=== PATIENT | female | born 1940 | race Caucasian/White ===

== ENCOUNTER → 2017-09-29 09:56 | Outpatient (CLI) | payer MEDICARE, SELFPAY ==
[2017-09-29 12:57] LABS: Thyroid Stim Hormone (TSH) 2.64 uIU/mL (0.358-3.74)
== END ==
PROVIDERS: Family Provider Family Medicine; PCP Family Medicine; Visit Provider Family Medicine
DX: E03.9 Hypothyroidism, unspecified (principal)
CPT/HCPCS: 36415; 84443

== ENCOUNTER → 2017-09-30 11:02 | Outpatient (CLI) | payer MEDICARE, SELFPAY ==
[2017-09-30 12:38] LABS: Absolute Lymphocyte Count 1.25 X10^3/ul (0.83-4.51); Absolute Neutrophil Count 5.6 X10^3/uL (2.0-7.7); Basophil# 0.01 X10^3/uL; Basophil% 0.1 % (0-1); Eosinophil# 0.15 X10^3/uL; Hematocrit 40.7 % (37-47); Hemoglobin 12.6 g/dl (12.0-15.0); Lymphocyte # 1.25 X10^3/ul (4.0); Lymphocyte % 16.3 % (19-41); Mean Corpuscular Hgb 30.6 pg (27.0-32.0); Mean Corpuscular Volume 98.8 fL (81-99); Mean Platelet Vol. 10.9 fl (6.2-12.0); Monocyte# 0.58 X10^3/uL; Monocyte% 7.6 % (0-10); Neutrophil # 5.64 X10^3/uL (2.7-7.7); Neutrophil % 73.7 % (47-70); Platelet Count 223 K/mm3 (150-450); RBC Distribution Width CV 14.3 % (11.6-14.6); RBC Distribution Width SD 51.1 fl (35.1-43.9); Red Blood Count 4.12 M/mm3 (4.2-5.4); White Blood Count 7.7 K/mm3 (4.4-11.0)
[2017-09-30 12:39] LABS: POSITIVE COUNT NO; POSITIVE DIFFERENTIAL NO; POSITIVE MORPHOLOGY NO
[2017-09-30 13:20] LABS: ALB/GLOB Ratio 0.7 RATIO (0.9-2.4); AST(SGOT) 27 U/L (15-37); Alanine Aminotransfer ALT/SGPT 24 U/L (13-56); Albumin, Serum 3.4 g/dL (3.2-5.0); Alkaline Phosphatase 93 U/L (45-117); Anion Gap 7 (5-15); BUN 21 mg/dL (7-18); BUN/Creat Ratio 17.9 RATIO (10-20); Chloride 104 mmol/L (98-107); Creatinine, Serum 1.17 mg/dL (0.55-1.02); EST Glomerular Filtration Rate 48 mL/min (>60); Est Glom Filt Rate - Afr Amer 58 mL/min (>60); Globulin 5.1 g/dL (2.2-4.2); Glucose 87 mg/dL (74-106); Potassium 4.5 mmol/L (3.5-5.1); Protein, Total 8.5 g/dL (6.4-8.2); Sodium Level 138 mmol/L (136-145); T4 Free Direct 1.27 ng/dL (0.76-1.46)
[2017-09-30 13:23] LABS: Vitamin D,25 Hydroxy 63.7 ng/mL (29.95-100.01)
== END ==
PROVIDERS: Family Provider Family Medicine; PCP Family Medicine; Visit Provider Family Medicine
DX: E03.9 Hypothyroidism, unspecified (principal); R94.4 Abnormal results of kidney function studies; E55.9 Vitamin D deficiency, unspecified; R73.09 Other abnormal glucose
CPT/HCPCS: 36415; 80053; 82306; 83036; 84439; 85025

== ENCOUNTER → 2018-01-23 10:07 | Outpatient (CLI) | payer MEDICARE, SELFPAY ==
[2018-01-23 11:41] LABS: Red Blood Cells-Urine 0 SEEN /hpf (0-5); White Blood Cells 0 SEEN /hpf (0-5)
[2018-01-23 14:03] LABS: Color, Urine Yellow (Yellow); Glucose, Dipstick Normal (Normal); Ketone-Dipstick Negative (Negative); Leukocyte Esterase-Dipstick Negative /ul (Negative); Nitrite-Dipstick Negative (Negative); Occult Blood-Urine Negative /ul (Negative); Protein-Dipstick Negative (Negative); Urine Bilirubin Dipstick Negative (Negative); Urine Clarity Clear (Clear); Urine Urobilinogen Normal (Normal)
[2018-01-23 14:10] LABS: Hematocrit 39.2 % (37-47); Hemoglobin 12.2 g/dl (12.0-15.0); Mean Corp Hgb Conc 31.1 g/gl (32-36); Mean Corpuscular Hgb 30.2 pg (27.0-32.0); Mean Platelet Vol. 11.2 fl (6.2-12.0); Platelet Count 206 K/mm3 (150-450); RBC Distribution Width CV 14.1 % (11.6-14.6); RBC Distribution Width SD 48.3 fl (35.1-43.9); Red Blood Count 4.04 M/mm3 (4.2-5.4); White Blood Count 6.5 K/mm3 (4.4-11.0)
[2018-01-23 14:13] LABS: Bacteria 1+ /hpf (None Seen); Scan Indicated on CBC? Y/N NO; Squamous Epithelial Cells - UA 5-10 SEEN /hpf (5-10)
[2018-01-23 14:32] LABS: ALB/GLOB Ratio 0.7 RATIO (0.9-2.4); AST(SGOT) 26 U/L (15-37); Alanine Aminotransfer ALT/SGPT 22 U/L (13-56); Albumin, Serum 3.5 g/dL (3.2-5.0); Alkaline Phosphatase 94 U/L (45-117); Anion Gap 6 (5-15); BUN 22 mg/dL (7-18); BUN/Creat Ratio 18.3 RATIO (10-20); Calcium,Total 9.1 mg/dL (8.5-10.1); Chloride 104 mmol/L (98-107); EST Glomerular Filtration Rate 46 mL/min (>60); Est Glom Filt Rate - Afr Amer 56 mL/min (>60); Glucose 98 mg/dL (74-106); Potassium 4.5 mmol/L (3.5-5.1); Protein, Total 8.5 g/dL (6.4-8.2); Sodium Level 137 mmol/L (136-145); Thyroid Stim Hormone (TSH) 1.22 uIU/mL (0.358-3.74)
[2018-01-23 14:37] LABS: Vitamin D,25 Hydroxy 49.2 ng/mL (29.95-100.01)
== END ==
PROVIDERS: Family Provider Family Medicine; PCP Family Medicine; Visit Provider Family Medicine
DX: N18.3 Chronic kidney disease, stage 3 (moderate) (principal); E03.9 Hypothyroidism, unspecified; E55.9 Vitamin D deficiency, unspecified
CPT/HCPCS: 80053; 81001; 82306; 84439; 84443; 85027

== ENCOUNTER → 2018-05-01 09:43 | Outpatient (CLI) | payer MEDICARE, SELFPAY ==
[2018-05-01 12:17] LABS: Absolute Lymphocyte Count 0.95 X10^3/ul (0.83-4.51); Basophil# 0.02 X10^3/uL; Basophil% 0.3 % (0-1); Eosinophil# 0.29 X10^3/uL; Hematocrit 39.7 % (37-47); Hemoglobin 12.5 g/dl (12.0-15.0); Lymphocyte # 0.95 X10^3/ul (4.0); Lymphocyte % 16.5 % (19-41); Mean Corp Hgb Conc 31.5 g/gl (32-36); Mean Corpuscular Hgb 30.6 pg (27.0-32.0); Mean Corpuscular Volume 97.3 fL (81-99); Mean Platelet Vol. 11.1 fl (6.2-12.0); Monocyte# 0.48 X10^3/uL; Monocyte% 8.3 % (0-10); Neutrophil # 4.01 X10^3/uL (2.7-7.7); Neutrophil % 69.7 % (47-70); Platelet Count 181 K/mm3 (150-450); RBC Distribution Width CV 14.3 % (11.6-14.6); RBC Distribution Width SD 49.2 fl (35.1-43.9); Red Blood Count 4.08 M/mm3 (4.2-5.4); White Blood Count 5.8 K/mm3 (4.4-11.0)
[2018-05-01 12:23] LABS: POSITIVE COUNT NO; POSITIVE DIFFERENTIAL NO; POSITIVE MORPHOLOGY NO
[2018-05-01 12:38] LABS: Phosphorus 3.3 mg/dL (2.5-4.9)
[2018-05-01 12:40] LABS: Vitamin D,25 Hydroxy 69.9 ng/mL (29.95-100.01)
[2018-05-01 12:46] LABS: Protein, Urine (Random) 10.6 mg/dL (<11.9); Protein:Creat Ratio 138 mg/g CRE (0-200)
[2018-05-01 13:09] LABS: PTHIN 49.5 pg/mL (18.4-80.1)
[2018-05-02 08:44] LABS: ALB/GLOB Ratio 0.8 RATIO (0.9-2.4); AST(SGOT) 27 U/L (15-37); Alanine Aminotransfer ALT/SGPT 23 U/L (13-56); Albumin, Serum 3.5 g/dL (3.2-5.0); Alkaline Phosphatase 87 U/L (45-117); Anion Gap 11 (5-15); BUN 20 mg/dL (7-18); BUN/Creat Ratio 14.5 RATIO (10-20); Calcium,Total 8.7 mg/dL (8.5-10.1); Chloride 103 mmol/L (98-107); Creatinine, Serum 1.38 mg/dL (0.55-1.02); EST Glomerular Filtration Rate 39 mL/min (>60); Est Glom Filt Rate - Afr Amer 48 mL/min (>60); Globulin 4.2 g/dL (2.2-4.2); Glucose 91 mg/dL (74-106); Potassium 4.3 mmol/L (3.5-5.1); Protein, Total 7.7 g/dL (6.4-8.2); Sodium Level 136 mmol/L (136-145); Thyroid Stim Hormone (TSH) 1.94 uIU/mL (0.358-3.74)
[2018-05-02 08:57] LABS: Hemoglobin A1c 5.9 % (4.2-6.3)
== END ==
PROVIDERS: Family Provider Family Medicine; PCP Family Medicine; Visit Provider Family Medicine
DX: N18.3 Chronic kidney disease, stage 3 (moderate) (principal); E55.9 Vitamin D deficiency, unspecified; E03.9 Hypothyroidism, unspecified; R73.02 Impaired glucose tolerance (oral)
CPT/HCPCS: 36415; 80053; 82306; 82570; 83036; 83970; 84100; 84156; 84443; 85025

== ENCOUNTER → 2018-06-07 11:07 | Outpatient (CLI) | payer MEDICARE, SELFPAY | PROVIDERS: Family Provider Family Medicine; PCP Family Medicine; Visit Provider Family Medicine | DX: R19.7 Diarrhea, unspecified (principal) | CPT/HCPCS: 87493; 87506 ==

== ENCOUNTER → 2019-01-03 10:00 | Outpatient (CLI) | payer MEDICARE, SELFPAY ==
[2019-01-03 10:06] LABS: Mucous, Urine 0 SEEN /hpf (<or=2+); Red Blood Cells-Urine 0 SEEN /hpf (0-5)
[2019-01-03 12:36] LABS: Absolute Lymphocyte Count 0.87 X10^3/ul (0.83-4.51); Basophil# 0.01 X10^3/uL; Basophil% 0.2 % (0-1); Eosinophil# 0.15 X10^3/uL; Eosinophils% 2.6 % (0-5); Hematocrit 37.8 % (37-47); Hemoglobin 12.4 g/dl (12.0-15.0); Lymphocyte # 0.87 X10^3/ul (4.0); Mean Corp Hgb Conc 32.8 g/gl (32-36); Mean Corpuscular Hgb 31.6 pg (27.0-32.0); Mean Corpuscular Volume 96.4 fL (81-99); Mean Platelet Vol. 10.5 fl (6.2-12.0); Monocyte# 0.72 X10^3/uL; Monocyte% 12.4 % (0-10); Neutrophil # 4.03 X10^3/uL (2.7-7.7); Neutrophil % 69.6 % (47-70); Platelet Count 195 K/mm3 (150-450); RBC Distribution Width CV 13.8 % (11.6-14.6); RBC Distribution Width SD 48.2 fl (35.1-43.9); Red Blood Count 3.92 M/mm3 (4.2-5.4); White Blood Count 5.8 K/mm3 (4.4-11.0)
[2019-01-03 12:44] LABS: POSITIVE COUNT NO; POSITIVE DIFFERENTIAL NO; POSITIVE MORPHOLOGY NO
[2019-01-03 12:52] LABS: Vitamin D,25 Hydroxy 51.3 ng/mL (29.95-100.01)
[2019-01-03 12:54] LABS: ALB/GLOB Ratio 0.8 RATIO (0.9-2.4); AST(SGOT) 33 U/L (15-37); Alanine Aminotransfer ALT/SGPT 30 U/L (13-56); Albumin, Serum 3.3 g/dL (3.2-5.0); Alkaline Phosphatase 102 U/L (45-117); Anion Gap 7 (5-15); BUN 13 mg/dL (7-18); BUN/Creat Ratio 10.7 RATIO (10-20); Calcium,Total 8.9 mg/dL (8.5-10.1); Chloride 100 mmol/L (98-107); Creatinine, Serum 1.21 mg/dL (0.55-1.02); EST Glomerular Filtration Rate 46 mL/min (>60); Est Glom Filt Rate - Afr Amer 55 mL/min (>60); Globulin 4.1 g/dL (2.2-4.2); Glucose 91 mg/dL (74-106); Potassium 4.6 mmol/L (3.5-5.1); Protein, Total 7.4 g/dL (6.4-8.2); Sodium Level 133 mmol/L (136-145); Thyroid Stim Hormone (TSH) 2.18 uIU/mL (0.358-3.74)
[2019-01-03 15:29] LABS: Color, Urine Yellow (Yellow); Glucose, Dipstick Normal (Normal); Ketone-Dipstick Negative (Negative); Leukocyte Esterase-Dipstick 500 /ul (Negative); Nitrite-Dipstick Negative (Negative); Occult Blood-Urine Negative /ul (Negative); Protein-Dipstick Negative (Negative); Urine Bilirubin Dipstick Negative (Negative); Urine Clarity Clear (Clear); Urine Urobilinogen Normal (Normal)
[2019-01-03 15:37] LABS: Bacteria 2+ /hpf (None Seen); Squamous Epithelial Cells - UA 5-10 SEEN /hpf (5-10); White Blood Cells 5-10 SEEN /hpf (0-5)
[2019-01-03 15:50] LABS: Protein, Urine (Random) < 6.0 mg/dL (<11.9)
[2019-01-05 14:08] LABS: Cytoplasmic Ab (C-ANCA) 1:40 titer (Neg:<1:20)
[2019-01-07 14:12] LABS: Perinuclear Ab (P-ANCA) <1:20 titer (Neg:<1:20)
[2019-01-08 12:50] LABS: ANTINUCLEAR ANTIBODIES DIRECT Positive (Negative)
== END ==
PROVIDERS: Family Provider Family Medicine; PCP Family Medicine; Visit Provider Family Medicine
DX: N18.3 Chronic kidney disease, stage 3 (moderate) (principal); R21 Rash and other nonspecific skin eruption; R73.02 Impaired glucose tolerance (oral); E03.9 Hypothyroidism, unspecified; E55.9 Vitamin D deficiency, unspecified
CPT/HCPCS: 80053; 81001; 82306; 82570; 83036; 84156; 84443; 85025; 86038; 86160; 86256

== ENCOUNTER → 2019-01-09 14:46 | Outpatient (CLI) | payer MEDICARE, SELFPAY ==
[2019-01-12 11:33] LABS: ANTINUCLEAR ANTIBODIES DIRECT Positive (Negative)
== END ==
PROVIDERS: Family Provider Family Medicine; PCP Family Medicine; Referring Provider Family Medicine; Visit Provider Dermatology Pediatric Dermatology
DX: L30.9 Dermatitis, unspecified (principal); L29.8 Other pruritus
CPT/HCPCS: 36415; 86038

== ENCOUNTER → 2019-02-02 11:01 | Outpatient (CLI) | payer MEDICARE, SELFPAY ==
[2019-02-02 12:19] LABS: EXAGEN MAILED SPECIMEN
[2019-02-02 12:25] LABS: Color, Urine Yellow (Yellow); Glucose, Dipstick Normal (Normal); Ketone-Dipstick Negative (Negative); Leukocyte Esterase-Dipstick 500 /ul (Negative); Nitrite-Dipstick Negative (Negative); Occult Blood-Urine 10 /ul (Negative); Protein-Dipstick Negative (Negative); Urine Bilirubin Dipstick Negative (Negative); Urine Clarity Clear (Clear); Urine Urobilinogen Normal (Normal)
[2019-02-02 12:33] LABS: Erythrocyte Sedimentation Rate 43 mm/hr (0-30)
[2019-02-02 12:35] LABS: Absolute Lymphocyte Count 0.92 X10^3/uL (0.83-4.51); Absolute Neutrophil Count 4.3 X10^3/uL (2.0-7.7); Basophil# 0.02 X10^3/uL; Basophil% 0.3 % (0-1); Eosinophil# 0.12 X10^3/uL; Lymphocyte # 0.92 X10^3/ul (4.0); Lymphocyte % 15.4 % (19-41); Mean Corp Hgb Conc 31.7 g/dL (32-36); Mean Corpuscular Hgb 31.9 pg (27.0-32.0); Mean Corpuscular Volume 100.5 fL (81-99); Mean Platelet Vol. 10.3 fl (6.2-12.0); Monocyte# 0.61 X10^3/uL; Monocyte% 10.2 % (0-10); NRBC Flagged by Analyzer 0 % (0-5); Neutrophil # 4.28 X10^3/uL (2.7-7.7); Neutrophil % 71.8 % (47-70); Platelet Count 168 K/mm3 (150-450); RBC Distribution Width CV 13.6 % (11.6-14.6); RBC Distribution Width SD 50.4 fl (35.1-43.9); Red Blood Count 4.08 M/mm3 (4.2-5.4)
[2019-02-02 12:47] LABS: Protein, Urine (Random) 13.5 mg/dL (<11.9); Protein:Creat Ratio 232 mg/g CRE (0-200)
[2019-02-02 12:50] LABS: ALB/GLOB Ratio 0.8 RATIO (0.9-2.4); AST(SGOT) 27 U/L (15-37); Alanine Aminotransfer ALT/SGPT 23 U/L (13-56); Albumin, Serum 3.6 g/dL (3.2-5.0); Alkaline Phosphatase 103 U/L (45-117); Anion Gap 5 (5-15); BUN 18 mg/dL (7-18); BUN/Creat Ratio 13.4 RATIO (10-20); CRP < 2.90 mg/L (0.0-3.0); Calcium,Total 9.7 mg/dL (8.5-10.1); Chloride 104 mmol/L (98-107); Creatinine, Serum 1.34 mg/dL (0.55-1.02); EST Glomerular Filtration Rate 41 mL/min (>60); Est Glom Filt Rate - Afr Amer 49 mL/min (>60); Globulin 4.5 g/dL (2.2-4.2); Glucose 102 mg/dL (74-106); Potassium 4.4 mmol/L (3.5-5.1); Protein, Total 8.1 g/dL (6.4-8.2); Sodium Level 138 mmol/L (136-145)
[2019-02-02 13:46] LABS: Hepatitis B Surface Antibody Non-Reactive; Hepatitis B Surface Antigen Non-Reactive (Nonreactive); Hepatitis C Antibody Non-Reactive (Nonreactive)
[2019-02-03 10:06] LABS: Hepatitis B Core AB IgM Negative (Negative)
== END ==
PROVIDERS: Family Provider Family Medicine; PCP Family Medicine; Referring Provider Family Medicine; Visit Provider Internal Medicine Rheumatology
DX: M32.9 Systemic lupus erythematosus, unspecified (principal); E03.9 Hypothyroidism, unspecified; H35.30 Unspecified macular degeneration; M17.11 Unilateral primary osteoarthritis, right knee
CPT/HCPCS: 36415; 80053; 81002; 82570; 84156; 85025; 85652; 86140; 86705; 86706; 86803; 87340

== ENCOUNTER → 2019-04-25 09:23 | Outpatient (CLI) | payer MEDICARE, SELFPAY ==
--- NOTE | 2019-04-25 09:34 | BD_ITS ---
STUDY: DUAL ENERGY X-RAY ABSORPTIOMETRY / DXA REASON FOR EXAM: Female, 78 years old. The patient is postmenopausal. Loss of height. TECHNIQUE: Bone Mineral Density (BMD) measurements of lumbar spine and bilateral hips were obtained. COMPARISON: None. FINDINGS: Lumbar Spine (L1-L4): g/cm2 (1.480) / T-score (2.6) / Z-score (4.5) Findings are suggestive of normal bone density with a low fracture risk. Left Femur Total: g/cm2 (1.062) / T-score (0.4) / Z-score (2.4) Left Femoral Neck: g/cm2 (1.068) / T-score (0.2) / Z-score (2.3) Right Femur Total: g/cm2 (0.981) / T-score (-0.2) / Z-score (1.8) Right Femoral Neck: g/cm2 (1.031) / T-score (-0.1) / Z-score (2.1) BD/Dexa Bone Density Study IMPRESSION: The patient is considered normal as outlined below according to World Philipp Organization (WHO) criteria with a low fracture risk. Reference Information: The T-score is the number of standard deviations above or below the standard which is normal for young adults at their peak bone mineral density. The World Health Organization (WHO) interprets the T-scores as follows: Above -1 Normal bone density Between -1 and -2.5 Osteopenia Equal to / or below -2.5 Osteoporosis As a practical clinical guideline, osteopenia may be graded as follows: Mild -1 through -1.5 Moderate -1.6 through -2.0 Severe -2.1 through -2.4 The Z-score is the number of standard deviations above or below age-matched controls. A Z-score of less than -1.5 would be considered abnormal. References: 1. NIH Osteoporosis and Related Bone Diseases http://www.osteo.org 2. International Society for Clinical Densitometry http://www.iscd.org 3. National Osteoporosis Foundation http://www.nof.org Electronically Signed: Balaji Sifuentes, at 13:27 EDT , Service support ,
== END ==
PROVIDERS: Family Provider Family Medicine; PCP Family Medicine; Referring Provider Family Medicine; Visit Provider Family Medicine
DX: Z78.0 Asymptomatic menopausal state (principal); Z13.820 Encounter for screening for osteoporosis
CPT/HCPCS: 77080

== ENCOUNTER → 2019-05-07 10:47 | Outpatient (CLI) | payer MEDICARE, SELFPAY ==
[2019-05-07 12:33] LABS: Absolute Lymphocyte Count 1.12 X10^3/uL (0.83-4.51); Absolute Neutrophil Count 3.8 X10^3/uL (2.0-7.7); Basophil# 0.03 X10^3/uL; Basophil% 0.5 % (0-1); Eosinophil# 0.18 X10^3/uL; Eosinophils% 3.1 % (0-5); Hematocrit 37.3 % (37-47); Hemoglobin 11.6 g/dL (12.0-15.0); Lymphocyte # 1.12 X10^3/ul (4.0); Lymphocyte % 19.4 % (19-41); Mean Corp Hgb Conc 31.1 g/dL (32-36); Mean Corpuscular Hgb 31.4 pg (27.0-32.0); Mean Corpuscular Volume 101.1 fL (81-99); Mean Platelet Vol. 10.6 fl (6.2-12.0); Monocyte# 0.66 X10^3/uL; Monocyte% 11.5 % (0-10); NRBC Flagged by Analyzer 0 % (0-5); Neutrophil # 3.76 X10^3/uL (2.7-7.7); Neutrophil % 65.3 % (47-70); Platelet Count 175 K/mm3 (150-450); RBC Distribution Width CV 13.8 % (11.6-14.6); RBC Distribution Width SD 51.4 fl (35.1-43.9); Red Blood Count 3.69 M/mm3 (4.2-5.4); White Blood Count 5.8 K/mm3 (4.4-11.0)
[2019-05-07 12:34] LABS: Color, Urine Yellow (Yellow); Glucose, Dipstick Normal (Normal); Ketone-Dipstick Negative (Negative); Leukocyte Esterase-Dipstick 100 /ul (Negative); Nitrite-Dipstick Negative (Negative); Occult Blood-Urine Negative /ul (Negative); Protein-Dipstick 15 mg/dl (Negative); Specific Gravity, Urine 1.015 (1.002-1.030); Urine Bilirubin Dipstick Negative (Negative); Urine Clarity Sl. Cloudy (Clear); Urine Urobilinogen Normal (Normal)
[2019-05-07 12:49] LABS: Protein:Creat Ratio 214 mg/g CRE (0-200)
[2019-05-07 12:56] LABS: ALB/GLOB Ratio 0.8 RATIO (0.9-2.4); AST(SGOT) 30 U/L (15-37); Alanine Aminotransfer ALT/SGPT 19 U/L (13-56); Albumin, Serum 3.3 g/dL (3.2-5.0); Alkaline Phosphatase 71 U/L (45-117); Anion Gap 6 (5-15); BUN 17 mg/dL (7-18); BUN/Creat Ratio 10.7 RATIO (10-20); Chloride 106 mmol/L (98-107); Creatinine, Serum 1.59 mg/dL (0.55-1.02); EST Glomerular Filtration Rate 33 mL/min (>60); Est Glom Filt Rate - Afr Amer 40 mL/min (>60); Globulin 4.2 g/dL (2.2-4.2); Glucose 84 mg/dL (74-106); Potassium 4.5 mmol/L (3.5-5.1); Protein, Total 7.5 g/dL (6.4-8.2); Sodium Level 139 mmol/L (136-145)
== END ==
PROVIDERS: Family Provider Family Medicine; PCP Family Medicine; Referring Provider Family Medicine; Visit Provider Internal Medicine Rheumatology
DX: M32.9 Systemic lupus erythematosus, unspecified (principal); E03.9 Hypothyroidism, unspecified; R76.8 Other specified abnormal immunological findings in serum; H35.30 Unspecified macular degeneration; M17.11 Unilateral primary osteoarthritis, right knee; Z85.3 Personal history of malignant neoplasm of breast; Z92.3 Personal history of irradiation
CPT/HCPCS: 36415; 80053; 81002; 82570; 84156; 85025

== ENCOUNTER → 2019-06-01 11:00 | Outpatient (CLI) | payer MEDICARE, SELFPAY ==
[2019-06-01 12:11] LABS: Absolute Lymphocyte Count 1.16 X10^3/uL (0.83-4.51); Absolute Neutrophil Count 3.9 X10^3/uL (2.0-7.7); Basophil# 0.04 X10^3/uL; Basophil% 0.7 % (0-1); Eosinophil# 0.21 X10^3/uL; Eosinophils% 3.5 % (0-5); Hematocrit 38.2 % (37-47); Hemoglobin 12.1 g/dL (12.0-15.0); Lymphocyte # 1.16 X10^3/ul (4.0); Lymphocyte % 19.6 % (19-41); Mean Corp Hgb Conc 31.7 g/dL (32-36); Mean Corpuscular Hgb 31.8 pg (27.0-32.0); Mean Corpuscular Volume 100.5 fL (81-99); Mean Platelet Vol. 10.4 fl (6.2-12.0); Monocyte% 10.1 % (0-10); NRBC Flagged by Analyzer 0 % (0-5); Neutrophil % 65.9 % (47-70); Platelet Count 181 K/mm3 (150-450); RBC Distribution Width CV 14.4 % (11.6-14.6); RBC Distribution Width SD 53.1 fl (35.1-43.9); White Blood Count 5.9 K/mm3 (4.4-11.0)
[2019-06-01 12:31] LABS: Hemoglobin A1c 5.4 % (4.2-6.3)
[2019-06-01 12:42] LABS: PTHIN 56.9 pg/mL (18.4-80.1); Vitamin D,25 Hydroxy 48.7 ng/mL (29.95-100.01)
[2019-06-01 12:43] LABS: ALB/GLOB Ratio 0.9 RATIO (0.9-2.4); AST(SGOT) 25 U/L (15-37); Alanine Aminotransfer ALT/SGPT 18 U/L (13-56); Albumin, Serum 3.6 g/dL (3.2-5.0); Alkaline Phosphatase 69 U/L (45-117); Anion Gap 7 (5-15); BUN 18 mg/dL (7-18); BUN/Creat Ratio 11.5 RATIO (10-20); Chloride 106 mmol/L (98-107); Creatinine, Serum 1.56 mg/dL (0.55-1.02); EST Glomerular Filtration Rate 34 mL/min (>60); Est Glom Filt Rate - Afr Amer 41 mL/min (>60); Globulin 4.2 g/dL (2.2-4.2); Glucose 85 mg/dL (74-106); Phosphorus 2.6 mg/dL (2.5-4.9); Potassium 4.4 mmol/L (3.5-5.1); Protein, Total 7.8 g/dL (6.4-8.2); Sodium Level 139 mmol/L (136-145); Thyroid Stim Hormone (TSH) 5.32 uIU/mL (0.358-3.74)
== END ==
PROVIDERS: Family Provider Family Medicine; PCP Family Medicine; Referring Provider Family Medicine; Visit Provider Family Medicine
DX: N18.3 Chronic kidney disease, stage 3 (moderate) (principal); E03.9 Hypothyroidism, unspecified; R73.02 Impaired glucose tolerance (oral); E55.9 Vitamin D deficiency, unspecified
CPT/HCPCS: 36415; 80053; 82306; 83036; 83970; 84100; 84443; 85025

== ENCOUNTER → 2019-08-30 13:46 | Outpatient (CLI) | payer MEDICARE, SELFPAY ==
[2019-08-30 16:23] LABS: Albumin, Serum 3.5 g/dL (3.2-5.0); BUN 22 mg/dL (7-18); BUN/Creat Ratio 14.5 RATIO (10-20); Calcium,Total 9.5 mg/dL (8.5-10.1); Chloride 105 mmol/L (98-107); Creatinine, Serum 1.52 mg/dL (0.55-1.02); EST Glomerular Filtration Rate 35 mL/min (>60); Est Glom Filt Rate - Afr Amer 42 mL/min (>60); Glucose 85 mg/dL (74-106); Phosphorus 3.5 mg/dL (2.5-4.9); Potassium 4.6 mmol/L (3.5-5.1); Sodium Level 137 mmol/L (136-145)
[2019-08-30 16:43] LABS: Microalbumin,Random Urine < 5.0 mg/L (NO RANGE EST.)
== END ==
PROVIDERS: PCP Family Medicine; Visit Provider Internal Medicine Nephrology
DX: N18.3 Chronic kidney disease, stage 3 (moderate) (principal); M32.9 Systemic lupus erythematosus, unspecified
CPT/HCPCS: 36415; 80069; 82043; 82570

== ENCOUNTER → 2019-10-03 10:22 | Outpatient (CLI) | payer MEDICARE, SELFPAY ==
[2019-10-03 12:10] LABS: Absolute Lymphocyte Count 1.09 X10^3/uL (0.83-4.51); Basophil# 0.04 X10^3/uL; Basophil% 0.6 % (0-1); Eosinophil# 0.27 X10^3/uL; Eosinophils% 3.9 % (0-5); Hematocrit 39.8 % (37-47); Hemoglobin 12.7 g/dL (12.0-15.0); Lymphocyte # 1.09 X10^3/ul (4.0); Lymphocyte % 15.6 % (19-41); Mean Corp Hgb Conc 31.9 g/dL (32-36); Mean Corpuscular Hgb 32.5 pg (27.0-32.0); Mean Corpuscular Volume 101.8 fL (81-99); Mean Platelet Vol. 10.4 fl (6.2-12.0); Monocyte# 0.59 X10^3/uL; Monocyte% 8.4 % (0-10); NRBC Flagged by Analyzer 0 % (0-5); Neutrophil # 4.98 X10^3/uL (2.7-7.7); Neutrophil % 71.1 % (47-70); Platelet Count 189 K/mm3 (150-450); Protein:Creat Ratio 339 mg/g CRE (0-200); RBC Distribution Width CV 12.9 % (11.6-14.6); RBC Distribution Width SD 48.1 fl (35.1-43.9); Red Blood Count 3.91 M/mm3 (4.2-5.4)
[2019-10-03 12:23] LABS: Vitamin D,25 Hydroxy 46.7 ng/mL
[2019-10-03 12:28] LABS: Hemoglobin A1c 5.2 % (4.2-6.3)
[2019-10-03 12:34] LABS: ALB/GLOB Ratio 0.9 RATIO (0.9-2.4); AST(SGOT) 25 U/L (15-37); Alanine Aminotransfer ALT/SGPT 19 U/L (13-56); Albumin, Serum 3.8 g/dL (3.2-5.0); Alkaline Phosphatase 79 U/L (45-117); Anion Gap 5 (5-15); BUN 21 mg/dL (7-18); BUN/Creat Ratio 14.1 RATIO (10-20); Calcium,Total 9.9 mg/dL (8.5-10.1); Chloride 102 mmol/L (98-107); Creatinine, Serum 1.49 mg/dL (0.55-1.02); EST Glomerular Filtration Rate 36 mL/min (>60); Est Glom Filt Rate - Afr Amer 43 mL/min (>60); Globulin 4.3 g/dL (2.2-4.2); Glucose 90 mg/dL (74-106); Phosphorus 3.6 mg/dL (2.5-4.9); Potassium 4.4 mmol/L (3.5-5.1); Protein, Total 8.1 g/dL (6.4-8.2); Sodium Level 134 mmol/L (136-145); T4 Free Direct 1.05 ng/dL (0.76-1.46); Thyroid Stim Hormone (TSH) 2.28 uIU/mL (0.358-3.74)
[2019-10-03 14:17] LABS: PTHIN 38.9 pg/mL (18.4-80.1)
== END ==
PROVIDERS: PCP Family Medicine; Referring Provider Family Medicine; Visit Provider Family Medicine
DX: N18.3 Chronic kidney disease, stage 3 (moderate) (principal); R73.02 Impaired glucose tolerance (oral); E03.9 Hypothyroidism, unspecified; E55.9 Vitamin D deficiency, unspecified
CPT/HCPCS: 36415; 80053; 82306; 82570; 83036; 83970; 84100; 84156; 84439; 84443; 85025

== ENCOUNTER → 2019-10-22 13:42 | Outpatient (CLI) | payer MEDICARE, SELFPAY ==
[2019-10-22 15:03] LABS: Absolute Lymphocyte Count 1.56 X10^3/uL (0.83-4.51); Absolute Neutrophil Count 4.1 X10^3/uL (2.0-7.7); Basophil# 0.04 X10^3/uL; Basophil% 0.6 % (0-1); Eosinophils% 1.5 % (0-5); Hematocrit 38.6 % (37-47); Hemoglobin 12.4 g/dL (12.0-15.0); Lymphocyte # 1.56 X10^3/ul (4.0); Lymphocyte % 23.8 % (19-41); Mean Corp Hgb Conc 32.1 g/dL (32-36); Mean Corpuscular Hgb 32.3 pg (27.0-32.0); Mean Corpuscular Volume 100.5 fL (81-99); Mean Platelet Vol. 10.2 fl (6.2-12.0); Monocyte% 10.7 % (0-10); NRBC Flagged by Analyzer 0 % (0-5); Neutrophil # 4.14 X10^3/uL (2.7-7.7); Neutrophil % 63.1 % (47-70); Platelet Count 186 K/mm3 (150-450); RBC Distribution Width CV 12.7 % (11.6-14.6); RBC Distribution Width SD 47.3 fl (35.1-43.9); Red Blood Count 3.84 M/mm3 (4.2-5.4); White Blood Count 6.6 K/mm3 (4.4-11.0)
[2019-10-22 15:37] LABS: ALB/GLOB Ratio 0.9 RATIO (0.9-2.4); AST(SGOT) 27 U/L (15-37); Alanine Aminotransfer ALT/SGPT 19 U/L (13-56); Albumin, Serum 3.7 g/dL (3.2-5.0); Alkaline Phosphatase 87 U/L (45-117); Anion Gap 7 (5-15); BUN 17 mg/dL (7-18); BUN/Creat Ratio 12.1 RATIO (10-20); Calcium,Total 9.3 mg/dL (8.5-10.1); Chloride 100 mmol/L (98-107); EST Glomerular Filtration Rate 39 mL/min (>60); Est Glom Filt Rate - Afr Amer 47 mL/min (>60); Globulin 4.2 g/dL (2.2-4.2); Glucose 89 mg/dL (74-106); Potassium 4.6 mmol/L (3.5-5.1); Protein, Total 7.9 g/dL (6.4-8.2); Sodium Level 133 mmol/L (136-145)
== END ==
PROVIDERS: PCP Family Medicine; Referring Provider Internal Medicine Rheumatology; Visit Provider Internal Medicine Rheumatology
DX: M32.9 Systemic lupus erythematosus, unspecified (principal); R76.8 Other specified abnormal immunological findings in serum; E03.9 Hypothyroidism, unspecified; H35.30 Unspecified macular degeneration; M17.11 Unilateral primary osteoarthritis, right knee; Z85.3 Personal history of malignant neoplasm of breast
CPT/HCPCS: 36415; 80053; 85025

== ENCOUNTER → 2019-11-27 09:06 | Outpatient (CLI) | payer MEDICARE, SELFPAY ==
[2019-11-27 09:40] LABS: Albumin, Serum 3.6 g/dL (3.2-5.0); BUN 17 mg/dL (7-18); BUN/Creat Ratio 11.9 RATIO (10-20); Chloride 99 mmol/L (98-107); Creatinine, Serum 1.43 mg/dL (0.55-1.02); EST Glomerular Filtration Rate 38 mL/min (>60); Est Glom Filt Rate - Afr Amer 45 mL/min (>60); Glucose 92 mg/dL (74-106); Phosphorus 3.3 mg/dL (2.5-4.9); Potassium 4.6 mmol/L (3.5-5.1); Sodium Level 134 mmol/L (136-145)
== END ==
LOC: LAB.FUTURE 09:07 → LAB 09:07
PROVIDERS: PCP Family Medicine; Visit Provider Internal Medicine Nephrology
DX: N18.3 Chronic kidney disease, stage 3 (moderate) (principal)
CPT/HCPCS: 36415; 80069

== ENCOUNTER 2020-01-10 12:31 | Observation (INO) | payer MEDICARE, SELFPAY ==
[2020-01-10] VITALS (8 sets, daily range): BP systolic 112–149; BP diastolic 50–76; PULSE 55–78; RESP 16–19; TEMP 36.6–37.1; O2SAT 95–100; BMI 29.0; BMI 29.1; BMI 29.7
--- NOTE | 2020-01-10 13:06 | CT_ITS ---
STUDY: CT BRAIN WITHOUT CONTRAST REASON FOR EXAM: Female, 79 years old. HEAD INJURY, FALL 3 X LAST TWO DAYS, DIZZINESS RADIATION DOSAGE (If Supplied By Facility): CTDIvol = ( 60.81 ) mGy, DLP = ( 1044.28 ) mGycm TECHNIQUE: Transaxial CT imaging of the brain was performed without administration of intravenous contrast material. Individualized dose optimization techniques were used for this CT. COMPARISON: No relevant priors. FINDINGS: Normal soft tissue structures. There is hyperostosis frontalis internus. There is mild cerebral atrophy with widening of the extra-axial spaces and ventricular dilatation. There are areas of decreased attenuation within the white matter tracts of the supratentorial brain, consistent with microvascular disease changes. Normal basal ganglia and thalami. Normal brainstem. Normal cerebellum. There is no intracranial hemorrhage. There are no findings of an acute ischemic infarction. Atherosclerotic calcification of the cavernous portions of the internal carotid arteries bilaterally. Normal visualized paranasal sinuses. CT/Brain/Head without Contrast IMPRESSION: Chronic involutional changes of the brain. Electronically Signed: Balaji Sifuentes, at 13:43 EDT , Service support ,
--- NOTE | 2020-01-10 13:06 | EKG12_ITS ---
Test Reason : Blood Pressure : / mmHG Vent. Rate : 058 BPM Atrial Rate : 058 BPM P-R Int : 196 ms QRS Dur : 140 ms QT Int : 450 ms P-R-T Axes : 003 228 034 degrees QTc Int : 441 ms Sinus bradycardia Right bundle branch block Abnormal ECG Confirmed by MICHAEL JO, KATHY ([id number]), pictures editor NATHAN DESIR ([id number]) on 01/14/2020 10:59:45 AM Referred By: VIRGIL Confirmed By:KATHY RODRIGUEZ MD
--- NOTE | 2020-01-10 13:08 | CT_ITS ---
STUDY: CT LUMBAR SPINE WITHOUT CONTRAST REASON FOR EXAM: Female, 79 years old. FALL 3 X IN TWO DAYS, SEVERE PAIN SINCE FALL LAST NIGHT LOWER BACK, NO HX OF PRIOR BACK INJURY RADIATION DOSAGE (If Supplied By Facility): CTDIvol = ( 30 ) mGy, DLP = ( 982.14 ) mGycm TECHNIQUE: The patient was scanned in a multi detector CT scanner. High resolution transaxial imaging was performed. Images were obtained from T12 to S1 vertebral level.. Sagittal and coronal images were reconstructed. Individualized dose optimization techniques were used for this CT. COMPARISON: None FINDINGS: Normal lumbar lordosis. There is no substantial scoliosis. Mild degree of increased markings at the right lung base suggestive of atelectasis. Nondisplaced compression fracture of the L1 vertebrae more prominent on the left side of the midline. L1-2: Mild degree of disc space narrowing. Facet joint osteoarthritis and hypertrophy. Spondylosis. L2-3: Moderate degree of disc space narrowing. Spondylosis. Facet joint osteoarthritis and hypertrophy. Mild degree of diffuse posterior disc bulge. Moderate degree of left neural foraminal stenosis due to the prominence of the disc bulge on the left side. L3-4: Nondisplaced compression fracture of the L4 vertebrae more prominent anteriorly and left side. Facet joint osteoarthritis and hypertrophy. Mild degree of diffuse posterior disc bulge. L4-5: Compression fracture of the left anterior aspect of the L4 vertebrae. Facet joint osteoarthritis. Mild degree of joint space narrowing. L5-S1: Normal endplates. Normal disc height and morphology. Normal bilateral facet joints. Normal central canal and bilateral lateral recesses. Normal bilateral intervertebral neural foramina. Normal visualized paraspinous soft tissue structures. CT/Spine Lumbar without Contrast IMPRESSION: Multilevel degenerative changes, as described above. Nondisplaced compression fracture of the L4 vertebrae as described. Electronically Signed: Balaji Sifuentes, at 13:49 EDT , Service support ,
--- NOTE | 2020-01-10 13:22 | ED.VIS.GEN ---
History of Present Illness Chief Complaint: Dizziness Narrative: Patient presenting for evaluation secondary to dizziness and frequent falls. Patient reports that today since about 2 AM she has had 3 falls. Patient states that each 1 of these has been associated with an onset of dizziness. She describes this dizziness as a vertigo type sensation, and then states that she felt as if she was in an envelope. She denies that she passed out. She denies any visual changes numbness or weakness. Patient states that each of the 3 times she fell she did strike her head. Patient denies loss of consciousness. Patient is not on any sort of anticoagulants. She reports that she does have back pain associated with these falls. Patient denies recent illness. She denies any nausea vomiting diarrhea dysuria hematuria. She denies any chest pain associated with this. No neck pain associated with this. Review of systems otherwise negative. Past Medical History - Allergies and Home Meds Allergies/Adverse Reactions: Allergies PERTUSSIN Allergy (Uncoded 01/10/20 12:36) Hives Primary Care Physician: Zhen Levine MD [Primary Care Provider] - Prior records reviewed: Yes Past Medical History: - - Hypothyroid, h/o breast CA Surgical History: - - Appendectomy, tonsillectomy, hysterectomy 2005, right breast surgery for breast cancer, right ankle surgery, R TKR. Lives: Alone Smoking Status: Never smoker Alcohol: None Drugs: None - Family History Paternal Family History: Reports: No pertinent history Maternal Family History: Reports: No pertinent history Review of Systems All systems negative except as indicated General: Reports: - - Dizziness Eyes: Denies: Visual changes - bilaterally, Diplopia ENT: Denies: Rhinorrhea, Sore throat Cardiovascular: Denies: Chest pain, Palpitations Respiratory: Denies: Dyspnea, Cough, Dyspnea on exertion Gastrointestinal: Denies: Abdominal pain, Nausea, Vomiting, Diarrhea, Melena, Hematochezia Genitourinary: Denies: Dysuria, Hematuria, Frequency Musculoskeletal: Reports: Back pain Skin: Denies: Rash, Wounds Neurological: Denies: Headache, Weakness, Numbness Physical Exam Vital Signs/Narrative: Vital Signs Temp Pulse Resp BP Pulse Ox 01/10/20 12:32 98 F 55 L 18 149/55 H 98 Inital Vital Signs reviewed: Yes General: Well nourished, Well developed, No Acute Distress Head: Normocephalic, Atraumatic Eyes: Perrl, EOMI ENT: Moist mucous membranes, No rhinorrhea Neck: Supple, Nontender Cardiovascular: - - 2+ radial pulses. Regularly irregular Respiratory: No distress, CTA bilaterally, Chest nontender Abdomen: Soft, Nontender, Nondistended, Normal bowel sounds Back: Normal Inspection, - - Bar tenderness without any evidence of step-offs Extremities: Nontender, No edema Skin: Normal color, - - Shingles noted over the patient's right back Neurological: Alert, Oriented x3, Cranial nerves II-XII grossly intact, Normal Strength, Normal Sensation Psychological: Normal affect, Normal Mood Diagnostic/Tx/Re-eval Clinical Impression(s) from Imaging Studies Brain CT 01/10/20 13:06 IMPRESSION: Chronic involutional changes of the brain. Electronically Signed: Baalji Sifuentes, at 13:43 EDT , Service support , Lumbar Spine CT 01/10/20 13:08 IMPRESSION: Multilevel degenerative changes, as described above. Nondisplaced compression fracture of the L4 vertebrae as described. Electronically Signed: Balaji Sifuentes, at 13:49 EDT , Service support , Chest X-Ray 01/10/20 13:25 IMPRESSION: No acute abnormality is seen. Electronically Signed: Balaji Sifuentes at 13:50 EDT , Service support , Laboratory Data 01/10/20 01/10/20 01/10/20 13:12 13:12 13:12 WBC 10.2 RBC 3.50 L Hgb 11.5 L Hct 34.9 L MCV 99.7 H MCH 32.9 H MCHC 33.0 RDW Std Deviation 45.6 H RDW Coeff of Hernán 12.6 Plt Count 205 MPV 9.9 Immature Gran % (Auto) 0.700 Neut % (Auto) 85.7 H Lymph % (Auto) 6.5 L [place] % (Auto) 6.9 Eos % (Auto) 0.0 Baso % (Auto) 0.2 Absolute Neuts (auto) 8.7 H Absolute Lymphs (auto) 0.66 L Nucleated RBC % 0 PT 13.4 INR 1.1 APTT 32.1 Specimen Type VBG pH VBG pO2 VBG O2 Sat (Calc) VBG O2 Content VBG Base Excess POC Mix VBG pCO2 Pt Tmp Sodium 130 L Potassium 4.6 Chloride 98 Carbon Dioxide 25.0 Anion Gap 7 BUN 21 H Creatinine 1.62 H Estim Creat Clear Calc 25.93 Est GFR (MDRD) Af Amer 39 L Est GFR (MDRD) Non-Af 33 L BUN/Creatinine Ratio 13.0 Glucose 102 Calcium 8.7 Troponin I < 0.015 Urine Color Urine Clarity Urine pH Ur Specific [employer] Urine Protein Urine Glucose (UA) Urine Ketones Urine Occult Blood Urine Nitrite Urine Bilirubin Urine Urobilinogen Ur Leukocyte Esterase Urine RBC Urine WBC Ur Squamous Epith Cells Urine Bacteria Urine Mucus 01/10/20 01/10/20 14:15 14:27 WBC RBC Hgb Hct MCV MCH MCHC RDW Std Deviation RDW Coeff of Hernán Plt Count MPV Immature Gran % (Auto) Neut % (Auto) Lymph % (Auto) [place] % (Auto) Eos % (Auto) Baso % (Auto) Absolute Neuts (auto) Absolute Lymphs (auto) Nucleated RBC % PT INR APTT Specimen Type LORRAINE VBG pH 7.43 H VBG pO2 22 L VBG O2 Sat (Calc) 40 L VBG O2 Content 25 VBG Base Excess -1 POC Mix VBG pCO2 Pt Tmp 35.4 L Sodium Potassium Chloride Carbon Dioxide Anion Gap BUN Creatinine Estim Creat Clear Calc Est GFR (MDRD) Af Amer Est GFR (MDRD) Non-Af BUN/Creatinine Ratio Glucose Calcium Troponin I Urine Color Yellow Urine Clarity Clear Urine pH 6.5 Ur Specific [employer] 1.010 Urine Protein Negative Urine Glucose (UA) Normal Urine Ketones Negative Urine Occult Blood Negative Urine Nitrite Negative Urine Bilirubin Negative Urine Urobilinogen Normal Ur Leukocyte Esterase 100 H Urine RBC 0 SEEN Urine WBC 0 SEEN Ur Squamous Epith Cells 0-5 SEEN Urine Bacteria 0 SEEN Urine Mucus 0 SEEN - EKG Initial EKG Interpretation: - - Sinus bradycardia with a rate of 58. Right bundle branch block morphology is noted which is new from prior EKG in 2014. Normal T waves isoelectric ST segments. Borderline prolonged [place] interval at 196. Normal QTC. - Medical Decision Making Patient presented secondary to frequent falls today with some back pain. Patient's NIH stroke scale is 0, she does not seem to have any abnormal cerebellar findings but she is describing this as a vertiginous type dizziness. Work-up was obtained. CBC demonstrates no evidence of infection. Chemistry shows mild hyponatremia, mild elevation of the patient's creatinine. Troponin was negative. Urinalysis shows no signs of infection. Chest x-ray by my personal review as well as radiology does not demonstrate any evidence of acute pathology. CT imaging of the brain was negative, CT imaging of the lumbar spine shows an acute L4 compression fracture. While in the emergency department the patient had significant difficulty with ambulating and was a full assist by 2 nurses just to get to the bedside commode. She gives both symptoms of lightheadedness as well as an element of vertigo. She does potentially have vertigo that would require work-up for posterior circulation stroke. She does not meet any stroke team or TPA criteria. Patient will be admitted under the hospitalist for further work-up. ED Disposition - Plan for ED Patient: Disposition: Acute Care Hospital [facility] Diagnosis: Vertigo, Ambulatory dysfunction, Compression fracture of L4 vertebra
[2020-01-10 13:24] LABS: Absolute Lymphocyte Count 0.66 X10^3/uL (0.83-4.51); Absolute Neutrophil Count 8.7 X10^3/uL (2.0-7.7); Basophil# 0.02 X10^3/uL; Basophil% 0.2 % (0-1); Hematocrit 34.9 % (37-47); Hemoglobin 11.5 g/dL (12.0-15.0); Lymphocyte # 0.66 X10^3/ul (4.0); Lymphocyte % 6.5 % (19-41); Mean Corpuscular Hgb 32.9 pg (27.0-32.0); Mean Corpuscular Volume 99.7 fL (81-99); Mean Platelet Vol. 9.9 fl (6.2-12.0); Monocyte% 6.9 % (0-10); NRBC Flagged by Analyzer 0 % (0-5); Neutrophil # 8.74 X10^3/uL (2.7-7.7); Neutrophil % 85.7 % (47-70); Platelet Count 205 K/mm3 (150-450); RBC Distribution Width CV 12.6 % (11.6-14.6); RBC Distribution Width SD 45.6 fl (35.1-43.9); White Blood Count 10.2 K/mm3 (4.4-11.0)
--- NOTE | 2020-01-10 13:25 | RAD_ITS ---
STUDY: X-RAY CHEST REASON FOR EXAM: Female, 79 years old. PT HAS BECOME DIZZY AND FALLEN THREE TIMES WITHIN THE LAST 24 HOURS. PT COMPLAINS OF SEVERE BACK PAIN TECHNIQUE: Single AP portable view of the chest. COMPARISON: Comparison is made with prior study dated January 15, 2012. FINDINGS: EKG electrodes are seen. The lungs are clear and expanded. There is no demonstrated pleural abnormality. Normal size heart. Normal mediastinum and rodney. Normal visualized pulmonary arteries. Normal visualized aortic arch and descending thoracic aorta. There are diffuse degenerative changes of the visualized thoracic spine. There is degenerative osteoarthritis of the bilateral shoulders. There is no demonstrated abnormality of the visualized soft tissue structures of the upper abdomen. RAD/Chest 1 View (Portable) IMPRESSION: No acute abnormality is seen. Electronically Signed: Balaji Sifuentes, at 13:50 EDT , Service support ,
[2020-01-10 13:38] LABS: International Normalized Ratio 1.1; Prothrombin Time (Protime)PT. 13.4 SECONDS (11.7-14.9)
[2020-01-10 13:39] LABS: Partial Thromboplast Time 32.1 Seconds (24.1-36.2)
[2020-01-10 13:49] LABS: Anion Gap 7 (5-15); BUN 21 mg/dL (7-18); Calcium,Total 8.7 mg/dL (8.5-10.1); Chloride 98 mmol/L (98-107); Creatinine, Serum 1.62 mg/dL (0.55-1.02); EST Glomerular Filtration Rate 33 mL/min (>60); Est Glom Filt Rate - Afr Amer 39 mL/min (>60); Estimated Creatinine Clearance 25.93 ml/min; Glucose 102 mg/dL (74-106); Potassium 4.6 mmol/L (3.5-5.1); Sodium Level 130 mmol/L (136-145)
[2020-01-10 14:21] LABS: Bacteria 0 SEEN /hpf (None Seen); Mucous, Urine 0 SEEN /hpf (<or=2+); Red Blood Cells-Urine 0 SEEN /hpf (0-5); White Blood Cells 0 SEEN /hpf (0-5)
[2020-01-10 14:23] LABS: Color, Urine Yellow (Yellow); Glucose, Dipstick Normal (Normal); Ketone-Dipstick Negative (Negative); Leukocyte Esterase-Dipstick 100 /ul (Negative); Nitrite-Dipstick Negative (Negative); Occult Blood-Urine Negative /ul (Negative); Protein-Dipstick Negative (Negative); Urine Bilirubin Dipstick Negative (Negative); Urine Clarity Clear (Clear); Urine Urobilinogen Normal (Normal); Urine pH 6.5 (5.0 - 8.0)
--- NOTE | 2020-01-10 14:37 | NURSING ---
pt was very unsteady when getting up to the bedside commode and states she was feeling very weak and dizzy. pt states she has a lot of pain from the shingles and multiple falls.
[2020-01-10 14:51] LABS: VBG BASE EXCESS -1 mmol/L (-1.0-3.5); VBG Bicarbonate 24 mmol/L (22-26); VBG Oxygen Content 25 mmol/L (23-33); VBG PO2 22 mmHg (25-40); VBG SO2 40 % (50-70); VBG pCO2 35.4 mmHg (41-51); VBG pH 7.43 (7.32-7.42)
[2020-01-10 14:52] LABS: Squamous Epithelial Cells - UA 0-5 SEEN /hpf (5-10)
[2020-01-10 14:52] LABS: Blood Gas Specimen Type VEN
--- NOTE | 2020-01-10 15:05 | HP.PCM_ITS ---
History of Present Illness Date of Admission: 01/10/20 Chief Complaint: dizziness, mechanical falls The patient is a 79 year old F with a past medical history of lupus as well as hypothyroidism. She was admitted through the ED on 01/10/2020 with a complaint of dizziness and mechanical falls. Patient states she sustained 3 falls over the last 3 days. She states she gets up and feels very dizzy and then her legs give when she falls. She does not think she passes out and usually too weak to get up on her own. She denies any headache, blurred vision, tingling sensation or focal weakness, any chest pain, any numbness, any palpitations, any diarrhea vomiting. Review of symptoms otherwise negative. She does say that her heart rate is usually low but usually in the high 50s she is never had any problems with the previously. She has not changed any medication that she is taking no started taking any new meds. In the ED, vitals showed temperature of 98.7 Fahrenheit with blood pressure 112/75, pulse rate of 58 and respiratory of 16. She was saturating at 100% on room air. Chemistry showed sodium of 130 with potassium of 4.6 and creatinine of 1.62. Initial troponin was less than 0.015. CBC showed hemoglobin of 11.5 with WBC of 10.2 and platelets of 205. CT of the brain showed chronic involutional changes chest x-ray showed no acute cardiopulmonary pathology. Lumbar spine CT showed nondisplaced compression fracture of the L4 vertebrae and multilevel degenerative changes. She has been admitted to be managed for dizziness and near syncope and compression lumbar fracture due to mechanical fall. [] Past Medical History Past Medical History (Chronic Problems): Chronic Problems Peripheral neuropathy (Chronic) Hypothyroidism (Chronic) History of breast cancer (Chronic) Allergies PERTUSSIN Allergy (Uncoded 01/10/20 12:36) Hives Home Medications: Ambulatory Orders Medication Instructions Recorded Bifidobacterium Infantis [Align] 4 mg PO DAILY 01/10/20 Cholecalciferol (VIT D3) [Vitamin 1,000 unit PO DAILY 01/10/20 D] Gabapentin 300 mg PO Q8H PRN PRN 01/10/20 Hydroxychloroquine [Plaquenil] 200 mg PO BIDCM 01/10/20 Levothyroxine Sodium [Synthroid] 88 mcg PO DAILY 01/10/20 Multivit-Min/Iron/Folic/Lutein 1 tab PO DAILY 01/10/20 [Centrum Silver Women Tablet] Sertraline HCl [Zoloft] 50 mg PO DAILY 01/10/20 Vit C/E/Zn/Coppr/Lutein/Zeaxan 1 cap PO BID 01/10/20 [Preservision Areds 2 Softgel] Vitamin E 400 unit PO DAILY 01/10/20 Surgical History: - - Appendectomy, tonsillectomy, hysterectomy 2005, right breast surgery for breast cancer, right ankle surgery, R TKR. 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 Denies: Chest Pain, Chest Pressure, Chest Tightness, Heaviness, Orthopnea, Palpitations, Paroxysmal Noc. Dyspnea, Syncope Respiratory: Denies: Cough, Shortness of Breath, Shortness of breath at rest, Shortness of breath upon exertion, Sputum production Gastrointestinal: Denies: Abdominal Pain, Nausea, Vomiting Genitourinary: Denies: Dysuria Musculoskeletal: Denies: Joint Pain, Joint Tenderness Skin: Denies: Rash, Wounds Neurological: Denies: Numbness, Tingling, Focal weakness Psychiatric: Denies: Anxiety, Depression, Homicidal Ideations, Suicidal Ideations Hematologic/ Lymphatic: Denies: Easy Bruising, Easy Bleeding VTE Information - Inpt Only VTE Present on Admission: No VTE Mechan Device Prophylaxis: SCD's Patient Problems: Active and Suspected Problems Vertigo (Acute) Ambulatory dysfunction (Acute) Compression fracture of L4 vertebra (Acute) - Physical Exam Vitals/I&O's: Vital Signs Temp Pulse Resp BP Pulse Ox 98 F 56 L 19 H 149/76 H 100 01/10/20 12:32 01/10/20 14:38 01/10/20 14:38 01/10/20 14:38 01/10/20 14:38 Oxygen Delivery Method Room Air Weight: 180 lb Body Mass Index (BMI) 29.0 General: Alert, Oriented x3, Cooperative, No apparent distress HEENT: Atraumatic, PERRLA, EOMI, Normocephalic Oral: Dry Mucosa Neck: Supple, No JVD, Negative Carotid Bruits Lungs: Clear to auscultation, Normal air movement, No rhonchi, No wheeze Cardiovascular: Normal S1, Normal S2, No murmurs, Bradycardic Abdomen: Bowel Sounds Present, Soft, Non Tender, Non-Distended, No Hepato- splenomegaly Extremities: No clubbing, No cyanosis, No edema, Capillary Refill Less than 3 Seconds Skin: No rashes, No breakdown Musculoskeletal: - - tenderness on palpation of lower lumbar region Lymphatic: No Cervical, Supraclavicular, or Inguinal Adenopathy Neurological: Cranial nerves II-XII grossly intact Psych/Mental Status: Normal Affect, Appropriate, Alert and oriented to time, place, person, mood and affect Laboratory Results 01/10/20 13:12: WBC 10.2, RBC 3.50 L, Hgb 11.5 L, Hct 34.9 L, MCV 99.7 H, MCH 32.9 H, MCHC 33.0, RDW Std Deviation 45.6 H, RDW Coeff of Hernán 12.6, Plt Count 205, MPV 9.9, Immature Gran % (Auto) 0.700, Neut % (Auto) 85.7 H, Lymph % (Auto) 6.5 L, [place] % (Auto) 6.9, Eos % (Auto) 0.0, Baso % (Auto) 0.2, Absolute Neuts (auto) 8.7 H, Absolute Lymphs (auto) 0.66 L, Nucleated RBC % 0 01/10/20 13:12: PT 13.4, INR 1.1, APTT 32.1 01/10/20 13:12: Sodium 130 L, Potassium 4.6, Chloride 98, Carbon Dioxide 25.0, Anion Gap 7, BUN 21 H, Creatinine 1.62 H, Estim Creat Clear Calc 25.93, Est GFR (MDRD) Af Amer 39 L, Est GFR (MDRD) Non-Af 33 L, BUN/Creatinine Ratio 13.0, Glucose 102, Calcium 8.7, Troponin I < 0.015 01/10/20 14:15: Urine Color Yellow, Urine Clarity Clear, Urine pH 6.5, Ur Specific [place] 1.010, Urine Protein Negative, Urine Glucose (UA) Normal, Urine Ketones Negative, Urine Occult Blood Negative, Urine Nitrite Negative, Urine Bilirubin Negative, Urine Urobilinogen Normal, Ur Leukocyte Esterase 100 H, Urine RBC 0 SEEN, Urine WBC 0 SEEN, Ur Squamous Epith Cells 0-5 SEEN, Urine Bacteria 0 SEEN, Urine Mucus 0 SEEN 01/10/20 14:27: Specimen Type LORRAINE, VBG pH 7.43 H, VBG pO2 22 L, VBG O2 Sat (Calc) 40 L, VBG O2 Content 25, VBG Base Excess -1, POC Mix VBG pCO2 Pt Tmp 35.4 L Diagnostic Data Brain CT 01/10/20 13:06 IMPRESSION: Chronic involutional changes of the brain. Electronically Signed: Balaji Sifuentes, at 13:43 EDT , Service support , Lumbar Spine CT 01/10/20 13:08 IMPRESSION: Multilevel degenerative changes, as described above. Nondisplaced compression fracture of the L4 vertebrae as described. Electronically Signed: Balaji Sifuentes, at 13:49 EDT , Service support , Chest X-Ray 01/10/20 13:25 IMPRESSION: No acute abnormality is seen. Electronically Signed: Balaji Sifuentes, at 13:50 EDT , Service support , Assessment/Plan All Active Problems Vertigo (Acute) Ambulatory dysfunction (Acute) Compression fracture of L4 vertebra (Acute) 79 y/o admitted with a complaint of dizziness and mechanical falls 1. Near syncope * Most likely due to bradycardia though posterior circulation stroke cannot be ruled out as she has had persistent dizziness. * Has fallen 3 times over the past 3 days. * Admit to PCU with telemetry. * Fall precautions. PT OT consult * CT of the [facility] showed any acyte intracranial process * will get MRI of the brain * 2. Debility due to mechanical fall * Complains of back pain from mechanical fall. * PT OT consult. Fall precautions. * 3. Compression fracture of L4 due to mechanical fall * Lumbar spine CT showed nondisplaced compression fracture of L4 * PT/OT consult * tylenol and morphine prn for pain * 5. History SLE: on hydroxychloroquine 6. Hypothyroidism: on synthroid. check TSH DVT prophylaxis: SCDs Code status: DNRCCA * Patient counseled extensively about different types of CODE STATUS including full code, DNR CCA and DNR CCA. Patient elects to be DNRCCA. * Total [id number] time 16 minutes. OBSV E&M: 41470 Initial observation care L2 Procedures: 38111 Advncd Care Plan 30 Min
--- NOTE | 2020-01-10 16:29 | MRI_ITS ---
STUDY: MRI BRAIN WITHOUT CONTRAST REASON FOR EXAM: Female, 79 years old. syncope, dizziness, low heart rate TECHNIQUE: Standardized multiplanar fat and water weighted pulse sequences were obtained. COMPARISON: CT brain January 10, 2020 and MR brain December 21, 2016 FINDINGS: There is mild cerebral atrophy with widening of the extra-axial spaces and ventricular dilatation. There are a limited number of small white matter hyperintensities, distributed throughout the deep white matter tracts of the cerebral hemispheres, consistent with mild chronic white matter ischemic changes. There is no evidence for recent intracranial ischemia or other cause of cytotoxic edema on diffusion weighted imaging (DWI). Normal bilateral basal ganglia. Normal thalami. There is no extra-axial fluid accumulation. Normal flow voids within the major intracranial circulation suggesting patency by spin echo criteria. Normal sella turcica, pituitary gland, infundibular stalk, optic chiasm and hypothalamus. Normal tectal plate and pineal gland. Normal midbrain, ana maria and medulla. Normal cerebellum. Normal basal cisterns. Normal bilateral temporal bones. Normal bilateral internal auditory canals. No demonstrated orbital abnormality, within the constraints of a routine brain study. Normal visualized paranasal sinuses. Normal calvarium and skull base. Normal visualized soft tissue structures. Normal visualized upper cervical spine. MRI/Brain without Contrast IMPRESSION: Involutional changes of the brain, as described above. Electronically Signed: Scar Patel MD at 20:08 EDT , Service support ,
--- NOTE | 2020-01-10 16:30 | EKG12_ITS ---
Test Reason : Blood Pressure : / mmHG Vent. Rate : 057 BPM Atrial Rate : 057 BPM P-R Int : 162 ms QRS Dur : 142 ms QT Int : 458 ms P-R-T Axes : -07 216 035 degrees QTc Int : 445 ms Sinus bradycardia with Premature atrial complexes in a pattern of bigeminy Right bundle branch block Abnormal ECG When compared with ECG of 10-JAN-2020 13:53, MANUAL COMPARISON REQUIRED, DATA IS UNCONFIRMED Confirmed by MICHAEL JO, KATHY ([id number]), general expeditor NATHAN DESIR ([id number]) on 01/14/2020 11:11:33 AM Referred By: SHRUTI Confirmed By:KATHY RODRIGUEZ MD
[2020-01-10] MEDS: 0.9% Normal Saline 1,000 ML 125 ML IV (18:02)
[2020-01-10] MEDS: Hydroxychloroquine 200 MG Tablet PO (18:03)
[2020-01-10] MEDS: oxyCODONE 5 MG Tablet PO ×2 (18:03→23:59)
[2020-01-11] MEDS: 0.9% Normal Saline 1,000 ML 125 ML IV (01:48)
[2020-01-11 03:30] VITALS: BP 120/52; PULSE 64; RESP 16; TEMP 36.9; O2SAT 95
[2020-01-11 03:35] VITALS: PULSE 64
[2020-01-11 05:50] LABS: Absolute Lymphocyte Count 0.97 X10^3/uL (0.83-4.51); Absolute Neutrophil Count 5.3 X10^3/uL (2.0-7.7); Basophil# 0.03 X10^3/uL; Basophil% 0.4 % (0-1); Eosinophil# 0.01 X10^3/uL; Eosinophils% 0.1 % (0-5); Hematocrit 31.4 % (37-47); Lymphocyte # 0.97 X10^3/ul (4.0); Lymphocyte % 14.1 % (19-41); Mean Corp Hgb Conc 31.8 g/dL (32-36); Mean Corpuscular Hgb 33.6 pg (27.0-32.0); Mean Corpuscular Volume 105.4 fL (81-99); Mean Platelet Vol. 9.4 fl (6.2-12.0); Monocyte# 0.54 X10^3/uL; Monocyte% 7.8 % (0-10); NRBC Flagged by Analyzer 0 % (0-5); Platelet Count 148 K/mm3 (150-450); RBC Distribution Width CV 12.8 % (11.6-14.6); RBC Distribution Width SD 49.3 fl (35.1-43.9); Red Blood Count 2.98 M/mm3 (4.2-5.4); White Blood Count 6.9 K/mm3 (4.4-11.0)
--- NOTE | 2020-01-11 05:55 | ECHOD_ITS ---
Reason For Study: SYNCOPE Procedure This was a 2D Doppler, Color Flow transthoracic echocardiogram. Exam performed portable in patient room. Left Ventricle Normal LV size. Left ventricular systolic function is normal. The estimated ejection fraction is 65 %. Stage 1 diastolic dysfunction. No regional wall motion abnormalities noted. Right Ventricle Normal RV size. Normal systolic function. Atria Normal left atrium. Normal right atrium. Mitral Valve Normal mitral valve. Tricuspid Valve Normal tricuspid valve. Moderate (2+) tricuspid valve insufficiency. Pulmonary artery systolic pressure is 50 mmHg. Moderate pulmonary hypertension. Aortic Valve Trisinus/trileaflet aortic valve. Pulmonic Valve Normal pulmonic valve. Great Vessels Normal aortic root. The pulmonary artery is normal size. Normal inferior vena cava. Pericardium/Pleural No pericardial effusion. MMode/2D Measurements & Calculations LVIDd: 3.8 cm IVSd: 0.73 cm Ao root diam: 3.1 cm LVIDs: 2.5 cm LVPWd: 0.97 cm RVDd: 3.3 cm FS: 34.3 % LAV(MOD-bp): 47.2 ml LVAd ap4: 25.5 cm2 SV(MOD-sp4): 52.3 ml LAV(MOD-bp) Indexed: 24.4 ml/m2 EDV(MOD-sp4): 73.4 ml LAV(MOD-sp2): 39.7 ml EDV(sp4-el): 76.7 ml LAV(MOD-sp4): 49.1 ml LVAs ap4: 11.3 cm2 ESV(MOD-sp4): 21.2 ml ESV(sp4-el): 21.1 ml EF(MOD-sp4): 71.2 % EF(sp4-el): 72.5 % SV(sp4-el): 55.6 ml LA A4 area: 17.8 cm2 LA dimension(2D): 3.8 cm RA A4 area: 11.5 cm2 Time Measurements MV dec time: 0.33 sec Doppler Measurements & Calculations MV E max kirby: 97.2 cm/sec Lat Peak E' Kirby: 9.3 cm/sec Med Peak E' Kirby: 5.0 cm/sec MV A max kirby: 116.0 cm/sec E/E' lat: 10.5 E/E' med: 19.3 MV E/A: 0.84 Ao V2 max: 181.6 cm/sec LV V1 max: 138.7 cm/sec PA V2 max: 87.0 cm/sec Ao max P.2 mmHg LV V1 max P.7 mmHg Ao V2 mean: 136.6 cm/sec LV V1 mean P.8 mmHg Ao mean P.0 mmHg LV V1 mean: 90.1 cm/sec Ao V2 VTI: 38.7 cm LV V1 VTI: 28.7 cm TR max kirby: 341.1 cm/sec TR max P.8 mmHg Interpretation Summary Normal LV size. Left ventricular systolic function is normal. The estimated ejection fraction is 65 %. Stage 1 diastolic dysfunction. Pulmonary artery systolic pressure is 50 mmHg. Moderate pulmonary hypertension. Ordering Physician: Kerry Hickman Referring Physician: SAMANTA PEÑA Performed By: Miracle Manjarrez, SANDRA, RVT
[2020-01-11 06:11] LABS: Anion Gap 6 (5-15); BUN 19 mg/dL (7-18); BUN/Creat Ratio 14.5 RATIO (10-20); Calcium,Total 7.7 mg/dL (8.5-10.1); Chloride 104 mmol/L (98-107); Creatinine, Serum 1.31 mg/dL (0.55-1.02); EST Glomerular Filtration Rate 42 mL/min (>60); Est Glom Filt Rate - Afr Amer 50 mL/min (>60); Estimated Creatinine Clearance 32.06 ml/min; Glucose 96 mg/dL (74-106); Potassium 3.9 mmol/L (3.5-5.1); Sodium Level 132 mmol/L (136-145)
[2020-01-11 06:50] VITALS: PULSE 62
[2020-01-11] MEDS: Levothyroxine 88 MCG Tablet PO (06:59)
[2020-01-11 07:40] VITALS: O2SAT 96
[2020-01-11] MEDS: Hydroxychloroquine 200 MG Tablet PO (08:04)
[2020-01-11] MEDS: Sertraline 50 MG Tablet PO (08:04)
[2020-01-11] MEDS: Acetaminophen 325 MG Tablet 650 MG PO (08:05)
[2020-01-11] MEDS: oxyCODONE 5 MG Tablet PO (08:05)
[2020-01-11 09:28] VITALS: BP 119/44; PULSE 63; RESP 18; TEMP 36.7; O2SAT 95
--- NOTE | 2020-01-11 10:20 | CASEMGMT ---
RN CM US CUSTOMS AND BORDER OFFICER CM to room to meet with patient for initial transition planning/care coordination assessment. RN SONDRA introduced self and role at [facility]. Pt voices understanding and consents to assessment at this time. Pt resting in bed in no distress at this time. SonFer, @ bedside and pt agreeable to assessment w/him being present. Pt is A/O at this time and answers all questions appropriately. Care providers, pharmacy, and demographics verified/updated at this time. PCP: Dr Levine Specialists: Dr Brunner- for lupus, Dr Werner--nephrology, Preferred Pharmacy: [facility] [place] Insurance: [facility] Prescription Benefit: yes Living Will/HPOA: Has both LW and Healthcare POA, who is her son, Fer LNOK: SonFre Living Arrangements: Lives alone. Fer lives nearby, is supportive, and checks on her often. Pt is independent w/ADL's and IADL's. Transportation: Pt states drives self and states no transportation concerns at this time. DME: States has the following DME: Walk in shower w/shower seat, cane, walker, manager post Pt states no need for further DME at this time. HHC/SNF: No history of SNF or HHC. Has went to OP therapy in the past @ [facility]. Pt declines need for SNF or HHC and wishes to return home. States would like to go to OP therapy. Script received for OP PT/OT from Dr Keller and given to pt. She was made aware she can take to any OP location of her choice. D/t patient with recent dizzinewss, she made aware [facility] has van transportation services to [employer] and she was provided with their contact info as well. Pt wishes to return home and states has no concerns with going home at time of discharge. CM to follow for any further discharge planning/needs. Pt voices no further concerns/needs at this time. Advised pt to ask for CM if any further questions/concerns/needs arise. Voices understanding. PLAN: Home w/OP therapy. Alisha MOYER RN, CM
--- NOTE | 2020-01-11 13:03 | DCINST_ITS ---
- Discharge Diagnoses Current Active Problems: Current Active and Chronic Problems Vertigo (Acute) Ambulatory dysfunction (Acute) Compression fracture of L4 vertebra (Acute) You will use the following diet at home:: No restrictions Your food should be the consistency of: Regular Your liquids should be the consistency of: Regular/Thin Discharge Activity: Return to Normal Activity Weight Bearing Status: Full weight bearing Allergies/Adverse Reactions: Allergies PERTUSSIN Allergy (Uncoded 01/10/20 12:36) Hives prednisone Allergy (Uncoded 01/10/20 18:06) Hives Medications to take at Discharge Bifidobacterium Infantis [Align] 4 mg PO QODAY 01/10/20 Cholecalciferol (VIT D3) [Vitamin D3] 1,000 unit PO DAILY 01/10/20 Gabapentin 300 mg PO Q8H PRN PRN 01/10/20 Hydroxychloroquine [Plaquenil] 200 mg PO BIDCM 01/10/20 Levothyroxine Sodium [Synthroid] 88 mcg PO DAILY 01/10/20 Multivit-Min/Iron/Folic/Lutein [Centrum Silver Women Tablet] 1 tab PO DAILY 01/10/20 Sertraline HCl [Zoloft] 50 mg PO DAILY 01/10/20 Vit C/E/Zn/Coppr/Lutein/Zeaxan [Preservision Areds 2 Softgel] 1 cap PO BID 01/10/20 Vitamin E 400 unit PO DAILY 01/10/20 Primary Care Physician: Zhen Levine MD [Primary Care Provider] - Please follow up with your Primary Care Physician in: as directed Test Results: Test results from this visit will be discussed in further detail at your follow- up appointment, if applicable.
[2020-01-11 13:54] VITALS: BP 114/39; PULSE 63; RESP 18; TEMP 36.6; O2SAT 93
--- NOTE | 2020-01-11 14:15 | PHA.DC.MR ---
Pharmacy Service has performed discharge medication reconciliation for this patient. No new medications at time of discharge. Medications reviewed are previously reported home medications. The patient's discharge medication list was reviewed for discrepancies and discrepancies were resolved. Home Medications Bifidobacterium Infantis [Align] 4 mg PO QODAY 01/10/20 Cholecalciferol (VIT D3) [Vitamin D3] 1,000 unit PO DAILY 01/10/20 Gabapentin 300 mg PO Q8H PRN PRN 01/10/20 Hydroxychloroquine [Plaquenil] 200 mg PO BIDCM 01/10/20 Levothyroxine Sodium [Synthroid] 88 mcg PO DAILY 01/10/20 Multivit-Min/Iron/Folic/Lutein [Centrum Silver Women Tablet] 1 tab PO DAILY 01/10/20 Sertraline HCl [Zoloft] 50 mg PO DAILY 01/10/20 Vit C/E/Zn/Coppr/Lutein/Zeaxan [Preservision Areds 2 Softgel] 1 cap PO BID 01/10/20 Vitamin E 400 unit PO DAILY 01/10/20
--- NOTE | 2020-01-12 15:10 | DS.PCM_ITS ---
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 Patient states she did not pass out but felt as if she was going to. Patient complained of some lower back discomfort. Work-up in the emergency room revealed her stroke scale to be 0, CBC was unremarkable, there was mild hyponatremia on the chemistry panel along with mild elevation of the patient's creatinine. UA was remarkable for leukocyte esterase otherwise was negative. Chest x-ray does not indicate any acute pathology, CT of the brain was negative, CT imaging of the lumbar spine shows a compression fracture at L1 L4. EKG showed a sinus bradycardia with a rate of 58. Patient was placed in observation status on PCU, she had an MRI scan of the brain which showed no evidence of stroke. Patient had very little low back discomfort, she was seen in consultation by PT and OT and was felt to benefit from outpatient physical therapy services and a prescription for this was filled out. Echocardiogram was obtained which showed a normal EF with evidence of moderate pulmonary hypertension. On 01/11/2020, patient was seen and examined: On examination she appeared in good health and spirits, she does not appear to be in any distress. Vital signs as documented. Skin warm and dry and without overt rashes. Neck without JVD, thyroid appears normal, trachea is midline, neck is supple. Lungs clear, normal air movement was noted. Heart exam notable for regular rhythm, normal sounds and absence of murmurs, rubs or gallops. Abdomen unremarkable and without evidence of organomegaly, masses, or abdominal aortic enlargement, bowel sounds are present in all 4 quadrants, no abdominal tenderness was noted. Extremities nonedematous, no cyanosis was noted, no clubbing was noted. Neuro: Cranial nerves II through XII are grossly intact, no focal motor deficits were noted, sensation to light touch and pinprick is intact, motor exam 5/5 throughout. Psych: Patient is alert and oriented x3, she does not appear anxious or depressed, she does not appear agitated. Patient appears stable for discharge on 01/11/2020. - Physical Exam Vitals/I&O's: Vital Signs Temp Pulse Resp BP Pulse Ox 98 F 63 18 114/39 L 93 01/11/20 13:54 01/11/20 13:54 01/11/20 13:54 01/11/20 13:54 01/11/20 13:54 Oxygen Delivery Method Room Air Weight: 83.7 kg Body Mass Index (BMI) 29.7 Orthostatic Vital Signs Start: 01/10/20 22:31 Freq: q24h Status: Active Protocol: Activity Type Activity Date Activity User E-Sign Co-Sign Detail Recorded Client Recorded Date Recorded By Document 01/10/20 21:30 PAL [id number] 01/10/20 22:35 PAL 01/10/20 21:30 Orthostatic Vitals Standing -Blood Pressure (90/60-120/80) 125/59 H -Extremity Use Left Arm -Pulse Rate (60-100) 78 Sitting -Blood Pressure (90/60-120/80) 126/50 H -Extremity Use Left Arm -Pulse Rate (60-100) 71 Lying -Blood Pressure (90/60-120/80) 113/52 L -Extremity Use Left Arm -Pulse Rate (60-100) 66 Intake and Output for Last 24 Hours 01/10/20 01/11/20 01/12/20 23:59 23:59 23:59 Intake Total 830 / 830 2842.5 / 2842.5 Balance 830 / 830 2842.5 / 2842.5 Discharge Activity: Return to Normal Activity Weight Bearing Status: Full weight bearing Home Medications: Medications to take at Discharge Bifidobacterium Infantis [Align] 4 mg PO QODAY 01/10/20 Cholecalciferol (VIT D3) [Vitamin D3] 1,000 unit PO DAILY 01/10/20 Gabapentin 300 mg PO Q8H PRN PRN 01/10/20 Hydroxychloroquine [Plaquenil] 200 mg PO BIDCM 01/10/20 Levothyroxine Sodium [Synthroid] 88 mcg PO DAILY 01/10/20 Multivit-Min/Iron/Folic/Lutein [Centrum Silver Women Tablet] 1 tab PO DAILY 01/10/20 Sertraline HCl [Zoloft] 50 mg PO DAILY 01/10/20 Vit C/E/Zn/Coppr/Lutein/Zeaxan [Preservision Areds 2 Softgel] 1 cap PO BID 01/10/20 Vitamin E 400 unit PO DAILY 01/10/20 Primary Care Physician: Zhen Levine MD [Primary Care Provider] - Please follow up with your Primary Care Physician in: as directed Disposition: Home Minutes spent on discharge:: 30 Patient Condition:: Stable Medical Necessity - Tobacco Use Smoking Status: Never smoker Meaningful Use Info Meaningful Use Diagnoses (Choose all that apply): None applicable OBSV E&M: 94540 Observation care discharge
== END 2020-01-11 13:05 | disposition home or self-care (01) ==
LOC: ED 15:20 → PCU 15:25
PROVIDERS: Admitting Provider Student in an Organized Health Care Education/Training Program; Emergency Provider Emergency Medicine; PCP Family Medicine; Visit Provider Internal Medicine
DX: R55 Syncope and collapse (principal); E03.9 Hypothyroidism, unspecified; H81.10 Benign paroxysmal vertigo, unspecified ear; S32.048A Other fracture of fourth lumbar vertebra, initial encounter for closed fracture; W19.XXXA Unspecified fall, initial encounter; Y93.9 Activity, unspecified; N18.3 Chronic kidney disease, stage 3 (moderate); I27.20 Pulmonary hypertension, unspecified; E87.1 Hypo-osmolality and hyponatremia; Z79.899 Other long term (current) drug therapy; I45.10 Unspecified right bundle-branch block; R00.1 Bradycardia, unspecified; M32.9 Systemic lupus erythematosus, unspecified; G62.9 Polyneuropathy, unspecified; Y92.009 Unspecified place in unspecified non-institutional (private) residence as the place of occurrence of the external cause
CPT/HCPCS: 36415; 70450; 70551; 71045; 72131; 80048; 81001; 82803; 84484; 85025; 85610; 85730; 93005; 93306; 96360; 96361; 97166; 97802; 99218; 99285; J7030; A4216; G0378

== ENCOUNTER → 2020-02-07 | Outpatient (CLI) | payer MEDICARE, SELFPAY ==
[2020-01-10 15:39] VITALS: BMI 29.7
--- NOTE | 2020-02-07 11:59 | BON_PTH ---
PATIENT: AUREILO WOODWARD [facility] U#:[id number] AGE/SX: 79/F ROOM: RE02/07/[address]: Dr. Howard Louise MD : 1940 BED: DIS: 02/07/2020 SPEC #: [id number] RECD: 02/07/20 15:13 STATUS: TAMARA REEran #: [id number] DANE: 02/07/20 11:[address]: Howard Louise DEPT: SURGICAL PATHOLOGY RECD BY: Johnny Lee ENTERED: 02/08/20 07:51 SP TYPE: Bone OTHR DR: Dr. Zhen Levine MD [facility] Tissues: Vertebra, NOS Procedures: Decalcification bone/plaque Surgery Specimen Level IV HEADER OPERATION: Kyphoplasty of L4 PRE-OP DIAGNOSIS: Compression fracture of lumbar spine, back pain TISSUE SUBMITTED: Bone L4 MICROSCOPIC DIAGNOSIS Bone L4, kyphoplasty: A piece of bone with reactive changes and blood clots, clinically compression fracture lumbar spine. Negative for malignancy. SARAH:martin 02/11/20 MICROSCOPIC DESCRIPTION Slides are reviewed. GROSS DESCRIPTION Received is one container labeled with the patient's name and not further designated. The specimen consists of multiple fragments of blood clot mixed with fragments of bone that in aggregate measure 1 x 0.5 x 0.1 cm. The entire specimen is submitted in one cassette after decalcification. / SARAH:martin 02/08/20 TC:5 CPT: 02056, 54438
== END | disposition home or self-care (01) ==
LOC: LABSPEC 15:48
PROVIDERS: PCP Family Medicine; Referring Provider Anesthesiology Pain Medicine; Visit Provider Anesthesiology Pain Medicine
DX: M48.56XA Collapsed vertebra, not elsewhere classified, lumbar region, initial encounter for fracture (principal); M54.9 Dorsalgia, unspecified
CPT/HCPCS: 88305; 88311

== ENCOUNTER → 2020-02-20 10:07 | Outpatient (CLI) | payer MEDICARE, SELFPAY ==
[2020-01-10 15:39] VITALS: BMI 29.7
[2020-02-20 12:52] LABS: Vitamin D,25 Hydroxy 49.6 ng/mL
[2020-02-20 12:57] LABS: Hemoglobin A1c 5.4 % (3.8-5.6)
[2020-02-20 13:01] LABS: ALB/GLOB Ratio 0.8 RATIO (0.9-2.4); AST(SGOT) 19 U/L (15-37); Alanine Aminotransfer ALT/SGPT 14 U/L (13-56); Albumin, Serum 3.4 g/dL (3.2-5.0); Alkaline Phosphatase 106 U/L (45-117); Anion Gap 3 (5-15); BUN 14 mg/dL (7-18); BUN/Creat Ratio 9.9 RATIO (10-20); Calcium,Total 8.9 mg/dL (8.5-10.1); Chloride 104 mmol/L (98-107); Creatinine, Serum 1.42 mg/dL (0.55-1.02); EST Glomerular Filtration Rate 38 mL/min (>60); Est Glom Filt Rate - Afr Amer 46 mL/min (>60); Globulin 4.2 g/dL (2.2-4.2); Glucose 92 mg/dL (74-106); Potassium 4.2 mmol/L (3.5-5.1); Protein, Total 7.6 g/dL (6.4-8.2); Sodium Level 138 mmol/L (136-145); T4 Free Direct 0.84 ng/dL (0.76-1.46); Thyroid Stim Hormone (TSH) 5.56 uIU/mL (0.358-3.74)
== END ==
PROVIDERS: PCP Family Medicine; Referring Provider Family Medicine; Visit Provider Family Medicine
DX: R73.02 Impaired glucose tolerance (oral) (principal); E03.9 Hypothyroidism, unspecified; E55.9 Vitamin D deficiency, unspecified
CPT/HCPCS: 36415; 80053; 82306; 83036; 84439; 84443

== ENCOUNTER → 2020-04-07 10:20 | Outpatient (CLI) | payer MEDICARE, SELFPAY ==
[2020-01-10 15:39] VITALS: BMI 29.7
[2020-04-07 10:50] LABS: Absolute Lymphocyte Count 1.45 X10^3/uL (0.83-4.51); Absolute Neutrophil Count 5.5 X10^3/uL (2.0-7.7); Basophil# 0.04 X10^3/uL; Basophil% 0.5 % (0-1); Eosinophil# 0.12 X10^3/uL; Eosinophils% 1.6 % (0-5); Hematocrit 37.9 % (37-47); Hemoglobin 11.9 g/dL (12.0-15.0); Lymphocyte # 1.45 X10^3/ul (4.0); Lymphocyte % 18.9 % (19-41); Mean Corp Hgb Conc 31.4 g/dL (32-36); Mean Corpuscular Hgb 32.8 pg (27.0-32.0); Mean Corpuscular Volume 104.4 fL (81-99); Mean Platelet Vol. 9.5 fl (6.2-12.0); Monocyte# 0.61 X10^3/uL; Monocyte% 7.9 % (0-10); NRBC Flagged by Analyzer 0 % (0-5); Neutrophil # 5.45 X10^3/uL (2.7-7.7); Neutrophil % 70.8 % (47-70); Platelet Count 214 K/mm3 (150-450); RBC Distribution Width CV 13.5 % (11.6-14.6); RBC Distribution Width SD 52.8 fl (35.1-43.9); Red Blood Count 3.63 M/mm3 (4.2-5.4); White Blood Count 7.7 K/mm3 (4.4-11.0)
[2020-04-07 11:26] LABS: ALB/GLOB Ratio 0.9 RATIO (0.9-2.4); AST(SGOT) 25 U/L (15-37); Alanine Aminotransfer ALT/SGPT 18 U/L (13-56); Albumin, Serum 3.7 g/dL (3.2-5.0); Alkaline Phosphatase 97 U/L (45-117); Anion Gap 6 (5-15); BUN 22 mg/dL (7-18); BUN/Creat Ratio 13.5 RATIO (10-20); Calcium,Total 9.6 mg/dL (8.5-10.1); Chloride 104 mmol/L (98-107); Creatinine, Serum 1.63 mg/dL (0.55-1.02); EST Glomerular Filtration Rate 32 mL/min (>60); Est Glom Filt Rate - Afr Amer 39 mL/min (>60); Globulin 4.3 g/dL (2.2-4.2); Glucose 93 mg/dL (74-106); Potassium 4.5 mmol/L (3.5-5.1); Sodium Level 136 mmol/L (136-145)
== END ==
PROVIDERS: PCP Family Medicine; Referring Provider Internal Medicine Rheumatology; Visit Provider Internal Medicine Rheumatology
DX: M32.9 Systemic lupus erythematosus, unspecified (principal); R76.8 Other specified abnormal immunological findings in serum; E03.9 Hypothyroidism, unspecified; H35.30 Unspecified macular degeneration; M17.11 Unilateral primary osteoarthritis, right knee; Z85.3 Personal history of malignant neoplasm of breast
CPT/HCPCS: 36415; 80053; 85025

== ENCOUNTER → 2020-07-22 14:23 | Outpatient (CLI) | payer MEDICARE, SELFPAY ==
[2020-01-10 15:39] VITALS: BMI 29.7
[2020-07-22 14:27] LABS: Mucous, Urine 0 SEEN /hpf (<or=2+); Red Blood Cells-Urine 0 SEEN /hpf (0-5); White Blood Cells 0 SEEN /hpf (0-5)
[2020-07-22 17:40] LABS: Color, Urine Yellow (Yellow); Glucose, Dipstick Normal (Normal); Ketone-Dipstick Negative (Negative); Leukocyte Esterase-Dipstick 100 /ul (Negative); Nitrite-Dipstick Negative (Negative); Occult Blood-Urine Negative /ul (Negative); Protein-Dipstick Negative (Negative); Urine Bilirubin Dipstick Negative (Negative); Urine Clarity Clear (Clear); Urine Urobilinogen Normal (Normal)
[2020-07-22 17:51] LABS: Absolute Lymphocyte Count 0.99 X10^3/uL (0.83-4.51); Absolute Neutrophil Count 4.7 X10^3/uL (2.0-7.7); Basophil# 0.03 X10^3/uL; Basophil% 0.5 % (0-1); Eosinophil# 0.05 X10^3/uL; Eosinophils% 0.8 % (0-5); Hematocrit 36.1 % (37-47); Lymphocyte # 0.99 X10^3/ul (4.0); Lymphocyte % 15.6 % (19-41); Mean Corp Hgb Conc 30.5 g/dL (32-36); Mean Corpuscular Hgb 31.8 pg (27.0-32.0); Mean Corpuscular Volume 104.3 fL (81-99); Mean Platelet Vol. 10.6 fl (6.2-12.0); Monocyte# 0.57 X10^3/uL; NRBC Flagged by Analyzer 0 % (0-5); Neutrophil % 73.8 % (47-70); Platelet Count 211 K/mm3 (150-450); RBC Distribution Width CV 12.4 % (11.6-14.6); RBC Distribution Width SD 47.8 fl (35.1-43.9); Red Blood Count 3.46 M/mm3 (4.2-5.4); White Blood Count 6.4 K/mm3 (4.4-11.0)
[2020-07-22 18:10] LABS: ALB/GLOB Ratio 0.8 RATIO (0.9-2.4); AST(SGOT) 27 U/L (15-37); Alanine Aminotransfer ALT/SGPT 22 U/L (13-56); Albumin, Serum 3.4 g/dL (3.2-5.0); Alkaline Phosphatase 108 U/L (45-117); Anion Gap 6 (5-15); BUN 20 mg/dL (7-18); BUN/Creat Ratio 13.2 RATIO (10-20); Calcium,Total 8.8 mg/dL (8.5-10.1); Chloride 99 mmol/L (98-107); Creatinine, Serum 1.51 mg/dL (0.55-1.02); EST Glomerular Filtration Rate 35 mL/min (>60); Est Glom Filt Rate - Afr Amer 43 mL/min (>60); Globulin 4.2 g/dL (2.2-4.2); Glucose 78 mg/dL (74-106); Phosphorus 3.4 mg/dL (2.5-4.9); Potassium 4.6 mmol/L (3.5-5.1); Protein, Total 7.6 g/dL (6.4-8.2); Sodium Level 134 mmol/L (136-145); T4 Free Direct 1.26 ng/dL (0.76-1.46); Thyroid Stim Hormone (TSH) 0.75 uIU/mL (0.358-3.74)
[2020-07-22 18:11] LABS: Protein, Urine (Random) 13.5 mg/dL (<11.9); Protein:Creat Ratio 211 mg/g CRE (0-200)
[2020-07-22 18:21] LABS: Bacteria 1+ /hpf (None Seen); Squamous Epithelial Cells - UA 0-5 SEEN /hpf (5-10)
[2020-07-22 18:26] LABS: Hemoglobin A1c 5.3 % (3.8-5.6)
[2020-07-23 10:17] LABS: Ferritin 108 ng/mL (8-252); Iron 62 ug/dL (50-170); Iron Binding Capacity,Total 309 ug/dL (250-450); PERCENT IRON SATURATION 20.1 % (15.0-55.0)
[2020-07-23 13:03] LABS: Vitamin B12 561 pg/mL (211-911)
[2020-07-25 17:43] LABS: Vitamin D 1,25-Dihydroxy 21.7 pg/mL (19.9-79.3)
== END ==
PROVIDERS: PCP Family Medicine; Visit Provider Family Medicine
DX: N18.30 Chronic kidney disease, stage 3 unspecified (principal); D64.9 Anemia, unspecified; E03.9 Hypothyroidism, unspecified; R73.02 Impaired glucose tolerance (oral); E55.9 Vitamin D deficiency, unspecified
CPT/HCPCS: 80053; 81001; 82570; 82607; 82652; 82728; 83036; 83540; 83550; 83970; 84100; 84156; 84439; 84443; 85025

== ENCOUNTER → 2020-07-29 13:39 | Outpatient (CLI) | payer MEDICARE, SELFPAY ==
[2020-01-10 15:39] VITALS: BMI 29.7
[2020-07-29 14:53] LABS: Hematocrit 36.7 % (37-47); Hemoglobin 11.8 g/dL (12.0-15.0); Mean Corp Hgb Conc 32.2 g/dL (32-36); Mean Corpuscular Hgb 32.6 pg (27.0-32.0); Mean Corpuscular Volume 101.4 fL (81-99); Mean Platelet Vol. 10.6 fl (6.2-12.0); Platelet Count 221 K/mm3 (150-450); RBC Distribution Width CV 12.2 % (11.6-14.6); RBC Distribution Width SD 45.4 fl (35.1-43.9); Red Blood Count 3.62 M/mm3 (4.2-5.4); White Blood Count 7.5 K/mm3 (4.4-11.0)
[2020-07-29 15:12] LABS: Albumin, Serum 3.7 g/dL (3.2-5.0); BUN 21 mg/dL (7-18); Calcium,Total 9.4 mg/dL (8.5-10.1); Chloride 102 mmol/L (98-107); Creatinine, Serum 1.61 mg/dL (0.55-1.02); EST Glomerular Filtration Rate 33 mL/min (>60); Est Glom Filt Rate - Afr Amer 40 mL/min (>60); Glucose 89 mg/dL (74-106); Phosphorus 3.2 mg/dL (2.5-4.9); Potassium 4.2 mmol/L (3.5-5.1); Sodium Level 133 mmol/L (136-145)
[2020-07-29 15:18] LABS: Vitamin D,25 Hydroxy 49.6 ng/mL
== END ==
PROVIDERS: PCP Family Medicine; Referring Provider Internal Medicine Nephrology; Visit Provider Internal Medicine Nephrology
DX: N18.30 Chronic kidney disease, stage 3 unspecified (principal); E55.9 Vitamin D deficiency, unspecified
CPT/HCPCS: 36415; 80069; 82306; 85027

== ENCOUNTER → 2020-09-09 09:27 | Outpatient (CLI) | payer MEDICARE, SELFPAY ==
[2020-01-10 15:39] VITALS: BMI 29.7
--- NOTE | 2020-09-09 09:32 | BI_ITS ---
MAMMOGRAPHY - BILATERAL DIAGNOSTIC REASON FOR EXAM: Female, 79 years old. Right axillary lump. PERTINENT HISTORY: Personal history of breast cancer. Prior right lumpectomy and radiation therapy. TECHNIQUE: Digital bilateral breast rama (3D mammographic acquisition) in the CC and MLO projections. 2-D mediolateral oblique (MLO) and craniocaudad (CC) views of both breasts were obtained. CAD: Full Field Digital Mammography with Computer Added Detection was performed. COMPARISON: No comparison mammograms available at this time. If any prior films become available, an addendum to this report can be generated. FINDINGS: Breast Composition: There are scattered areas of fibroglandular density. There are no dominant masses or suspicious calcifications. The patient is status post lumpectomy in the inferior the medial aspect of the right breast with resultant postoperative deformity of the breast and scarring. No other significant abnormalities are identified. BI/DIAG MAMM W/CAD, BILAT IMPRESSION: Negative diagnostic mammogram. With the patient''s history of a palpable abnormality in the right axillary region, correlation with ultrasound is recommended. ASSESSMENT CATEGORY: BIRADS Category 0: Incomplete. Need additional imaging evaluation. A letter regarding these results will be sent to the patient by the facility within 30 days. Approximately 10% of breast cancers are not detected by mammography. A normal mammogram should not delay biopsy of a clinically suspicious abnormality. Electronically Signed: Balaji Sifuentes MD at 12:32 EDT , Service support ,
--- NOTE | 2020-09-09 10:20 | US_ITS ---
STUDY: ULTRASOUND BREAST - RIGHT REASON FOR EXAM: Female, 79 years old. Palpable lump in the right breast. TECHNIQUE: Axial and longitudinal images of the RIGHT breast were performed with a high resolution ultrasound transducer. # OF IMAGES: 23 COMPARISON: Comparison is made with prior mammogram done earlier today. FINDINGS: RIGHT Breast: The inferior lateral aspect of the right breast was examined by ultrasound. No sonographic abnormality is seen. US/Breast Limited Unilateral IMPRESSION: No sonographic abnormality is seen. ASSESSMENT CATEGORY: BIRADS Category 1: Negative. A letter regarding these results will be sent to the patient by the facility within 30 days. Electronically Signed: Balaji Sifuentes MD at 13:36 EDT , Service support ,
== END ==
PROVIDERS: PCP Family Medicine; Referring Provider Family Medicine; Visit Provider Family Medicine
DX: N63.10 Unspecified lump in the right breast, unspecified quadrant (principal); R22.2 Localized swelling, mass and lump, trunk; Z85.3 Personal history of malignant neoplasm of breast
CPT/HCPCS: 76642; 77062; 77066; G0279

== ENCOUNTER → 2020-12-17 10:39 | Outpatient (CLI) | payer MEDICARE, SELFPAY ==
[2020-09-23 15:18] VITALS: BMI 27.0
[2020-12-17 12:26] LABS: Absolute Lymphocyte Count 1.05 X10^3/uL (0.83-4.51); Absolute Neutrophil Count 3.9 X10^3/uL (2.0-7.7); Basophil# 0.03 X10^3/uL; Basophil% 0.5 % (0-1); Eosinophil# 0.12 X10^3/uL; Eosinophils% 2.1 % (0-5); Hematocrit 38.9 % (37-47); Hemoglobin 12.3 g/dL (12.0-15.0); Lymphocyte # 1.05 X10^3/ul (0.83-4.51); Lymphocyte % 18.2 % (19-41); Mean Corp Hgb Conc 31.6 g/dL (32-36); Mean Corpuscular Hgb 31.2 pg (27.0-32.0); Mean Corpuscular Volume 98.7 fL (81-99); Mean Platelet Vol. 9.7 fl (6.2-12.0); Monocyte# 0.65 X10^3/uL; Monocyte% 11.3 % (0-10); NRBC Flagged by Analyzer 0 % (0-5); Neutrophil # 3.86 X10^3/uL (2.7-7.7); Neutrophil % 66.9 % (47-70); Platelet Count 248 K/mm3 (150-450); RBC Distribution Width CV 12.7 % (11.6-14.6); RBC Distribution Width SD 46.3 fl (35.1-43.9); Red Blood Count 3.94 M/mm3 (4.2-5.4); White Blood Count 5.8 K/mm3 (4.4-11.0)
[2020-12-17 13:10] LABS: PTHIN 65.6 pg/mL (18.4-80.1)
[2020-12-17 13:12] LABS: Hemoglobin A1c 5.2 % (3.8-5.6)
[2020-12-17 13:13] LABS: Vitamin D,25 Hydroxy 60.4 ng/mL
[2020-12-17 13:28] LABS: ALB/GLOB Ratio 0.8 RATIO (0.9-2.4); AST(SGOT) 26 U/L (15-37); Alanine Aminotransfer ALT/SGPT 17 U/L (13-56); Albumin, Serum 3.7 g/dL (3.2-5.0); Alkaline Phosphatase 101 U/L (45-117); Anion Gap 8 (5-15); BUN 19 mg/dL (7-18); Calcium,Total 8.8 mg/dL (8.5-10.1); Chloride 100 mmol/L (98-107); Creatinine, Serum 1.36 mg/dL (0.55-1.02); EST Glomerular Filtration Rate 40 mL/min (>60); Est Glom Filt Rate - Afr Amer 48 mL/min (>60); Globulin 4.4 g/dL (2.2-4.2); Glucose 83 mg/dL (74-106); Phosphorus 2.8 mg/dL (2.5-4.9); Potassium 3.8 mmol/L (3.5-5.1); Protein, Total 8.1 g/dL (6.4-8.2); Sodium Level 134 mmol/L (136-145); T4 Free Direct 1.01 ng/dL (0.76-1.46); Thyroid Stim Hormone (TSH) 2.51 uIU/mL (0.358-3.74)
== END ==
PROVIDERS: PCP Family Medicine; Referring Provider Family Medicine; Visit Provider Family Medicine
DX: N18.30 Chronic kidney disease, stage 3 unspecified (principal); R73.02 Impaired glucose tolerance (oral); E03.9 Hypothyroidism, unspecified; E55.9 Vitamin D deficiency, unspecified
CPT/HCPCS: 36415; 80053; 82306; 83036; 83970; 84100; 84439; 84443; 85025

== ENCOUNTER → 2020-12-30 10:55 | Outpatient (CLI) | payer MEDICARE, SELFPAY ==
[2020-01-10 15:39] VITALS: BMI 29.7
[2020-09-23 15:18] VITALS: BMI 27.0
[2020-12-30 12:03] LABS: Albumin, Serum 3.6 g/dL (3.2-5.0); BUN 13 mg/dL (7-18); BUN/Creat Ratio 10.1 RATIO (10-20); Calcium,Total 8.7 mg/dL (8.5-10.1); Chloride 99 mmol/L (98-107); Creatinine, Serum 1.29 mg/dL (0.55-1.02); EST Glomerular Filtration Rate 42 mL/min (>60); Est Glom Filt Rate - Afr Amer 51 mL/min (>60); Glucose 99 mg/dL (74-106); Phosphorus 2.9 mg/dL (2.5-4.9); Potassium 4.2 mmol/L (3.5-5.1); Sodium Level 130 mmol/L (136-145)
== END ==
PROVIDERS: PCP Family Medicine; Referring Provider Internal Medicine Nephrology; Visit Provider Internal Medicine Nephrology
DX: N18.30 Chronic kidney disease, stage 3 unspecified (principal)
CPT/HCPCS: 36415; 80069

== ENCOUNTER → 2021-04-21 10:34 | Outpatient (CLI) | payer MEDICARE, SELFPAY ==
[2021-04-21 12:20] LABS: Absolute Lymphocyte Count 0.82 X10^3/uL (0.83-4.51); Absolute Neutrophil Count 4.1 X10^3/uL (2.0-7.7); Basophil# 0.02 X10^3/uL; Basophil% 0.4 % (0-1); Eosinophil# 0.11 X10^3/uL; Hematocrit 36.7 % (37-47); Hemoglobin 11.8 g/dL (12.0-15.0); Lymphocyte # 0.82 X10^3/ul (0.83-4.51); Lymphocyte % 14.8 % (19-41); Mean Corp Hgb Conc 32.2 g/dL (32-36); Mean Corpuscular Hgb 31.7 pg (27.0-32.0); Mean Corpuscular Volume 98.7 fL (81-99); Mean Platelet Vol. 10.1 fl (6.2-12.0); Monocyte# 0.45 X10^3/uL; Monocyte% 8.1 % (0-10); NRBC Flagged by Analyzer 0 % (0-5); Neutrophil % 74.2 % (47-70); Platelet Count 199 K/mm3 (150-450); RBC Distribution Width CV 13.4 % (11.6-14.6); RBC Distribution Width SD 48.2 fl (35.1-43.9); Red Blood Count 3.72 M/mm3 (4.2-5.4); White Blood Count 5.5 K/mm3 (4.4-11.0)
[2021-04-21 12:33] LABS: Vitamin D,25 Hydroxy 46.6 ng/mL
[2021-04-21 12:36] LABS: Hemoglobin A1c 5.4 % (3.8-5.6)
[2021-04-21 12:46] LABS: ALB/GLOB Ratio 0.8 RATIO (0.9-2.4); AST(SGOT) 25 U/L (15-37); Alanine Aminotransfer ALT/SGPT 24 U/L (13-56); Albumin, Serum 3.2 g/dL (3.2-5.0); Alkaline Phosphatase 97 U/L (45-117); Anion Gap 7 (5-15); BUN 15 mg/dL (7-18); Calcium,Total 9.2 mg/dL (8.5-10.1); Chloride 97 mmol/L (98-107); Creatinine, Serum 1.25 mg/dL (0.55-1.02); EST Glomerular Filtration Rate 44 mL/min (>60); Est Glom Filt Rate - Afr Amer 53 mL/min (>60); Globulin 4.2 g/dL (2.2-4.2); Glucose 94 mg/dL (74-106); Potassium 4.8 mmol/L (3.5-5.1); Protein, Total 7.4 g/dL (6.4-8.2); Sodium Level 131 mmol/L (136-145); T4 Free Direct 1.08 ng/dL (0.76-1.46); Thyroid Stim Hormone (TSH) 1.58 uIU/mL (0.358-3.74)
== END ==
PROVIDERS: PCP Family Medicine; Referring Provider Family Medicine; Visit Provider Family Medicine
DX: N18.30 Chronic kidney disease, stage 3 unspecified (principal); E03.9 Hypothyroidism, unspecified; R73.02 Impaired glucose tolerance (oral); E55.9 Vitamin D deficiency, unspecified
CPT/HCPCS: 36415; 80053; 82306; 83036; 84439; 84443; 85025

== ENCOUNTER → 2021-06-03 08:59 | Outpatient (CLI) | payer MEDICARE, SELFPAY ==
[2020-09-23 15:18] VITALS: BMI 27.0
[2021-06-03 10:28] LABS: Albumin, Serum 3.5 g/dL (3.2-5.0); BUN 21 mg/dL (7-18); BUN/Creat Ratio 16.7 RATIO (10-20); Calcium,Total 9.2 mg/dL (8.5-10.1); Chloride 99 mmol/L (98-107); Creatinine, Serum 1.26 mg/dL (0.55-1.02); EST Glomerular Filtration Rate 43 mL/min (>60); Est Glom Filt Rate - Afr Amer 52 mL/min (>60); Glucose 96 mg/dL (74-106); Phosphorus 2.9 mg/dL (2.5-4.9); Potassium 4.5 mmol/L (3.5-5.1); Sodium Level 135 mmol/L (136-145)
== END ==
PROVIDERS: PCP Family Medicine; Referring Provider Internal Medicine Nephrology; Visit Provider Internal Medicine Nephrology
DX: N17.9 Acute kidney failure, unspecified (principal)
CPT/HCPCS: 36415; 80069

== ENCOUNTER 2021-07-08 10:49 | Outpatient (CLI) | payer MEDICARE, SELFPAY ==
[2021-07-08 12:59] LABS: T4 Free Direct 1.81 ng/dL (0.76-1.46); Thyroid Stim Hormone (TSH) 0.02 uIU/mL (0.358-3.74)
== END 2021-07-08 23:59 | disposition short-term general hospital (02) ==
LOC: MFPLAB 10:52
PROVIDERS: PCP Family Medicine; Referring Provider Family Medicine; Visit Provider Family Medicine
DX: E03.9 Hypothyroidism, unspecified (principal)
CPT/HCPCS: 36415; 84439; 84443

== ENCOUNTER 2021-10-02 12:24 | Outpatient (CLI) | payer MEDICARE, SELFPAY ==
[2021-10-02 12:55] LABS: CREATININE FINGERSTICK 0.8 mg/dL (0.55-1.02); EGFR FINGERSTICK > 60.0000 mL/min (>60)
--- NOTE | 2021-10-02 13:00 | MRI_ITS ---
STUDY: MRI BRAIN WITH AND WITHOUT CONTRAST (ATTENTION INTERNAL AUDITORY CANALS - I.A.C.''s) REASON FOR EXAM: Female, 80 years old. TINNITUS TECHNIQUE: Standardized multiplanar fat and water weighted pulse sequences were obtained. IV 15cc dotarem was administered for the contrast portion of the examination. COMPARISON: 01/10/2020 FINDINGS: Normal bilateral temporal bones. Normal bilateral internal auditory canals. There is no demonstrated intracanalicular or cisternal vestibular schwannoma (acoustic neuroma). There is no enhancement of the bilateral VIIth or VIIIth cranial nerves. Normal bilateral cochlea, vestibules and semicircular canals. Normal size of the ventricles and extra-axial spaces for the patient''s age. There are a limited number of small white matter hyperintensities, distributed throughout the deep white matter tracts of the cerebral hemispheres, consistent with mild chronic white matter ischemic changes. There is no evidence for recent intracranial ischemia or other cause of cytotoxic edema on diffusion weighted imaging (DWI). Normal bilateral basal ganglia. Normal thalami. Normal flow voids within the major intracranial circulation suggesting patency by spin echo criteria. Normal venous enhancement. There is no enhancing intra-axial or extra-axial abnormality. There is no extra-axial fluid accumulation. Normal sella turcica, pituitary gland, infundibular stalk, optic chiasm and hypothalamus. Normal tectal plate and pineal gland. Normal midbrain, ana maria and medulla. Normal cerebellum. Normal basal cisterns. There are bilateral ocular lens implants with otherwise normal intraorbital contents. Normal visualized paranasal sinuses. Normal calvarium and skull base. Normal visualized soft tissue structures. Normal visualized upper cervical spine. MRI/Brain W/WO Contrast IMPRESSION: Normal unenhanced and enhanced MRI of the bilateral internal auditory canals (I.A.C''s). Electronically Signed: Shane Zazueta MD at 5:15 EDT ,
== END 2021-10-02 23:59 | disposition home or self-care (01) ==
PROVIDERS: PCP Family Medicine; Visit Provider Otolaryngology
DX: R27.0 Ataxia, unspecified (principal); H93.19 Tinnitus, unspecified ear
CPT/HCPCS: 70553; A9575

== ENCOUNTER → 2021-10-27 | Outpatient (CLI) | payer MEDICARE, SELFPAY ==
[2021-10-27 17:43] LABS: Absolute Neutrophil Count 5.2 X10^3/uL (2.0-7.7); Basophil# 0.02 X10^3/uL; Basophil% 0.3 % (0-1); Eosinophil# 0.09 X10^3/uL; Eosinophils% 1.3 % (0-5); Hematocrit 35.5 % (37-47); Hemoglobin 11.7 g/dL (12.0-15.0); Lymphocyte % 15.4 % (19-41); Mean Corpuscular Hgb 32.1 pg (27.0-32.0); Mean Corpuscular Volume 97.5 fL (81-99); Mean Platelet Vol. 10.1 fl (6.2-12.0); Monocyte# 0.69 X10^3/uL; Monocyte% 9.7 % (0-10); NRBC Flagged by Analyzer 0 % (0-5); Neutrophil # 5.19 X10^3/uL (2.7-7.7); Neutrophil % 72.9 % (47-70); Platelet Count 231 K/mm3 (150-450); RBC Distribution Width CV 13.4 % (11.6-14.6); RBC Distribution Width SD 48.4 fl (35.1-43.9); Red Blood Count 3.64 M/mm3 (4.2-5.4); White Blood Count 7.1 K/mm3 (4.4-11.0)
[2021-10-27 18:33] LABS: ALB/GLOB Ratio 0.8 RATIO (0.9-2.4); AST(SGOT) 24 U/L (15-37); Alanine Aminotransfer ALT/SGPT 19 U/L (13-56); Albumin, Serum 3.4 g/dL (3.2-5.0); Alkaline Phosphatase 95 U/L (45-117); Anion Gap 4 (5-15); BUN 16 mg/dL (7-18); BUN/Creat Ratio 13.4 RATIO (10-20); Calcium,Total 9.1 mg/dL (8.5-10.1); Chloride 103 mmol/L (98-107); Cholesterol 171 mg/dL (200); Creatinine, Serum 1.19 mg/dL (0.55-1.02); EST Glomerular Filtration Rate 46 mL/min (>60); Est Glom Filt Rate - Afr Amer 56 mL/min (>60); Globulin 4.1 g/dL (2.2-4.2); Glucose 87 mg/dL (74-106); Hemoglobin A1c 5.4 % (3.8-5.6); High Density Lipoprotein 54 mg/dL; Phosphorus 2.8 mg/dL (2.5-4.9); Potassium 4.3 mmol/L (3.5-5.1); Protein, Total 7.5 g/dL (6.4-8.2); Sodium Level 133 mmol/L (136-145); T4 Free Direct 1.39 ng/dL (0.76-1.46); Thyroid Stim Hormone (TSH) 0.34 uIU/mL (0.358-3.74); Triglycerides 126 mg/dL; Very Low Density Lipoprotein 25 mg/dL (5-40)
[2021-10-28 08:10] LABS: PTHIN 43.5 pg/mL (18.4-80.1)
== END | disposition home or self-care (01) ==
LOC: MFPLAB 16:20
PROVIDERS: PCP Family Medicine; Referring Provider Family Medicine; Visit Provider Family Medicine
DX: N18.30 Chronic kidney disease, stage 3 unspecified (principal); R73.02 Impaired glucose tolerance (oral); E03.9 Hypothyroidism, unspecified
CPT/HCPCS: 36415; 80053; 80061; 83036; 83970; 84100; 84439; 84443; 85025

== ENCOUNTER → 2021-12-10 | Outpatient (CLI) | payer MEDICARE, SELFPAY ==
[2021-12-10 09:57] LABS: Hematocrit 35.8 % (37-47); Hemoglobin 11.7 g/dL (12.0-15.0); Mean Corp Hgb Conc 32.7 g/dL (32-36); Mean Corpuscular Hgb 31.7 pg (27.0-32.0); Mean Platelet Vol. 9.9 fl (6.2-12.0); Platelet Count 218 K/mm3 (150-450); RBC Distribution Width CV 13.3 % (11.6-14.6); Red Blood Count 3.69 M/mm3 (4.2-5.4); White Blood Count 5.6 K/mm3 (4.4-11.0)
[2021-12-10 10:22] LABS: Vitamin B12 636 pg/mL (211-911)
[2021-12-10 10:58] LABS: Anion Gap 3 (5-15); BUN 17 mg/dL (7-18); BUN/Creat Ratio 12.4 RATIO (10-20); Calcium,Total 9.3 mg/dL (8.5-10.1); Chloride 95 mmol/L (98-107); Creatinine, Serum 1.37 mg/dL (0.55-1.02); EST Glomerular Filtration Rate 39 mL/min (>60); Est Glom Filt Rate - Afr Amer 48 mL/min (>60); Glucose 101 mg/dL (74-106); Potassium 4.4 mmol/L (3.5-5.1); Sodium Level 127 mmol/L (136-145); Thyroid Stim Hormone (TSH) 0.48 uIU/mL (0.358-3.74)
--- NOTE | 2021-12-10 13:57 | ECHOD_ITS ---
Reason For Study: HTN Procedure This was a 2D Doppler, Color Flow transthoracic echocardiogram. The exam was of adequate technical quality. Exam performed in department. Left Ventricle Normal LV size. Left ventricular systolic function is normal. The estimated ejection fraction is 65 %. No evidence for diastolic dysfunction. No regional wall motion abnormalities noted. Right Ventricle Normal RV size. A moderator band is seen in the right ventricle. Normal systolic function. Atria Normal left atrium. Normal right atrium. No doppler evidence for ASD. Mitral Valve There is mild to moderate mitral annular calcification. Extension of the mitral annular calcification onto the posterior mitral valve leaflet. Mild focal mitral valve calcification of the anterior leaflet. Trivial mitral valve insufficiency. Tricuspid Valve Normal tricuspid valve. Trivial tricuspid valve insufficiency. Right ventricular systolic pressure estimated to be 19 mmHg. Aortic Valve Trisinus/trileaflet aortic valve. Normal aortic valve. Pulmonic Valve The pulmonic valve is not well visualized. Great Vessels Normal sized aortic root. Pericardium/Pleural No pericardial effusion. MMode/2D Measurements & Calculations LVIDd: 4.1 cm IVSd: 0.96 cm Ao root diam: 3.2 cm LVIDs: 3.2 cm LVPWd: 1.0 cm RVDd: 3.7 cm FS: 22.7 % LAV(MOD-bp): 49.2 ml LVAd ap4: 25.0 cm2 SV(MOD-sp4): 46.4 ml LAV(MOD-bp) Indexed: 26.3 ml/m2 LVLd ap4: 7.7 cm LAV(MOD-sp2): 46.1 ml EDV(MOD-sp4): 67.5 ml LAV(MOD-sp4): 49.0 ml EDV(sp4-el): 69.3 ml LVAs ap4: 12.8 cm2 LVLs ap4: 6.6 cm ESV(MOD-sp4): 21.1 ml ESV(sp4-el): 21.1 ml EF(MOD-sp4): 68.7 % EF(sp4-el): 69.5 % SV(sp4-el): 48.2 ml LA A4 area: 17.6 cm2 LA dimension(2D): 3.7 cm RA A4 area: 15.2 cm2 Doppler Measurements & Calculations MV E max kirby: 97.4 cm/sec Lat Peak E' Kirby: 9.0 cm/sec Med Peak E' Kirby: 8.4 cm/sec MV A max kirby: 92.1 cm/sec E/E' lat: 10.8 E/E' med: 11.6 MV E/A: 1.1 Ao V2 max: 118.8 cm/sec LV V1 max: 115.7 cm/sec PA V2 max: 79.3 cm/sec Ao max P.6 mmHg LV V1 max P.4 mmHg TR max kirby: 201.1 cm/sec TR max P.2 mmHg ECHO/Echo Complete Interpretation Summary Left ventricular systolic function is normal. The estimated ejection fraction is 65 %. A moderator band is seen in the right ventricle. There is mild to moderate mitral annular calcification. Extension of the mitral annular calcification onto the posterior mitral valve l eaflet. Mild focal mitral valve calcification of the anterior leaflet. Trivial mitral valve insufficiency. Trivial tricuspid valve insufficiency. Right ventricular systolic pressure estimated to be 19 mmHg. No evidence for diastolic dysfunction. Ordering Physician: Zhen Levine Referring Physician: Zhen Levine Performed By: Josselin Morgan RCS
[2021-12-14 16:23] LABS: Free Kappa Light Chains 103.1 mg/L (3.3-19.4); Free Lambda Light Chains 51.9 mg/L (5.7-26.3)
[2021-12-15 15:16] LABS: Vitamin B1, Thiamine 133.3 nmol/L (66.5-200.0)
== END | disposition home or self-care (01) ==
PROVIDERS: Psychiatry & Neurology Neurology; PCP Family Medicine; Referring Provider Family Medicine; Visit Provider Family Medicine
DX: G62.9 Polyneuropathy, unspecified (principal); I27.20 Pulmonary hypertension, unspecified; E03.9 Hypothyroidism, unspecified; Z85.3 Personal history of malignant neoplasm of breast
CPT/HCPCS: 36415; 80048; 82607; 82746; 83883; 84425; 84443; 85027; 93306

== ENCOUNTER → 2021-12-24 | Outpatient (CLI) | payer MEDICARE, SELFPAY ==
[2021-12-24 15:21] LABS: Sodium Level 129 mmol/L (136-145)
== END | disposition home or self-care (01) ==
LOC: MTLAB 13:00
PROVIDERS: PCP Family Medicine; Referring Provider Psychiatry & Neurology Neurology; Visit Provider Psychiatry & Neurology Neurology
DX: E87.1 Hypo-osmolality and hyponatremia (principal)
CPT/HCPCS: 36415; 84295

== ENCOUNTER 2022-01-21 15:00 | Outpatient (RCR) | payer MEDICARE, SELFPAY ==
--- NOTE | 2021-12-16 09:54 | HP.PTEVAL ---
Patient's Visit Information AURELIO WOODWARD is a 81 year old F referred to Physical Therapy by Dr. Luis M Adams MD with a diagnosis of Polyneuropathy, abnormality of gait.. Date of Evaluation: 12/16/21 Physical Therapist: Braden Chery, DPT, OCS, CSCS - Visit Plan Frequency: 2x /Week Duration: 4-6 Weeks Plan: 2x/week for 4 weeks for... 1. VOIR ex progression(pt doing H 30 second VOR seated at home 5 x/day). 2. Balance ex emphasizing vestibular and foam and ec and functional gait and progression to HEP, include gastroc stretches please. - Subjective I am constantly dizzy described as lightheadedness. Been that way for two years. Not sure what started it. It is getting worse. it was mild at first. Fell two years ago and fractured vertebrae in back. Last 4-5 months constant. No other falls. Stumbles at times. No spinning. I just lose balance. Ocasionally sitting and never lying down...it is mostly walking. Mostly feel imbalanced more than funny feeling in head. It is more noticeable in the yard with yard work. Sleep is not affected by this. No cane or walker needed. Has a cane for long distances. No regular exercises except house work. Has neuropathy and not sure what it is from. It is in feet and half way up lower leg. It has been there for 40 years. Has chronic back pain and shoulder pain R. Tamarol as needed. Dr. Adams thinks might have inner ear problem, also started on electrolytes for low sodium. - Objective Walks slowly but safely on firm flat surface. Avoids WB forefoot. Wide DANNI. Hesitant but able. Transfers with UE I. Steps show weakness but I with rail. Cervical aROM WFL. LE strength ankles 3+ Df and 4- other ankles. Tightness obviosu in B gastroc with -3 AROM DF R and 0 L. knee strength 4-, hip abd and ext 3+ B. sensaation is diminished to gross light touch form mid calf down ant and posterior. reflex 1/3 patella and achilles. - B hallpike saad. Oculomotor: no nuystagmus with gaze or head shake. - skew eye deviation. - ocular tilt. - head thrust. Normal pursuit and saccades and convergence. VOR made slightly dizzy after 30 seconds for 2 seconds. Overall mostly neuropathic balance deficits with vestibular weakness showing. - Balance/Special Test Scores Functional Gait Assessment Score: 22 % Disability: 26.6700 CATSIB Score (Max score 120 seconds): 70 Dizziness Score: 44 - Goals Goal 1:: 24/30 FGA to diminish fall risk Goal Time Frame: 4-6 Weeks Goal 2:: Pt stand foam ec for 15 seconds without LOB Goal Time Frame: 4-6 Weeks Goal 3:: Pt feel 50% better in overall mobility Goal Time Frame: 4-6 Weeks Goal 4:: DHI 20 or less Goal Time Frame: 4-6 Weeks - Rehabilitation Potential Physical Therapy Diagnosis: balalnce deficits form neuropathy Rehabilitation Potential: Fair - Anticipated Interventions Patient/Client Instruction: Educate patient on: Condition, Plan of Care For the Purpose of:: To improve muscle performance and motor function, To increase tolerance to activity/condition/position, To improve gait and locomotor functions, To improve safety with gait Therapeutic Exercise to Include: Balance training, Flexibilty training, Gait and locomotor training For the Purpose of:: To improve muscle performance and motor function, To improve ability of physical actions for home/community/work/leisure, To improve gait and locomotor functions, To improve safety Thank you for the opportunity to evaluate your patient. For Medicare and Medicare HMO plans, please review the plan of care and approve it. It will need to be FAXED BACK to us at [phone] for Medicare purposes. For Medicare only, by signing this I certify the plan of care. Please let me know if there are questions or concerns regarding this plan of care. Physician Signature: Date:
--- NOTE | 2022-01-21 15:24 | HP.PTDCSUM ---
It has been my pleasure to treat AURELIO WOODWARD referred by Dr. Luis M Adams MD, with the diagnosis of Polyneuropathy, abnormality of gait. for a total of 9 visit(s). Discharge Date: 01/21/22 Please see the following information for a summary of their discharge status. Subjective: Thinks she is getting better. I do not have dizzy spells. Still feels unsteady, less dizzy, no sickness. Only feels it when on feet. No falls. Feels steady. Activities are normal. To doctor next month. Getting exercises in at home and head movements don't make her dizzy. Wants to continue ex at home vs continued PT. % Improvement: 60 Objective/Function: FGA is +3 today. standing on foam much better. Walking I and trasnfers without UE. Feeling better overall and wishes to cotninue at home vs more frequent therapy. Goal 1:: 2430 FGA to diminish fall risk Goal Progress: Goal Met Goal 2:: Pt stand foam ec for 15 seconds without LOB Goal Progress: Progressing Goal 3:: Pt feel 50% better in overall mobility Goal Progress: 60% Goal 4:: DHI 20 or less Goal Progress: Goal Met Plan: d/c Discharge Comments: To doctor Angie in a month, 60% better overall. If there are questions or concerns regarding this patient's physical therapy, please feel free to call me at [phone]. Thank you for the referral of this patient. Sincerely, Braden Chery, DPT, OCS, CSCS Balance/Gait/Functional tests - Balance/Special Test Scores Functional Gait Assessment Score: 25 % Disability: 16.6700 CATSIB Score (Max score 120 seconds): 92 Dizziness Score: 6
== END 2022-01-21 19:00 | disposition home or self-care (01) ==
LOC: PT 15:00
PROVIDERS: PCP Family Medicine; Visit Provider Psychiatry & Neurology Neurology
DX: G62.9 Polyneuropathy, unspecified (principal); R26.9 Unspecified abnormalities of gait and mobility; H81.90 Unspecified disorder of vestibular function, unspecified ear
CPT/HCPCS: 97110; 97161; 97164

== ENCOUNTER → 2022-03-09 | Outpatient (CLI) | payer MEDICARE, SELFPAY ==
[2022-03-09 12:16] LABS: Absolute Lymphocyte Count 0.87 X10^3/uL (0.83-4.51); Absolute Neutrophil Count 4.2 X10^3/uL (2.0-7.7); Basophil# 0.01 X10^3/uL; Basophil% 0.2 % (0-1); Eosinophils% 1.8 % (0-5); Hematocrit 36.7 % (37-47); Hemoglobin 12.1 g/dL (12.0-15.0); Lymphocyte # 0.87 X10^3/ul (0.83-4.51); Lymphocyte % 15.2 % (19-41); Mean Corpuscular Hgb 33.2 pg (27.0-32.0); Mean Corpuscular Volume 100.5 fL (81-99); Mean Platelet Vol. 10.2 fl (6.2-12.0); Monocyte# 0.55 X10^3/uL; Monocyte% 9.6 % (0-10); NRBC Flagged by Analyzer 0 % (0-5); Neutrophil # 4.16 X10^3/uL (2.7-7.7); Neutrophil % 72.8 % (47-70); Platelet Count 181 K/mm3 (150-450); RBC Distribution Width CV 13.4 % (11.6-14.6); RBC Distribution Width SD 49.5 fl (35.1-43.9); Red Blood Count 3.65 M/mm3 (4.2-5.4); White Blood Count 5.7 K/mm3 (4.4-11.0)
[2022-03-09 12:45] LABS: Vitamin B12 709 pg/mL (211-911); Vitamin D,25 Hydroxy 60.4 ng/mL
[2022-03-09 13:01] LABS: Hemoglobin A1c 5.5 % (3.8-5.6)
[2022-03-09 13:43] LABS: ALB/GLOB Ratio 0.7 RATIO (0.9-2.4); AST(SGOT) 26 U/L (15-37); Alanine Aminotransfer ALT/SGPT 23 U/L (13-56); Albumin, Serum 3.2 g/dL (3.2-5.0); Alkaline Phosphatase 81 U/L (45-117); Anion Gap 9 (5-15); BUN 17 mg/dL (7-18); Calcium,Total 8.8 mg/dL (8.5-10.1); Chloride 98 mmol/L (98-107); Creatinine, Serum 1.31 mg/dL (0.55-1.02); EST Glomerular Filtration Rate 41 mL/min (>60); Est Glom Filt Rate - Afr Amer 50 mL/min (>60); Ferritin 126 ng/mL (8-252); Globulin 4.6 g/dL (2.2-4.2); Glucose 94 mg/dL (74-106); Iron 80 ug/dL (50-170); Iron Binding Capacity,Total 274 ug/dL (250-450); Potassium 4.2 mmol/L (3.5-5.1); Protein, Total 7.8 g/dL (6.4-8.2); Sodium Level 132 mmol/L (136-145); T4 Free Direct 1.52 ng/dL (0.76-1.46); Thyroid Stim Hormone (TSH) 0.23 uIU/mL (0.358-3.74)
== END | disposition home or self-care (01) ==
LOC: MFPLAB 11:18
PROVIDERS: PCP Family Medicine; Visit Provider Family Medicine
DX: E03.9 Hypothyroidism, unspecified (principal); D64.9 Anemia, unspecified; E55.9 Vitamin D deficiency, unspecified; R73.02 Impaired glucose tolerance (oral)
CPT/HCPCS: 36415; 80053; 82306; 82607; 82728; 82746; 83036; 83540; 83550; 84439; 84443; 85025

== ENCOUNTER → 2022-03-15 | Outpatient (CLI) | payer MEDICARE, SELFPAY ==
[2022-03-16 15:08] LABS: Albumin 3.7 g/dL (2.9-4.4); Alpha-1-Globulins 0.2 g/dL (0.0-0.4); Alpha-2-Globulins 0.8 g/dL (0.4-1.0); Gamma Globulin 1.7 g/dL (0.4-1.8); Immunoglobulin A 185 mg/dL (64-422); Immunoglobulin G 1700 mg/dL (586-1602); Immunoglobulin M 122 mg/dL (26-217); PROEL- TOTAL PROTEIN 7.4 g/dL (6.0-8.5)
[2022-03-16 16:09] LABS: IMMUNOFIXATION RESULT,S Comment: (.)
== END | disposition home or self-care (01) ==
LOC: MTLAB 08:59
PROVIDERS: PCP Family Medicine; Referring Provider Psychiatry & Neurology Neurology; Visit Provider Psychiatry & Neurology Neurology
DX: G62.9 Polyneuropathy, unspecified (principal)
CPT/HCPCS: 36415; 82784; 84165; 86334; 86335

== ENCOUNTER → 2022-06-04 | Outpatient (CLI) | payer MEDICARE, SELFPAY ==
[2022-06-04 12:33] LABS: Albumin, Serum 3.5 g/dL (3.2-5.0); BUN 21 mg/dL (7-18); BUN/Creat Ratio 15.1 RATIO (10-20); Calcium,Total 9.4 mg/dL (8.5-10.1); Chloride 97 mmol/L (98-107); Creatinine, Serum 1.39 mg/dL (0.55-1.02); EST Glomerular Filtration Rate 39 mL/min (>60); Est Glom Filt Rate - Afr Amer 47 mL/min (>60); Glucose 94 mg/dL (74-106); Phosphorus 3.1 mg/dL (2.5-4.9); Potassium 4.3 mmol/L (3.5-5.1); Sodium Level 132 mmol/L (136-145)
== END | disposition home or self-care (01) ==
LOC: MTLAB 10:09
PROVIDERS: PCP Family Medicine; Referring Provider Internal Medicine Nephrology; Visit Provider Internal Medicine Nephrology
DX: N18.30 Chronic kidney disease, stage 3 unspecified (principal)
CPT/HCPCS: 36415; 80069

== ENCOUNTER → 2022-08-05 | Outpatient (CLI) | payer MEDICARE, SELFPAY ==
[2022-08-05 11:10] LABS: ALB/GLOB Ratio 0.6 RATIO (0.9-2.4); AST(SGOT) 23 U/L (15-37); Alanine Aminotransfer ALT/SGPT 18 U/L (13-56); Albumin, Serum 2.9 g/dL (3.2-5.0); Alkaline Phosphatase 86 U/L (45-117); Anion Gap 7 (5-15); BUN 17 mg/dL (7-18); BUN/Creat Ratio 12.4 RATIO (10-20); Chloride 96 mmol/L (98-107); Creatinine, Serum 1.37 mg/dL (0.55-1.02); EST Glomerular Filtration Rate 39 mL/min (>60); Est Glom Filt Rate - Afr Amer 47 mL/min (>60); Globulin 4.6 g/dL (2.2-4.2); Glucose 98 mg/dL (74-106); Magnesium 1.5 mg/dL (1.6-2.6); Potassium 4.3 mmol/L (3.5-5.1); Protein, Total 7.5 g/dL (6.4-8.2); Sodium Level 133 mmol/L (136-145)
== END | disposition home or self-care (01) ==
LOC: MFPLAB 09:22
PROVIDERS: PCP Family Medicine; Referring Provider Family Medicine; Visit Provider Family Medicine
DX: R19.7 Diarrhea, unspecified (principal)
CPT/HCPCS: 36415; 80053; 83735

== ENCOUNTER → 2022-08-25 | Outpatient (CLI) | payer MEDICARE, SELFPAY ==
[2022-08-30 19:06] LABS: Fats, Neutral Increased (.); Fats, Total Increased (.)
== END | disposition home or self-care (01) ==
PROVIDERS: PCP Family Medicine; Referring Provider Family Medicine; Visit Provider Family Medicine
DX: R19.7 Diarrhea, unspecified (principal)
CPT/HCPCS: 82705; 83630; 87177; 87209; 87493

== ENCOUNTER 2022-11-24 07:51 | Emergency (ER) | payer MEDICARE, SELFPAY ==
[2022-11-24 07:51] VITALS: BP 177/40; PULSE 92; RESP 14; TEMP 36.4; O2SAT 97; BMI 25.0
--- NOTE | 2022-11-24 08:06 | EX.ED.DYSGE1 ---
HPI History of Present Illness Chief Complaint: Lower Extremity Injury [facility] Medical History Ambulatory dysfunction BPPV (benign paroxysmal positional vertigo) Compression fracture of L4 vertebra History of breast cancer Hx of breast cancer Hypothyroidism Hypothyroidism Lupus Peripheral neuropathy Right-sided chest wall pain Vertigo Home Medications cholecalciferol (vitamin D3) 25 mcg (1,000 unit) capsule 25 mcg PO DAILY 12/10/21 [History Last Taken Unknown] multivitamin with minerals (Multiple Vitamin-Minerals tablet) 1 tab PO DAILY 12/10/21 [History Last Taken Unknown] tramadol 50 mg tablet 50 mg PO BID PRN Pain 12/10/21 [History Last Taken Unknown] vitamin E 200 unit capsule 200 unit PO BID 12/10/21 [History Last Taken Unknown] levothyroxine 100 mcg tablet 50 mcg PO DAILY 03/15/22 [History Last Taken Unknown] omeprazole 20 mg capsule,delayed release 20 mg PO DAILY 03/15/22 [History Last Taken Unknown] polyethylene glycol 3350 17 gram/dose oral powder (Miralax) 4 g PO DAILY 03/15/22 [History Last Taken Unknown] vitamins A,C,W-zsxa-wkqkdz 2,148 mcg-113 mg-45 mg-17.4 mg tablet (PreserVision AREDS) 2 tab PO BID 03/15/22 [History Last Taken Unknown] Allergy/AdvReac Type Severity Reaction Status Date / Time dextromethorphan Allergy Unknown unknown Verified 11/24/22 07:54 [From Scot-Tussin DM Cough Chasers] prednisone Allergy Unknown unknown Verified 11/24/22 07:54 valacyclovir [From Valtrex] Allergy Unknown unknown Verified 11/24/22 07:54 Family History Mother Hypertension Osteoporosis Sister Cancer Surgical History History of lumpectomy of right breast (~2004) History of right knee joint replacement Hx of appendectomy Hx of fracture of ankle Hx of hysterectomy Social History Smoking Status: Never smoker alcohol intake: never substance use type: does not use caffeine: Yes what type of physical activity do you participate in: none frequency: does not exercise EXAM Physical Exam Const Vital Signs: 11/24/22 07:51 Temperature 97.6 F L Temperature Source Temporal Pulse Rate 92 Respiratory Rate 14 Blood Pressure 177/40 H Blood Pressure Mean 85 Pulse Ox 97 Oxygen Delivery Method Room Air [facility] Narrative Medical decision making narrative: HISTORY OF PRESENT ILLNESS: 82-year-old female here with right leg pain. States this started yesterday morning. States she woke up and had a tweak in her low back. She states since then she has had constant, severe right buttock pain that is nonradiating. She describes the pain as sharp, pain. Patient denies any saddle anesthesia, urinary tension, bowel or bladder incontinence, lower extremity weakness, fever or IV drug use, no recent spinal manipulation or surgery, no recent urinary catheterization. No falls or recent trauma endorsed. No history of surgery to the hip. No rashes noted. No fever. No recent Ritter catheterization, hospitalization, history of diabetes or renal failure. REVIEW OF SYSTEMS: Pertinent positives: Hip pain Pertinent negatives: Numbness tingling loss of sensation PHYSICAL EXAM: Nursing triage notes reviewed, Vital signs reviewed Constitutional: please see mdm Lungs: Clear to auscultation, No wheezing or rales. No increased work of breathing, no conversational dyspnea, no accessory muscle use, no nasal flaring. No respiratory distress noted Heart: Regular rate and rhythm, No murmurs, No rubs and No gallops, 2+ distal pulses (radial, femoral, posterior tibial) in all extremities Abdomen: Soft, there is no tenderness, rigidity, rebound or guarding, no obvious peritoneal signs, no palpable pulsatile abdominal masses, no auscultated abdominal bruit : No CVAT Extremities: No edema Neuro: Intact sensation L1-S1 dermatomal distributions. Intact 5/5 strength in hip flexion (T12-L3). Knee extension (L2-L4). Ankle dorsiflexion (L4-L5). Ankle plantar flexion (S1). Great toe extension (L5). 2+ patellar and Achilles DTRs. Skin: No rash or lesions noted MEDICAL DECISION MAKING: Chief Complaint: Right hip pain External records reviewed:No recent advanced imaging of the involved extremity Factors affecting care: History of right ankle joint replacement, peripheral neuropathy Social determinants of health: Elderly, History obtained from others: The patient significant other Consults: none ALL IMAGES HAVE BEEN PERSONALLY REVIEWED AND INTERPRETED BY MYSELF. Hip x-ray personally viewed by myself shows degenerative changes, osteoarthritis but no obvious fracture dislocation MDM Narrative: I considered the following differential diagnosis: Lumbar radiculopathy, space-occupying lesion of the spine, cauda equina, hip fracture dislocation, osteoporosis, osteoarthritis I considered space-occupying lesion the spine and cauda equina however patient has a low back pain red flag score. She has no bowel or bladder incontinence, urinary retention, focal neurologic deficits to warrant emergent MRI or spine surgery consultation. I obtained an x-ray of the right hip and gave anti-inflammatories, and narcotics. X-ray showed degenerative changes. Patient is likely suffering from lumbar radiculopathy. There was no history of recent fall or trauma. There was no evidence to support genitourinary etiology. There is also no evidence to suggest vascular pathology such as AAA dissection. No fevers or other evidence to suspect infectious processes, abscess, osteomyelitis etc. The patient?s neurological exam is normal with normal motor and sensory. There is no saddle paresthesias reported and no bowel or bladder incontinence or retention. I suspect the pain is mechanical/musculoskeletal in nature. Clinical suspicion, plan of care and management was discussed with the patient. The patient was instructed to follow up with their health care provider. The patient was also instructed to return if the pain worsened, changed, or developed weakness or bowel or bladder trouble. The patient agreed with plan. I completed a structured, evidence-based clinical evaluation to screen for acute non-traumatic spinal emergencies. The patient has a normal detailed neurologic exam and red flag historical factors were negative. The evidence indicates that the patient is very low risk for an acute spinal emergency and this is consistent with my clinical intuition. The risk of further workup is higher than the likelihood of the patient having a spinal epidural abscess or other dangerous emergency spinal condition. It is, therefore, in the patient?s best interest not to do additional emergent testing at this time. Shared Decision-Making I have discussed with the patient my clinical impression and the result of an evidence-based clinical evaluation to screen for spinal epidural abscess and other spinal emergencies, as well as the risk of further testing and hospitalization. The evidence shows that the risk for an acute spinal emergency is less than 1%. Although the risk of an acute spinal emergency has not been completely eliminated, the risks of further testing likely exceed any potential benefit, and the patient agrees with not pursuing further emergent evaluation for causes of back pain at this time. Total critical care time today provided was at least 0 minutes. This excludes separately billable procedures. There was a high probability of clinically significant/life threatening deterioration in the patient's condition which required my urgent intervention. Radiography Diagnostic Testing: Clinical Impression(s) from Imaging Studies Hip/Pelvis X-Ray 11/24/22 08:19 IMPRESSION: Degenerative changes of the hips. Electronically Signed: Leslie Vazquez MD at 9:16 EDT , Discharge Plan Triage Chief Complaint: Lower Extremity Injury ED Provider: Dominic Wetzel Dx/Rx/DC Orders Clinical Impression: Acute lumbar radiculopathy Instructions: ED Sciatica Prescriptions: No Action levothyroxine 100 mcg tablet 50 mcg PO DAILY tramadol 50 mg tablet 50 mg PO BID PRN (Reason: Pain) cholecalciferol (vitamin D3) 25 mcg (1,000 unit) capsule 25 mcg PO DAILY Multiple Vitamin-Minerals Tablet 1 tab PO DAILY vitamin E 200 unit capsule 200 unit PO BID omeprazole 20 mg capsule,delayed release(DR/EC) 20 mg PO DAILY polyethylene glycol 3350 [Miralax] 17 gram/dose powder 4 g PO DAILY PreserVision AREDS 2,148 mcg-113 mg-45 mg-17.4mg tablet 2 tab PO BID Rx Instructions: administer with AM and PM meals Primary Care Provider: Zhen Levine Referrals: Zhen Levine MD [Primary Care Provider] - Activity Restrictions/Additional Instructions: Thank you for trusting us with your care today! Please take Tylenol (2 pills, 650 mg), ibuprofen (2 pills, 400 mg) every 6 hours as needed for pain and fever control. Please go to your local pharmacy or drugstore and obtain Salonpas lidocaine patches for additional pain control at home. Please return to the emergency department if your symptoms change or worsen. Please follow with your primary care physician for further outpatient evaluation and management. Disposition Disposition: Home, Self Care Discharge Date/Time: 11/24/22 10:19
--- NOTE | 2022-11-24 08:19 | RAD_ITS ---
INDICATION: hip pain EXAMINATION/TECHNIQUE: X-RAY - XR Hip Unilateral with Pelvis when performed; 2-3 Views COMPARISON: CT of the abdomen and pelvis dated December 05, 2015 FINDINGS: There are degenerative changes of the visualized lower lumbar spine. There is evidence of prior kyphoplasty or vertebroplasty of L4. PELVIC BONES: No displaced fracture, destructive or sclerotic lesions. Note that overlapping bowel shadows may however obscure fine detail. Sacroiliac joints are unremarkable. No widening of the pubic symphysis. HIPS: There are degenerative changes of the hips characterized by joint space narrowing and subchondral sclerosis. SOFT TISSUES: No soft tissue swelling or gas. RAD/HIP, UNI W/ Pelvis 2-3 Views IMPRESSION: Degenerative changes of the hips. Electronically Signed: Leslie Vazquez MD at 9:16 EDT ,
[2022-11-24] MEDS: oxyCODONE 5 MG Tablet PO (08:26)
[2022-11-24] MEDS: Ibuprofen 200 MG Tablet 400 MG PO (08:26)
[2022-11-24] MEDS: dexAMETHasone 4 MG Tablet PO (08:26)
== END 2022-11-24 10:19 | disposition home or self-care (01) ==
PROVIDERS: Emergency Provider Emergency Medicine; PCP Family Medicine; Visit Provider Emergency Medicine
DX: M54.16 Radiculopathy, lumbar region (principal); E03.9 Hypothyroidism, unspecified; G62.9 Polyneuropathy, unspecified; Z79.890 Hormone replacement therapy; Z79.899 Other long term (current) drug therapy; Z96.661 Presence of right artificial ankle joint
CPT/HCPCS: 73502; 99282

== ENCOUNTER → 2022-12-01 | Outpatient (CLI) | payer MEDICARE, SELFPAY ==
[2022-12-01 15:48] LABS: Absolute Lymphocyte Count 0.93 X10^3/uL (0.83-4.51); Basophil# 0.01 X10^3/uL; Basophil% 0.2 % (0-1); Eosinophil# 0.02 X10^3/uL; Eosinophils% 0.3 % (0-5); Hemoglobin 12.3 g/dL (12.0-15.0); Lymphocyte # 0.93 X10^3/ul (0.83-4.51); Lymphocyte % 14.6 % (19-41); Mean Corp Hgb Conc 31.5 g/dL (32-36); Mean Corpuscular Hgb 32.2 pg (27.0-32.0); Mean Corpuscular Volume 102.1 fL (81-99); Mean Platelet Vol. 10.4 fl (6.2-12.0); Monocyte# 0.44 X10^3/uL; Monocyte% 6.9 % (0-10); NRBC Flagged by Analyzer 0 % (0-5); Neutrophil # 4.96 X10^3/uL (2.7-7.7); Neutrophil % 77.8 % (47-70); Platelet Count 208 K/mm3 (150-450); RBC Distribution Width CV 13.2 % (11.6-14.6); RBC Distribution Width SD 50.4 fl (35.1-43.9); Red Blood Count 3.82 M/mm3 (4.2-5.4); White Blood Count 6.4 K/mm3 (4.4-11.0)
[2022-12-01 16:09] LABS: Vitamin B12 725 pg/mL (211-911); Vitamin D,25 Hydroxy 61.5 ng/mL
[2022-12-01 16:42] LABS: ALB/GLOB Ratio 0.9 RATIO (0.9-2.4); AST(SGOT) 20 U/L (15-37); Alanine Aminotransfer ALT/SGPT 15 U/L (13-56); Albumin, Serum 3.6 g/dL (3.2-5.0); Alkaline Phosphatase 79 U/L (45-117); Anion Gap 6 (5-15); BUN 18 mg/dL (7-18); BUN/Creat Ratio 12.9 RATIO (10-20); Calcium,Total 9.2 mg/dL (8.5-10.1); Chloride 95 mmol/L (98-107); Cholesterol 197 mg/dL (200); Creatinine, Serum 1.39 mg/dL (0.55-1.02); EST Glomerular Filtration Rate 39 mL/min (>60); Est Glom Filt Rate - Afr Amer 47 mL/min (>60); Ferritin 113 ng/mL (8-252); Globulin 4.1 g/dL (2.2-4.2); Glucose 93 mg/dL (74-106); High Density Lipoprotein 65 mg/dL; Iron 80 ug/dL (50-170); Iron Binding Capacity,Total 296 ug/dL (250-450); Phosphorus 3.2 mg/dL (2.5-4.9); Potassium 4.6 mmol/L (3.5-5.1); Protein, Total 7.7 g/dL (6.4-8.2); Sodium Level 128 mmol/L (136-145); T4 Free Direct 1.17 ng/dL (0.76-1.46); Thyroid Stim Hormone (TSH) 4.96 uIU/mL (0.358-3.74); Triglycerides 101 mg/dL; Very Low Density Lipoprotein 20 mg/dL (5-40)
[2022-12-01 17:51] LABS: Hemoglobin A1c 5.2 % (3.8-5.6)
[2022-12-02 08:49] LABS: PTHIN 28.7 pg/mL (18.4-80.1)
== END | disposition home or self-care (01) ==
LOC: MFPLAB 11:40
PROVIDERS: PCP Family Medicine; Visit Provider Family Medicine
DX: E03.9 Hypothyroidism, unspecified (principal); N18.30 Chronic kidney disease, stage 3 unspecified; D64.9 Anemia, unspecified; E55.9 Vitamin D deficiency, unspecified; R73.02 Impaired glucose tolerance (oral)
CPT/HCPCS: 36415; 80053; 80061; 82306; 82607; 82728; 82746; 83036; 83540; 83550; 83970; 84100; 84439; 84443; 85025

== ENCOUNTER → 2022-12-09 | Outpatient (CLI) | payer MEDICARE, SELFPAY ==
[2022-12-09 15:26] LABS: Mucous, Urine 0 SEEN /hpf (<or=2+)
[2022-12-09 18:24] LABS: Color, Urine Yellow (Yellow); Glucose, Dipstick Normal (Normal); Ketone-Dipstick Negative (Negative); Leukocyte Esterase-Dipstick 500 /ul (Negative); Nitrite-Dipstick Negative (Negative); Occult Blood-Urine 10 /ul (Negative); Protein-Dipstick 15 mg/dl (Negative); Specific Gravity, Urine 1.015 (1.002-1.030); Urine Bilirubin Dipstick Negative (Negative); Urine Clarity Sl. Cloudy (Clear); Urine Urobilinogen Normal (Normal)
[2022-12-09 18:31] LABS: Anion Gap 6 (5-15); BUN 25 mg/dL (7-18); Calcium,Total 8.7 mg/dL (8.5-10.1); Chloride 97 mmol/L (98-107); Creatinine, Serum 1.47 mg/dL (0.55-1.02); EST Glomerular Filtration Rate 36 mL/min (>60); Est Glom Filt Rate - Afr Amer 44 mL/min (>60); Glucose 87 mg/dL (74-106); Potassium 4.3 mmol/L (3.5-5.1); Sodium Level 128 mmol/L (136-145)
[2022-12-09 18:36] LABS: Protein, Urine (Random) 19.7 mg/dL (<11.9); Protein:Creat Ratio 155 mg/g CRE (0-200)
[2022-12-09 18:38] LABS: Red Blood Cells-Urine 0-5 SEEN /hpf (0-5); Squamous Epithelial Cells - UA 5-10 SEEN /hpf (5-10); White Blood Cells 10-25 SEEN /hpf (0-5)
[2022-12-09 18:39] LABS: Bacteria 1+ /hpf (None Seen); Transitional Epithelial - Ur 0-5 SEEN /hpf (0-5)
== END | disposition home or self-care (01) ==
LOC: MTLAB 15:21
PROVIDERS: PCP Family Medicine; Referring Provider Family Medicine; Visit Provider Family Medicine
DX: R82.81 Pyuria (principal); E87.1 Hypo-osmolality and hyponatremia
CPT/HCPCS: 36415; 80048; 81001; 82570; 84156

== ENCOUNTER → 2023-02-15 | Outpatient (CLI) | payer MEDICARE, SELFPAY ==
--- NOTE | 2023-02-15 08:34 | BD_ITS ---
STUDY: DUAL ENERGY X-RAY ABSORPTIOMETRY / DXA REASON FOR EXAM: Female, 82 years old. [id number] TECHNIQUE: Bone Mineral Density (BMD) measurements of lumbar spine and bilateral hips were obtained. COMPARISON: Comparison is made with prior studies April 25, 2019. FINDINGS: Lumbar Spine (L1-L4): g/cm2 (1.332) / T-score (2.9) / Z-score (5.6) Findings are suggestive of normal bone density with a low fracture risk. Left Femur Total: g/cm2 (0.911) / T-score (-0.3) / Z-score (2.0) Left Femoral Neck: g/cm2 (0.924) / T-score (0.7) / Z-score (3.1) Right Femur Total: g/cm2 (0.841) / T-score (-0.8) / Z-score (1.4) Right Femoral Neck: g/cm2 (0.796) / T-score (-0.5) / Z-score (2.0) The T-Scores on the most recent prior examination were: Lumbar Spine (L1-L4): There has been worsening of bone density since the previous examination. Left Femur Total: which represents a worsening of 8.4%. Right Femur Total: which represents a worsening of 8.2%. BD/Dexa Bone Density Study IMPRESSION: The patient is considered normal as outlined below according to World Philipp Organization (WHO) criteria with a low fracture risk. There has been worsening of bone density since the previous examination. Reference Information: The T-score is the number of standard deviations above or below the standard which is normal for young adults at their peak bone mineral density. The World Health Organization (WHO) interprets the T-scores as follows: Above -1 Normal bone density Between -1 and -2.5 Osteopenia Equal to / or below -2.5 Osteoporosis As a practical clinical guideline, osteopenia may be graded as follows: Mild -1 through -1.5 Moderate -1.6 through -2.0 Severe -2.1 through -2.4 The Z-score is the number of standard deviations above or below age-matched controls. A Z-score of less than -1.5 would be considered abnormal. References: 1. NIH Osteoporosis and Related Bone Diseases www osteo.org 2. International Society for Clinical Densitometry www iscd.org 3. National Osteoporosis Foundation www nof.org Electronically Signed: Balaji Sifuentes MD at 15:16 EDT ,
== END | disposition home or self-care (01) ==
LOC: OPBD 08:28
PROVIDERS: PCP Family Medicine; Referring Provider Family Medicine; Visit Provider Family Medicine
DX: Z78.0 Asymptomatic menopausal state (principal)
CPT/HCPCS: 77080

== ENCOUNTER 2023-02-20 14:33 | Inpatient (IN) | payer MEDICARE, SELFPAY ==
[2023-02-20 14:34] VITALS: BP 132/62; PULSE 87; RESP 18; TEMP 35.5; O2SAT 100; BMI 24.3
--- NOTE | 2023-02-20 15:37 | EX.ED.DYSGE1 ---
HPI History of Present Illness Chief Complaint: Nausea/Vomiting Detail of Chief Complaint: Subjective fever, chills, nausea and vomiting, cough Informant: patient Onset/Context/Timing Onset: Yesterday Context: Sudden Onset Timing: Intermittent Quality: Abdominal discomfort with vomiting Location: Upper GI Current Severity: Mild Maximum Severity: Moderate Worsened by: When she attempted to eat or drink anything Relieved by: Nothing Associated Symptoms Associated Symptoms: Systemic symptoms consistent with infectious process Narrative Narrative: Patient is a 82-year-old woman with history of peripheral neuropathy, lupus, vertebral fracture, hypothyroidism and breast cancer who presents with nausea and vomiting. She states she has vomited 9 times in last 15 hours. Does not appear to have blood or coffee-ground appearance. She has had soft stools. She does endorse feeling hot and having chills. She also reports slight cough. She has had vomiting with the coughing. She does complain of a vertex headache. Nothing makes the headache better or worse. She denies double vision, blurred vision loss of vision or photophobia. She denies neck pain or neck stiffness. She does endorse mild rhinorrhea. She denies postnasal drainage or sore throat. She denies chest discomfort. She does endorse decreased urine output. She has no urologic symptoms of dysuria, frequency, urgency or hematuria. She denies back or flank pain. Prior similar symptoms: No Recent Illness/Hospitalization: No [facility] Medical History Ambulatory dysfunction BPPV (benign paroxysmal positional vertigo) Compression fracture of L4 vertebra History of breast cancer Hx of breast cancer Hypothyroidism Hypothyroidism Lupus Peripheral neuropathy Right-sided chest wall pain Vertigo Home Medications cholecalciferol (vitamin D3) 25 mcg (1,000 unit) capsule 25 mcg PO DAILY 12/10/21 [History Last Taken Unknown] multivitamin with minerals (Multiple Vitamin-Minerals tablet) 1 tab PO DAILY 12/10/21 [History Last Taken Unknown] tramadol 50 mg tablet 50 mg PO BID PRN Pain 12/10/21 [History Last Taken Unknown] vitamin E 200 unit capsule 200 unit PO BID 12/10/21 [History Last Taken Unknown] levothyroxine 100 mcg tablet 50 mcg PO DAILY 03/15/22 [History Last Taken Unknown] vitamins A,C,V-nuem-oycwwn 2,148 mcg-113 mg-45 mg-17.4 mg tablet (PreserVision AREDS) 2 tab PO BID 03/15/22 [History Last Taken Unknown] trazodone 100 mg tablet 100 mg PO PRN PRN sleep 02/20/23 [History Last Taken Unknown] Allergy/AdvReac Type Severity Reaction Status Date / Time dextromethorphan Allergy Severe Hives Verified 02/20/23 14:36 [From Scot-Tussin DM Cough Chasers] prednisone Allergy Severe Hives Verified 02/20/23 14:36 valacyclovir [From Valtrex] Allergy Severe Hives Verified 02/20/23 14:36 Family History Mother Hypertension Osteoporosis Sister Cancer Surgical History History of lumpectomy of right breast (~2004) History of right knee joint replacement Hx of appendectomy Hx of fracture of ankle Hx of hysterectomy Social History Smoking Status: Never smoker alcohol intake: never substance use type: does not use caffeine: Yes what type of physical activity do you participate in: none frequency: does not exercise ROS ROS ED Constitutional Constitutional ED: Reports chills, fever(s) and subjective; Denies sweats or weight loss Eyes Eyes: Denies blurry vision or change in vision ENT ENT ED: Reports rhinorrhea; Denies ear pain or sore throat Cardiovascular Cardiovascular: Denies chest pain, orthopnea, palpitations, paroxysmal nocturnal dyspnea or racing heartbeat Respiratory/Chest Respiratory/Chest: Reports cough, dyspnea and dyspnea on exertion; Denies orthopnea or paroxysmal nocturnal dyspnea Gastrointestinal Gastrointestinal: Reports abdominal pain, diarrhea, nausea and vomiting; Denies constipation or melena Genitourinary Genitourinary ED: Denies dysuria, hematuria or urinary frequency Musculoskeletal Musculoskeletal: Reports back pain and other Details: Back pain is due to L4 compression fracture which has gotten worse. ; Denies arthralgias, myalgias or neck pain Integumentary Denies rash Neurologic Neurologic: Reports headache(s) and weakness; Denies paresthesias Endocrine Endocrinology: Denies cold intolerance or heat intolerance Hematologic/Lymphatic Hematologic/Lymphatic: Reports systems reviewed and no addt'l complaints, except as documented EXAM Physical Exam Const Vital Signs: 02/20/23 14:34 02/20/23 16:12 02/20/23 17:38 Temperature 96 F L Temperature Source Temporal Pulse Rate 87 68 71 Respiratory Rate 18 21 H 19 H Blood Pressure 132/62 H 115/53 L 141/63 H Blood Pressure Mean 85 73 89 Pulse Ox 100 99 97 Oxygen Delivery Method Room Air Room Air Room Air 02/20/23 18:49 Temperature 98.2 F Temperature Source Oral Pulse Rate 80 Respiratory Rate 20 H Blood Pressure 140/73 H Blood Pressure Mean 95 Pulse Ox 97 Oxygen Delivery Method Room Air Positive well nourished and well developed Constitutional Narrative: Patient appears tachypneic. She is breathing faster than 18 times a minute. General Appearance ED: well developed; Negative for cyanotic, diaphoretic or NAD HEENT Reports dry mucous membranes HEENT Narrative: Head is atraumatic and normocephalic. Ears are normal. Nares are patent. Posterior pharynx out erythema or exudate. Uvula is midline. Mouth ED: Yes dry mucous membranes Mouth: dry mucous membranes Eyes PERRL General Eye ED: Negative for pale conjunctiva or scleral icterus Neck no lymphadenopathy, supple and no JVD Resp normal respiratory effort and No clear to auscultation bilaterally Auscultation: rales right lower; Negative for rhonchi or wheezes Cardio regular rate, regular rhythm, S1 normal heart sound, S2 normal heart sound and no murmurs GI no masses; Negative for non-tender, non-distended or hepatosplenomegaly GI Narrative: There is tympany percussion. Inspection: abdominal distention Auscultation: hypoactive bowel sounds Palpation: soft and tender epigastric Back/Spine no CVA tenderness Extremity normal to inspection General Extremety ED: Negative for edema or tenderness General Extremity: Negative for edema Neuro oriented x3, CN's II-XII intact bilaterally and no sensory deficits noted Psych mental status grossly normal Skin no rashes or lesions noted, no wounds and No skin turgor normal General Skin Exam: Negative for elasticity normal or jaundice MDM MDM MDM Narrative Medical decision making narrative: Patient's nausea vomiting may be due to right lower lobe pneumonia. She does endorse respiratory symptoms. This may also represent systemic viral illness. Clinically she appears dehydrated. Will obtain electrolytes to assess renal function, CO2 anion gap. CBC to assess white count differential. Chest x-ray to assess for pneumonia since patient has abnormal aspiratory findings in the right lower lobe. Review of prior records indicates patient has had pneumonia that did not require admission. History & Record Review Additional record(s) reviewed:: Prior outpatient record (Outpatient records were reviewed. They were for multiple reasons. These visits were over multiple years and she has not been in the emergency department until recently for back pain), Prior ED visit and Prior labs Lab Data Attestation: I reviewed the patient's lab results. Lab results narrative: CBC is unremarkable. Comprehensive metabolic panel reveals a glucose of 134 with a normal CO2 and anion gap. BUN and creatinine lactate is a evaded at 3.7. Are elevated at 26 and 1.8 respectively with a GFR of 29. Patient has acute on chronic kidney injury. She has chronic hyponatremia. Labs: Laboratory Results - last 24 hr 02/20/23 15:50 WBC 7.2 RBC 4.29 Hgb 14.2 Hct 42.4 MCV 98.8 MCH 33.1 H MCHC 33.5 RDW Std Deviation 50.8 H RDW Coeff of Hernán 13.8 Plt Count 283 MPV 10.0 Immature Gran % (Auto) 0.400 Neut % (Auto) 82.1 H Lymph % (Auto) 7.2 L Morehouse % (Auto) 9.1 Eos % (Auto) 0.6 Baso % (Auto) 0.6 Absolute Neuts (auto) 5.9 Absolute Lymphs (auto) 0.52 L Nucleated RBC % 0 Differential Comment SCANNED Sodium 131 L Potassium 4.4 Chloride 95 L Carbon Dioxide 25.0 Anion Gap 11 BUN 26 H Creatinine 1.80 H Estim Creat Clear Calc 22.17 Est GFR (MDRD) Af Amer 35 L Est GFR (MDRD) Non-Af 29 L BUN/Creatinine Ratio 14.4 Glucose 134 H Lactic Acid 3.7 H* Calcium 10.1 Total Bilirubin 0.90 AST 28 ALT 18 Alkaline Phosphatase 104 Total Protein 8.1 Albumin 3.5 Globulin 4.6 H Albumin/Globulin Ratio 0.8 L Radiography Diagnostic Testing: Clinical Impression(s) from Imaging Studies Chest X-Ray 02/20/23 16:32 IMPRESSION: No definite acute or significant abnormality seen. Electronically Signed: Riaz Schwab MD at 16:58 EDT , EKG Initial EKG: Attestation: I personally reviewed and interpreted this EKG as follows: Interpretation: Sinus Rhythm (Sinus rhythm with rate of 60 with respiratory variance. There is evidence of right bundle branch block. QRS duration is prolonged at 134 ms. QT W[place] intervals 154 ms. QT durations 428 ms. ) Prior: Unchanged Treatment and Re-Evaluation :: Patient was reassessed at 1700. She states she still does not feel back to baseline. She would like to see if she could drink chicken broth without vomiting. Patient was only able to drink a half a glass of liquid beverage. She is now actively vomiting. Since patient failed p.o. challenge has had elevation in creatinine will call hospitalist for admission. Discharge Plan Triage Chief Complaint: Nausea/Vomiting ED Provider: Dereje Cantu Dx/Rx/DC Orders Clinical Impression: Nausea vomiting and diarrhea, Lupus, Hyponatremia, Hypothyroidism, Acute kidney injury superimposed on chronic kidney disease, Moderate dehydration Prescriptions: No Action levothyroxine 100 mcg tablet 50 mcg PO DAILY tramadol 50 mg tablet 50 mg PO BID PRN (Reason: Pain) cholecalciferol (vitamin D3) 25 mcg (1,000 unit) capsule 25 mcg PO DAILY Multiple Vitamin-Minerals Tablet 1 tab PO DAILY vitamin E 200 unit capsule 200 unit PO BID PreserVision AREDS 2,148 mcg-113 mg-45 mg-17.4mg tablet 2 tab PO BID Rx Instructions: administer with AM and PM meals trazodone 100 mg tablet 100 mg PO PRN PRN (Reason: sleep) Patient Comments: TAKE 1 TABLET BY MOUTH AT BEDTIME NEEDED FOR SLEEP Primary Care Provider: Zhen Levine Referrals: Zhen Levine MD [Primary Care Provider] - Disposition Disposition: Acute Care Hospital [facility]
[2023-02-20] MEDS: 0.9% Normal Saline 1,000 ML 1000 ML IV (15:55)
[2023-02-20] MEDS: Ondansetron 4 MG/2 ML Vial IV ×2 (15:55→23:18)
[2023-02-20 16:12] VITALS: BP 115/53; PULSE 68; RESP 21; O2SAT 99
[2023-02-20 16:18] LABS: Absolute Lymphocyte Count 0.52 X10^3/uL (0.83-4.51); Absolute Neutrophil Count 5.9 X10^3/uL (2.0-7.7); Basophil# 0.04 X10^3/uL; Basophil% 0.6 % (0-1); Eosinophil# 0.04 X10^3/uL; Eosinophils% 0.6 % (0-5); Hematocrit 42.4 % (37-47); Hemoglobin 14.2 g/dL (12.0-15.0); Lymphocyte # 0.52 X10^3/ul (0.83-4.51); Lymphocyte % 7.2 % (19-41); Mean Corp Hgb Conc 33.5 g/dL (32-36); Mean Corpuscular Hgb 33.1 pg (27.0-32.0); Mean Corpuscular Volume 98.8 fL (81-99); Monocyte# 0.66 X10^3/uL; Monocyte% 9.1 % (0-10); NRBC Flagged by Analyzer 0 % (0-5); Neutrophil # 5.93 X10^3/uL (2.7-7.7); Neutrophil % 82.1 % (47-70); POSITIVE DIFFERENTIAL YES; Platelet Count 283 K/mm3 (150-450); RBC Distribution Width CV 13.8 % (11.6-14.6); RBC Distribution Width SD 50.8 fl (35.1-43.9); Red Blood Count 4.29 M/mm3 (4.2-5.4); White Blood Count 7.2 K/mm3 (4.4-11.0)
[2023-02-20 16:28] LABS: Differential Indicated SCAN CRITERIA MET
--- NOTE | 2023-02-20 16:32 | RAD_ITS ---
STUDY: X-RAY CHEST REASON FOR EXAM: Female, 82 years old. Objective fever, rales RLL and cough TECHNIQUE: Single AP portable view of the chest. COMPARISON: None. FINDINGS: The lungs are clear and expanded. There is no demonstrated pleural abnormality. Normal size heart. Normal mediastinum and rodney. Normal visualized pulmonary arteries. Normal visualized aortic arch and descending thoracic aorta. There are diffuse degenerative changes of the visualized thoracic spine. Normal visualized ribs, clavicles, and shoulders. There is no demonstrated abnormality of the visualized soft tissue structures of the upper abdomen. RAD/Chest PA and Lateral IMPRESSION: No definite acute or significant abnormality seen. Electronically Signed: Riaz Schwab MD at 16:58 EDT ,
[2023-02-20 16:35] LABS: ALB/GLOB Ratio 0.8 RATIO (0.9-2.4); AST(SGOT) 28 U/L (15-37); Alanine Aminotransfer ALT/SGPT 18 U/L (13-56); Albumin, Serum 3.5 g/dL (3.2-5.0); Alkaline Phosphatase 104 U/L (45-117); Anion Gap 11 (5-15); BUN 26 mg/dL (7-18); BUN/Creat Ratio 14.4 RATIO (10-20); Calcium,Total 10.1 mg/dL (8.5-10.1); Chloride 95 mmol/L (98-107); EST Glomerular Filtration Rate 29 mL/min (>60); Est Glom Filt Rate - Afr Amer 35 mL/min (>60); Estimated Creatinine Clearance 22.17 ml/min; Globulin 4.6 g/dL (2.2-4.2); Glucose 134 mg/dL (74-106); Potassium 4.4 mmol/L (3.5-5.1); Protein, Total 8.1 g/dL (6.4-8.2); Sodium Level 131 mmol/L (136-145)
[2023-02-20 16:59] LABS: Lactic Acid 3.7 mmol/L (0.4-1.9)
[2023-02-20 17:02] LABS: Differential Comment SCANNED
[2023-02-20 17:38] VITALS: BP 141/63; PULSE 71; RESP 19; O2SAT 97
[2023-02-20] MEDS: Metoclopramide 10 MG/2 ML Vial 5 MG IV (18:46)
[2023-02-20 18:49] VITALS: BP 140/73; PULSE 80; RESP 20; TEMP 36.8; O2SAT 97
[2023-02-20 19:02] VITALS: BP 173/60; PULSE 81; RESP 17; TEMP 36.8; O2SAT 97
--- NOTE | 2023-02-20 19:28 | HP.PCM_ITS ---
[facility] - General General Date of Admission: 02/20/23 Date of Service: 02/20/23 HPI Narrative AURELIO WOODWARD, is a 82 F with a past medical history as outlined who presents with a complaint of nausea and vomiting which have been going on for the last 24 hours. She says she cannot remember eating anything in particular that precipitated this nausea and vomiting. She remembers she did have some soup yesterday afternoon but the nausea and vomiting had started before then. She admitted to feeling hot which alternated with having chills. She denied any diarrhea or abdominal pain. She has not had such nausea and vomiting before. She denied any urinary symptoms such as frequency or dysuria or any offensive odor to her urine. Review of systems otherwise negative. Vitals in the ED were blood pressure 173/60, pulse rate of 81, respirate rate of 17 and temperature of 98.2 Fahrenheit. She was saturating at 97% on room air. CBC was unremarkable. Chemistry was significant for sodium of 131, creatinine of 1.8 and lactic acid of 3.7. She has a baseline creatinine of around 1.3-1.4. Chest x-ray showed no acute cardiopulmonary process. She has been admitted to be managed for intractable nausea and vomiting with ARTHUR on CKD 3 as well as lactic acidosis. [facility] Medical History Ambulatory dysfunction BPPV (benign paroxysmal positional vertigo) Compression fracture of L4 vertebra History of breast cancer Hx of breast cancer Hypothyroidism Hypothyroidism Lupus Peripheral neuropathy Right-sided chest wall pain Vertigo Home Medications cholecalciferol (vitamin D3) 25 mcg (1,000 unit) capsule 25 mcg PO DAILY 12/10/21 [History Last Taken Unknown] multivitamin with minerals (Multiple Vitamin-Minerals tablet) 1 tab PO DAILY 12/10/21 [History Last Taken Unknown] tramadol 50 mg tablet 50 mg PO BID PRN Pain 12/10/21 [History Last Taken Unknown] vitamin E 200 unit capsule 200 unit PO BID 12/10/21 [History Last Taken Unknown] levothyroxine 100 mcg tablet 50 mcg PO DAILY 03/15/22 [History Last Taken Unkno wn] vitamins A,C,E-yoet-ypnooy 2,148 mcg-113 mg-45 mg-17.4 mg tablet (PreserVision AREDS) 2 tab PO BID 03/15/22 [History Last Taken Unknown] trazodone 100 mg tablet 100 mg PO PRN PRN sleep 02/20/23 [History Last Taken Unknown] Allergy/AdvReac Type Severity Reaction Status Date / Time dextromethorphan Allergy Severe Hives Verified 02/20/23 14:36 [From Scot-Tuannmariein DM Cough Chasers] prednisone Allergy Severe Hives Verified 02/20/23 14:36 valacyclovir [From Valtrex] Allergy Severe Hives Verified 02/20/23 14:36 Family History Mother Hypertension Osteoporosis Sister Cancer Surgical History History of lumpectomy of right breast (~2004) History of right knee joint replacement Hx of appendectomy Hx of fracture of ankle Hx of hysterectomy Social History Smoking Status: Never smoker alcohol intake: never substance use type: does not use caffeine: Yes what type of physical activity do you participate in: none frequency: does not exercise ROS Constitutional Constitutional: Reports anorexia, chills, fatigue, fever(s), malaise and weakness; Denies change in weight Eyes Eyes: Denies change in vision ENT HEENT: Denies dysphagia, headache(s), sore throat or throat swelling Cardiovascular Cardiovascular: Denies chest pain, edema, orthopnea, palpitations or syncope Respiratory/Chest Respiratory/Chest: Denies cough, shortness of breath at rest or shortness of breath with exertion Gastrointestinal Gastrointestinal: Reports nausea and vomiting; Denies abdominal pain, diarrhea, dyspepsia, hematemesis, hematochezia or melena Genitourinary Genitourinary: Denies dysuria, nocturia or urinary frequency Musculoskeletal Musculoskeletal: Denies back pain or joint stiffness Neurologic Neurologic: Denies confusion, dizziness, focal weakness, headache(s), lack of coordination, seizures or weakness Psychiatric Psychiatric: Denies anxiety or depression Vital Signs Vital Signs Vital Signs: 02/20/23 14:34 02/20/23 16:12 02/20/23 17:38 Temperature 96 F L Temperature Source Temporal Pulse Rate 87 68 71 Respiratory Rate 18 21 H 19 H Blood Pressure 132/62 H 115/53 L 141/63 H Blood Pressure Mean 85 73 89 Pulse Ox 100 99 97 Oxygen Delivery Method Room Air Room Air Room Air 02/20/23 18:49 02/20/23 19:02 Temperature 98.2 F 98.2 F Temperature Source Oral Oral Pulse Rate 80 81 Respiratory Rate 20 H 17 Blood Pressure 140/73 H 173/60 H Blood Pressure Mean 95 97 Pulse Ox 97 97 Oxygen Delivery Method Room Air Room Air Weight Weight: 150 lb 12.8 oz Body Mass Index (BMI) 24.3 Physical Exam Const alert and oriented x3 Constitutional Narrative: looks uncomfortable due to nausea and vomiting General Appearance: cooperative HEENT normocephalic and head/scalp atraumatic HEENT Narrative: dry oral mucosal membranes Eyes PERRL and EOMs intact bilaterally Neck no lymphadenopathy and supple Lymph Lymphatic: no lymphadenopathy noted Resp normal respiratory effort, normal air movement and clear to auscultation bilaterally Cardio regular rate, regular rhythm, S1 normal heart sound, S2 normal heart sound and no murmurs Palpation: normal PMI GI normal to inspection, nondistended, normoactive bowel sounds, soft to palpation, non-tender and non-distended Skin General Skin Exam: no breakdown Neuro CN's II-XII intact bilaterally, no focal motor deficits and no sensory deficits noted Psych thought process normal, cooperative and affect normal Appearance: appropriate Results Lab / Micro Data 02/20/23 15:50 02/20/23 15:50 Labs: Laboratory Results - last 24 hr 02/20/23 15:50: WBC 7.2, RBC 4.29, Hgb 14.2, Hct 42.4, MCV 98.8, MCH 33.1 H, MCHC 33.5, RDW Std Deviation 50.8 H, RDW Coeff of Hernán 13.8, Plt Count 283, MPV 10.0, Immature Gran % (Auto) 0.400, Neut % (Auto) 82.1 H, Lymph % (Auto) 7.2 L, Gilliam % (Auto) 9.1, Eos % (Auto) 0.6, Baso % (Auto) 0.6, Absolute Neuts (auto) 5.9, Absolute Lymphs (auto) 0.52 L, Nucleated RBC % 0, Differential Comment SCANNED, Sodium 131 L, Potassium 4.4, Chloride 95 L, Carbon Dioxide 25.0, Anion Gap 11, BUN 26 H, Creatinine 1.80 H, Estim Creat Clear Calc 22.17, Est GFR (MDRD) Af Amer 35 L, Est GFR (MDRD) Non-Af 29 L, BUN/Creatinine Ratio 14.4, Glucose 134 H, Lactic Acid 3.7 H*, Calcium 10.1, Total Bilirubin 0.90, AST 28, ALT 18, Alkaline Phosphatase 104, Total Protein 8.1, Albumin 3.5, Globulin 4.6 H , Albumin/Globulin Ratio 0.8 L Radiology Impression Chest X-Ray 02/20/23 16:32 IMPRESSION: No definite acute or significant abnormality seen. Electronically Signed: Riaz Schwab MD at 16:58 EDT , Assessment & Plan Assessment/Plan (1) Moderate dehydration: (2) Acute kidney injury superimposed on chronic kidney disease: (3) Nausea vomiting and diarrhea: PLAN: Plan #ARTHUR on CKD III due to intractable nausea and vomiting * admit to med surg under observation * Cr is 1.8 with a baseline of ~ 1.3-1.4 * hydrate with IVF NS @ 150cc/hr * lactic acid also elevated at 3.7. WIll hydrate with IVF and it should help with lactic acidosis * check urinalysis to ensure there is no evidence of UTI * IV Zofran as needed * #Hyponatremia: Sodium is 131. Likely due to dehydration from nausea and vomiting. Management as above. #Hypothyroidism: On Synthroid #Elevated blood pressure: * Blood pressure is 173/60. * Not a known hypotensive.Likely due to intractable nausea and vomiting. * IV hydralazine as needed. * Should improve once nausea and vomiting have improved. * #DVT prophylaxis: Heparin COde status: full code * Patient and her son counseled extensively about different types of CODE STATUS including full code, DNR CCA and DNR CCA. Patient elects to be full code. * Healthcare POA is her son. * Total derz-ez-jheg time 16 minutes. Charges/Coding Visit Charges Inpatient E&M: 96740 Init Hosp L3 Procedures Hospitalists Procedures: 51179 Advncd Care Plan 30 Min
[2023-02-20 20:15] LABS: Reflex Lactate? Y
[2023-02-20 21:13] VITALS: BMI 24.4
[2023-02-20 21:22] LABS: Lactic Acid 1.2 mmol/L (0.4-1.9)
[2023-02-20] MEDS: 0.9% Normal Saline 1,000 ML 150 ML IV (21:40)
[2023-02-20] MEDS: traZODone 100 MG Tablet PO (21:40)
[2023-02-20] MEDS: 0.9% Saline Lock 10 ML Syringe IV (21:40)
[2023-02-20] MEDS: traMADol 50 MG Tablet PO (21:40)
[2023-02-20 21:47] VITALS: BP 139/56; PULSE 73; RESP 16; TEMP 36.9; O2SAT 98
[2023-02-21 03:32] VITALS: BP 182/71; PULSE 72; RESP 20; TEMP 36.6; O2SAT 97
[2023-02-21] MEDS: 0.9% Normal Saline 1,000 ML 150 ML IV ×3 (04:18→18:00)
--- NOTE | 2023-02-21 05:09 | CT_ITS ---
INDICATION: Abdominal pain/nausea/vomiting EXAMINATION: CT ABDOMEN AND PELVIS WITHOUT CONTRAST TECHNIQUE: Helically acquired images were obtained of the abdomen and pelvis with sagittal and coronal reconstructed images. Individualized dose optimization techniques were used for this CT. IV contrast dosage and agent: None. Oral contrast: None. COMPARISON: 12/05/2015 CT. FINDINGS: VESSELS: No abdominal aortic aneurysm. LIVER: No intrahepatic or extrahepatic biliary duct dilation. GALLBLADDER: Multiple calcified gallstones. No evidence of cholecystitis. PANCREAS: No focal solid or cystic mass. No evidence of pancreatitis. SPLEEN: Normal. ADRENAL GLANDS: Stable 8 mm right adrenal gland nodule with no follow-up recommended. KIDNEYS AND URETERS: No urinary tract stone. No hydronephrosis or hydroureter. No significant asymmetric perinephric stranding. URINARY BLADDER: Unremarkable. BOWEL: Diverticulosis with no evidence of diverticulitis. Appendix appears normal. Significantly distended fluid-filled stomach and duodenum. Dilated small bowel with air-fluid levels measuring up to 4.0 cm in diameter. Transition point likely in the right lower quadrant image #90 of series #2. REPRODUCTIVE ORGANS: Unremarkable. PERITONEUM: No intraabdominal free fluid or free air. LYMPH NODES: No pathologically enlarged mesenteric or retroperitoneal lymph nodes. ABDOMINAL WALL: No abdominal or pelvic wall hernia. BONES: Compression fracture of the L4 vertebral body with mild retropulsion and postkyphoplasty changes of unknown age, new as compared to most recent CT dated 12/05/2015. LOWER CHEST: Visualized lung bases are unremarkable. CT/Abdomen/Pelvis without Cont IMPRESSION: 1. Distal small bowel obstruction with the transition point likely in the right lower quadrant. 2. Cholelithiasis with no evidence of cholecystitis. Electronically Signed: Howard Mullins DO at 8:04 EDT ,
--- NOTE | 2023-02-21 05:10 | PCM.HOSP.N ---
Hospitalist Note Called for persistent nausea and vomiting despite use of Zofran. Will transition to Haldol. Also check CT of the abdomen pelvis since this has not resolved/is not resolving.
[2023-02-21 05:37] VITALS: BP 182/71; PULSE 72
[2023-02-21] MEDS: hydrALAZINE 20 MG/ML Vial 10 MG IV (05:37)
[2023-02-21] MEDS: Haloperidol Lactate 5 MG/ML Vial 1 MG IV (05:38)
[2023-02-21] MEDS: 0.9% Saline Lock 10 ML Syringe IV ×3 (05:41→07:05)
[2023-02-21 06:32] VITALS: BP 100/60; PULSE 102; RESP 22; TEMP 36.9; O2SAT 97
[2023-02-21 06:59] LABS: Absolute Lymphocyte Count 0.44 X10^3/uL (0.83-4.51); Absolute Neutrophil Count 3.6 X10^3/uL (2.0-7.7); Basophil# 0.02 X10^3/uL; Basophil% 0.5 % (0-1); Hemoglobin 12.8 g/dL (12.0-15.0); Lymphocyte # 0.44 X10^3/ul (0.83-4.51); Mean Corp Hgb Conc 33.7 g/dL (32-36); Mean Corpuscular Volume 100.8 fL (81-99); Mean Platelet Vol. 9.9 fl (6.2-12.0); Monocyte# 0.37 X10^3/uL; Monocyte% 8.4 % (0-10); NRBC Flagged by Analyzer 0 % (0-5); Neutrophil # 3.56 X10^3/uL (2.7-7.7); Neutrophil % 80.9 % (47-70); POSITIVE DIFFERENTIAL YES; POSITIVE MORPHOLOGY YES; Platelet Count 256 K/mm3 (150-450); RBC Distribution Width CV 14.2 % (11.6-14.6); RBC Distribution Width SD 52.7 fl (35.1-43.9); Red Blood Count 3.77 M/mm3 (4.2-5.4); White Blood Count 4.4 K/mm3 (4.4-11.0)
[2023-02-21 07:04] LABS: Differential Indicated SCAN CRITERIA MET
[2023-02-21] MEDS: Oxymetazoline 0.05% 1 SPRAY SPRAY.BTL 2 SPRAY NASAL (07:05)
[2023-02-21] MEDS: Ondansetron 4 MG/2 ML Vial IV (07:06)
[2023-02-21 07:14] LABS: Anion Gap 8 (5-15); BUN 34 mg/dL (7-18); BUN/Creat Ratio 20.2 RATIO (10-20); Calcium,Total 8.8 mg/dL (8.5-10.1); Chloride 97 mmol/L (98-107); Creatinine, Serum 1.68 mg/dL (0.55-1.02); EST Glomerular Filtration Rate 31 mL/min (>60); Est Glom Filt Rate - Afr Amer 37 mL/min (>60); Estimated Creatinine Clearance 23.75 ml/min; Glucose 153 mg/dL (74-106); Potassium 3.9 mmol/L (3.5-5.1); Sodium Level 132 mmol/L (136-145)
--- NOTE | 2023-02-21 07:54 | RAD_ITS ---
HISTORY: NGT placement -- KUB with both diaphragms for NG/OG Verification. TECHNIQUE: XR Abdomen 1 View. COMPARISON: CT same day. FINDINGS: BOWEL GAS PATTERN: Nasogastric tube coiled with tip at the level of the distal stomach. Multiple dilated small bowel loops again seen. FREE AIR: No gross free air identified. SOFT TISSUES: Lung bases clear RAD/Abdomen Single View (Portable) IMPRESSION: Nasogastric tube coiled in the region of the stomach. Persistent small bowel obstruction. Electronically Signed: Ninoska Cerda MD at 8:07 EDT ,
--- NOTE | 2023-02-21 10:11 | EX.PCM.CON.S ---
Assessment & Plan Assessment/Plan (1) Small bowel obstruction: PLAN: I am seeing this patient in conjunction with Dr. Rain. She has independently evaluated this patient. I have reviewed this patient with Dr. Rain. Continue NPO status, NG tube to low intermittent suction and bowel rest for today. Plan to obtain CT of ab/pel IV and oral contrast via NG tube tomorrow. Plan for conservative measures at this time. No surgical intervention is being recommended at this point. Patient is aware that if conservative measures fail, surgical intervention will be discussed. Patient has had the opportunity to ask and have questions answered. Patient verbally understands and agrees with the plan. Thank you for allowing us to participate in this patient's care. HPI Consult Data Date of Consult: 02/21/23 HPI Narrative Reason for Consultation: Small bowel obstruction HPI Narrative: AURELIO WOODWARD, is a 82 F who presents who 2 day history of nausea and vomiting. Patient notes her symptoms started Tuesday morning. She noted waking up feeling nauseated. She noted only having soup that day. She denies having any abdominal pain/discomfort. She notes her last bowel movement was on Tuesday. She notes passing a small amount of flatus this morning. She denies having any previous issues with her bowels. She notes her last colonoscopy was [address] Tinajero. She states her only abdominal surgeries were total hysterectomy and appendectomy. Patient notes personal history of breast cancer with previous right breast lumpectomy with radiation. No chemotherapy was required. Patient denies any previous cardiac history or pulmonary history. CT scan of the ab/pel demonstrated distal small bowel obstruction with transition point in the right lower quadrant. NG tube was placed with 1800 cc of output [facility] Medical History (Updated 02/21/23 @ 10:12 by Marietta BENITEZ, PA-C) Ambulatory dysfunction BPPV (benign paroxysmal positional vertigo) Compression fracture of L4 vertebra Hearing loss, left Hearing loss, right History of breast cancer Hx of breast cancer Hypothyroidism Hypothyroidism Lupus Macular degeneration Peripheral neuropathy Right-sided chest wall pain Vertigo Home Medications cholecalciferol (vitamin D3) 25 mcg (1,000 unit) capsule 25 mcg PO DAILY 12/10/21 [History Last Taken Unknown] multivitamin with minerals (Multiple Vitamin-Minerals tablet) 1 tab PO DAILY 12/10/21 [History Last Taken Unknown] tramadol 50 mg tablet 50 mg PO BID PRN Pain 12/10/21 [History Last Taken Unknown] vitamin E 200 unit capsule 200 unit PO BID 12/10/21 [History Last Taken Unknown] levothyroxine 100 mcg tablet 50 mcg PO DAILY 03/15/22 [History Last Taken Unknown] vitamins A,C,J-jvba-gehfyg 2,148 mcg-113 mg-45 mg-17.4 mg tablet (PreserVision AREDS) 2 tab PO BID 03/15/22 [History Last Taken Unknown] trazodone 100 mg tablet 100 mg PO PRN PRN sleep 02/20/23 [History Last Taken Unknown] Allergy/AdvReac Type Severity Reaction Status Date / Time dextromethorphan Allergy Severe Hives Verified 02/20/23 14:36 [From Scot-Tussin DM Cough Chasers] prednisone Allergy Severe Hives Verified 02/20/23 14:36 valacyclovir [From Valtrex] Allergy Severe Hives Verified 02/20/23 14:36 Family History Mother Hypertension Osteoporosis Sister Cancer Surgical History History of lumpectomy of right breast (~2004) History of right knee joint replacement Hx of appendectomy Hx of fracture of ankle Hx of hysterectomy Social History Smoking Status: Never smoker alcohol intake: never substance use type: does not use caffeine: Yes what type of physical activity do you participate in: none frequency: does not exercise ROS Constitutional Constitutional: Reports systems reviewed and no addt'l complaints, except as documented Eyes Eyes: Reports systems reviewed and no addt'l complaints, except as documented ENT HEENT: Reports systems reviewed and no addt'l complaints, except as documented Cardiovascular Cardiovascular: Reports systems reviewed and no addt'l complaints, except as documented Respiratory/Chest Respiratory/Chest: Reports systems reviewed and no addt'l complaints, except as documented Gastrointestinal Gastrointestinal: Reports systems reviewed and no addt'l complaints, except as documented Genitourinary Genitourinary: Reports systems reviewed and no addt'l complaints, except as documented Musculoskeletal Musculoskeletal: Reports systems reviewed and no addt'l complaints, except as documented Integumentary Integumentary: Reports systems reviewed and no addt'l complaints, except as documented Neurologic Neurologic: Reports systems reviewed and no addt'l complaints, except as documented Psychiatric Psychiatric: Reports systems reviewed and no addt'l complaints, except as documented Endocrine Endocrinology: Reports systems reviewed and no addt'l complaints, except as documented Hematologic/Lymphatic Hematologic/Lymphatic: Reports systems reviewed and no addt'l complaints, except as documented Allergic/Immunologic Allergic/Immunologic: Reports systems reviewed and no addt'l complaints, except as documented Physical Exam Const alert, oriented x3 and no apparent distress Constitutional Narrative: NG tube in place HEENT normocephalic and head/scalp atraumatic Eyes PERRL Neck full ROM Lymph Lymphatic: no lymphadenopathy noted Resp normal respiratory effort and clear to auscultation bilaterally Cardio regular rate and regular rhythm GI GI Narrative: Abdomen- soft, slight tenderness in the right lower quadrant, hypoactive bowel sounds no CVA tenderness Back/Spine no CVA tenderness Extremity normal to inspection Skin no rashes or lesions noted Neuro no focal motor deficits and no sensory deficits noted Psych mental status grossly normal and thought process normal Lab / Micro Data 02/21/23 06:33 02/21/23 06:33 Labs: Laboratory Results - last 24 hr 02/20/23 15:50: WBC 7.2, RBC 4.29, Hgb 14.2, Hct 42.4, MCV 98.8, MCH 33.1 H, MCHC 33.5, RDW Std Deviation 50.8 H, RDW Coeff of Hernán 13.8, Plt Count 283, MPV 10.0, Immature Gran % (Auto) 0.400, Neut % (Auto) 82.1 H, Lymph % (Auto) 7.2 L, [place] % (Auto) 9.1, Eos % (Auto) 0.6, Baso % (Auto) 0.6, Absolute Neuts (auto) 5.9, Absolute Lymphs (auto) 0.52 L, Nucleated RBC % 0, Differential Comment SCANNED, Sodium 131 L, Potassium 4.4, Chloride 95 L, Carbon Dioxide 25.0, Anion Gap 11, BUN 26 H, Creatinine 1.80 H, Estim Creat Clear Calc 22.17, Est GFR (MDRD) Af Amer 35 L, Est GFR (MDRD) Non-Af 29 L, BUN/Creatinine Ratio 14.4, Glucose 134 H, Lactic Acid 3.7 H*, Calcium 10.1, Total Bilirubin 0.90, AST 28, ALT 18, Alkaline Phosphatase 104, Total Protein 8.1, Albumin 3.5, Globulin 4.6 H, Albumin/Globulin Ratio 0.8 L 02/20/23 20:50: Lactic Acid 1.2 02/21/23 06:33: WBC 4.4, RBC 3.77 L, Hgb 12.8, Hct 38.0, MCV 100.8 H, MCH 34.0 H, MCHC 33.7, RDW Std Deviation 52.7 H, RDW Coeff of Hernán 14.2, Plt Count 256, MPV 9.9, Immature Gran % (Auto) 0.200, Neut % (Auto) 80.9 H, Lymph % (Auto) 10.0 L, Burke % (Auto) 8.4, Eos % (Auto) 0.0, Baso % (Auto) 0.5, Absolute Neuts (auto) 3.6, Absolute Lymphs (auto) 0.44 L, Nucleated RBC % 0, Differential Comment , Sodium 132 L, Potassium 3.9, Chloride 97 L, Carbon Dioxide 27.0, Anion Gap 8, BUN 34 H, Creatinine 1.68 H, Estim Creat Clear Calc 23.75, Est GFR (MDRD) Af Amer 37 L, Est GFR (MDRD) Non-Af 31 L, BUN/Creatinine Ratio 20.2 H, Glucose 153 H, Calcium 8.8 Radiology Impression Chest X-Ray 02/20/23 16:32 IMPRESSION: No definite acute or significant abnormality seen. Electronically Signed: Riaz Schwab MD at 16:58 EDT , Abdomen/Pelvis CT 02/21/23 05:09 IMPRESSION: 1. Distal small bowel obstruction with the transition point likely in the right lower quadrant. 2. Cholelithiasis with no evidence of cholecystitis. Electronically Signed: Howard Mullins DO at 8:04 EDT , KUB X-Ray 02/21/23 07:54 IMPRESSION: Nasogastric tube coiled in the region of the stomach. Persistent small bowel obstruction. Electronically Signed: Ninoska Cerda MD at 8:07 EDT Reading Location ID and State: [facility] / [place] Tel , Service support , Charges/Coding Visit Charges Office Visits / Consults: 68592 IP Consult L3
[2023-02-21] MEDS: BENZOCAINE/MENTHOL 1 LOZENGE MUCOUS MEM ×4 (11:00→20:47)
[2023-02-21 11:01] VITALS: BP 154/62; PULSE 70; RESP 18; TEMP 36.6; O2SAT 98
--- NOTE | 2023-02-21 14:14 | PN_ITS ---
Subjective Subjective Patient seen and examined. His son was by her bedside. She had no active complaints today. On account of persistent vomiting yesterday she had a CAT scan done which showed evidence of small bowel obstruction with markedly dilated stomach. She had an NG tube inserted and general surgery consulted. Patient seen and examined this morning. NG tube still remains in situ draining bilious fluid. She has remained hemodynamically stable. Objective Data Objective Data Vital Signs: Vital Signs Temp Pulse Resp BP Pulse Ox O2 Del Method 97.9 F 70 18 154/62 H 98 Room Air 02/21/23 11:01 02/21/23 11:01 02/21/23 11:01 02/21/23 11:01 02/21/23 11:01 02/21/23 11:01 Oxygen Delivery Method Room Air Weight: 151 lb 3.794 oz Body Mass Index (BMI) 24.4 Intake & Output: Intake and Output for Last 24 Hours 02/19/23 02/20/23 02/21/23 23:59 23:59 23:59 Intake Total 1000 / 1000 2267.5 / 2267.5 Output Total 2620 / 2620 Balance 1000 / 1000 -352.5 / -352.5 Lab / Micro Data 02/21/23 06:33 02/21/23 06:33 Labs: Laboratory Results - last 24 hr 02/20/23 15:50: WBC 7.2, RBC 4.29, Hgb 14.2, Hct 42.4, MCV 98.8, MCH 33.1 H, MCHC 33.5, RDW Std Deviation 50.8 H, RDW Coeff of Hernán 13.8, Plt Count 283, MPV 10.0, Immature Gran % (Auto) 0.400, Neut % (Auto) 82.1 H, Lymph % (Auto) 7.2 L, [place] % (Auto) 9.1, Eos % (Auto) 0.6, Baso % (Auto) 0.6, Absolute Neuts (auto) 5.9, Absolute Lymphs (auto) 0.52 L, Nucleated RBC % 0, Differential Comment SCANNED, Sodium 131 L, Potassium 4.4, Chloride 95 L, Carbon Dioxide 25.0, Anion Gap 11, BUN 26 H, Creatinine 1.80 H, Estim Creat Clear Calc 22.17, Est GFR (MDRD) Af Amer 35 L, Est GFR (MDRD) Non-Af 29 L, BUN/Creatinine Ratio 14.4, Glucose 134 H, Lactic Acid 3.7 H*, Calcium 10.1, Total Bilirubin 0.90, AST 28, ALT 18, Alkaline Phosphatase 104, Total Protein 8.1, Albumin 3.5, Globulin 4.6 H , Albumin/Globulin Ratio 0.8 L 02/20/23 20:50: Lactic Acid 1.2 02/21/23 06:33: WBC 4.4, RBC 3.77 L, Hgb 12.8, Hct 38.0, MCV 100.8 H, MCH 34.0 H , MCHC 33.7, RDW Std Deviation 52.7 H, RDW Coeff of Hernán 14.2, Plt Count 256, MPV 9.9, Immature Gran % (Auto) 0.200, Neut % (Auto) 80.9 H, Lymph % (Auto) 10.0 L, [place] % (Auto) 8.4, Eos % (Auto) 0.0, Baso % (Auto) 0.5, Absolute Neuts (auto) 3.6, Absolute Lymphs (auto) 0.44 L, Nucleated RBC % 0, Differential Comment , Sodium 132 L, Potassium 3.9, Chloride 97 L, Carbon Dioxide 27.0, Anion Gap 8, BUN 34 H, Creatinine 1.68 H, Estim Creat Clear Calc 23.75, Est GFR (MDRD) Af Amer 37 L, Est GFR (MDRD) Non-Af 31 L, BUN/Creatinine Ratio 20.2 H, Glucose 153 H, Calcium 8.8 Radiography Diagnostic Testing: Radiology Impression Chest X-Ray 02/20/23 16:32 IMPRESSION: No definite acute or significant abnormality seen. Electronically Signed: Riaz Schwab MD at 16:58 EDT , Abdomen/Pelvis CT 02/21/23 05:09 IMPRESSION: 1. Distal small bowel obstruction with the transition point likely in the right lower quadrant. 2. Cholelithiasis with no evidence of cholecystitis. Electronically Signed: Howard Mullins DO at 8:04 EDT , KUB X-Ray 02/21/23 07:54 IMPRESSION: Nasogastric tube coiled in the region of the stomach. Persistent small bowel obstruction. Electronically Signed: Ninoska Cerda MD at 8:07 EDT , Physical Exam Const alert and oriented x3 General Appearance: cooperative and well developed HEENT normocephalic and head/scalp atraumatic Eyes PERRL and EOMs intact bilaterally Neck no lymphadenopathy and supple Lymph Lymphatic: no lymphadenopathy noted Resp normal respiratory effort, normal air movement and clear to auscultation bilaterally Cardio regular rate, regular rhythm, S1 normal heart sound, S2 normal heart sound and no murmurs Palpation: normal PMI GI GI Narrative: NG tube in place, draining bilious fluid. abdomen nondistended, non tender. no organomegaly Extremity normal capillary refill and no clubbing, cyanosis or edema Skin General Skin Exam: no breakdown Neuro CN's II-XII intact bilaterally, no focal motor deficits and no sensory deficits noted Psych thought process normal, cooperative and affect normal Appearance: appropriate Assessment & Plan Assessment/Plan (1) Moderate dehydration: (2) Acute kidney injury superimposed on chronic kidney disease: (3) Nausea vomiting and diarrhea: PLAN: Plan #Intractable nausea and vomiting due to small bowel obstruction * she did have a CT abdomen which showed a markedly distended stomach with small bowel obstruction * NG tube inserted and draining bilious fluid * general surgery on board * keep NPO and continue hydrating with IVF #ARTHUR on CKD III due to intractable nausea and vomiting * admit to med surg under observation * Creatinine trended gently from 1.8-1.68 today. Baseline is around 1.3-1.4. * hydrate with IVF NS @ 150cc/hr * lactic acid also elevated at 3.7. WIll hydrate with IVF and it should help with lactic acidosis * IV Zofran as needed * * #Hyponatremia: Sodium is 132. Likely due to dehydration from nausea and vomiting. Management as above. #Hypothyroidism: On Synthroid #Elevated blood pressure: * Improving with blood pressure being 154/60 today. * Not a known hypotensive.Likely due to intractable nausea and vomiting. * IV hydralazine as needed. Start all BP meds if it remains elevated. * Should improve once nausea and vomiting have improved. * #DVT prophylaxis: Heparin COde status: full code * Charges/Coding Visit Charges Inpatient E&M: 26124 Subs Hosp L2
--- NOTE | 2023-02-21 14:15 | RAD_ITS ---
STUDY: X-RAY - ABDOMEN/PELVIS REASON FOR EXAM: Female, 82 years old. small bowel obstruction TECHNIQUE: Frontal views COMPARISON: None. FINDINGS: Normal visualized lung bases. There is an ileus pattern or possibly early developing obstruction. There is no demonstrated free abdominal air. Nasogastric tube in the distal stomach/proximal duodenum. Normal soft tissue structures. Degenerative vertebral changes. Vertebroplasty at L4. RAD/Abdomen Single View IMPRESSION: There is an ileus pattern or possibly early developing obstruction. Follow-up is recommended. Nasogastric tube in the distal stomach/proximal duodenum. Electronically Signed: Roberth Griffiths DO at 17:14 EDT ,
--- NOTE | 2023-02-21 14:40 | CASEMGMT ---
RN SONDRA INSOLE COVERER CM to room to meet with patient for initial transition planning/care coordination assessment. RN SONDRA introduced self and role at [facility]. Pt voices understanding and consents to assessment at this time. Pt sitting up in recliner chair in no distress at this time. Pt is A/O at this time and answers all questions appropriately. Care providers, pharmacy, and demographics verified/updated at this time. PCP: Dr Levine Specialists: Dr Cuadra-ortho, Dr Efe Gould-ortho, Dr Werner--nephrology Preferred Pharmacy: [facility] Insurance: [facility] Prescription Benefit: yes Living Will/HPOA: Has both LW and Healthcare POA, who is her son, Fer LNOK: Son, Fer Living Arrangements: Lives alone in a one-story home w/2 steps to enter. Fer lives nearby, is supportive. Pt is independent w/ADL's, IADL's, manages her own medications, and does the yard work. Transportation: Pt states drives self and states no transportation concerns at this time. DME: States has the following DME: Walk in shower w/shower seat and cane Pt states no need for further DME at this time. HHC/SNF: No history of SNF or HHC. Has went to OP therapy in the past @ [facility]. Pt declines need for SNF or HHC and wishes to return home. Pt wishes to return home and states has no concerns with going home at time of discharge. CM to follow for any further discharge planning/needs. Pt voices no further concerns/needs at this time. Advised pt to ask for CM if any further questions/concerns/needs arise. Voices understanding. PLAN: Home Alisha MOYER RN, CM
--- NOTE | 2023-02-21 16:12 | CHAPLAIN ---
Type of Pastoral Visit _x__ Initial Visit ___ Follow-up Visit ___ On-call Visit ___ General Patient Visit ___ Spiritual Assessment ___ Family Conference ___ Bereavement ___ Rapid Response ___ Code Blue ___ Other (describe below) Pastoral Care Referral From _x__ Patient ___ Family ___ Nurse ___ Physician ___ Sap Director ___ Wardrobe Technician ___ Other (describe below) Sacrament/Intervention _x__ Active listening ___ Anointing ___ Yazidi ___ Bereavement ___ Communion _x__ Saritha exploration ___ ___ Life review _x__ Prayer ___ Reconciliation ___ Sacrament of Sick _x__ Supportive presence ___ Wedding ___ Other (describe below) Pastoral Comments patient admits to discomfort due to illness and looks uncomfortable as well; pt does see positive aspect in that they know now what it is and how to correct it; pt goal stated is just get better again; pt also mentions that she hopes to be able to have my devotions but I keep getting interrupted; offered how to assist this and made apologies for the necessary interruptions of the hospital experience; pt welcomed presence and prayer
[2023-02-21 17:00] VITALS: BP 149/57; PULSE 64; RESP 18; TEMP 36.9; O2SAT 98
[2023-02-21 20:43] VITALS: BP 150/59; PULSE 60; RESP 22; TEMP 37; O2SAT 99
[2023-02-22] VITALS (13 sets, daily range): BP systolic 145–192; BP diastolic 54–86; PULSE 63–79; RESP 16–20; TEMP 36.1–36.8; O2SAT 93–100; BMI 24.4
[2023-02-22] MEDS: 0.9% Normal Saline 1,000 ML 150 ML IV ×3 (00:23→15:32)
[2023-02-22] MEDS: BENZOCAINE/MENTHOL 1 LOZENGE MUCOUS MEM ×2 (01:09→07:05)
[2023-02-22] MEDS: hydrALAZINE 20 MG/ML Vial 10 MG IV (01:09)
[2023-02-22 07:14] LABS: Absolute Neutrophil Count 2.4 X10^3/uL (2.0-7.7); Basophil# 0.01 X10^3/uL; Basophil% 0.3 % (0-1); Eosinophil# 0.03 X10^3/uL; Eosinophils% 0.8 % (0-5); Hematocrit 33.8 % (37-47); Hemoglobin 10.8 g/dL (12.0-15.0); Lymphocyte % 20.5 % (19-41); Mean Corpuscular Hgb 33.2 pg (27.0-32.0); Mean Platelet Vol. 10.2 fl (6.2-12.0); Monocyte# 0.62 X10^3/uL; Monocyte% 15.9 % (0-10); NRBC Flagged by Analyzer 0 % (0-5); Neutrophil # 2.43 X10^3/uL (2.7-7.7); POSITIVE MORPHOLOGY YES; Platelet Count 218 K/mm3 (150-450); RBC Distribution Width CV 14.3 % (11.6-14.6); RBC Distribution Width SD 55.2 fl (35.1-43.9); Red Blood Count 3.25 M/mm3 (4.2-5.4); White Blood Count 3.9 K/mm3 (4.4-11.0)
[2023-02-22 07:28] LABS: Differential Indicated SCAN CRITERIA MET
--- NOTE | 2023-02-22 07:41 | PCM.PN.SRG ---
Objective Data Objective Data Vital Signs: Vital Signs Temp Pulse Resp BP Pulse Ox O2 Del Method 98.1 F 63 18 149/54 H 99 Room Air 02/22/23 06:48 02/22/23 06:48 02/22/23 06:48 02/22/23 06:48 02/22/23 06:48 02/22/23 06:48 Oxygen Delivery Method Room Air Weight: 151 lb 3.794 oz Body Mass Index (BMI) 24.4 Intake & Output: Intake and Output for Last 24 Hours 02/20/23 02/21/23 02/22/23 23:59 23:59 23:59 Intake Total 1000 / 1000 3207.5 / 3237.5 2032.5 / 2032.5 Output Total 3220 / 3440 620 / 620 Balance 1000 / 1000 -12.5 / -202.5 1412.5 / 1412.5 Lab / Micro Data 02/22/23 06:25 02/21/23 06:33 Labs: Laboratory Results - last 24 hr 02/22/23 06:25: WBC 3.9 L, RBC 3.25 L, Hgb 10.8 L, Hct 33.8 L, MCV 104.0 H, MCH 33.2 H, MCHC 32.0 D, RDW Std Deviation 55.2 H, RDW Coeff of Hernán 14.3, Plt Count 218, MPV 10.2, Immature Gran % (Auto) 0.500, Neut % (Auto) 62.0, Lymph % (Auto) 20.5, [place] % (Auto) 15.9 H, Eos % (Auto) 0.8, Baso % (Auto) 0.3, Absolute Neuts (auto) 2.4, Absolute Lymphs (auto) 0.80 L, Nucleated RBC % 0 Radiography Diagnostic Testing: Radiology Impression Abdomen/Pelvis CT 02/21/23 05:09 IMPRESSION: 1. Distal small bowel obstruction with the transition point likely in the right lower quadrant. 2. Cholelithiasis with no evidence of cholecystitis. Electronically Signed: Howard Mullins DO at 8:04 EDT , KUB X-Ray 02/21/23 07:54 IMPRESSION: Nasogastric tube coiled in the region of the stomach. Persistent small bowel obstruction. Electronically Signed: Ninoska Cerda MD at 8:07 EDT , KUB X-Ray 02/21/23 14:15 IMPRESSION: There is an ileus pattern or possibly early developing obstruction. Follow-up is recommended. Nasogastric tube in the distal stomach/proximal duodenum. Electronically Signed: Roberth Griffiths DO at 17:14 EDT ,
--- NOTE | 2023-02-22 07:42 | PCM.PN.SRG ---
Subjective Subjective Patient denies flatus, additional 1000cc out after the initial about 1999 yesterday 400 out since 4 PM, KUB still shows quite dilated small bowel loops. Objective Data Objective Data Vital Signs: Vital Signs Temp Pulse Resp BP Pulse Ox O2 Del Method 98.1 F 63 18 149/54 H 99 Room Air 02/22/23 06:48 02/22/23 06:48 02/22/23 06:48 02/22/23 06:48 02/22/23 06:48 02/22/23 06:48 Oxygen Delivery Method Room Air Weight: 151 lb 3.794 oz Body Mass Index (BMI) 24.4 Intake & Output: Intake and Output for Last 24 Hours 02/20/23 02/21/23 02/22/23 23:59 23:59 23:59 Intake Total 1000 / 1000 3207.5 / 3237.5 2032.5 / 2032.5 Output Total 3220 / 3440 620 / 620 Balance 1000 / 1000 -12.5 / -202.5 1412.5 / 1412.5 Lab / Micro Data 02/22/23 06:25 02/22/23 06:25 Labs: Laboratory Results - last 24 hr 02/22/23 06:25: WBC 3.9 L, RBC 3.25 L, Hgb 10.8 L, Hct 33.8 L, MCV 104.0 H, MCH 33.2 H, MCHC 32.0 D, RDW Std Deviation 55.2 H, RDW Coeff of Hernán 14.3, Plt Count 218, MPV 10.2, Immature Gran % (Auto) 0.500, Neut % (Auto) 62.0, Lymph % (Auto) 20.5, [place] % (Auto) 15.9 H, Eos % (Auto) 0.8, Baso % (Auto) 0.3, Absolute Neuts (auto) 2.4, Absolute Lymphs (auto) 0.80 L, Nucleated RBC % 0 Radiography Diagnostic Testing: Radiology Impression Abdomen/Pelvis CT 02/21/23 05:09 IMPRESSION: 1. Distal small bowel obstruction with the transition point likely in the right lower quadrant. 2. Cholelithiasis with no evidence of cholecystitis. Electronically Signed: Howard Mullins DO at 8:04 EDT , KUB X-Ray 02/21/23 07:54 IMPRESSION: Nasogastric tube coiled in the region of the stomach. Persistent small bowel obstruction. Electronically Signed: Ninoska Cerda MD at 8:07 EDT , KUB X-Ray 02/21/23 14:15 IMPRESSION: There is an ileus pattern or possibly early developing obstruction. Follow-up is recommended. Nasogastric tube in the distal stomach/proximal duodenum. Electronically Signed: Roberth Griffiths DO at 17:14 EDT , Physical Exam Const oriented x3 and no apparent distress Constitutional Narrative: NG in place Resp normal respiratory effort Cardio regular rate GI GI Narrative: Soft, tender mid abdomen, no peritoneal signs, mild distention Extremity normal to inspection Assessment & Plan Assessment/Plan (1) Small bowel obstruction: PLAN: Patient's KUB from this morning still shows quite dilated loops of small bowel. Patient had increased output even overnight of 400 since 4 PM. Plan to take patient to the OR for diagnostic laparoscopy, possible laparotomy, possible bowel resection today. And described the procedure including not limited to risk of bleeding, infection, injury to another organ and anesthesia. Nina Rain M.D. Pager: [phone] [facility] [address] [place] [address], [address] [place] [address] Office: [phone]
[2023-02-22 07:46] LABS: Anion Gap 6 (5-15); BUN 30 mg/dL (7-18); BUN/Creat Ratio 24.6 RATIO (10-20); Calcium,Total 7.9 mg/dL (8.5-10.1); Chloride 106 mmol/L (98-107); Creatinine, Serum 1.22 mg/dL (0.55-1.02); EST Glomerular Filtration Rate 45 mL/min (>60); Est Glom Filt Rate - Afr Amer 54 mL/min (>60); Estimated Creatinine Clearance 32.71 ml/min; Glucose 87 mg/dL (74-106); Potassium 3.2 mmol/L (3.5-5.1); Sodium Level 138 mmol/L (136-145)
--- NOTE | 2023-02-22 07:55 | RAD_ITS ---
STUDY: X-RAY - ABDOMEN/PELVIS REASON FOR EXAM: Female, 82 years old. Abdominal pain and distention TECHNIQUE: Two AP supine views of the abdomen and pelvis. COMPARISON: 02/21/2023 FINDINGS: Normal visualized lung bases. Stable appearance of an NG tube, tip is in the proximal duodenum Borderline distended air-filled loops of small and large bowel throughout the abdomen consistent with ileus, no interval change since the previous study There is no demonstrated free abdominal air. The visualized liver, spleen and kidneys are grossly normal in size and morphology. Normal soft tissue structures. There are diffuse degenerative changes of the visualized lumbar spine. RAD/Abdomen Single View IMPRESSION: No significant interval change Electronically Signed: Margarito Ponce MD at 8:58 EDT ,
--- NOTE | 2023-02-22 09:06 | EKG12_ITS ---
Test Reason : PRE OP Blood Pressure : / mmHG Vent. Rate : 058 BPM Atrial Rate : 058 BPM P-R Int : 156 ms QRS Dur : 140 ms QT Int : 438 ms P-R-T Axes : -02 262 020 degrees QTc Int : 429 ms Sinus bradycardia Right bundle branch block Abnormal ECG When compared with ECG of 10-JAN-2020 16:31, Premature atrial complexes are no longer Present Confirmed by MICHAEL JO, KATHY ([id number]), society editor VALENTINA BELL ([id number]) on 04/05/2023 1:47:41 PM Referred By: SHRUTI Confirmed By:KATHY RODRIGUEZ MD
[2023-02-22] MEDS: Potassium Chloride 10mEq/100mL 10 MEQ/100 ML IV.SOLN. 100 MEQ IV BOLUS ×4 (09:29→15:21)
[2023-02-22 09:45] LABS: Thyroid Stim Hormone (TSH) 3.35 uIU/mL (0.358-3.74)
--- NOTE | 2023-02-22 11:40 | PN_ITS ---
Subjective Subjective Patient seen and examined. Son was by her bedside. She had no active complaints. She is not passing gas. She denies any fever, chills, cough, chest pain, palpitations, dizziness or any other symptoms. Review of systems is otherwise negative. She remains NPO with NG tube in situ. KUB today showed borderline distended air filled loops of small and large bowel throughout the abdomen, consistent with ileus. She is due for surgery today Objective Data Objective Data Vital Signs: Vital Signs Temp Pulse Resp BP Pulse Ox O2 Del Method 97.9 F 65 16 145/63 H 97 Room Air 02/22/23 08:58 02/22/23 08:58 02/22/23 08:58 02/22/23 08:58 02/22/23 08:58 02/22/23 08:59 Oxygen Delivery Method Room Air Weight: 151 lb 3.794 oz Body Mass Index (BMI) 24.4 Intake & Output: Intake and Output for Last 24 Hours 02/20/23 02/21/23 02/22/23 23:59 23:59 23:59 Intake Total 1000 / 1000 3207.5 / 3237.5 2592.5 / 2592.5 Output Total 3220 / 3440 620 / 620 Balance 1000 / 1000 -12.5 / -202.5 1972.5 / 1972.5 Lab / Micro Data 02/22/23 06:25 02/22/23 06:25 Labs: Laboratory Results - last 24 hr 02/22/23 06:25: WBC 3.9 L, RBC 3.25 L, Hgb 10.8 L, Hct 33.8 L, MCV 104.0 H, MCH 33.2 H, MCHC 32.0 D, RDW Std Deviation 55.2 H, RDW Coeff of Hernán 14.3, Plt Count 218, MPV 10.2, Immature Gran % (Auto) 0.500, Neut % (Auto) 62.0, Lymph % (Auto) 20.5, [place] % (Auto) 15.9 H, Eos % (Auto) 0.8, Baso % (Auto) 0.3, Absolute Neuts (auto) 2.4, Absolute Lymphs (auto) 0.80 L, Nucleated RBC % 0, Sodium 138, Potassium 3.2 L, Chloride 106, Carbon Dioxide 26.0, Anion Gap 6, BUN 30 H, Creatinine 1.22 H, Estim Creat Clear Calc 32.71, Est GFR (MDRD) Af Amer 54 L, Est GFR (MDRD) Non-Af 45 L, BUN/Creatinine Ratio 24.6 H, Glucose 87, Calcium 7.9 L, TSH 3.35 Radiography Diagnostic Testing: Radiology Impression KUB X-Ray 02/21/23 14:15 IMPRESSION: There is an ileus pattern or possibly early developing obstruction. Follow-up is recommended. Nasogastric tube in the distal stomach/proximal duodenum. Electronically Signed: Roberth Griffiths DO at 17:14 EDT , KUB X-Ray 02/22/23 07:55 IMPRESSION: No significant interval change Electronically Signed: Margarito Ponce MD at 8:58 EDT , Physical Exam Const alert, oriented x3 and no apparent distress General Appearance: cooperative and well developed HEENT normocephalic and head/scalp atraumatic Eyes PERRL and EOMs intact bilaterally Neck no lymphadenopathy and supple Lymph Lymphatic: no lymphadenopathy noted Resp normal respiratory effort, normal air movement and clear to auscultation bilaterally Cardio regular rate, regular rhythm, S1 normal heart sound, S2 normal heart sound and no murmurs Palpation: normal PMI GI soft to palpation, non-tender and non-distended GI Narrative: NG tube in place, draining bilious fluid. abdomen nondistended, non tender. no organomegaly, hyperactive bowel sounds Extremity normal capillary refill and no clubbing, cyanosis or edema Skin General Skin Exam: no breakdown Neuro CN's II-XII intact bilaterally, no focal motor deficits and no sensory deficits noted Psych thought process normal, cooperative and affect normal Appearance: appropriate Assessment & Plan Assessment/Plan (1) Moderate dehydration: (2) Acute kidney injury superimposed on chronic kidney disease: (3) Nausea vomiting and diarrhea: PLAN: Plan #Intractable nausea and vomiting due to small bowel obstruction * she did have a CT abdomen which showed a markedly distended stomach with small bowel obstruction * NG tube inserted and draining bilious fluid * general surgery on board * keep NPO and continue hydrating with IVF * KUB today showed Borderline distended air-filled loops of small and large bowel throughout the abdomen consistent with ileus, no interval change since the previous study There is no demonstrated free abdominal air. * for laparoscopy and possible laparotomy today per general surgery * IV zofran prn #ARTHUR on CKD III due to intractable nausea and vomiting * Creatinine is down to 1.22 today. * Resolved. * * #Hypokalemia: K is 3.3. Will replace with IV KCl 40meq as she cant take PO. #Hyponatremia: resolved. Na is 138 today. #Hypothyroidism: On Synthroid #Elevated blood pressure: * BP continues to remaiin elevated * cant start oral BP meds now due to her being NPO * IV hydralazine prn * start oral meds once she is able to take PO * #DVT prophylaxis: Heparin COde status: full code * Charges/Coding Visit Charges Inpatient E&M: 52654 Subs Hosp L2
--- NOTE | 2023-02-22 13:00 | COL_PTH ---
PATIENT: AURELIO WOODWARD LOC: MS3 U#:[id number] AGE/SX: 82/F ROOM: SC316 RE02/21/[address]: Dr. Braden Elaine DO : 1940 BED: 1 DIS: 02/27/2023 SPEC #: [id number] RECD: 02/22/23 17:10 STATUS: TAMARA MICHELLE #: [id number] DANE: 02/22/23 13:[address]: Nina Rain DEPT: SURGICAL PATHOLOGY RECD BY: Grace Harris ENTERED: 02/23/23 10:46 SP TYPE: COLON OTHR DR: MD Dr. Kerry Watkins MD Dr. Tamera Robotham, MD Tissues: Colon, NOS Procedures: Surgery Specimen Level V Comments: @ Ordering doctor for SUV edited from to @ by RGOOD at 02/23/23 1434 @ Submitting doctor edited from to @ by RGOOD at 02/23/23 1434 HEADER OPERATION: Exploratory laparoscopy, converted to open laparotomy PRE-OP DIAGNOSIS: Intractable nausea and vomiting due to small bowel obstruction TISSUE SUBMITTED: Distal jejunum (suture santos distal end) MICROSCOPIC DIAGNOSIS Distal jejunum: Focal mucosal ulceration with associated acute and chronic inflammation and early granulation. Vascular congestion consistent with bowel obstruction. AM:martin 02/25/2023 MICROSCOPIC DESCRIPTION Slides are reviewed. GROSS DESCRIPTION Received in fixative is one container labeled with the patient's name and designated distal jejunum (suture santos distal end). The specimen consists of a distended segment of small bowel measuring 16.0 cm in length and up to 4.0 cm in diameter. Both resection margins are stapled. The distal resection margin is identified by a suture. The bowel contains partially digested food. No mucosal lesion is identified. Sections will be submitted after fixation. / SJ:martin 02/23/2023 Focal area of thickening is noted in the mucosa 2.0 and 4.0 cm away from the distal resection margin. The lumen also shows flattening of villi in focal area. Sections of mesenteric tissue do not reveal any obviously enlarged lymph node. Display Designer Outside sections are submitted in six cassettes as follows: 1??proximal and distal resection margins, distal resection margin inked black, 2 - area of luminal mucosal thickening 2.0 cm away from the distal margin, 3 & 4 - area of thickening 4.0 cm away from the distal resection margin, 5 - Display Designer Outside sections of the other areas, 6 - mesenteric tissue. / SJ:martin 02/24/2023 TC:5 CPT: 62428
--- NOTE | 2023-02-22 14:33 | PCM.OPRPT ---
Report of Operation Date of Procedure: 02/22/23 Pre-Operative Diagnosis: Small bowel obstruction Post-Operative Diagnosis: Same Surgery/Procedure Performed:: Laparoscopic converted to laparotomy, small bowel resection with primary anastomosis Surgeon: Nina Rain Type of Anesthesia: General/Supplemental Anesthesiologist: Sanford Tafoya Special Medications: Cefotetan 2 g IV x1 Specimen's removed: 1. Distal jejunum Estimated Blood Loss (mL): < 10 cc Description of Procedure: Patient is brought to operating placed spine on operating table. General anesthesia was induced. Patient's abdomen prepped draped you sterile fashion with chlorhexidine. Supraumbilical incision was made with 15 blade scalpel this was deepened to the fascia the fascia was elevated and incised in a direct visualization. Entry into the abdomen was confirmed visually. Price trocar was placed. Abdomen was insufflated CO2 to 12 to 15 mmHg. Patient tolerated insufflation well. Additional 5 mm trocar sites were placed in the left lower quadrant and suprapubic under direct visualization. Abdomen was noted to have distended small bowel and distally collapsed small bowel. Starting at the cecum the bowel was ran until the distended small bowel there is an area of transition questionable mass versus fibrous food; thus laparoscopic was converted to laparotomy. Midline incision was made with the 10 blade scalpel deepened to the fascia with electrocautery. Trocars were removed. Wound protector was placed. The transition area of small bowel was brought into the incision. There was a questionable area of stricture along with fibrous debris in the small bowel. This area was resected using 75 ROSALINO staplers x2 and the LigaSure impact for the mesentery. Fibrous debris of corn/beans were milked from the mid to distal jejunum. Anastomosis was done with 75 ROSALINO stapler as well as a TX 60. Anastomosis was checked and patent. 3-0 silk suture crotch stitch was placed. The mesentery was closed using a 3-0 Vicryl running suture. Wound protector was removed and gloves were changed. Fascia was closed with 0 PDS running suture. Skin was closed with 4-0 Monocryl/Steri-Strips and Telfa/OpSite's. Patient was extubated. Patient tolerated procedure well was taken to the postanesthesia care in stable condition. Complications none
[2023-02-22] MEDS: Bupivacaine 0.25% 30 ML Vial (14:42)
[2023-02-22] MEDS: Morphine 2 MG/ML Syringe IV (22:06)
[2023-02-23 01:36] VITALS: BP 174/67; PULSE 69; RESP 17; TEMP 36.7; O2SAT 96
[2023-02-23] MEDS: Morphine 2 MG/ML Syringe IV ×7 (01:36→22:02)
[2023-02-23] MEDS: 0.9% Normal Saline 1,000 ML 120 ML IV ×3 (01:38→18:10)
[2023-02-23 02:15] VITALS: BP 155/69; PULSE 72; RESP 18; TEMP 36.7; O2SAT 95
[2023-02-23 06:49] LABS: Absolute Lymphocyte Count 0.77 X10^3/uL (0.83-4.51); Absolute Neutrophil Count 5.2 X10^3/uL (2.0-7.7); Basophil# 0.02 X10^3/uL; Basophil% 0.3 % (0-1); Hematocrit 31.1 % (37-47); Hemoglobin 9.6 g/dL (12.0-15.0); Lymphocyte # 0.77 X10^3/ul (0.83-4.51); Lymphocyte % 11.6 % (19-41); Mean Corp Hgb Conc 30.9 g/dL (32-36); Mean Corpuscular Hgb 32.8 pg (27.0-32.0); Mean Corpuscular Volume 106.1 fL (81-99); Mean Platelet Vol. 9.8 fl (6.2-12.0); Monocyte# 0.62 X10^3/uL; Monocyte% 9.3 % (0-10); NRBC Flagged by Analyzer 0 % (0-5); Neutrophil # 5.19 X10^3/uL (2.7-7.7); POSITIVE MORPHOLOGY YES; Platelet Count 183 K/mm3 (150-450); RBC Distribution Width CV 14.4 % (11.6-14.6); RBC Distribution Width SD 56.3 fl (35.1-43.9); Red Blood Count 2.93 M/mm3 (4.2-5.4); White Blood Count 6.7 K/mm3 (4.4-11.0)
[2023-02-23 06:51] LABS: Differential Indicated SCAN CRITERIA MET
[2023-02-23 07:10] LABS: Differential Comment SCANNED
[2023-02-23 07:16] LABS: Anion Gap 7 (5-15); BUN 22 mg/dL (7-18); BUN/Creat Ratio 21.6 RATIO (10-20); Calcium,Total 7.3 mg/dL (8.5-10.1); Chloride 109 mmol/L (98-107); Creatinine, Serum 1.02 mg/dL (0.55-1.02); EST Glomerular Filtration Rate 55 mL/min (>60); Est Glom Filt Rate - Afr Amer 67 mL/min (>60); Estimated Creatinine Clearance 39.12 ml/min; Glucose 71 mg/dL (74-106); Potassium 3.5 mmol/L (3.5-5.1); Sodium Level 138 mmol/L (136-145)
--- NOTE | 2023-02-23 07:31 | PCM.PN.SRG ---
Subjective Subjective Patient denies any flatus/bowel movement, complains of some incisional pain controlled with medication NG put out about 450 since surgery Objective Data Objective Data Vital Signs: Vital Signs Temp Pulse Resp BP Pulse Ox O2 Del Method 98.0 F 72 18 155/69 H 95 Room Air 02/23/23 02:15 02/23/23 02:15 02/23/23 02:15 02/23/23 02:15 02/23/23 02:15 02/23/23 02:15 Oxygen Delivery Method Room Air Weight: 151 lb 3.794 oz Body Mass Index (BMI) 24.4 Intake & Output: Intake and Output for Last 24 Hours 02/21/23 02/22/23 02/23/23 23:59 23:59 23:59 Intake Total 3207.5 / 3237.5 5442.5 / 5442.5 340 / 340 Output Total 3220 / 3440 1470 / 1470 150 / 150 Balance -12.5 / -202.5 3972.5 / 3972.5 190 / 190 Lab / Micro Data 02/23/23 06:30 02/23/23 06:30 Labs: Laboratory Results - last 24 hr 02/22/23 06:25: Sodium 138, Potassium 3.2 L, Chloride 106, Carbon Dioxide 26.0, Anion Gap 6, BUN 30 H, Creatinine 1.22 H, Estim Creat Clear Calc 32.71, Est GFR (MDRD) Af Amer 54 L, Est GFR (MDRD) Non-Af 45 L, BUN/Creatinine Ratio 24.6 H, Glucose 87, Calcium 7.9 L, TSH 3.35 02/23/23 06:30: WBC 6.7, RBC 2.93 L, Hgb 9.6 L, Hct 31.1 L, MCV 106.1 H, MCH 32.8 H, MCHC 30.9 L, RDW Std Deviation 56.3 H, RDW Coeff of Hernán 14.4, Plt Count 183, MPV 9.8, Immature Gran % (Auto) 0.800, Neut % (Auto) 78.0 H, Lymph % (Auto) 11.6 L, [place] % (Auto) 9.3, Eos % (Auto) 0.0, Baso % (Auto) 0.3, Absolute Neuts (auto) 5.2, Absolute Lymphs (auto) 0.77 L, Nucleated RBC % 0, Differential Comment SCANNED, Sodium 138, Potassium 3.5, Chloride 109 H, Carbon Dioxide 22.0, Anion Gap 7, BUN 22 H, Creatinine 1.02, Estim Creat Clear Calc 39.12, Est GFR (MDRD) Af Amer 67, Est GFR (MDRD) Non-Af 55 L, BUN/Creatinine Ratio 21.6 H, Glucose 71 L, Calcium 7.3 L Radiography Diagnostic Testing: Radiology Impression KUB X-Ray 02/22/23 07:55 IMPRESSION: No significant interval change Electronically Signed: Margarito Ponce MD at 8:58 EDT , Physical Exam Narrative NG in place Resp normal respiratory effort Cardio regular rate GI GI Narrative: Abdomen: Soft, nondistended, tender near incision's dressed clean dry and intact, no peritoneal signs Assessment & Plan Assessment/Plan (1) S/P small bowel resection: (2) Small bowel obstruction: PLAN: Plan Continue NG/IV fluids/n.p.o. we will plan to check NG clamped for 4 hours. Patient may be able to get NG out but would be still n.p.o. until flatus Continue ambulation up out of bed to chair Nina Rain M.D. Pager: [phone] [facility] [address] [place] [address], [facility], [address] [place] [address] Office: [phone]
[2023-02-23 08:09] VITALS: BP 143/86; PULSE 74; RESP 16; TEMP 36.8; O2SAT 100
[2023-02-23] MEDS: 0.9% Saline Lock 10 ML Syringe IV (08:21)
[2023-02-23] MEDS: BENZOCAINE/MENTHOL 1 LOZENGE MUCOUS MEM ×2 (08:21→10:22)
--- NOTE | 2023-02-23 12:10 | PN_ITS ---
Subjective Subjective Patient seen and examined. She has no complaints. She had laparoscopic converted to laparotomy with small bowel resection with primary anastomosis. Today is POD 1 Objective Data Objective Data Vital Signs: Vital Signs Temp Pulse Resp BP Pulse Ox O2 Del Method 98.2 F 74 16 143/86 H 100 Room Air 02/23/23 08:09 02/23/23 08:09 02/23/23 08:09 02/23/23 08:09 02/23/23 08:09 02/23/23 08:14 Oxygen Delivery Method Room Air Weight: 151 lb 3.794 oz Body Mass Index (BMI) 24.4 Intake & Output: Intake and Output for Last 24 Hours 02/21/23 02/22/23 02/23/23 23:59 23:59 23:59 Intake Total 3207.5 / 3237.5 5442.5 / 5442.5 1608 / 1608 Output Total 3220 / 3440 1470 / 1470 300 / 300 Balance -12.5 / -202.5 3972.5 / 3972.5 1308 / 1308 Lab / Micro Data 02/23/23 06:30 02/23/23 06:30 Labs: Laboratory Results - last 24 hr 02/23/23 06:30: WBC 6.7, RBC 2.93 L, Hgb 9.6 L, Hct 31.1 L, MCV 106.1 H, MCH 32.8 H, MCHC 30.9 L, RDW Std Deviation 56.3 H, RDW Coeff of Hernán 14.4, Plt Count 183, MPV 9.8, Immature Gran % (Auto) 0.800, Neut % (Auto) 78.0 H, Lymph % (Auto) 11.6 L, [place] % (Auto) 9.3, Eos % (Auto) 0.0, Baso % (Auto) 0.3, Absolute Neuts (auto) 5.2, Absolute Lymphs (auto) 0.77 L, Nucleated RBC % 0, Differential Comment SCANNED, Sodium 138, Potassium 3.5, Chloride 109 H, Carbon Dioxide 22.0, Anion Gap 7, BUN 22 H, Creatinine 1.02, Estim Creat Clear Calc 39.12, Est GFR (MDRD) Af Amer 67, Est GFR (MDRD) Non-Af 55 L, BUN/Creatinine Ratio 21.6 H, Glucose 71 L, Calcium 7.3 L Physical Exam Const alert, oriented x3 and no apparent distress General Appearance: cooperative and well developed HEENT normocephalic and head/scalp atraumatic Eyes PERRL and EOMs intact bilaterally Neck no lymphadenopathy and supple Lymph Lymphatic: no lymphadenopathy noted Resp normal respiratory effort, normal air movement and clear to auscultation bilaterally Cardio regular rate, regular rhythm, S1 normal heart sound, S2 normal heart sound and no murmurs Palpation: normal PMI GI normal to inspection, nondistended, normoactive bowel sounds, soft to palpation, non-tender and non-distended GI Narrative: NG tube in place, closed to suction. abdomen nondistended, non tender. no organomegaly, hyperactive bowel sounds. Intact dressing over laparotomy side. Extremity normal capillary refill and no clubbing, cyanosis or edema Skin General Skin Exam: no breakdown Neuro CN's II-XII intact bilaterally, no focal motor deficits and no sensory deficits noted Psych thought process normal, cooperative and affect normal Appearance: appropriate Assessment & Plan Assessment/Plan (1) Moderate dehydration: (2) Acute kidney injury superimposed on chronic kidney disease: (3) Nausea vomiting and diarrhea: PLAN: Plan #Intractable nausea and vomiting due to small bowel obstruction * she did have a CT abdomen which showed a markedly distended stomach with small bowel obstruction * failed conservative management * had laparoscopic converted to laparotomy with small bowel resection with primary anastomosis. Had fibrous debris of corn and beans blocking the mid to distal jejunum * today is POD 1 * NG tube closed to suction * continue gentle hydration with IVF * management as per general surgery * * #ARTHUR on CKD III due to intractable nausea and vomiting * resolved. Cr is down to 1.02 today * * #Hypokalemia: resovled. K is 3.5. #Hyponatremia: resolved. #Hypothyroidism: On Synthroid #Elevated blood pressure: * BP continues to remain elevated * cant start oral BP meds now due to her being NPO * IV hydralazine prn * start oral meds once she is able to take PO * #DVT prophylaxis: Heparin COde status: full code * Charges/Coding Visit Charges Inpatient E&M: 10483 Subs Hosp L2
[2023-02-23 14:17] VITALS: BP 157/52; PULSE 60; RESP 16; TEMP 36.7; O2SAT 95
[2023-02-23 19:46] VITALS: BP 148/54; PULSE 57; RESP 15; TEMP 36.7; O2SAT 98
[2023-02-24] VITALS (10 sets, daily range): BP systolic 147–167; BP diastolic 49–89; PULSE 61–78; RESP 16–18; TEMP 36.4–37.1; O2SAT 93–100
[2023-02-24] MEDS: 0.9% Normal Saline 1,000 ML 120 ML IV (02:24)
[2023-02-24] MEDS: Morphine 2 MG/ML Syringe IV ×4 (03:53→23:24)
--- NOTE | 2023-02-24 07:32 | PN.HOSP_ITS ---
Reason for Visit Reason for Visit: Diagnoses Dehydration (02/21/23) Unspecified intestinal obstruction, unspecified as to partial versus complete obstruction (02/21/23) Acute kidney failure, unspecified (02/21/23) Chronic kidney disease, unspecified (02/21/23) Nausea with vomiting, unspecified (02/21/23) Diarrhea, unspecified (02/21/23) Acquired absence of other specified parts of digestive tract (02/21/23) Subjective Subjective NGT removed yesterday. No flatus. Has been up and ambulating independently w/o difficulty. Objective Data Objective Data Vital Signs: Vital Signs Temp Pulse Resp BP Pulse Ox O2 Del Method 36.6 C 78 18 153/56 H 98 Room Air 02/24/23 03:30 02/24/23 03:30 02/24/23 03:30 02/24/23 03:30 02/24/23 03:30 02/24/23 03:30 Oxygen Delivery Method Room Air Weight: 68.6 kg Body Mass Index (BMI) 24.4 Intake & Output: Intake and Output for Last 24 Hours 02/22/23 02/23/23 02/24/23 23:59 23:59 23:59 Intake Total 5442.5 / 5442.5 2402 / 2542 1128 / 1128 Output Total 1470 / 1470 300 / 300 Balance 3972.5 / 3972.5 2102 / 2242 1128 / 1128 Lab / Micro Data 02/24/23 08:38 02/24/23 08:38 Physical Exam Resp normal respiratory effort, no retractions, no use of accessory muscles and clear to auscultation bilaterally Cardio regular rate, regular rhythm, S1 normal heart sound and S2 normal heart sound GI normal to inspection, nondistended, normoactive bowel sounds and soft to palpation GI Narrative: hypoactive BS. incisions bandaged. Assessment & Plan Assessment/Plan (1) Small bowel obstruction: PLAN: s/p laparotomy w small bowel resection w primary anastomosis on 02/22 mgmt per general surgery (2) Acute kidney injury superimposed on chronic kidney disease: PLAN: Admission creatinine was 1.8, improved with IVF 2/2 N/V from SBO (3) Acute blood loss anemia: PLAN: Admission Hg 14.2, down to 9.6 Partly due to hemoconcentration from dehydration and post-op anemia No need for transfusion at this time Monitor (4) Hypokalemia: PLAN: 2/2 dehydration check magnesium (5) Hyponatremia: PLAN: probably 2/2 dehydration improved PLAN: Plan Chronic conditions: * Hypothyroidism: On Synthroid DVT prophylaxis: Heparin Charges/Coding Visit Charges Inpatient E&M: 54279 Subs Hosp L2
--- NOTE | 2023-02-24 07:49 | PCM.PN.SRG ---
Subjective Subjective Patient denies flatus, NG removed yesterday due to minimal output after clamping trial, patient denies any nausea or vomiting Objective Data Objective Data Vital Signs: Vital Signs Temp Pulse Resp BP Pulse Ox O2 Del Method 97.8 F 78 18 153/56 H 98 Room Air 02/24/23 03:30 02/24/23 03:30 02/24/23 03:30 02/24/23 03:30 02/24/23 03:30 02/24/23 03:30 Oxygen Delivery Method Room Air Weight: 151 lb 3.794 oz Body Mass Index (BMI) 24.4 Intake & Output: Intake and Output for Last 24 Hours 02/22/23 02/23/23 02/24/23 23:59 23:59 23:59 Intake Total 5442.5 / 5442.5 2402 / 2542 1128 / 1128 Output Total 1470 / 1470 300 / 300 Balance 3972.5 / 3972.5 2102 / 2242 1128 / 1128 Lab / Micro Data 02/23/23 06:30 02/23/23 06:30 Physical Exam Resp normal respiratory effort Cardio regular rate GI GI Narrative: Abdomen: Soft, nondistended, tender near incision's dressed clean dry and intact, no peritoneal signs Assessment & Plan Assessment/Plan (1) S/P small bowel resection: (2) Small bowel obstruction: PLAN: Plan ContinueIV fluids/n.p.o. await bowel function Continue ambulation up out of bed to chair Nina Rain M.D. Pager: [phone] [facility] [address] [place] [address], [facility], [address] [place] [address] Office: [phone]
[2023-02-24] MEDS: hydrALAZINE 20 MG/ML Vial 10 MG IV (08:06)
[2023-02-24 08:47] LABS: Absolute Lymphocyte Count 0.82 X10^3/uL (0.83-4.51); Absolute Neutrophil Count 6.2 X10^3/uL (2.0-7.7); Basophil# 0.03 X10^3/uL; Basophil% 0.4 % (0-1); Eosinophils% 3.7 % (0-5); Hematocrit 32.8 % (37-47); Hemoglobin 10.5 g/dL (12.0-15.0); Lymphocyte # 0.82 X10^3/ul (0.83-4.51); Lymphocyte % 10.1 % (19-41); Mean Corpuscular Hgb 33.3 pg (27.0-32.0); Mean Corpuscular Volume 104.1 fL (81-99); Mean Platelet Vol. 9.6 fl (6.2-12.0); Monocyte# 0.74 X10^3/uL; Monocyte% 9.1 % (0-10); NRBC Flagged by Analyzer 0 % (0-5); Neutrophil # 6.15 X10^3/uL (2.7-7.7); Neutrophil % 75.6 % (47-70); Platelet Count 198 K/mm3 (150-450); RBC Distribution Width CV 14.3 % (11.6-14.6); RBC Distribution Width SD 55.2 fl (35.1-43.9); Red Blood Count 3.15 M/mm3 (4.2-5.4); White Blood Count 8.1 K/mm3 (4.4-11.0)
[2023-02-24 09:11] LABS: Anion Gap 7 (5-15); BUN 16 mg/dL (7-18); BUN/Creat Ratio 18.8 RATIO (10-20); Calcium,Total 7.8 mg/dL (8.5-10.1); Chloride 112 mmol/L (98-107); Creatinine, Serum 0.85 mg/dL (0.55-1.02); EST Glomerular Filtration Rate 68 mL/min (>60); Est Glom Filt Rate - Afr Amer 82 mL/min (>60); Estimated Creatinine Clearance 46.95 ml/min; Glucose 74 mg/dL (74-106); Magnesium 1.8 mg/dL (1.6-2.6); Potassium 3.3 mmol/L (3.5-5.1); Sodium Level 140 mmol/L (136-145)
[2023-02-24] MEDS: 0.9% Normal Saline 1,000 ML 100 ML IV ×2 (11:36→23:27)
[2023-02-24] MEDS: Potassium Chloride 10mEq/100mL 10 MEQ/100 ML IV.SOLN. 100 MEQ IV BOLUS ×4 (14:45→19:17)
[2023-02-24] MEDS: 0.9% Saline Lock 10 ML Syringe IV (23:24)
[2023-02-25 05:48] VITALS: PULSE 68
[2023-02-25] MEDS: hydrALAZINE 20 MG/ML Vial 10 MG IV (05:48)
[2023-02-25] MEDS: 0.9% Saline Lock 10 ML Syringe IV (05:49)
[2023-02-25 05:51] VITALS: BP 184/75; PULSE 68; RESP 16; TEMP 36.4; O2SAT 100
[2023-02-25 07:09] LABS: Absolute Lymphocyte Count 0.84 X10^3/uL (0.83-4.51); Absolute Neutrophil Count 7.7 X10^3/uL (2.0-7.7); Basophil# 0.06 X10^3/uL; Basophil% 0.6 % (0-1); Eosinophil# 0.37 X10^3/uL; Eosinophils% 3.7 % (0-5); Hematocrit 32.6 % (37-47); Hemoglobin 10.3 g/dL (12.0-15.0); Lymphocyte # 0.84 X10^3/ul (0.83-4.51); Lymphocyte % 8.5 % (19-41); Mean Corp Hgb Conc 31.6 g/dL (32-36); Mean Corpuscular Volume 104.5 fL (81-99); Monocyte# 0.79 X10^3/uL; NRBC Flagged by Analyzer 0 % (0-5); Neutrophil # 7.67 X10^3/uL (2.7-7.7); Neutrophil % 77.2 % (47-70); Platelet Count 223 K/mm3 (150-450); RBC Distribution Width CV 14.1 % (11.6-14.6); RBC Distribution Width SD 54.3 fl (35.1-43.9); Red Blood Count 3.12 M/mm3 (4.2-5.4); White Blood Count 9.9 K/mm3 (4.4-11.0)
--- NOTE | 2023-02-25 07:32 | PN.HOSP_ITS ---
Reason for Visit Reason for Visit: Diagnoses Acute posthemorrhagic anemia (02/21/23) Dehydration (02/21/23) Hypo-osmolality and hyponatremia (02/21/23) Hypokalemia (02/21/23) Unspecified intestinal obstruction, unspecified as to partial versus complete obstruction (02/21/23) Acute kidney failure, unspecified (02/21/23) Chronic kidney disease, unspecified (02/21/23) Nausea with vomiting, unspecified (02/21/23) Diarrhea, unspecified (02/21/23) Acquired absence of other specified parts of digestive tract (02/21/23) Subjective Subjective +Flatus. Abdomen less distended. Objective Data Objective Data Vital Signs: Vital Signs Temp Pulse Resp BP Pulse Ox O2 Del Method 36.4 C L 68 16 184/75 H 100 Room Air 02/25/23 05:51 02/25/23 05:51 02/25/23 05:51 02/25/23 05:51 02/25/23 05:51 02/25/23 05:51 Oxygen Delivery Method Room Air Weight: 68.6 kg Body Mass Index (BMI) 24.4 Intake & Output: Intake and Output for Last 24 Hours 02/23/23 02/24/23 02/25/23 23:59 23:59 23:59 Intake Total 2402 / 2542 3842.00 / 3842.00 Output Total 300 / 300 Balance 2102 / 2242 3842.00 / 3842.00 Lab / Micro Data 02/25/23 06:20 02/25/23 06:20 Labs: Laboratory Results - last 24 hr 02/24/23 08:38: WBC 8.1, RBC 3.15 L, Hgb 10.5 L, Hct 32.8 L, MCV 104.1 H, MCH 33.3 H, MCHC 32.0, RDW Std Deviation 55.2 H, RDW Coeff of Hernán 14.3, Plt Count 198, MPV 9.6, Immature Gran % (Auto) 1.100 H, Neut % (Auto) 75.6 H, Lymph % (Auto) 10.1 L, [place] % (Auto) 9.1, Eos % (Auto) 3.7, Baso % (Auto) 0.4, Absolute Neuts (auto) 6.2, Absolute Lymphs (auto) 0.82 L, Nucleated RBC % 0, Sodium 140, Potassium 3.3 L, Chloride 112 H, Carbon Dioxide 21.0, Anion Gap 7, BUN 16, Creatinine 0.85, Estim Creat Clear Calc 46.95, Est GFR (MDRD) Af Amer 82, Est GFR (MDRD) Non-Af 68, BUN/Creatinine Ratio 18.8, Glucose 74, Calcium 7.8 L, Magnesium 1.8 02/25/23 06:20: WBC 9.9, RBC 3.12 L, Hgb 10.3 L, Hct 32.6 L, MCV 104.5 H, MCH 33.0 H, MCHC 31.6 L, RDW Std Deviation 54.3 H, RDW Coeff of Hernán 14.1, Plt Count 223, MPV 10.0, Immature Gran % (Auto) 2.000 H, Neut % (Auto) 77.2 H, Lymph % (Auto) 8.5 L, [place] % (Auto) 8.0, Eos % (Auto) 3.7, Baso % (Auto) 0.6, Absolute Neuts (auto) 7.7, Absolute Lymphs (auto) 0.84, Nucleated RBC % 0 Physical Exam Const alert, oriented x3 and no apparent distress Constitutional Narrative: looks uncomfortable due to nausea and vomiting General Appearance: cooperative and well developed HEENT normocephalic and head/scalp atraumatic Eyes PERRL and EOMs intact bilaterally Neck no lymphadenopathy and supple Lymph Lymphatic: no lymphadenopathy noted Resp normal respiratory effort, normal air movement, no retractions, no use of accessory muscles and clear to auscultation bilaterally Cardio regular rate, regular rhythm, S1 normal heart sound, S2 normal heart sound and no murmurs Palpation: normal PMI GI normal to inspection, nondistended, normoactive bowel sounds, soft to palpation, non-tender and non-distended GI Narrative: hypoactive BS. incisions bandaged. Extremity normal capillary refill and no clubbing, cyanosis or edema Skin General Skin Exam: no breakdown Psych thought process normal, cooperative and affect normal Appearance: appropriate Assessment & Plan Assessment/Plan (1) Small bowel obstruction: PLAN: s/p laparotomy w small bowel resection w primary anastomosis on 02/22 mgmt per general surgery +flatus. (2) Acute kidney injury superimposed on chronic kidney disease: PLAN: Admission creatinine was 1.8, improved with IVF 2/2 N/V from SBO (3) Acute blood loss anemia: PLAN: Admission Hg 14.2, down to 9.6 Partly due to hemoconcentration from dehydration and post-op anemia No need for transfusion at this time Monitor (4) Hypokalemia: PLAN: 2/2 dehydration check magnesium (5) Hyponatremia: PLAN: probably 2/2 dehydration improved (6) HTN (hypertension): QUALIFIERS: Hypertension type: primary hypertension Qualified Code(s): I10 - Essential (primary) hypertension PLAN: add amlodipine PLAN: Plan Chronic conditions: * Hypothyroidism: On Synthroid DVT prophylaxis: Heparin Charges/Coding Visit Charges Inpatient E&M: 97040 Subs Hosp L2
[2023-02-25 07:55] LABS: Anion Gap 9 (5-15); BUN 10 mg/dL (7-18); BUN/Creat Ratio 14.3 RATIO (10-20); Calcium,Total 7.5 mg/dL (8.5-10.1); Chloride 109 mmol/L (98-107); EST Glomerular Filtration Rate 85 mL/min (>60); Est Glom Filt Rate - Afr Amer 103 mL/min (>60); Glucose 64 mg/dL (74-106); Potassium 3.6 mmol/L (3.5-5.1); Sodium Level 136 mmol/L (136-145)
[2023-02-25] MEDS: oxyCODONE 5 MG Tablet PO ×3 (08:15→23:33)
[2023-02-25] MEDS: amLODIPine 5 MG Tablet PO ×2 (08:15)
[2023-02-25 08:51] VITALS: BP 146/68; PULSE 70; RESP 16; TEMP 36.5; O2SAT 99
[2023-02-25] MEDS: 0.9% Normal Saline 1,000 ML 100 ML IV ×2 (09:32→18:28)
[2023-02-25 11:36] VITALS: BP 129/52; PULSE 84; RESP 16; TEMP 36.7; O2SAT 98
[2023-02-25 15:15] VITALS: BP 158/68; PULSE 72; RESP 16; TEMP 36.6; O2SAT 99
--- NOTE | 2023-02-25 19:10 | PN.SURG_ITS ---
Subjective Subjective Patient seen and examined during p.m. rounds. She is found sitting out of bed in a chair. I was notified by Dr. Rain that she had already given approval for initiation of a clear liquid diet. Patient states that she has done well with this transition and denies any hiccuping or belching. She confirms ongoing passage of flatus. She does remark that she has had some flushing most of today. She states that she is trying to get this to go down, but then also notes that she has been reluctant to cool down her room because she likes to keep things warm. Objective Data Objective Data Vital Signs: Vital Signs Temp Pulse Resp BP Pulse Ox O2 Del Method 97.9 F 72 16 158/68 H 99 Room Air 02/25/23 15:15 02/25/23 15:15 02/25/23 15:15 02/25/23 15:15 02/25/23 15:15 02/25/23 15:15 Oxygen Delivery Method Room Air Weight: 151 lb 3.794 oz Body Mass Index (BMI) 24.4 Intake & Output: Intake and Output for Last 24 Hours 02/23/23 02/24/23 02/25/23 23:59 23:59 23:59 Intake Total 2402 / 2542 3842.00 / 3842.00 2253.33 / 2253.33 Output Total 300 / 300 Balance 2102 / 2242 3842.00 / 3842.00 2253.33 / 2253.33 Lab / Micro Data 02/25/23 06:20 02/25/23 06:20 Labs: Laboratory Results - last 24 hr 02/25/23 06:20: WBC 9.9, RBC 3.12 L, Hgb 10.3 L, Hct 32.6 L, MCV 104.5 H, MCH 33.0 H, MCHC 31.6 L, RDW Std Deviation 54.3 H, RDW Coeff of Hernán 14.1, Plt Count 223, MPV 10.0, Immature Gran % (Auto) 2.000 H, Neut % (Auto) 77.2 H, Lymph % (Auto) 8.5 L, [place] % (Auto) 8.0, Eos % (Auto) 3.7, Baso % (Auto) 0.6, Absolute Neuts (auto) 7.7, Absolute Lymphs (auto) 0.84, Nucleated RBC % 0, Sodium 136, Potassium 3.6, Chloride 109 H, Carbon Dioxide 18.0 L, Anion Gap 9, BUN 10, Creatinine 0.70, Estim Creat Clear Calc 39.90, Est GFR (MDRD) Af Amer 103, Est GFR (MDRD) Non-Af 85, BUN/Creatinine Ratio 14.3, Glucose 64 L, Calcium 7.5 L Physical Exam Const oriented x3 and no apparent distress Resp normal respiratory effort GI GI Narrative: Mildly distended, operative dressings are initially intact with strikethrough of some serosanguineous drainage, beneath these dressings patient still has Steri- Strips intact. Patient's abdomen is mildly tender to palpation (especially about her mini laparotomy in the supraumbilical position) Assessment & Plan Assessment/Plan (1) S/P small bowel resection: (2) Small bowel obstruction: PLAN: Plan Continue clear liquid diet without carbonation Continue ambulation up out of bed to chair Charges/Coding Visit Charges Inpatient E&M: 64314 Subs Hosp L2
[2023-02-25] MEDS: Multivitamin (Healthy Eyes) Capsule 1 CAP PO (20:40)
[2023-02-25 20:49] VITALS: BP 149/94; PULSE 82; RESP 16; TEMP 36.6; O2SAT 96
[2023-02-26] VITALS (8 sets, daily range): BP systolic 135–178; BP diastolic 53–73; PULSE 72–92; RESP 16; TEMP 36.4–37.2; O2SAT 94–99
[2023-02-26] MEDS: 0.9% Normal Saline 1,000 ML 100 ML IV (03:46)
[2023-02-26] MEDS: Levothyroxine 50 MCG Tablet PO (03:46)
[2023-02-26] MEDS: hydrALAZINE 20 MG/ML Vial 10 MG IV ×2 (03:56→16:07)
[2023-02-26] MEDS: 0.9% Saline Lock 10 ML Syringe IV (03:56)
[2023-02-26 05:58] LABS: Anion Gap 8 (5-15); BUN 8 mg/dL (7-18); BUN/Creat Ratio 11.4 RATIO (10-20); Calcium,Total 7.9 mg/dL (8.5-10.1); Chloride 107 mmol/L (98-107); EST Glomerular Filtration Rate 85 mL/min (>60); Est Glom Filt Rate - Afr Amer 102 mL/min (>60); Glucose 76 mg/dL (74-106); Potassium 3.6 mmol/L (3.5-5.1); Sodium Level 135 mmol/L (136-145)
--- NOTE | 2023-02-26 07:15 | PN.HOSP_ITS ---
Reason for Visit Reason for Visit: Diagnoses Acute posthemorrhagic anemia (02/21/23) Dehydration (02/21/23) Hypo-osmolality and hyponatremia (02/21/23) Hypokalemia (02/21/23) Essential (primary) hypertension (02/21/23) Unspecified intestinal obstruction, unspecified as to partial versus complete obstruction (02/21/23) Acute kidney failure, unspecified (02/21/23) Chronic kidney disease, unspecified (02/21/23) Nausea with vomiting, unspecified (02/21/23) Diarrhea, unspecified (02/21/23) Acquired absence of other specified parts of digestive tract (02/21/23) Subjective Subjective Feeling better. +Flatus. No BM. Objective Data Objective Data Vital Signs: Vital Signs Temp Pulse Resp BP Pulse Ox O2 Del Method 36.4 C L 72 16 174/73 H 99 Room Air 02/26/23 03:59 02/26/23 03:59 02/26/23 03:59 02/26/23 03:59 02/26/23 03:59 02/26/23 03:59 Oxygen Delivery Method Room Air Weight: 68.6 kg Body Mass Index (BMI) 24.4 Intake & Output: Intake and Output for Last 24 Hours 02/24/23 02/25/23 02/26/23 23:59 23:59 23:59 Intake Total 3842.00 / 3842.00 2553.33 / 2553.33 930 / 930 Balance 3842.00 / 3842.00 2553.33 / 2553.33 930 / 930 Lab / Micro Data 02/25/23 06:20 02/26/23 04:47 Labs: Laboratory Results - last 24 hr 02/25/23 06:20: Sodium 136, Potassium 3.6, Chloride 109 H, Carbon Dioxide 18.0 L , Anion Gap 9, BUN 10, Creatinine 0.70, Estim Creat Clear Calc 39.90, Est GFR (MDRD) Af Amer 103, Est GFR (MDRD) Non-Af 85, BUN/Creatinine Ratio 14.3, Glucose 64 L, Calcium 7.5 L 02/26/23 04:47: Sodium 135 L, Potassium 3.6, Chloride 107, Carbon Dioxide 20.0 L , Anion Gap 8, BUN 8, Creatinine 0.70, Estim Creat Clear Calc 39.90, Est GFR (MDRD) Af Amer 102, Est GFR (MDRD) Non-Af 85, BUN/Creatinine Ratio 11.4, Glucose 76, Calcium 7.9 L Physical Exam Const alert and no apparent distress HEENT head/scalp atraumatic and moist oral mucous membranes Resp normal respiratory effort, no retractions, no use of accessory muscles and clear to auscultation bilaterally Cardio regular rate, regular rhythm, S1 normal heart sound and S2 normal heart sound GI normal to inspection, nondistended, normoactive bowel sounds, soft to palpation, non-tender and non-distended GI Narrative: dressing with some bleed through. Auscultation: hypoactive bowel sounds Extremity normal to inspection Assessment & Plan Assessment/Plan (1) Small bowel obstruction: PLAN: s/p laparotomy w small bowel resection w primary anastomosis on 02/22 mgmt per general surgery +flatus. On FLD, advance per GS. (2) Acute kidney injury superimposed on chronic kidney disease: PLAN: Admission creatinine was 1.8, improved with IVF 2/2 N/V from SBO (3) Acute blood loss anemia: PLAN: Admission Hg 14.2, down to 9.6 Partly due to hemoconcentration from dehydration and post-op anemia No need for transfusion at this time Monitor (4) Hypokalemia: PLAN: 2/2 dehydration check magnesium (5) Hyponatremia: PLAN: probably 2/2 dehydration improved (6) HTN (hypertension): QUALIFIERS: Hypertension type: primary hypertension Qualified Code(s): I10 - Essential (primary) hypertension PLAN: On going. Continue amlodipine. PLAN: Plan Chronic conditions: * Hypothyroidism: On Synthroid DVT prophylaxis: Heparin Charges/Coding Visit Charges Inpatient E&M: 34792 Subs Hosp L2
[2023-02-26] MEDS: Multivitamins,Ther W-Minerals Tablet 1 TABLET PO (08:46)
[2023-02-26] MEDS: Potassium Chloride Oral Tablet 20 MEQ 40 MEQ PO (08:46)
[2023-02-26] MEDS: Multivitamin (Healthy Eyes) Capsule 1 CAP PO ×2 (10:36→21:45)
[2023-02-26] MEDS: amLODIPine 5 MG Tablet PO (10:37)
[2023-02-26] MEDS: Cholecalciferol (VIT D3) 25 MCG TABLET (1,000 UNITS) PO (10:37)
[2023-02-26] MEDS: Docusate Sodium 100 MG Capsule PO (10:39)
--- NOTE | 2023-02-26 16:52 | PN.SURG_ITS ---
Subjective Subjective Patient seen and examined during AM rounds and then again this afternoon. She reports that she is feeling tired, but denies any nausea or vomiting response to her advance diet. Unfortunately, she is also denying any bowel movements. She does confirm regular flatus. Objective Data Objective Data Vital Signs: Vital Signs Temp Pulse Resp BP Pulse Ox O2 Del Method 98.4 F 79 16 161/72 H 97 Room Air 02/26/23 15:59 02/26/23 16:07 02/26/23 15:59 02/26/23 16:07 02/26/23 15:59 02/26/23 16:12 Oxygen Delivery Method Room Air Weight: 151 lb 3.794 oz Body Mass Index (BMI) 24.4 Intake & Output: Intake and Output for Last 24 Hours 02/24/23 02/25/23 02/26/23 23:59 23:59 23:59 Intake Total 3842.00 / 3842.00 2553.33 / 2553.33 2093.33 / 2093.33 Balance 3842.00 / 3842.00 2553.33 / 2553.33 2093.33 / 2093.33 Lab / Micro Data 02/25/23 06:20 02/26/23 04:47 Labs: Laboratory Results - last 24 hr 02/26/23 04:47: Sodium 135 L, Potassium 3.6, Chloride 107, Carbon Dioxide 20.0 L , Anion Gap 8, BUN 8, Creatinine 0.70, Estim Creat Clear Calc 39.90, Est GFR (MDRD) Af Amer 102, Est GFR (MDRD) Non-Af 85, BUN/Creatinine Ratio 11.4, Glucose 76, Calcium 7.9 L Physical Exam Const oriented x3 and no apparent distress Constitutional Narrative: Flushing from yesterday is improved Resp normal respiratory effort GI GI Narrative: Slightly distended, operative dressings with Steri-Strips still intact, expected tenderness about incisions Assessment & Plan Assessment/Plan (1) S/P small bowel resection: (2) Small bowel obstruction: PLAN: Plan ? Continue full liquid diet without carbonation until patient having bowel movements. Plan is ultimately advance to a soft low residue diet for discharge home ? Ambulate as tolerated ? Docusate ordered Continue ambulation up out of bed to chair Charges/Coding Visit Charges Inpatient E&M: 99062 Subs Hosp L2
[2023-02-26] MEDS: hydrALAZINE 25 MG Tablet PO (22:14)
[2023-02-27 02:00] VITALS: BP 162/72; PULSE 89; RESP 16; TEMP 36.4; O2SAT 98
[2023-02-27] MEDS: Levothyroxine 50 MCG Tablet PO (04:58)
--- NOTE | 2023-02-27 06:44 | NURSING ---
Patient wanting all bands to be cut off right wrist. Explained we need to keep them on. Pt refused to have do not use extremity band placed back on right arm.
--- NOTE | 2023-02-27 07:01 | PN.HOSP_ITS ---
Reason for Visit Reason for Visit: Diagnoses Acute posthemorrhagic anemia (02/21/23) Dehydration (02/21/23) Hypo-osmolality and hyponatremia (02/21/23) Hypokalemia (02/21/23) Essential (primary) hypertension (02/21/23) Unspecified intestinal obstruction, unspecified as to partial versus complete obstruction (02/21/23) Acute kidney failure, unspecified (02/21/23) Chronic kidney disease, unspecified (02/21/23) Nausea with vomiting, unspecified (02/21/23) Diarrhea, unspecified (02/21/23) Acquired absence of other specified parts of digestive tract (02/21/23) Subjective Subjective +Flatus and belching. Tolerating full liquid diet. Objective Data Objective Data Vital Signs: Vital Signs Temp Pulse Resp BP Pulse Ox O2 Del Method 36.4 C L 89 16 162/72 H 98 Room Air 02/27/23 02:00 02/27/23 02:00 02/27/23 02:00 02/27/23 02:00 02/27/23 02:00 02/27/23 02:00 Oxygen Delivery Method Room Air Weight: 68.6 kg Body Mass Index (BMI) 24.4 Intake & Output: Intake and Output for Last 24 Hours 02/25/23 02/26/23 02/27/23 23:59 23:59 23:59 Intake Total 2553.33 / 2553.33 2740.00 / 2890.00 150 / 150 Balance 2553.33 / 2553.33 2740.00 / 2890.00 150 / 150 Lab / Micro Data 02/25/23 06:20 02/27/23 05:33 Physical Exam Const alert and no apparent distress HEENT head/scalp atraumatic GI GI Narrative: dressing intact with old saturation. Neuro moves all extremities and no focal motor deficits Sensorium / Orientation: awake and alert Psych affect normal Assessment & Plan Assessment/Plan (1) Small bowel obstruction: PLAN: s/p laparotomy w small bowel resection w primary anastomosis on 02/22 mgmt per general surgery +flatus. On FLD, advance per GS. DW Dr. Selby, recommended suppository, if she has a BM, then DC home. (2) Acute kidney injury superimposed on chronic kidney disease: PLAN: Admission creatinine was 1.8, improved with IVF 2/2 N/V from SBO (3) Acute blood loss anemia: PLAN: Admission Hg 14.2, down to 9.6 Partly due to hemoconcentration from dehydration and post-op anemia No need for transfusion at this time Monitor (4) Hypokalemia: PLAN: 2/2 dehydration check magnesium (5) Hyponatremia: PLAN: probably 2/2 dehydration improved (6) HTN (hypertension): QUALIFIERS: Hypertension type: primary hypertension Qualified Code(s): I10 - Essential (primary) hypertension PLAN: On going. Continue amlodipine. PLAN: Plan Chronic conditions: * Hypothyroidism: On Synthroid DVT prophylaxis: Heparin Charges/Coding Visit Charges Inpatient E&M: 01000 Subs Hosp L2
[2023-02-27 07:08] LABS: Anion Gap 7 (5-15); BUN 7 mg/dL (7-18); BUN/Creat Ratio 9.8 RATIO (10-20); Calcium,Total 8.2 mg/dL (8.5-10.1); Chloride 105 mmol/L (98-107); Creatinine, Serum 0.71 mg/dL (0.55-1.02); EST Glomerular Filtration Rate 83 mL/min (>60); Est Glom Filt Rate - Afr Amer 100 mL/min (>60); Glucose 107 mg/dL (74-106); Potassium 3.8 mmol/L (3.5-5.1); Sodium Level 133 mmol/L (136-145)
[2023-02-27] MEDS: Multivitamin (Healthy Eyes) Capsule 1 CAP PO (08:10)
[2023-02-27] MEDS: Cholecalciferol (VIT D3) 25 MCG TABLET (1,000 UNITS) PO (08:11)
[2023-02-27] MEDS: Multivitamins,Ther W-Minerals Tablet 1 TABLET PO (08:11)
[2023-02-27] MEDS: amLODIPine 5 MG Tablet PO (08:11)
[2023-02-27] MEDS: Docusate Sodium 100 MG Capsule PO (08:13)
[2023-02-27 08:16] VITALS: BP 175/77; PULSE 81; RESP 16; TEMP 36.5; O2SAT 98
--- NOTE | 2023-02-27 08:32 | PN.SURG_ITS ---
Subjective Subjective Patient seen and examined during rounds. She is found resting out of bed in a chair coloring on her iPad. She states that she is doing this to avoid dying of boredom. She denies any abdominal discomfort, but also denies any bowel movements. She states that she is presently both belching and having flatus. Objective Data Objective Data Vital Signs: Vital Signs Temp Pulse Resp BP Pulse Ox O2 Del Method 97.7 F L 81 16 175/77 H 98 Room Air 02/27/23 08:16 02/27/23 08:16 02/27/23 08:16 02/27/23 08:16 02/27/23 08:16 02/27/23 08:16 Oxygen Delivery Method Room Air Weight: 151 lb 3.794 oz Body Mass Index (BMI) 24.4 Intake & Output: Intake and Output for Last 24 Hours 02/25/23 02/26/23 02/27/23 23:59 23:59 23:59 Intake Total 2553.33 / 2553.33 2740.00 / 2890.00 150 / 150 Balance 2553.33 / 2553.33 2740.00 / 2890.00 150 / 150 Lab / Micro Data 02/25/23 06:20 02/27/23 05:33 Labs: Laboratory Results - last 24 hr 02/27/23 05:33: Sodium 133 L, Potassium 3.8, Chloride 105, Carbon Dioxide 21.0, Anion Gap 7, BUN 7, Creatinine 0.71, Estim Creat Clear Calc 39.90, Est GFR (MDRD) Af Amer 100, Est GFR (MDRD) Non-Af 83, BUN/Creatinine Ratio 9.8 L, Glucose 107 H, Calcium 8.2 L Physical Exam Const oriented x3 and no apparent distress Resp normal respiratory effort GI GI Narrative: Slightly distended, slightly tympanitic in the left upper quadrant. Steri- Strips intact over operative wounds. There is no drainage. Patient has minimal tenderness with palpation. Assessment & Plan Assessment/Plan (1) S/P small bowel resection: (2) Small bowel obstruction: PLAN: Plan Patient is postoperative day 5 from diagnostic laparoscopy with mini laparotomy for small bowel resection. Overall she is doing well and continues to have bowel function with flatus, however, she is yet to have a bowel movement. I hav e encouraged her to allow us to administer a suppository to see if this will finally stimulate a bowel movement and allow us to advance her diet and make her eligible for discharge. She grudgingly agrees. ? Continue full liquid diet without carbonation until patient having bowel movements. Plan is ultimately advance to a soft low residue diet for discharge home ? Ambulate as tolerated ? Dulcolax suppository today and follow for bowel movement Continue ambulation up out of bed to chair Charges/Coding Visit Charges Inpatient E&M: 66068 Subs Hosp L2
[2023-02-27] MEDS: Pantoprazole Sodium 40 MG Tablet PO (10:10)
[2023-02-27] MEDS: Acetaminophen 325 MG Tablet 650 MG PO (10:10)
[2023-02-27] MEDS: Bisacodyl 10 MG Suppository RC (11:16)
[2023-02-27] MEDS: Furosemide 40 MG Tablet PO (12:39)
--- NOTE | 2023-02-27 12:44 | DCINST_ITS ---
Discharge Instructions Diet Discharge Diet: - (bland diet, advance as tolerated. ) Dressing / Incision Call your doctor if your incision/area has: Continuous Slow Oozing, Sudden Increased Bleeding, Increased Pain/ Swelling, Increased Redness, Foul Smelling Discharge and Swelling at the incision site Follow Up Care Test Results: Test results from this visit will be discussed in further detail at your follow- up appointment, if applicable. Discharge Plan Admission Admit Date/Time: 02/21/23 15:37 Primary Reason for Your Visit: small bowel obstruction. Attending Provider: Braden Elaine Primary Care Provider: Zhen Levine Consulting Providers: Nina Rain; eKrry Hickman Discharge Orders/Prescriptions Prescriptions: New acetaminophen 325 mg Tablet 650 mg PO Q6H PRN PRN (Reason: Pain 1-10 Or Fever >100.7) Qty: 0 0RF amlodipine 5 mg Tablet 5 mg PO DAILY Qty: 30 0RF Continued levothyroxine 100 mcg tablet 50 mcg PO DAILY tramadol 50 mg tablet 50 mg PO BID PRN (Reason: Pain) cholecalciferol (vitamin D3) 25 mcg (1,000 unit) capsule 25 mcg PO DAILY Multiple Vitamin-Minerals Tablet 1 tab PO DAILY vitamin E 200 unit capsule 200 unit PO BID PreserVision AREDS 2,148 mcg-113 mg-45 mg-17.4mg tablet 2 tab PO BID Rx Instructions: administer with AM and PM meals trazodone 100 mg tablet 100 mg PO PRN PRN (Reason: sleep) Patient Comments: TAKE 1 TABLET BY MOUTH AT BEDTIME NEEDED FOR SLEEP Referrals / Follow Up: Zhen Levine MD [Primary Care Provider] - Disposition Disposition (needs filled in before D/C Order can be placed): Home, Self Care
[2023-02-27 14:04] VITALS: BP 161/70; PULSE 81; RESP 18; TEMP 36.7; O2SAT 98
--- NOTE | 2023-02-27 15:34 | DS.PCM_ITS ---
Providers Date of Admission: 02/21/23 Primary Care Physician: Dr. Zhen Levine MD Consultations 02/21/23 06:45 Consult: General Surgery Routine Consulting Provider: Nina Rain Reason for Consult: Bowel obstruction EMERGENT Consult: No MD Notified: Yes Date Notified: 02/21/23 Time Notified: 06:45 Method of Notification: Verbal Reason For Visit: ARTHUR, INTRACTABLE NAUSEA AND VOMITING Diagnosis Discharge Diagnosis (1) Small bowel obstruction: Status: Acute Code(s): K56.609 - Unspecified intestinal obstruction, unspecified as to partial versus complete obstruction Plan: s/p laparotomy w small bowel resection w primary anastomosis on 02/22 mgmt per general surgery +flatus. On FLD, advance per GS. Today, pt had a BM after a suppository. WIll discharge home with general surgery follow up. (2) Acute kidney injury superimposed on chronic kidney disease: Status: Chronic Code(s): N17.9 - Acute kidney failure, unspecified; N18.9 - Chronic kidney disease, unspecified Plan: Admission creatinine was 1.8, improved with IVF 2/2 N/V from SBO (3) Acute blood loss anemia: Status: Acute Code(s): D62 - Acute posthemorrhagic anemia Plan: Admission Hg 14.2, down to 9.6 Partly due to hemoconcentration from dehydration and post-op anemia No need for transfusion at this time Monitor (4) Hypokalemia: Status: Acute Code(s): E87.6 - Hypokalemia Plan: 2/2 dehydration check magnesium (5) Hyponatremia: Status: Acute Code(s): E87.1 - Hypo-osmolality and hyponatremia Plan: probably 2/2 dehydration improved (6) HTN (hypertension): Status: Chronic Code(s): I10 - Essential (primary) hypertension Qualifiers: Hypertension type: primary hypertension Qualified Code(s): I10 - Essential (primary) hypertension Plan: On going. Continue amlodipine. Plan Chronic conditions: * Hypothyroidism: On Synthroid DVT prophylaxis: Heparin Medications at Discharge Home Medications cholecalciferol (vitamin D3) 25 mcg (1,000 unit) capsule 25 mcg PO DAILY 12/10/21 multivitamin with minerals (Multiple Vitamin-Minerals tablet) 1 tab PO DAILY 12/10/21 tramadol 50 mg tablet 50 mg PO BID PRN Pain 12/10/21 vitamin E 200 unit capsule 200 unit PO BID 12/10/21 levothyroxine 100 mcg tablet 50 mcg PO DAILY 03/15/22 vitamins A,C,H-kdoy-fnxkix 2,148 mcg-113 mg-45 mg-17.4 mg tablet (PreserVision AREDS) 2 tab PO BID 03/15/22 trazodone 100 mg tablet 100 mg PO PRN PRN sleep 02/20/23 acetaminophen 325 mg tablet 650 mg (2 x 325 mg) PO Q6H PRN PRN Pain 1-10 Or Fever >100.7 #0 tabs 02/27/23 amlodipine 5 mg tablet 5 mg PO DAILY #30 tabs 02/27/23 Hospital Course Operations - (exploratory laparotomy) Summary of Care Provided Minutes Spent on Discharge: 35 Weight / BMI Weight Weight: 68.6 kg Body Mass Index (BMI) 24.4 ABG / Lab / Microbiology Data 02/25/23 06:20 02/27/23 05:33 Laboratory: Laboratory Results - last 24 hr 02/27/23 05:33: Sodium 133 L, Potassium 3.8, Chloride 105, Carbon Dioxide 21.0, Anion Gap 7, BUN 7, Creatinine 0.71, Estim Creat Clear Calc 39.90, Est GFR (MDRD) Af Amer 100, Est GFR (MDRD) Non-Af 83, BUN/Creatinine Ratio 9.8 L, Gluc ose 107 H, Calcium 8.2 L D/C Instructions Discharge Diet: - (bland diet, advance as tolerated. ) Call your doctor if your incision/area has: Continuous Slow Oozing, Sudden Increased Bleeding, Increased Pain/ Swelling, Increased Redness, Foul Smelling Discharge and Swelling at the incision site Meaningful Use Info Meaningful Use Diagnoses (Choose all that apply): None applicable Discharge Plan Admission Admit Date/Time: 02/21/23 15:37 Primary Reason for Your Visit: small bowel obstruction. Attending Provider: Braden Elaine Primary Care Provider: Zhen Levine Consulting Providers: Nina Rain; Kerry Hickman Discharge Orders/Prescriptions Prescriptions: New acetaminophen 325 mg Tablet 650 mg PO Q6H PRN PRN (Reason: Pain 1-10 Or Fever >100.7) Qty: 0 0RF amlodipine 5 mg Tablet 5 mg PO DAILY Qty: 30 0RF Continued levothyroxine 100 mcg tablet 50 mcg PO DAILY tramadol 50 mg tablet 50 mg PO BID PRN (Reason: Pain) cholecalciferol (vitamin D3) 25 mcg (1,000 unit) capsule 25 mcg PO DAILY Multiple Vitamin-Minerals Tablet 1 tab PO DAILY vitamin E 200 unit capsule 200 unit PO BID PreserVision AREDS 2,148 mcg-113 mg-45 mg-17.4mg tablet 2 tab PO BID Rx Instructions: administer with AM and PM meals trazodone 100 mg tablet 100 mg PO PRN PRN (Reason: sleep) Patient Comments: TAKE 1 TABLET BY MOUTH AT BEDTIME NEEDED FOR SLEEP Referrals / Follow Up: Zhen Levine MD [Primary Care Provider] - Within 2 Weeks Nina Rain MD [Med Staff - Active Staff] - Within 2 Weeks Disposition Disposition (needs filled in before D/C Order can be placed): Home, Self Care Charges/Coding Visit Charges Inpatient E&M: 20384 Disch Hosp >30min
== END 2023-02-27 17:30 | disposition home or self-care (01) | DRG 330 ==
LOC: ED 18:58 → MS3 19:28
PROVIDERS: Anesthesiology; Surgery; Admitting Provider Student in an Organized Health Care Education/Training Program; Emergency Provider Emergency Medicine; PCP Family Medicine
PROC: 0DBA0ZZ Excision of Jejunum, Open Approach (ICD-10-PCS; CPT 44202; principal; 2023-02-22 12:40)
DX: K56.609 Unspecified intestinal obstruction, unspecified as to partial versus complete obstruction (principal); N17.9 Acute kidney failure, unspecified; E87.1 Hypo-osmolality and hyponatremia; N18.30 Chronic kidney disease, stage 3 unspecified; E03.9 Hypothyroidism, unspecified; I12.9 Hypertensive chronic kidney disease with stage 1 through stage 4 chronic kidney disease, or unspecified chronic kidney disease; E86.0 Dehydration; E87.6 Hypokalemia; G62.9 Polyneuropathy, unspecified; Z53.31 Laparoscopic surgical procedure converted to open procedure; Z79.890 Hormone replacement therapy; Z79.899 Other long term (current) drug therapy; Z96.651 Presence of right artificial knee joint
CPT/HCPCS: 36415; 71046; 74018; 74176; 80048; 80053; 83605; 83735; 84443; 85025; 88307; 93005; 97110; 97162; 97166; 97530; 97535; 97802; 97803; 99284; J7030; J7120; A4216; J2405

== ENCOUNTER → 2023-03-02 | Outpatient (CLI) | payer MEDICARE, SELFPAY ==
[2023-03-02 12:31] LABS: Absolute Neutrophil Count 8.7 X10^3/uL (2.0-7.7); Basophil# 0.03 X10^3/uL; Basophil% 0.3 % (0-1); Eosinophil# 0.06 X10^3/uL; Eosinophils% 0.6 % (0-5); Hematocrit 29.3 % (37-47); Hemoglobin 10.1 g/dL (12.0-15.0); Lymphocyte % 9.4 % (19-41); Mean Corp Hgb Conc 34.5 g/dL (32-36); Mean Corpuscular Hgb 34.7 pg (27.0-32.0); Mean Corpuscular Volume 100.7 fL (81-99); Mean Platelet Vol. 9.9 fl (6.2-12.0); Monocyte# 0.76 X10^3/uL; Monocyte% 7.1 % (0-10); NRBC Flagged by Analyzer 0 % (0-5); Neutrophil # 8.66 X10^3/uL (2.7-7.7); Neutrophil % 81.5 % (47-70); Platelet Count 279 K/mm3 (150-450); RBC Distribution Width SD 51.6 fl (35.1-43.9); Red Blood Count 2.91 M/mm3 (4.2-5.4); White Blood Count 10.6 K/mm3 (4.4-11.0)
[2023-03-02 12:47] LABS: Vitamin B12 1407 pg/mL (211-911)
[2023-03-02 13:46] LABS: ALB/GLOB Ratio 0.6 RATIO (0.9-2.4); AST(SGOT) 23 U/L (15-37); Alanine Aminotransfer ALT/SGPT 16 U/L (13-56); Albumin, Serum 2.3 g/dL (3.2-5.0); Alkaline Phosphatase 66 U/L (45-117); Anion Gap 6 (5-15); BUN 12 mg/dL (7-18); BUN/Creat Ratio 13.5 RATIO (10-20); Calcium,Total 8.2 mg/dL (8.5-10.1); Chloride 99 mmol/L (98-107); Creatinine, Serum 0.89 mg/dL (0.55-1.02); EST Glomerular Filtration Rate 64 mL/min (>60); Est Glom Filt Rate - Afr Amer 78 mL/min (>60); Ferritin 351 ng/mL (8-252); Globulin 3.9 g/dL (2.2-4.2); Glucose 78 mg/dL (74-106); Iron 13 ug/dL (50-170); Iron Binding Capacity,Total 194 ug/dL (250-450); Potassium 3.3 mmol/L (3.5-5.1); Protein, Total 6.2 g/dL (6.4-8.2); Sodium Level 135 mmol/L (136-145)
== END | disposition home or self-care (01) ==
LOC: MFPLAB 11:19
PROVIDERS: PCP Family Medicine; Visit Provider Family Medicine
DX: N18.30 Chronic kidney disease, stage 3 unspecified (principal); D63.1 Anemia in chronic kidney disease
CPT/HCPCS: 36415; 80053; 82607; 82728; 82746; 83540; 83550; 85025

== ENCOUNTER 2023-03-03 06:40 | Emergency (ER) | payer MEDICARE, SELFPAY ==
[2023-03-03 06:41] VITALS: BP 129/70; PULSE 74; RESP 15; TEMP 36.6; O2SAT 97; BMI 26.6
--- NOTE | 2023-03-03 07:09 | CT_ITS ---
EXAM: CT MAXILLOFACIAL WITHOUT INTRAVENOUS CONTRAST CLINICAL INDICATION: trauma TECHNIQUE: Helically acquired images were obtained of the face without intravenous contrast. This CT exam was performed using one or more of the following dose reduction techniques: automated exposure control, adjustment of the mA and/or kV according to patient size, and/or use of iterative reconstruction technique. RADIATION DOSE: CTDIvol = 29.38 mGy, DLP = 448.27 mGy-cm COMPARISON: No relevant prior studies available. FINDINGS: BONES/JOINTS: Minimally displaced nasal bone fracture on the left. No discrete lytic or blastic abnormalities. No orbital wall fractures. SOFT TISSUES: Left maxillary and nasal soft tissue swelling. No discrete fluid collections. ORBITS: Unremarkable. Both globes are unremarkable. Extraocular muscles are normal. Retrobulbar fat appears unremarkable. SINUSES: Unremarkable as visualized. Clear. MASTOID AIR CELLS: Unremarkable as visualized. Clear. CT/Sinus/Facial Bone IMPRESSION: 1. Minimally displaced nasal bone fracture on the left. No other facial fractures identified. 2. Left maxillary and nasal soft tissue swelling. Electronically Signed: Asa Goldstein MD at 7:56 EDT ,
--- NOTE | 2023-03-03 07:09 | CT_ITS ---
EXAM: CT HEAD WITHOUT INTRAVENOUS CONTRAST CLINICAL INDICATION: head injury TECHNIQUE: Multiple axial images were obtained of the head without intravenous contrast. This CT exam was performed using one or more of the following dose reduction techniques: automated exposure control, adjustment of the mA and/or kV according to patient size, and/or use of iterative reconstruction technique. RADIATION DOSE: CTDIvol = 44.99 mGy, DLP = 829.85 mGy-cm COMPARISON: Head CT 01/10/2020 FINDINGS: BRAIN AND EXTRA-AXIAL SPACES: Unremarkable. No intra- or extra-axial hemorrhage. No evidence of acute infarct. No intracranial mass or mass effect. There is preservation of the noonan/white matter interface. Posterior fossa structures are unremarkable. Ventricles are appropriate for age. No hydrocephalus. Basal cisterns are patent. BONES/JOINTS: Unremarkable. No discrete lytic or blastic abnormalities. SOFT TISSUES: Left maxillary soft tissue swelling. SINUSES: Unremarkable as visualized. Clear. MASTOID AIR CELLS: Unremarkable. Clear. ORBITS: Visualized globes, extraocular muscles, optic nerves and retrobulbar fat appear unremarkable. CT/Brain/Head without Contrast IMPRESSION: 1. No acute intracranial injuries. 2. Left maxillary soft tissue swelling. Electronically Signed: Asa Goldstein MD at 7:49 EDT ,
--- NOTE | 2023-03-03 07:09 | CT_ITS ---
EXAM: CT CERVICAL SPINE WITHOUT INTRAVENOUS CONTRAST CLINICAL INDICATION: polytrauma TECHNIQUE: Helically acquired images were obtained of the cervical spine without intravenous contrast. 2D reformatted images were reviewed. This CT exam was performed using one or more of the following dose reduction techniques: automated exposure control, adjustment of the mA and/or kV according to patient size, and/or use of iterative reconstruction technique. RADIATION DOSE: CTDIvol = 14.07 mGy, DLP = 308.40 mGy-cm COMPARISON: No relevant prior studies available. 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 This causes a false positive AIDoc finding. No fracture. No traumatic subluxation. No discrete lytic or blastic abnormality. Normal alignment. Normal craniocervical junction and cervicothoracic junction. DISCS/SPINAL CANAL/NEURAL FORAMINA: Degenerative changes of the intervertebral discs. No critical stenosis. SOFT TISSUES: Unremarkable. No prevertebral soft tissue swelling. LYMPH NODES: Unremarkable. No cervical adenopathy. LUNG APICES: Unremarkable as visualized. Clear. CT/Spine Cervical without Contras IMPRESSION: 1. No acute injuries identified involving the cervical spine. 2. Degenerative changes. Electronically Signed: Asa Goldstein MD at 7:48 EDT ,
--- NOTE | 2023-03-03 07:17 | EDS_ITS ---
HPI HPI - Fall History of Present Illness Chief Complaint: Fall Informant: patient and EMS Narrative Narrative: Brought in by EMS for mechanical fall at 5 AM this morning. Reports was using the restroom, leaning forward to sit down when she fell forward hitting the tub. Denies any loss of consciousness. Tetanus the last 5 years. No anticoagulation medicines. Ambulates with assistance as needed. Lives alone. Children are present. Denies back chest neck rating extremity pain. Tetanus Immunization: <5 years PFSH PFSH Medical History Ambulatory dysfunction BPPV (benign paroxysmal positional vertigo) Compression fracture of L4 vertebra Hearing loss, left Hearing loss, right History of breast cancer Hx of breast cancer Hypothyroidism Hypothyroidism Lupus Macular degeneration Peripheral neuropathy Right-sided chest wall pain Vertigo Home Medications cholecalciferol (vitamin D3) 25 mcg (1,000 unit) capsule 25 mcg PO DAILY 12/10/21 [History Last Taken Unknown] multivitamin with minerals (Multiple Vitamin-Minerals tablet) 1 tab PO DAILY 12/10/21 [History Last Taken Unknown] tramadol 50 mg tablet 50 mg PO BID PRN Pain 12/10/21 [History Last Taken Unknown] vitamin E 200 unit capsule 200 unit PO BID 12/10/21 [History Last Taken Unknown] levothyroxine 100 mcg tablet 50 mcg PO DAILY 03/15/22 [History Last Taken Unknown] vitamins A,C,K-rfyo-fkwoki 2,148 mcg-113 mg-45 mg-17.4 mg tablet (PreserVision AREDS) 2 tab PO BID 03/15/22 [History Last Taken Unknown] trazodone 100 mg tablet 100 mg PO PRN PRN sleep 02/20/23 [History Last Taken Unknown] acetaminophen 325 mg tablet 650 mg (2 x 325 mg) PO Q6H PRN PRN Pain 1-10 Or Fev er >100.7 #0 tabs 02/27/23 [Rx Last Taken Unknown] amlodipine 5 mg tablet 5 mg PO DAILY #30 tabs 02/27/23 [Rx Last Taken Unknown] Allergy/AdvReac Type Severity Reaction Status Date / Time dextromethorphan Allergy Severe Hives Verified 03/03/23 06:47 [From Dharmesh-Lara DM Cough Chasers] prednisone Allergy Severe Hives Verified 03/03/23 06:47 valacyclovir [From Valtrex] Allergy Severe Hives Verified 03/03/23 06:47 Family History Mother Hypertension Osteoporosis Sister Cancer Surgical History History of lumpectomy of right breast (~2004) History of right knee joint replacement Hx of appendectomy Hx of fracture of ankle Hx of hysterectomy S/P small bowel resection Social History Smoking Status: Never smoker alcohol intake: never substance use type: does not use caffeine: Yes what type of physical activity do you participate in: none frequency: does not exercise ROS ROS ED Constitutional Constitutional ED: Denies chills, fever(s) or sweats Eyes Eyes: Denies change in vision ENT ENT ED: Denies dysphagia or sore throat Cardiovascular Cardiovascular: Denies chest pain, leg edema, palpitations or racing heartbeat Respiratory/Chest Respiratory/Chest: Denies cough, dyspnea or dyspnea on exertion Gastrointestinal Gastrointestinal: Denies abdominal pain, diarrhea, nausea or vomiting Genitourinary Genitourinary ED: Denies dysuria, hematuria or urinary frequency Musculoskeletal Musculoskeletal: Denies back pain, extremity pain or neck pain Integumentary Reports wounds; Denies rash Neurologic Neurologic: Denies headache(s), paresthesias or weakness EXAM Physical Exam Const Vital Signs: 03/03/23 06:41 03/03/23 06:47 Temperature 97.8 F Temperature Source Oral Pulse Rate 74 Respiratory Rate 15 Respiratory Effort Normal Non-Labored Respiratory Pattern Normal Blood Pressure 129/70 H Blood Pressure Mean 89 Pulse Ox 97 Oxygen Delivery Method Room Air Room Air Positive well nourished and well developed Constitutional Narrative: GCS 15 General Appearance ED: well developed and NAD HEENT Reports moist mucous membranes HEENT Narrative: No hemotympanums, left periorbital ecchymosis more inferior, no proptosis or entrapment. There is a 2 cm laceration horizontal across the maxillary roblero bcutaneous exposure, no active bleeding. Mild tenderness maxillary bone. No trismus. normocephalic Eyes PERRL, EOMs intact bilaterally and conjunctivae normal General Eye ED: Yes normal appearance of both eyes Neck full ROM, no lymphadenopathy and supple Neck Narrative: No step-offs. General: Negative for tenderness Chest Wall inspection of chest normal and palpation of chest normal Chest Narrative: No chest Chest: Negative for tenderness Resp normal respiratory effort and normal air movement Resp Narrative: Symmetric breasts wound Effort and Inspection: symmetric chest movement; Negative for respiratory distress Cardio regular rate, regular rhythm and no murmurs Peripheral Pulses: pulses 2+ throughout GI normal to inspection, nondistended, normoactive bowel sounds and non-tender Palpation: Negative for guarding or rebound tenderness present Back/Spine no CVA tenderness and no thoracic nor lumbar tenderness Back/Spine Narrative: No midline thoracic or lumbar tenderness. Extremity normal to inspection General Extremety ED: Negative for edema or tenderness General Extremity: Negative for edema Neuro oriented x3, CN's II-XII intact bilaterally and no sensory deficits noted Sensorium / Orientation: awake and alert Skin Skin Narrative: See above MDM MDM MDM Narrative Medical decision making narrative: Interventions / MDM: Differential diagnosis: Facial contusion, fracture, laceration Diagnosis considered but do not suspect: Intracranial hemorrhage however CT negative. My EKG interpretation: N/A Imaging independently reviewed and interpreted by myself: CT head/face/cervical spine: No intracranial hemorrhage no cervical finding fractures. Closed nasal bone fracture. also read by radiology. External documents reviewed: N/A Test considered but not ordered:N/A ED course: Patient mechanical fall head injuries with ecchymosis. Trauma scans head neck and face ordered. Trauma scans positive for closed nasal bone fracture no acute mental hemorrhage. Laceration was repaired wound care discussed. Increasing swelling ecchymosis, continue to ice. Patient to follow-up with PCP in 5 days for suture removal. Patient is able to get up and ambulate use the commode. Procedure note: Verbal consent. Normal sterile condition. Initial LET was placed, additional local lidocaine 1% 1 cc was placed. Wound was copiously flushed with normal saline. Total of 3, 6-0 nylon simple interrupted sutures placed with good approximation. Patient tolerated procedure well. Bacitracin ointment placed by myself. Re-evaluation: stable Disposition discussed with patient/family/significant other: Patient and family Case discussed with consulting clinician: N/A This note was generated with [employer]Protectation software. It may contain incorrect words, spelling, and punctuation that were not noted in checking the note before signing. Radiography Diagnostic Testing: Clinical Impression(s) from Imaging Studies Brain CT 03/03/23 07:09 IMPRESSION: 1. No acute intracranial injuries. 2. Left maxillary soft tissue swelling. Electronically Signed: Asa Goldstein MD at 7:49 EDT Reading Location ID and State: [facility] / [place] Tel , Service support , Cervical Spine CT 03/03/23 07:09 IMPRESSION: 1. No acute injuries identified involving the cervical spine. 2. Degenerative changes. Electronically Signed: Asa Goldstein MD at 7:48 EDT , Facial/Sinus 03/03/23 07:09 IMPRESSION: 1. Minimally displaced nasal bone fracture on the left. No other facial fractures identified. 2. Left maxillary and nasal soft tissue swelling. Electronically Signed: Asa Goldstein MD at 7:56 EDT , Discharge Plan Triage Chief Complaint: Fall ED Provider: Dominick Lawton Dx/Rx/DC Orders Clinical Impression: Closed fracture nasal bone, Face lacerations, Contusion of face Instructions: ED Facial Contusion, ED Nose Fracture, with X-Ray, ED Laceration: All Closures Prescriptions: No Action levothyroxine 100 mcg tablet 50 mcg PO DAILY tramadol 50 mg tablet 50 mg PO BID PRN (Reason: Pain) cholecalciferol (vitamin D3) 25 mcg (1,000 unit) capsule 25 mcg PO DAILY Multiple Vitamin-Minerals Tablet 1 tab PO DAILY vitamin E 200 unit capsule 200 unit PO BID PreserVision AREDS 2,148 mcg-113 mg-45 mg-17.4mg tablet 2 tab PO BID Rx Instructions: administer with AM and PM meals trazodone 100 mg tablet 100 mg PO PRN PRN (Reason: sleep) Patient Comments: TAKE 1 TABLET BY MOUTH AT BEDTIME NEEDED FOR SLEEP acetaminophen 325 mg Tablet 650 mg PO Q6H PRN PRN (Reason: Pain 1-10 Or Fever >100.7) Qty: 0 0RF amlodipine 5 mg Tablet 5 mg PO DAILY Qty: 30 0RF Primary Care Provider: Zhen Levine Referrals: Zhen Levine MD [Primary Care Provider] - 5 Days for suture removal Activity Restrictions/Additional Instructions: CT head face and cervical spine closed nasal bone fracture. No facial bone fractures. 3 stitches placed to your left cheek. Wound care as discussed. Continue to ice. Sutures removed in 5 days. Follow-up with her for this. Disposition Disposition: Home, Self Care Discharge Date/Time: 03/03/23 09:10
[2023-03-03] MEDS: Lidocaine/Epi/Tetracaine 50 ML 1 APPLIC TOPICAL (07:50)
== END 2023-03-03 09:10 | disposition home or self-care (01) ==
PROVIDERS: Emergency Provider Emergency Medicine; PCP Family Medicine; Visit Provider Emergency Medicine
DX: S02.2XXA Fracture of nasal bones, initial encounter for closed fracture (principal); S01.81XA Laceration without foreign body of other part of head, initial encounter; W18.39XA Other fall on same level, initial encounter; Y93.89 Activity, other specified; Y99.8 Other external cause status
CPT/HCPCS: 12011; 70450; 70486; 72125; 99284

== ENCOUNTER → 2023-03-07 | Outpatient (CLI) | payer MEDICARE, SELFPAY ==
[2023-03-07 11:06] LABS: Anion Gap 9 (5-15); BUN 12 mg/dL (7-18); BUN/Creat Ratio 11.1 RATIO (10-20); Chloride 97 mmol/L (98-107); Creatinine, Serum 1.08 mg/dL (0.55-1.02); EST Glomerular Filtration Rate 51 mL/min (>60); Est Glom Filt Rate - Afr Amer 62 mL/min (>60); Glucose 135 mg/dL (74-106); Potassium 3.2 mmol/L (3.5-5.1); Sodium Level 136 mmol/L (136-145)
== END | disposition home or self-care (01) ==
LOC: MFPLAB 09:14
PROVIDERS: PCP Family Medicine; Visit Provider Family Medicine
DX: R60.9 Edema, unspecified (principal)
CPT/HCPCS: 36415; 80048

== ENCOUNTER → 2023-03-11 | Outpatient (CLI) | payer MEDICARE, SELFPAY ==
[2023-03-11 10:33] LABS: Anion Gap 2 (5-15); BUN 14 mg/dL (7-18); BUN/Creat Ratio 12.5 RATIO (10-20); Calcium,Total 8.6 mg/dL (8.5-10.1); Chloride 106 mmol/L (98-107); Creatinine, Serum 1.12 mg/dL (0.55-1.02); EST Glomerular Filtration Rate 49 mL/min (>60); Est Glom Filt Rate - Afr Amer 60 mL/min (>60); Glucose 92 mg/dL (74-106); Potassium 3.8 mmol/L (3.5-5.1); Sodium Level 138 mmol/L (136-145)
== END | disposition home or self-care (01) ==
LOC: MTLAB 09:08
PROVIDERS: PCP Family Medicine; Referring Provider Family Medicine; Visit Provider Family Medicine
DX: R60.9 Edema, unspecified (principal)
CPT/HCPCS: 36415; 80048

== ENCOUNTER → 2023-03-29 | Outpatient (CLI) | payer MEDICARE, SELFPAY ==
[2023-03-29 12:12] LABS: Absolute Neutrophil Count 9.4 X10^3/uL (2.0-7.7); Basophil# 0.05 X10^3/uL; Basophil% 0.4 % (0-1); Eosinophil# 0.28 X10^3/uL; Eosinophils% 2.4 % (0-5); Hematocrit 29.6 % (37-47); Hemoglobin 9.1 g/dL (12.0-15.0); Lymphocyte % 10.9 % (19-41); Mean Corp Hgb Conc 30.7 g/dL (32-36); Mean Corpuscular Hgb 33.1 pg (27.0-32.0); Mean Corpuscular Volume 107.6 fL (81-99); Mean Platelet Vol. 10.3 fl (6.2-12.0); Monocyte# 0.83 X10^3/uL; NRBC Flagged by Analyzer 0 % (0-5); Neutrophil # 9.35 X10^3/uL (2.7-7.7); Neutrophil % 78.6 % (47-70); Platelet Count 310 K/mm3 (150-450); RBC Distribution Width CV 14.7 % (11.6-14.6); RBC Distribution Width SD 58.8 fl (35.1-43.9); Red Blood Count 2.75 M/mm3 (4.2-5.4); White Blood Count 11.9 K/mm3 (4.4-11.0)
[2023-03-29 12:46] LABS: Vitamin D,25 Hydroxy 56.2 ng/mL
[2023-03-29 12:47] LABS: PTHIN 33.3 pg/mL (18.4-80.1)
[2023-03-29 13:09] LABS: Protein:Creat Ratio 1170 mg/g CRE (0-200)
[2023-03-29 13:12] LABS: Ferritin 140 ng/mL (8-252); Iron 69 ug/dL (50-170); Iron Binding Capacity,Total 252 ug/dL (250-450); Phosphorus 3.1 mg/dL (2.5-4.9); T4 Free Direct 1.25 ng/dL (0.76-1.46); Thyroid Stim Hormone (TSH) 6.02 uIU/mL (0.358-3.74)
[2023-03-29 13:27] LABS: Hemoglobin A1c 4.8 % (3.8-5.6)
[2023-03-30 11:59] LABS: Vitamin B12 446 pg/mL (211-911)
== END | disposition home or self-care (01) ==
LOC: MFPLAB 10:37
PROVIDERS: PCP Family Medicine; Visit Provider Family Medicine
DX: D64.9 Anemia, unspecified (principal); N18.30 Chronic kidney disease, stage 3 unspecified; E55.9 Vitamin D deficiency, unspecified; R73.02 Impaired glucose tolerance (oral)
CPT/HCPCS: 36415; 81001; 82306; 82570; 82607; 82728; 83036; 83540; 83550; 83970; 84100; 84156; 84439; 84443; 85025

== ENCOUNTER → 2023-05-02 | Outpatient (CLI) | payer MEDICARE, SELFPAY ==
--- NOTE | 2023-05-02 06:56 | MRI_ITS ---
HISTORY: loss of balance. TECHNIQUE: Multiplanar and multisequence MR images of the brain were obtained before and after the intravenous administration of 13 mL Clariscan. 333 images. COMPARISON: CT 03/13/2023, MR 10/02/2021. FINDINGS: BRAIN PARENCHYMA: Mild foci and small zones of increased T2 FLAIR signal abnormality in the cerebral white matter again seen. No enhancing mass in the brain parenchyma. No abnormal focus of restricted diffusion. No acute intracranial hemorrhage identified. CSF SPACES: Chronic mild generalized volume loss. No significant midline shift or other mass effect.No extra-axial fluid collection. VASCULAR SYSTEM: Major intracranial flow voids are maintained. PARANASAL SINUSES AND MASTOID AIR CELLS: No significant air fluid levels. ORBITS: Bilateral lens resections. MRI/Brain W/WO Contrast IMPRESSION: No evidence for acute infarct or enhancing intracranial mass. Mild chronic involutional and white matter changes. Electronically Signed: Ninoska Cerda MD at 9:19 EST ,
[2023-05-02 07:26] LABS: CREATININE FINGERSTICK 1.2 mg/dL (0.55-1.02)
== END | disposition home or self-care (01) ==
LOC: MRI 06:49
PROVIDERS: PCP Family Medicine; Referring Provider Family Medicine; Visit Provider Family Medicine
DX: R26.89 Other abnormalities of gait and mobility (principal)
CPT/HCPCS: 70553; A9575

== ENCOUNTER → 2023-06-03 | Outpatient (CLI) | payer MEDICARE, SELFPAY ==
[2023-06-03 10:25] LABS: Hematocrit 32.9 % (37-47); Hemoglobin 9.9 g/dL (12.0-15.0); Mean Corp Hgb Conc 30.1 g/dL (32-36); Mean Corpuscular Hgb 32.1 pg (27.0-32.0); Mean Corpuscular Volume 106.8 fL (81-99); Mean Platelet Vol. 10.5 fl (6.2-12.0); Platelet Count 201 K/mm3 (150-450); RBC Distribution Width CV 13.5 % (11.6-14.6); RBC Distribution Width SD 53.2 fl (35.1-43.9); Red Blood Count 3.08 M/mm3 (4.2-5.4); White Blood Count 6.1 K/mm3 (4.4-11.0)
[2023-06-03 10:57] LABS: Albumin, Serum 3.2 g/dL (3.2-5.0); BUN 20 mg/dL (7-18); BUN/Creat Ratio 15.7 RATIO (10-20); Calcium,Total 8.4 mg/dL (8.5-10.1); Chloride 107 mmol/L (98-107); Creatinine, Serum 1.27 mg/dL (0.55-1.02); EST Glomerular Filtration Rate 43 mL/min (>60); Est Glom Filt Rate - Afr Amer 52 mL/min (>60); Glucose 88 mg/dL (74-106); Phosphorus 2.6 mg/dL (2.5-4.9); Potassium 4.5 mmol/L (3.5-5.1); Sodium Level 138 mmol/L (136-145)
[2023-06-03 10:58] LABS: Vitamin B12 345 pg/mL (211-911)
== END | disposition home or self-care (01) ==
PROVIDERS: PCP Family Medicine; Referring Provider Internal Medicine Nephrology; Visit Provider Internal Medicine Nephrology
DX: N18.32 Chronic kidney disease, stage 3b (principal)
CPT/HCPCS: 36415; 80069; 82607; 85027

== ENCOUNTER → 2023-07-18 | Outpatient (CLI) | payer MEDICARE, SELFPAY ==
--- NOTE | 2023-07-18 10:27 | NEURO ---
NCS and/or EMG Patient Report Ordering Doctor: Zhen Levine DATE OF SERVICE: 07/18/23 Clinical Summary: This is an 82 year old female presenting with complaints of numbness and pain in the distal lower extremities. 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 This EMG/NCS was performed to evaluate for peripheral polyneuropathy. Nerve Conduction Studies Summary: All SNAP's and CMAP's in the right lower extremity were absent. Needle Examination Summary: Needle examination demonstrated increased insertional activity and spontaneous activity (positive sharp waves and fibrillation potentials) in the right tibialis anterior and peroneus longus muscles. There was reduced insertional activity in the right medial gastrocnemius muslce. There was a higher proportion of motor unit action potentials with reduced recruitment, increased amplitude, increased duration, and polyphasia in the right tibialis anterior and peroneus longus muscles. There were no motor units in the right medial gastrocnemius muscle. Impression: This is an abnormal study. There is electrodiagnostic evidence of the following - 1) Severe, predominantly axonal, peripheral polneuropathy with active denervation Multi Select Codes Neurology Neurology Interp Codes: 72266-64 Musc test done w/n test comp (interp) (1) and 77148-60 Nrv cndj tst 3-4 studies (interp)
== END | disposition home or self-care (01) ==
LOC: PSN 08:55
PROVIDERS: PCP Family Medicine; Referring Provider Family Medicine; Visit Provider Family Medicine
DX: G62.9 Polyneuropathy, unspecified (principal); R26.89 Other abnormalities of gait and mobility
CPT/HCPCS: 95886; 95908

== ENCOUNTER → 2023-08-24 | Outpatient (CLI) | payer OTHER, SELFPAY ==
[2023-08-24 11:25] LABS: Mucous, Urine 0 SEEN /hpf (<or=2+); Red Blood Cells-Urine 0 SEEN /hpf (0-5)
[2023-08-24 15:32] LABS: Color, Urine Yellow (Yellow); Glucose, Dipstick Normal (Normal); Ketone-Dipstick Negative (Negative); Leukocyte Esterase-Dipstick 500 /ul (Negative); Nitrite-Dipstick Positive (Negative); Occult Blood-Urine 25 /ul (Negative); Protein-Dipstick 30 mg/dl (Negative); Urine Bilirubin Dipstick Negative (Negative); Urine Clarity Cloudy (Clear); Urine Urobilinogen Normal (Normal)
[2023-08-24 15:35] LABS: Absolute Lymphocyte Count 0.83 X10^3/uL (0.83-4.51); Absolute Neutrophil Count 4.8 X10^3/uL (2.0-7.7); Basophil# 0.02 X10^3/uL; Basophil% 0.3 % (0-1); Eosinophil# 0.03 X10^3/uL; Eosinophils% 0.5 % (0-5); Hematocrit 35.2 % (37-47); Lymphocyte # 0.83 X10^3/ul (0.83-4.51); Lymphocyte % 13.7 % (19-41); Mean Corp Hgb Conc 31.3 g/dL (32-36); Mean Corpuscular Hgb 31.5 pg (27.0-32.0); Mean Corpuscular Volume 100.9 fL (81-99); Mean Platelet Vol. 10.8 fl (6.2-12.0); Monocyte% 6.6 % (0-10); NRBC Flagged by Analyzer 0 % (0-5); Neutrophil # 4.75 X10^3/uL (2.7-7.7); Neutrophil % 78.4 % (47-70); Platelet Count 198 K/mm3 (150-450); RBC Distribution Width CV 14.3 % (11.6-14.6); RBC Distribution Width SD 53.4 fl (35.1-43.9); Red Blood Count 3.49 M/mm3 (4.2-5.4); White Blood Count 6.1 K/mm3 (4.4-11.0)
[2023-08-24 16:14] LABS: Protein, Urine (Random) 23.6 mg/dL (<11.9); Protein:Creat Ratio 332 mg/g CRE (0-200)
[2023-08-24 16:16] LABS: Vitamin B12 560 pg/mL (211-911); Vitamin D,25 Hydroxy 47.6 ng/mL
[2023-08-24 16:26] LABS: Hemoglobin A1c 5.7 % (3.8-5.6)
[2023-08-24 16:53] LABS: Bacteria 1+ /hpf (None Seen); Squamous Epithelial Cells - UA 0-5 SEEN /hpf (5-10); White Blood Cells >100 SEEN /hpf (0-5)
[2023-08-24 17:13] LABS: Cholesterol 193 mg/dL (200); Ferritin 202 ng/mL (8-252); High Density Lipoprotein 70 mg/dL; Iron 77 ug/dL (50-170); Iron Binding Capacity,Total 300 ug/dL (250-450); Phosphorus 3.2 mg/dL (2.5-4.9); T4 Free Direct 0.96 ng/dL (0.76-1.46); Thyroid Stim Hormone (TSH) 4.23 uIU/mL (0.358-3.74); Triglycerides 57 mg/dL; Very Low Density Lipoprotein 11 mg/dL (5-40)
== END | disposition home or self-care (01) ==
LOC: MFPLAB 11:21
PROVIDERS: PCP Family Medicine; Visit Provider Family Medicine
DX: D64.9 Anemia, unspecified (principal); N18.30 Chronic kidney disease, stage 3 unspecified; E03.9 Hypothyroidism, unspecified; R73.02 Impaired glucose tolerance (oral); E55.9 Vitamin D deficiency, unspecified
CPT/HCPCS: 36415; 80061; 81001; 82306; 82570; 82607; 82728; 82746; 83036; 83540; 83550; 83970; 84100; 84156; 84439; 84443; 85025

== ENCOUNTER → 2023-09-08 | Outpatient (CLI) | payer OTHER, SELFPAY ==
[2023-09-08 15:57] LABS: ALB/GLOB Ratio 0.9 RATIO (0.9-2.4); AST(SGOT) 26 U/L (15-37); Alanine Aminotransfer ALT/SGPT 20 U/L (13-56); Albumin, Serum 3.5 g/dL (3.2-5.0); Alkaline Phosphatase 89 U/L (45-117); Anion Gap 7 (5-15); BUN 36 mg/dL (7-18); BUN/Creat Ratio 26.9 RATIO (10-20); Calcium,Total 9.2 mg/dL (8.5-10.1); Chloride 106 mmol/L (98-107); Creatinine, Serum 1.34 mg/dL (0.55-1.02); EST Glomerular Filtration Rate 40 mL/min (>60); Est Glom Filt Rate - Afr Amer 49 mL/min (>60); Glucose 96 mg/dL (74-106); Potassium 4.3 mmol/L (3.5-5.1); Protein, Total 7.5 g/dL (6.4-8.2); Sodium Level 137 mmol/L (136-145)
== END | disposition home or self-care (01) ==
LOC: MFPLAB 12:02
PROVIDERS: PCP Family Medicine; Visit Provider Family Medicine
DX: E03.9 Hypothyroidism, unspecified (principal)
CPT/HCPCS: 36415; 80053

== ENCOUNTER → 2023-09-13 | Outpatient (CLI) | payer OTHER, SELFPAY ==
[2023-09-13 18:15] LABS: Anion Gap 6 (5-15); BUN 26 mg/dL (7-18); BUN/Creat Ratio 18.7 RATIO (10-20); Calcium,Total 9.2 mg/dL (8.5-10.1); Chloride 104 mmol/L (98-107); Creatinine, Serum 1.39 mg/dL (0.55-1.02); EST Glomerular Filtration Rate 38 mL/min (>60); Est Glom Filt Rate - Afr Amer 47 mL/min (>60); Glucose 81 mg/dL (74-106); Potassium 4.4 mmol/L (3.5-5.1); Sodium Level 137 mmol/L (136-145)
== END | disposition home or self-care (01) ==
LOC: MFPLAB 16:44
PROVIDERS: PCP Family Medicine; Visit Provider Family Medicine
DX: R94.4 Abnormal results of kidney function studies (principal)
CPT/HCPCS: 36415; 80048

== ENCOUNTER → 2023-11-02 | Outpatient (CLI) | payer MEDICARE, SELFPAY ==
--- NOTE | 2023-11-02 08:16 | MRI_ITS ---
EXAM: MR HEAD WITHOUT AND WITH INTRAVENOUS CONTRAST, INTERNAL AUDITORY CANAL PROTOCOL CLINICAL INDICATION: ACOUSTIC NEUROMA, SUDDEN IDIOPATHIC HEARING LOSS R EAR TECHNIQUE: Multiplanar and multisequence MR images of the internal auditory canal were obtained without and with intravenous contrast. CONTRAST: Clariscan 14ml iv COMPARISON: MR Internal Auditory Canal dated 05/02/2023 FINDINGS: CRANIAL NERVES: Normal. No mass. No abnormal enhancement. COCHLEA AND SEMICIRCULAR CANALS: Normal. CEREBELLOPONTINE ANGLES: Normal. No mass. BRAIN AND EXTRA-AXIAL SPACES: Increased T2 signal intensity within the cerebral white matter suggestive of chronic microvascular change. No intra- or extra-axial hemorrhage. No evidence of acute infarct. No intracranial mass or mass effect. Normal preservation of the noonan/white matter interface. Posterior fossa structures are unremarkable. Prominence of the cortical sulci and ventricles related to volume loss change. Basal cisterns are patent. BONES/JOINTS: Normal. No discrete lytic or blastic abnormalities. SINUSES: Unremarkable as visualized. Clear. MASTOID AIR CELLS: Unremarkable as visualized. Clear. ORBITS: Unremarkable as visualized. Both globes, extraocular muscles, optic nerves and retrobulbar fat appear unremarkable. MRI/Brain W/WO Contrast IMPRESSION: Normal MRI of the internal auditory canals. No acute intracranial abnormality. Chronic microvascular changes. Electronically Signed: Hilario Macias MD at 15:50 EDT ,
[2023-11-02 08:56] LABS: CREATININE FINGERSTICK < 1.0 mg/dL (0.55-1.02)
== END | disposition home or self-care (01) ==
PROVIDERS: PCP Family Medicine; Referring Provider Otolaryngology Otolaryngology/Facial Plastic Surgery; Visit Provider Otolaryngology Otolaryngology/Facial Plastic Surgery
DX: H91.21 Sudden idiopathic hearing loss, right ear (principal); D33.3 Benign neoplasm of cranial nerves
CPT/HCPCS: 70553

== ENCOUNTER → 2024-01-17 | Outpatient (CLI) | payer MEDICARE, SELFPAY ==
[2024-01-17 15:08] LABS: Hematocrit 34.7 % (37-47); Hemoglobin 11.2 g/dL (12.0-15.0); Mean Corp Hgb Conc 32.3 g/dL (32-36); Mean Corpuscular Hgb 31.9 pg (27.0-32.0); Mean Corpuscular Volume 98.9 fL (81-99); Mean Platelet Vol. 10.6 fl (6.2-12.0); Platelet Count 179 K/mm3 (150-450); RBC Distribution Width CV 12.2 % (11.6-14.6); RBC Distribution Width SD 44.2 fl (35.1-43.9); Red Blood Count 3.51 M/mm3 (4.2-5.4); White Blood Count 9.1 K/mm3 (4.4-11.0)
[2024-01-17 15:24] LABS: Vitamin B12 1272 pg/mL (211-911)
[2024-01-17 16:06] LABS: ALB/GLOB Ratio 0.9 RATIO (0.9-2.4); AST(SGOT) 21 U/L (15-37); Alanine Aminotransfer ALT/SGPT 16 U/L (13-56); Albumin, Serum 3.4 g/dL (3.2-5.0); Alkaline Phosphatase 78 U/L (45-117); Anion Gap 8 (5-15); BUN 23 mg/dL (7-18); BUN/Creat Ratio 17.2 RATIO (10-20); Calcium,Total 9.1 mg/dL (8.5-10.1); Chloride 93 mmol/L (98-107); Creatinine, Serum 1.34 mg/dL (0.55-1.02); EST Glomerular Filtration Rate 40 mL/min (>60); Est Glom Filt Rate - Afr Amer 48 mL/min (>60); Globulin 3.9 g/dL (2.2-4.2); Glucose 95 mg/dL (74-106); Protein, Total 7.3 g/dL (6.4-8.2); Sodium Level 125 mmol/L (136-145); T4 Free Direct 1.12 ng/dL (0.76-1.46); Thyroid Stim Hormone (TSH) 1.86 uIU/mL (0.358-3.74)
[2024-01-21 11:08] LABS: Albumin 3.2 g/dL (2.9-4.4); Alpha-1-Globulins 0.3 g/dL (0.0-0.4); Alpha-2-Globulins 0.9 g/dL (0.4-1.0); Free Kappa Light Chains 63.6 mg/L (3.3-19.4); Free Lambda Light Chains 39.1 mg/L (5.7-26.3); Gamma Globulin 1.3 g/dL (0.4-1.8); Immunofixation Urine Comment: (.); Immunoglobulin A 157 mg/dL (64-422); Immunoglobulin G 1326 mg/dL (586-1602); Immunoglobulin M 113 mg/dL (26-217); PROEL- TOTAL PROTEIN 6.6 g/dL (6.0-8.5); Vitamin B1, Thiamine 135.3 nmol/L (66.5-200.0)
== END | disposition home or self-care (01) ==
PROVIDERS: PCP Family Medicine; Referring Provider Psychiatry & Neurology Neurology; Visit Provider Psychiatry & Neurology Neurology
DX: E03.9 Hypothyroidism, unspecified (principal); G62.9 Polyneuropathy, unspecified
CPT/HCPCS: 36415; 80053; 82607; 82746; 82784; 83883; 84165; 84425; 84439; 84443; 85027; 86334; 86335

== ENCOUNTER → 2024-01-19 | Outpatient (CLI) | payer MEDICARE, SELFPAY ==
[2024-01-19 12:33] LABS: Sodium Level 127 mmol/L (136-145)
== END | disposition home or self-care (01) ==
LOC: MTLAB 09:37
PROVIDERS: PCP Family Medicine; Referring Provider Psychiatry & Neurology Neurology; Visit Provider Psychiatry & Neurology Neurology
DX: E87.1 Hypo-osmolality and hyponatremia (principal)
CPT/HCPCS: 36415; 84295

== ENCOUNTER → 2024-01-30 | Outpatient (CLI) | payer MEDICARE, SELFPAY ==
[2024-01-30 12:13] LABS: Sodium Level 128 mmol/L (136-145)
== END | disposition home or self-care (01) ==
PROVIDERS: PCP Family Medicine; Referring Provider Psychiatry & Neurology Neurology; Visit Provider Psychiatry & Neurology Neurology
DX: E87.1 Hypo-osmolality and hyponatremia (principal)
CPT/HCPCS: 36415; 84295

== ENCOUNTER → 2024-02-09 | Outpatient (CLI) | payer MEDICARE, SELFPAY ==
--- NOTE | 2024-02-09 08:06 | MRI_ITS ---
STUDY: MRI CERVICAL SPINE WITHOUT CONTRAST REASON FOR EXAM: Female, 83 years old. gait disorder; cervical spinal stenosis TECHNIQUE: Standardized fat and water weighted pulse sequences were obtained in the sagittal and axial planes. COMPARISON: None FINDINGS: Normal foramen magnum and brainstem-cervical cord junction. Normal craniovertebral junction. Normal anterior atlantoaxial articulation. Normal odontoid process. Normal cervical lordosis. Normal vertebral bodies and posterior osseous elements. C2-3: Normal endplates. Normal disc height, signal and morphology. Normal central canal and intervertebral neural foramina. C3-4: Mild left facet hypertrophy produces mild left neural foraminal stenosis. Mild bilateral disc osteophyte complex and bilateral uncovertebral hypertrophy produces mild spinal stenosis. C4-5: Moderate bilateral disc osteophyte complex asymmetric to left produces moderate spinal stenosis with effacement left hemicord and mild left neural foraminal stenosis. C5-6: Moderate bilateral disc osteophyte complex reduces moderate spinal stenosis with abutment of the spinal cord and mild bilateral neural foraminal stenosis. C6-7: Moderate broad disc osteophyte complex produces moderate spinal stenosis with abutment of the central spinal cord and mild bilateral neural foraminal stenosis. C7-T1: Normal endplates. Normal disc height, signal and morphology. Normal central canal and intervertebral neural foramina. Normal cervical cord. Normal visualized soft tissue structures. MRI/Spine Cervical (Routine) IMPRESSION: Multilevel degenerative changes, as described above. Electronically Signed: Kyle Sousa MD at 11:03 EDT ,
== END | disposition home or self-care (01) ==
PROVIDERS: PCP Family Medicine; Referring Provider Psychiatry & Neurology Neurology; Visit Provider Psychiatry & Neurology Neurology
DX: M48.02 Spinal stenosis, cervical region (principal); R26.9 Unspecified abnormalities of gait and mobility
CPT/HCPCS: 72141

== ENCOUNTER → 2024-05-10 | Outpatient (CLI) | payer MEDICARE, SELFPAY ==
[2024-05-10 13:02] LABS: Sodium Level 134 mmol/L (136-145)
== END | disposition home or self-care (01) ==
PROVIDERS: PCP Family Medicine; Referring Provider Psychiatry & Neurology Neurology; Visit Provider Psychiatry & Neurology Neurology
DX: E87.1 Hypo-osmolality and hyponatremia (principal)
CPT/HCPCS: 36415; 84295

== ENCOUNTER → 2024-08-10 | Outpatient (CLI) | payer MEDICARE, SELFPAY ==
[2024-08-10 15:18] LABS: Absolute Lymphocyte Count 0.75 X10^3/uL (0.83-4.51); Absolute Neutrophil Count 2.5 X10^3/uL (2.0-7.7); Basophil# 0.03 X10^3/uL; Basophil% 0.8 % (0-1); Eosinophil# 0.13 X10^3/uL; Eosinophils% 3.4 % (0-5); Lymphocyte # 0.75 X10^3/ul (0.83-4.51); Lymphocyte % 19.5 % (19-41); Mean Corp Hgb Conc 31.4 g/dL (32-36); Mean Corpuscular Hgb 31.5 pg (27.0-32.0); Mean Corpuscular Volume 100.3 fL (81-99); Mean Platelet Vol. 10.6 fl (6.2-12.0); Monocyte# 0.41 X10^3/uL; Monocyte% 10.7 % (0-10); NRBC Flagged by Analyzer 0 % (0-5); Neutrophil # 2.51 X10^3/uL (2.7-7.7); Neutrophil % 65.3 % (47-70); Platelet Count 216 K/mm3 (150-450); RBC Distribution Width CV 13.2 % (11.6-14.6); RBC Distribution Width SD 48.6 fl (35.1-43.9); Red Blood Count 3.49 M/mm3 (4.2-5.4); White Blood Count 3.8 K/mm3 (4.4-11.0)
[2024-08-10 15:22] LABS: Protein, Urine (Random) 20.6 mg/dL (<11.9); Protein:Creat Ratio 262 mg/g CRE (0-200)
[2024-08-10 15:37] LABS: PTHIN 50.9 pg/mL (18.4-80.1)
[2024-08-10 15:53] LABS: Hemoglobin A1c 5.5 % (3.8-5.6)
[2024-08-10 16:17] LABS: Vitamin B12 > 2000 pg/mL (211-911); Vitamin D,25 Hydroxy 49.2 ng/mL
[2024-08-10 16:29] LABS: ALB/GLOB Ratio 0.8 RATIO (0.9-2.4); AST(SGOT) 31 U/L (15-37); Alanine Aminotransfer ALT/SGPT 22 U/L (13-56); Albumin, Serum 3.4 g/dL (3.2-5.0); Alkaline Phosphatase 116 U/L (45-117); Anion Gap 7 (5-15); BUN 22 mg/dL (7-18); BUN/Creat Ratio 16.3 RATIO (10-20); Calcium,Total 9.4 mg/dL (8.5-10.1); Chloride 99 mmol/L (98-107); Creatinine, Serum 1.35 mg/dL (0.55-1.02); EST Glomerular Filtration Rate 40 mL/min (>60); Est Glom Filt Rate - Afr Amer 48 mL/min (>60); Ferritin 456 ng/mL (8-252); Globulin 4.1 g/dL (2.2-4.2); Glucose 88 mg/dL (74-106); Iron 93 ug/dL (50-170); Iron Binding Capacity,Total 270 ug/dL (250-450); Potassium 4.5 mmol/L (3.5-5.1); Protein, Total 7.5 g/dL (6.4-8.2); Sodium Level 131 mmol/L (136-145); T4 Free Direct 1.28 ng/dL (0.76-1.46)
== END | disposition home or self-care (01) ==
LOC: MFPLAB 12:09
PROVIDERS: PCP Family Medicine; Referring Provider Family Medicine; Visit Provider Family Medicine
DX: N18.30 Chronic kidney disease, stage 3 unspecified (principal); R73.02 Impaired glucose tolerance (oral); D64.9 Anemia, unspecified; E55.9 Vitamin D deficiency, unspecified; E03.9 Hypothyroidism, unspecified
CPT/HCPCS: 36415; 80053; 82306; 82570; 82607; 82728; 82746; 83036; 83540; 83550; 83970; 84156; 84439; 84443; 85025

== ENCOUNTER → 2024-08-15 | Outpatient (CLI) | payer MEDICARE, SELFPAY ==
--- NOTE | 2024-08-15 14:29 | BI_ITS ---
PROCEDURE: DIAG MAMM W/CAD, BILAT REASON FOR EXAM: Palpable lumps in the right breast. TECHNIQUE: Bilateral diagnostic digital breast tomosynthesis with 2D and 3D images. Computer aided detection. COMPARISON: Prior exam(s) dating back to September 09, 2020.. FINDINGS: There are scattered areas of fibroglandular density. The patient is status post lumpectomy in the deep inferior medial aspect of the right breast with postoperative deformity and scarring as well as dystrophic calcifications. The left breast is unremarkable. BI/DIAG MAMM W/CAD, BILAT IMPRESSION: BI-RADS 0: INCOMPLETE - NEED ADDITIONAL IMAGING EVALUATION. Follow-up code: Targeted sonographic assessment of the palpable abnormality in the right breast. Reading Location: [place] [id number]
--- NOTE | 2024-08-15 14:31 | US_ITS ---
PROCEDURE: BREAST LIMITED UNILATERAL REASON FOR EXAM: Palpable lump in the right breast. TECHNIQUE: Targeted right breast ultrasound. COMPARISON: Comparison is made with prior mammogram done earlier in the day. FINDINGS: RIGHT: Right breast ultrasound was targeted to the lower half of the right breast.. In the retro medial aspect of the right breast, there is a 1 cm x 1.4 cm x 1.1 cm hypoechoic nodule. A similar-appearing nodule is also seen at the 9 o'clock position of the breast at 2 cm from the nipple measuring 5 mm x 4 mm x 4 mm. Biopsy recommended. US/Breast Limited Unilateral IMPRESSION: 2 nodular densities are seen in the right breast correspond to the palpable lum ps. Biopsy recommended. Follow-up code: BI-RADS category 4. Reading Location: [place] [address]
== END | disposition home or self-care (01) ==
PROVIDERS: PCP Family Medicine; Referring Provider Family Medicine; Visit Provider Family Medicine
DX: N63.15 Unspecified lump in the right breast, overlapping quadrants (principal); R06.02 Shortness of breath
CPT/HCPCS: 76642; 77062; 77066; G0279

== ENCOUNTER → 2024-08-16 | Outpatient (CLI) | payer MEDICARE, SELFPAY ==
[2024-08-16 12:40] LABS: Osmolality, Urine 326 mOsm/KG
[2024-08-16 12:44] LABS: Urine Chloride 38 mmol/L (Not Establ.); Urine Sodium 41 mmol/L (Not Establ.)
== END | disposition home or self-care (01) ==
LOC: LAB 09:46
PROVIDERS: PCP Family Medicine; Referring Provider Family Medicine; Visit Provider Family Medicine
DX: E87.1 Hypo-osmolality and hyponatremia (principal)
CPT/HCPCS: 82436; 83935; 84133; 84300

== ENCOUNTER → 2024-08-28 | Outpatient (CLI) | payer MEDICARE, SELFPAY ==
--- NOTE | 2024-08-28 12:25 | US_ITS ---
PROCEDURE: US BREAST BIOPSY 1ST LESION REASON FOR EXAM: Ultrasound-guided breast biopsy. TECHNIQUE: Under direct sonographic guidance, the surgeon performed core biopsies of the abnormality in the retroareolar region as well as at the 9 o'clock position of the breast. COMPARISON: Prior exam(s) dating back to prior sonogram dated August 15, 2024.. FINDINGS: Successful core biopsies of the previously seen nodular densities in the retroareolar region of the breast as well as at the 9 o'clock position of the breast at 2 cm from the nipple. US/US Breast Biopsy 1st Lesion IMPRESSION: Successful ultrasound-guided breast biopsies. Follow-up code: Routine Follow-up Reading Location: [id number]
--- NOTE | 2024-08-28 12:56 | BRBX_PTH ---
PATIENT: AURELIO WOODWARD LOC: OPUS U#:[id number] AGE/SX: 83/F ROOM: RE08/28/[address]: Dr. Nina Rain MD : 1940 BED: DIS: 08/28/2024 SPEC #: [id number] RECD: 08/28/24 13:23 STATUS: TAMARA REEran #: [id number] DANE: 08/28/24 12:[address]: Nina Rain DEPT: SURGICAL PATHOLOGY RECD BY: Tyrell Forrest ENTERED: 08/28/24 14:53 SP TYPE: BREAST BX OTHR DR: Dr. Zhen Levine MD Tissues: A - Right breast, NOS B - Right breast, NOS Procedures: Immunohistochemical Stains Surgery Specimen Level IV IHC Stain ADDITIONAL HEADER OPERATION: Right breast biopsy - 2 locations PRE-OP DIAGNOSIS: Right breast mass x2, history of breast cancer TISSUE SUBMITTED: A- Retroareolar right breast mass, B- 9o'clock, 2cm from nipple right breast mass Ischemic Time: 1 minute Fixation Time: 7.5 hours MICROSCOPIC DIAGNOSIS A. 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 B. Right breast mass, 9:00 2CMFN, core biopsy: * Fibroadipose tissue with focal granulomatous inflammation. * No tumor seen - see note. * Note: The granulomatous inflammation (histiocytes, lymphocytes and neutrophils) is suggestive of biopsy site changes vs other trauma. IHCs are negative for epithelial tumor cells (E-cadherin, Pancytokeratin). COMMENT The prognostic test for HER2 is performed on formalin-fixed paraffin embedded tissue. A 3+ (positive) staining pattern is defined as intense, homogeneous, complete, circumferential membranous staining in >10% of contiguous tumor cells. A similar weak (2+) staining pattern is interpreted as equivocal. HINA follow-up testing is recommended for all equivocal cases. Positivity/negativity for ER/SD is reported if > or < 1% of the tumor cells are immuno- reactive, respectively. The ASCO/CAP criteria is used for scoring. Reference: Journal of Clinical Oncology, 2013; 31:4371-9328 & 2010; 16:5840-4961. Ischemic time: Less than one hour. Duration of fixation: 7.5 Hrs; Sample Adequate: Yes. These assays have not been validated on decalcified tissues. Results should be interpreted with caution given the likelihood of false negativity on decalcified specimens or fixation greater than 72 hours. Alternative testing methods (FISH/dualISH for Her2; gene expression for ER) are recommended, if applicable. Please notify the laboratory if additional testing is required. MICROSCOPIC DESCRIPTION Slides are reviewed. These tests were developed and their performance characteristics determined by [facility]. They may not have been cleared or approved by the U.S. Food and Drug Administration. The FDA has determined that such clearance or approval is not necessary. The above immunohistochemical/dualISH markers are ordered and reviewed by the Pathologist. GROSS DESCRIPTION Specimen A-received in formalin labeled with the patient's name Aurelio Iverson and designated retroareolar are two yellow-yuen lobular cylindrical tissue cores measuring 2.9 and 1.5 cm long and each measuring 0.2 cm in diameter. Totally submitted in 1 cassette.Specimen B-received in formalin labeled with the patient's name Aurelio Iverson and designated right 9:00 are eight yellow-yuen lobular cylindrical tissue cores that range from 0.4 to 1.6 cm long and averages 0.3 cm in diameter. Also received are multiple yellow to red core fragments aggregating to 1.7 x 1.5 x 0.2 cm. Specimen is totally submitted as follows:Cassette summary:B1-2-all coresB3-all core fragmentsJK. 08/28/2024 CPT:02156c4, 23133, 58174i7, 29613r6
--- NOTE | 2024-08-28 13:39 | PCM.OPRPT ---
Operative Report (Standard) Operative Information Date of Procedure: 08/28/24 Pre-Operative Diagnosis: Right breast mass x 2, history of right breast cancer- IDC ER/NE + s/p lumpectomy w radiation Post-Operative Diagnosis: Same Surgery/Procedure Performed: Ultrasound-guided right breast biopsy x 2 compliance review specialist: No Type of Anesthesia: Local Procedure Start Time: 12:55 Procedure Stop Time: 13:07 Select all DRAINS/GRAFTS/IMPLANTS that apply: Implanted device Implanted device details: Ribbon clip at 9:00 2 cm from the nipple, coil clip retroareolar Estimated Blood Loss: < 10 cc Specimen collected: Yes Description of specimen(s) removed: 1. Retroareolar right breast mass, 2. Right breast mass 9:00 2 cm from nipple Description of surgery: Procedure: Right x 2 ultrasound-guided core biopsy Indications: 83year-old female with hypoechoic nodules at retroareolar and 9:00 2 cm from the nipple. Risk benefits were discussed the patient and she elected to proceed with ultrasound guided core biopsy with clip placement. patient does have a history of right breast cancer status postlumpectomy and radiation in 2006. Description of procedure: Patient was brought into the ultrasound room in the right breast was marked. A timeout was completed verifying correct patient, procedure, site, specially, prior to beginning procedure. The right breast was prepped and draped in usual sterile fashion and using local anesthesia was obtained with 1% lidocaine with epi. Both procedures done similarly. The lesion was located with the ultrasound. Small incision was made with 11 blade to introduced the mammotome for the 9:00 lesion and BARD MaxCore for the retroareolar lesion through the skin. Under ultrasound guidance multiple core samples were obtained using then 13-gauge mammotome for the 9:00 lesion and 14-gauge BARD MaxCore for the retroareolar lesion and sent in formalin for pathology. The Bard dual ultra-(ribbon at 9:00 2 cm from nipple, coil retroareolar) clip was then deployed into the biopsy cavity under ultrasound guidance and a picture was taken. Upon completion procedure hemostasis was obtained and a Steri-Strip and OpSite were placed. Patient was then taken to the mammography suite for clip verification. The clip was verified. The patient tolerated the procedure well and was discharged from the breast imaging department good condition. Surgical Findings: See operative report Complications Complications: No
== END | disposition home or self-care (01) ==
PROVIDERS: PCP Family Medicine; Referring Provider Surgery; Visit Provider Surgery
DX: C50.011 Malignant neoplasm of nipple and areola, right female breast (principal); Z17.0 Estrogen receptor positive status [ER+]
CPT/HCPCS: 19083; 19084; 88305; 88341; 88342

== ENCOUNTER → 2024-08-31 | Outpatient (CLI) | payer MEDICARE, SELFPAY ==
--- NOTE | 2024-08-31 11:35 | RAD_ITS ---
PROCEDURE: L/S SPINE MIN 4 VIEWS REASON FOR EXAM: Chronic low back pain. TECHNIQUE: Standing AP, lateral and oblique view(s) of the lumbar spine. COMPARISON: None. FINDINGS: Mild degree of levo scoliosis. Multilevel disc space narrowing. Facet joint osteoarthritis. Loss of height of the superior endplate of the L4 vertebrae with evidence of prior vertebroplasty. RAD/L/S Spine Min 4 Views IMPRESSION: Mild degree of levoconvex scoliosis with multilevel disc space narrowing. Loss of height of the L4 vertebrae with evidence of prior vertebroplasty. Reading Location: [id number]
--- NOTE | 2024-08-31 11:35 | RAD_ITS ---
PROCEDURE: THORACIC SPINE 2 VIEWS REASON FOR EXAM: Back pain. TECHNIQUE: AP and lateral views of the thoracic spine were obtained. COMPARISON: None. FINDINGS: Demineralization of the thoracic vertebrae. Mild multilevel disc space narrowing. Minimal dextroscoliosis. RAD/Thoracic Spine 2 Views IMPRESSION: Multilevel disc space narrowing. Reading Location: [id number]
== END | disposition home or self-care (01) ==
LOC: MTRAD 11:33
PROVIDERS: PCP Family Medicine; Referring Provider Family Medicine; Visit Provider Family Medicine
DX: M54.50 Low back pain, unspecified (principal); M54.6 Pain in thoracic spine
CPT/HCPCS: 72070; 72110

== ENCOUNTER 2024-09-04 09:53 | Emergency (ER) | payer MEDICARE, SELFPAY ==
[2024-09-04] VITALS (7 sets, daily range): BP systolic 158–194; BP diastolic 65–87; PULSE 39–61; RESP 10–18; TEMP 36; O2SAT 96–100; BMI 21.8
--- NOTE | 2024-09-04 10:14 | EKG12_ITS ---
Test Reason : LOW HR Blood Pressure : */* mmHG Vent. Rate : 46 BPM Atrial Rate : 46 BPM P-R Int : 180 ms QRS Dur : 146 ms QT Int : 458 ms P-R-T Axes : 16 235 43 degrees QTcB Int : 400 ms Sinus bradycardia with marked sinus arrhythmia Right bundle branch block Abnormal ECG Confirmed by NERISSA JO, VANESSA ([id number]), order editor NATHAN DESIR ([id number]) on 09/10/2024 11:17:07 AM Referred By: Confirmed By: VANESSA MULTANI MD
--- NOTE | 2024-09-04 10:33 | EX.ED.DYSGE1 ---
HPI History of Present Illness Chief Complaint: Weakness Narrative Narrative: Patient is a 83-year-old female past medical history of hypertension, BPPV, hypothyroidism who presented to the emergency department with a chief complaint of being sent here from upstairs after having a test performed. Patient states that recently she has been very fatigued if she attempts to do any activities therefore her primary care physician was ordering a ultrasound of her heart. She states that she had this done and then they obtained an EKG and then was sent down here. Patient states that she is unsure why she is exactly down here. [facility] Medical History HTN (hypertension) Macular degeneration Hearing loss, left Hearing loss, right BPPV (benign paroxysmal positional vertigo) Lupus Hx of breast cancer Hypothyroidism Peripheral neuropathy Right-sided chest wall pain Compression fracture of L4 vertebra Ambulatory dysfunction Vertigo Hypothyroidism History of breast cancer Home Medications ?Medication ?Instructions ?Recorded ?Last Taken ?Type cholecalciferol (vitamin D3) 25 25 mcg PO DAILY 12/10/21 09/04/24 History mcg (1,000 unit) capsule multivitamin with minerals 1 tab PO DAILY 12/10/21 09/04/24 History (Multiple Vitamin-Minerals tablet) cyanocobalamin (vitamin B-12) 100 100 mcg PO QDAY 08/21/24 09/04/24 History mcg tablet cephalexin 500 mg capsule 500 mg PO Q12H 5 days #10 caps 09/04/24 Unknown Rx levothyroxine 75 mcg tablet 75 mcg PO DAILY 09/04/24 09/04/24 History vitamin C 50 mg-biotin 1,250 mcg 2 tab PO DAILY 09/04/24 09/04/24 History chewable tablet (Bopa-Udfm-Stphe (vit C-biotin)) Allergy/AdvReac Type Severity Reaction Status Date / Time dextromethorphan (From Allergy Severe Hives Verified 08/21/24 10:17 Dharmesh-Tussin DM Cough Chasers) prednisone Allergy Severe Hives Verified 08/21/24 10:17 valacyclovir (From Valtrex) Allergy Severe Hives Verified 08/21/24 10:17 Family History Mother Hypertension Osteoporosis Sister Cancer Surgical History S/P small bowel resection Hx of fracture of ankle History of right knee joint replacement Hx of hysterectomy Hx of appendectomy History of lumpectomy of right breast (~2004) Social History Smoking Status: Never smoker alcohol intake: never substance use type: does not use caffeine: Yes what type of physical activity do you participate in: none frequency: does not exercise ROS ROS ED ROS Narrative Constitutional: Denies headache, fevers, chills Eyes: Denies change in vision double vision blurry vision Cardiovascular: Denies chest pain or palpitations Respiratory: Denies coughing wheezing shortness of breath Abdomen: Denies abdominal pain nausea vomit diarrhea : Denies urinary symptoms Neurological: Complains of generalized fatigue denies numbness or tingling Musculoskeletal: Denies back pain Skin: Denies rashes or lesions EXAM Physical Exam Narrative Exam Narrative: General: Patient lying in bed rest comfortably did not appear to be in acute distress Head: Atraumatic, normocephalic Eyes: PERRL bilaterally, EOMI bilaterally, no conjunctival injection noted Neck: Soft, supple, trach midline Cardiovascular: Patient bradycardic with a regular rhythm Respiratory: Clear to auscultation bilaterally Abdomen: Soft, nondistended, nontender to palpation Extremities: +5/5 strength noted in the bilateral upper and lower extremities, no pedal edema on exam Neurological: Patient following commands knew that she was at [facility] year is 2024 Skin: Warm, dry, intact no rashes or lesions noted Const Vital Signs: 09/04/24 09:54 09/04/24 10:17 09/04/24 10:18 Temperature 96.8 F L Temperature Source Temporal Pulse Rate 45 L Respiratory Rate 16 Respiratory Pattern Normal Blood Pressure 182/65 H Blood Pressure Mean 104 Pulse Ox 96 Oxygen Delivery Method Room Air Room Air 09/04/24 10:43 09/04/24 11:00 09/04/24 12:00 Temperature Temperature Source Pulse Rate 39 L 50 L 46 L Respiratory Rate 14 13 Respiratory Pattern Blood Pressure 191/87 H Blood Pressure Mean 121 Pulse Ox 100 97 Oxygen Delivery Method Room Air Room Air 09/04/24 12:00 09/04/24 13:00 09/04/24 14:00 Temperature Temperature Source Pulse Rate 48 L 61 Respiratory Rate 13 10 L 18 Respiratory Pattern Blood Pressure 194/65 H 158/71 H Blood Pressure Mean 108 100 Pulse Ox 96 100 98 Oxygen Delivery Method Room Air Room Air Room Air MDM MDM MDM Narrative Medical decision making narrative: Patient is a 83-year-old female who presents to the emergency department chief complaint of abnormal testing in the outpatient setting. On the differential diagnose includes but not limited to heart block, ACS, electrolyte abnormality, asymptomatic bradycardia, hypothyroidism. Once workup is obtained and reviewed she will be reevaluated. . Patient CBC reviewed and showed no evidence leukocytosis white blood count normal 5.5, hemoglobin 11.3, plate count 1 7160. Patient's INR normal at 0.9, PT of 12.4. Patient sodium normal 133, potassium of 4.8, creatinine was 1.42 she has underlying chronic kidney disease according to previous blood draws this is roughly around her baseline, troponin was noted be 47 with a delta troponin 44, proBNP was 244. Patient TSH normal at 2.05, free T4 and T3 were 1.30 and 2.4 respectively. Patient's urinalysis was evident for UTI with 500 leukocyte esterase 50-100 white cells and 3+ bacteria this was sent for culture she was given a gram of Rocephin. Patient was hypertensive here in the emergency department therefore she was given 0.1 mg of clonidine here and her blood pressure has now been in the 150s systolic. I called and discussed case with on-call industry analyst Dr. Recio who reviewed everything and states that the patient can go home as her EKG shows sinus bradycardia with a rate of 46 bpm. Patient ambulated well here without any evidence of lightheadedness, shortness of breath, tachycardia or hypoxia. I discussed the results with the patient advised her to return for worsening symptoms or concerns. She is to follow-up with her primary care physician outpatient setting on the urine culture. She is advised to keep a blood pressure log randomly 2-3 times a day write these numbers down and take it to her physician as her and family bedside states that her blood pressure normally runs normal and is not elevated therefore do not want to start her on anything in an acute setting where she has been slightly frustrated which could also elevate her blood pressure. Patient is agreeable this plan as well as her family at bedside. All question concerns answered she was discharged home in stable condition Lab Data Labs: Laboratory Results - last 24 hr 09/04/24 09/04/24 09/04/24 10:38 11:21 11:58 WBC 5.5 RBC 3.49 L Hgb 11.3 L Hct 34.5 L MCV 98.9 MCH 32.4 H MCHC 32.8 RDW Std Deviation 48.7 H RDW Coeff of Hernán 13.5 Plt Count 160 MPV 11.2 Immature Gran % (Auto) 0.400 Neut % (Auto) 73.6 H Lymph % (Auto) 14.7 L [place] % (Auto) 8.7 Eos % (Auto) 2.2 Baso % (Auto) 0.4 Absolute Neuts (auto) 4.1 Absolute Lymphs (auto) 0.81 L Nucleated RBC % 0 Platelet Estimate A PT 12.4 INR 0.9 APTT 27.5 Sodium 133 Potassium 4.8 Chloride 99 Carbon Dioxide 23.8 Anion Gap 10 BUN 17 Creatinine 1.42 H Estim Creat Clear Calc 27.61 L Est GFR (MDRD) Non-Af 36 L BUN/Creatinine Ratio 12.0 Glucose 89 Calcium 9.2 Troponin T High Sens 47 H Troponin T Hi Sens 2 Hr NT pro BNP II 244 TSH 2.050 Free T4 1.30 Free T3 pg/dL 2.4 Urine Color Yellow Urine Clarity Sl. Cloudy Urine pH 6.0 Ur Specific [place] 1.010 Urine Protein 15 H Urine Glucose (UA) Normal Urine Ketones Negative Urine Occult Blood 10 H Urine Nitrite Positive H Urine Bilirubin Negative Urine Urobilinogen Normal Ur Leukocyte Esterase 500 H Urine RBC 0-5 SEEN Urine WBC 50-100 SEEN Ur Squamous Epith Cells 0-5 SEEN Urine Bacteria 3+ Urine Mucus 1+ 09/04/24 13:10 WBC RBC Hgb Hct MCV MCH MCHC RDW Std Deviation RDW Coeff of Hernán Plt Count MPV Immature Gran % (Auto) Neut % (Auto) Lymph % (Auto) [place] % (Auto) Eos % (Auto) Baso % (Auto) Absolute Neuts (auto) Absolute Lymphs (auto) Nucleated RBC % Platelet Estimate PT INR APTT Sodium Potassium Chloride Carbon Dioxide Anion Gap BUN Creatinine Estim Creat Clear Calc Est GFR (MDRD) Non-Af BUN/Creatinine Ratio Glucose Calcium Troponin T High Sens Troponin T Hi Sens 2 Hr 44 H NT pro BNP II TSH Free T4 Free T3 pg/dL Urine Color Urine Clarity Urine pH Ur Specific [place] Urine Protein Urine Glucose (UA) Urine Ketones Urine Occult Blood Urine Nitrite Urine Bilirubin Urine Urobilinogen Ur Leukocyte Esterase Urine RBC Urine WBC Ur Squamous Epith Cells Urine Bacteria Urine Mucus Radiography Diagnostic Testing: Clinical Impression(s) from Imaging Studies Chest X-Ray 09/04/24 10:40 IMPRESSION: No acute abnormality is seen. Reading Location: [place] [id number] Discharge Plan Triage Chief Complaint: Weakness ED Provider: Rayshawn Hurd Dx/Rx/DC Orders Clinical Impression: Bradycardia, sinus, Urinary tract infection Prescriptions: New cephalexin 500 mg capsule 500 mg PO Q12H 5 Days Qty: 10 0RF No Action cholecalciferol (vitamin D3) 25 mcg (1,000 unit) capsule 25 mcg PO DAILY Multiple Vitamin-Minerals Tablet 1 tab PO DAILY cyanocobalamin (vitamin B-12) 100 mcg tablet 100 mcg PO QDAY levothyroxine 75 mcg tablet 75 mcg PO DAILY Wkux-Irbt-Gsnan (vit C-biotin) 50 mg -1,250 mcg tablet,chewable 2 tab PO DAILY Primary Care Provider: Zhen Levine Referrals: Zhen Levine MD [Primary Care Provider] - Activity Restrictions/Additional Instructions: Take antibiotics as prescribed for urinary tract infection. Follow-up and urine culture with your primary care physician. Keep a blood pressure log by randomly taking her blood pressure 2-3 times a day writing this down and showing this to your physician to see if you need to be placed on blood pressure medication. Return with worsening symptoms or concerns. Print Language: Tajik Disposition Disposition: Home, Self Care
--- NOTE | 2024-09-04 10:40 | RAD_ITS ---
PROCEDURE: CHEST PA AND LATERAL REASON FOR EXAM: BRADYCARDIA, WEAK TECHNIQUE: Frontal and lateral views of the chest. COMPARISON: Comparison is made with prior study dated February 20, 2023. FINDINGS: EKG electrodes are seen. The lungs are clear. Degenerative changes of the thoracic vertebrae. RAD/Chest PA and Lateral IMPRESSION: No acute abnormality is seen. Reading Location: [place] [id number]
[2024-09-04 10:54] LABS: Absolute Lymphocyte Count 0.81 X10^3/uL (0.83-4.51); Absolute Neutrophil Count 4.1 X10^3/uL (2.0-7.7); Basophil# 0.02 X10^3/uL; Basophil% 0.4 % (0-1); Eosinophil# 0.12 X10^3/uL; Eosinophils% 2.2 % (0-5); Hematocrit 34.5 % (37-47); Hemoglobin 11.3 g/dL (12.0-15.0); Lymphocyte # 0.81 X10^3/ul (0.83-4.51); Lymphocyte % 14.7 % (19-41); Mean Corp Hgb Conc 32.8 g/dL (32-36); Mean Corpuscular Hgb 32.4 pg (27.0-32.0); Mean Corpuscular Volume 98.9 fL (81-99); Mean Platelet Vol. 11.2 fl (6.2-12.0); Monocyte# 0.48 X10^3/uL; Monocyte% 8.7 % (0-10); NRBC Flagged by Analyzer 0 % (0-5); Neutrophil # 4.06 X10^3/uL (2.7-7.7); Neutrophil % 73.6 % (47-70); POSITIVE COUNT YES; Platelet Count 160 K/mm3 (150-450); RBC Distribution Width CV 13.5 % (11.6-14.6); RBC Distribution Width SD 48.7 fl (35.1-43.9); Red Blood Count 3.49 M/mm3 (4.2-5.4); White Blood Count 5.5 K/mm3 (4.4-11.0)
[2024-09-04 11:25] LABS: Free T3 2.4 pg/mL (2.18-3.98)
[2024-09-04 11:26] LABS: Anion Gap 10 (5-15); BUN 17 mg/dL (4-19); Calcium,Total 9.2 mg/dL (7.6-11.0); Carbon Dioxide 23.8 mmol/L (21.0-32.0); Chloride 99 mmol/L (98-108); Creatinine, Serum 1.42 mg/dL (0.70-1.20); EST Glomerular Filtration Rate 36 (>60); Estimated Creatinine Clearance 27.61 ml/min (50-250); Glucose 89 mg/dL (70-99); Potassium 4.8 mmol/L (3.3-5.1); Pro- Brain NATRIURETIC PEPTIDE 244 pg/mL (<=1800); Sodium Level 133 mmol/L (133-145); Troponin T High Sensitivity 47 ng/L (<=14)
[2024-09-04 11:38] LABS: Differential Indicated SCAN CRITERIA MET
[2024-09-04 11:39] LABS: Platelet Estimate A (ADEQ)
[2024-09-04 11:40] LABS: International Normalized Ratio 0.9; Prothrombin Time (Protime)PT. 12.4 SECONDS (11.7-14.9)
[2024-09-04 11:42] LABS: Partial Thromboplast Time 27.5 Seconds (24.1-36.2)
[2024-09-04 12:30] LABS: Color, Urine Yellow (Yellow); Glucose, Dipstick Normal (Normal); Ketone-Dipstick Negative (Negative); Leukocyte Esterase-Dipstick 500 /ul (Negative); Nitrite-Dipstick Positive (Negative); Occult Blood-Urine 10 /ul (Negative); Protein-Dipstick 15 mg/dl (Negative); Urine Bilirubin Dipstick Negative (Negative); Urine Clarity Sl. Cloudy (Clear); Urine Urobilinogen Normal (Normal)
[2024-09-04 13:24] LABS: Bacteria 3+ /hpf (None Seen); Mucous, Urine 1+ /hpf (<or=2+); Red Blood Cells-Urine 0-5 SEEN /hpf (0-5); Squamous Epithelial Cells - UA 0-5 SEEN /hpf (5-10); White Blood Cells 50-100 SEEN /hpf (0-5)
[2024-09-04] MEDS: cloNIDine HCl 0.1 MG Tablet PO (13:30)
[2024-09-04] MEDS: Ceftriaxone 1 GM/50 ML BAG IV (13:42)
[2024-09-04 13:57] LABS: Troponin T High Sens 2 HR 44 ng/L (<=14)
== END 2024-09-04 15:03 | disposition home or self-care (01) ==
PROVIDERS: Emergency Provider Emergency Medicine; PCP Family Medicine; Visit Provider Emergency Medicine
DX: R00.1 Bradycardia, unspecified (principal); N39.0 Urinary tract infection, site not specified; N18.9 Chronic kidney disease, unspecified; I12.9 Hypertensive chronic kidney disease with stage 1 through stage 4 chronic kidney disease, or unspecified chronic kidney disease; E03.9 Hypothyroidism, unspecified; Z79.890 Hormone replacement therapy; Z79.899 Other long term (current) drug therapy
CPT/HCPCS: 71046; 80048; 81001; 83880; 84439; 84443; 84481; 84484; 85025; 85610; 85730; 87086; 87088; 87186; 93005; 96365; 99285; A4216

== ENCOUNTER → 2024-09-04 | Outpatient (CLI) | payer MEDICARE, SELFPAY ==
--- NOTE | 2024-09-04 08:59 | ECHOD_ITS ---
Reason For Study Reason For Study: SOB Procedure This was a 2D Doppler, Color Flow transthoracic echocardiogram. Patient sent to ED per Dr. Recio. Exam performed in department. Left Ventricle Normal LV size. The estimated ejection fraction is 65 %. Unable to assess diastolic dysfunction. No regional wall motion abnormalities noted. Right Ventricle Normal RV size. Normal systolic function. Atria The left and right atria are normal. No doppler evidence for ASD. Mitral Valve There is moderate mitral annular calcification. There is no mitral valve stenosis. Trivial mitral valve insufficiency. Tricuspid Valve There is no tricuspid stenosis. Unable to estimate RV systolic pressure due to insufficient tricuspid regurgitant envelope. Trivial tricuspid valve insufficiency. Aortic Valve Trisinus/trileaflet aortic valve. There is no aortic stenosis. No aortic valve insufficiency. Pulmonic Valve There is no pulmonic valvular stenosis. Trivial pulmonic valve insufficiency. Great Vessels Normal sized aortic root. Pericardium/Pleural No pericardial effusion. MMode/2D Measurements & Calculations LVIDd: 3.9 cm IVSd: 0.99 cm Ao root diam: 3.2 cm LVIDs: 2.2 cm LVPWd: 1.0 cm RVDd: 3.4 cm FS: 43.5 % LAV(MOD-bp): 33.8 ml LVAd ap4: 23.0 cm2 SV(MOD-sp4): 41.5 ml LAV(MOD-bp) Indexed: 18.9 ml/m2 LVLd ap4: 7.1 cm SI(MOD-sp4): 23.1 ml/m2 LAV(MOD-sp2): 30.9 ml EDV(MOD-sp4): 60.1 ml LAV(MOD-sp4): 35.0 ml EDV(sp4-el): 62.8 ml LVAs ap4: 11.2 cm2 LVLs ap4: 5.6 cm ESV(MOD-sp4): 18.6 ml ESV(sp4-el): 19.3 ml EF(MOD-sp4): 69.0 % EF(sp4-el): 69.3 % SV(sp4-el): 43.6 ml LA A4 area: 14.2 cm2 LA dimension(2D): 3.5 cm RA A4 area: 14.7 cm2 TAPSE: 1.7 cm Time Measurements MV dec time: 0.30 sec Doppler Measurements & Calculations MV E max kirby: 80.8 cm/sec Lat Peak E' Kirby: 7.7 cm/sec Med Peak E' Kirby: 6.4 cm/sec MV A max kirby: 97.7 cm/sec E/E' lat: 10.5 E/E' med: 12.6 MV E/A: 0.83 Ao V2 max: 150.3 cm/sec LV V1 max: 121.1 cm/sec MV dec slope: 266.0 cm/sec2 Ao max P.0 mmHg LV V1 max P.9 mmHg Ao V2 mean: 108.9 cm/sec LV V1 mean P.1 mmHg Ao mean P.1 mmHg LV V1 mean: 80.2 cm/sec Ao V2 VTI: 35.4 cm LV V1 VTI: 29.1 cm AV (velocity ratio): 0.82 PA V2 max: 98.7 cm/sec PI end-d kirby: 61.9 cm/sec TR max kirby: 258.1 cm/sec TR max P.6 mmHg ECHO/Echo Complete Interpretation Summary The estimated ejection fraction is 65 %. Unable to assess diastolic dysfunction. Ordering Physician: Zhen Levine Referring Physician: Zhen Levine Performed By: Nafisa Guillermo, SANDRA, RVT
--- NOTE | 2024-09-04 09:36 | EKG12_ITS ---
Test Reason : SOB Blood Pressure : */* mmHG Vent. Rate : 41 BPM Atrial Rate : 41 BPM P-R Int : 174 ms QRS Dur : 150 ms QT Int : 476 ms P-R-T Axes : 37 235 53 degrees QTcB Int : 392 ms Marked sinus bradycardia with sinus arrhythmia Right bundle branch block Abnormal ECG Confirmed by NERISSA JO, VANESSA ([id number]), writer editor NATHAN DESIR ([id number]) on 09/10/2024 11:16:37 AM Referred By: Zhen Levine Confirmed By: VANESSA MULTANI MD
== END | disposition home or self-care (01) ==
LOC: CVS 08:54
PROVIDERS: PCP Family Medicine; Referring Provider Family Medicine; Visit Provider Family Medicine
DX: R06.02 Shortness of breath (principal); R06.09 Other forms of dyspnea
CPT/HCPCS: 93005; 93306

== ENCOUNTER 2024-09-25 05:54 | Day surgery (SDC) | payer MEDICARE, SELFPAY ==
--- NOTE | 2024-09-13 18:22 | PAT.ANE_ITS ---
Pre-Assessment Diagnosis/Proposed Procedure Planned Operative Procedure(s): (R) Ultrasound wire guided right breast lumpectomy Anesthesia History Anesthesia History - veneer grader: Anesthesia History - veneer grader Hx Hospitalization Yes: 2022 [facility] 09/13/24 15:03 OBSTRUCTION Any Problems With Anesthesia No 09/13/24 15:03 Cholinesterase deficiency No 09/13/24 15:03 You/Your Family Experience No 09/13/24 15:03 fever (hyperthermia) with Relationship Recent Exposure to Contagious No 02/22/23 08:17 Disease Does patient have nerve No 09/13/24 15:03 stimulator Patient instructed to have device shut off --Does patient have Pacemaker or ICD? When Was Last Pacemaker Check QUESTION #4 FULL TEXT: You/Your Family Experience fever (hyperthermia) with Anesthesia Last Oral Intake Last Oral intake: Last Oral Intake NPO since Meds taken in AM with sips of water? Meds patient instructed to take am of surgery PONV PONV - veneer grader: PONV - veneer grader Female Yes 09/13/24 15:03 HX of Motion Sickness No 09/13/24 15:03 HX of N/V After Surgery No 09/13/24 15:03 Non-Smoker Yes 09/13/24 15:03 Duration of Surgery greater No 09/13/24 15:03 than 60 minutes Number of Risk Factors 2 09/13/24 15:03 PONV Score Moderate Risk 09/13/24 15:03 Height & Weight Height & Weight: Anesthesia: Height & Weight Height 5 ft 6 in 09/11/24 09:32 Respiratory Assessment Respiratory Assessment - veneer grader: Respiratory Tract Infection Hx - veneer grader Hx Respiratory Tract Infection No 09/13/24 15:03 STOP Sleep Apnea STOP Sleep Apnea - veneer grader: STOP Sleep Apnea - veneer grader Hx Hypertension No 09/13/24 15:03 Hx Sleep Apnea No 09/13/24 15:03 CPAP No 09/13/24 15:03 BIPAP No 09/13/24 15:03 Do you snore loudly (louder No 09/13/24 15:03 than talking or can be heard Do you often feel tired/ No 09/13/24 15:03 fatigued/ sleepy during daytime? Has anyone observed you stop No 09/13/24 15:03 breathing during sleep? STOP Results Negative 09/13/24 15:03 QUESTION #5 FULL TEXT : Do you snore loudly (louder than talking or can be heard through closed doors)? Tobacco Use History Tobacco Use History - veneer grader: Tobacco Use History - veneer grader Tobacco Use Smoking Status Never smoker 09/13/24 15:03 Hx Tobacco Use No 09/13/24 15:03 Years Smoking Packs Smoked per Day Smoking Cessation Date was within the last 15 years Hx Smoking Cessation Date Hx Smoking Cessation Counseling Hematologic Medial History Hematologic Hx - veneer grader: Hematologic Medical Hx - manager documentation Hx of Blood Transfusion Yes 09/13/24 15:03 Hx of Transfusion in last 3 No 09/13/24 15:03 Months Date of Last Transfusion (if within last 3 months) Ever experience any problems No 09/13/24 15:03 with transfusion(s)? Specify any problems Hx of Preganancy in last 3 No 09/13/24 15:03 Months Nurse Filling Out Transfusion VCHRISTIN 09/13/24 15:03 & Questions: Date: 09/13/24 09/13/24 15:03 Time: 15:04 09/13/24 15:03 Patient unable to answer at this time (ie. confused, unrespo /Reproduction History /Reproductive History - veneer grader: /Reproductive Hx- veneer grader Hx Now No 09/13/24 15:03 Gestational Age (in weeks): EDC: Hx Hx Para Hx Section SAB No 09/13/24 15:03 PFSH Medical History (Updated 09/13/24 @ 15:03 by Galina Inman) Wears hearing aid Wears glasses Post-menopausal Cancer Thyroid disease Arthritis Anemia Non-smoker Shortness of breath on exertion Neuropathy History of echocardiogram HTN (hypertension) Macular degeneration Hearing loss, left Hearing loss, right BPPV (benign paroxysmal positional vertigo) Lupus Hx of breast cancer Hypothyroidism Peripheral neuropathy Right-sided chest wall pain Compression fracture of L4 vertebra Ambulatory dysfunction Vertigo Hypothyroidism History of breast cancer Home Medications ?Medication ?Instructions ?Recorded ?Last Taken ?Type cholecalciferol (vitamin D3) 25 25 mcg PO DAILY 09/04/24 History mcg (1,000 unit) capsule multivitamin with minerals 1 tab PO DAILY 12/10/2105/21 History (Multiple Vitamin-Minerals tablet) cyanocobalamin (vitamin B-12) 100 100 mcg PO QDAY 07/2909/04/24 History mcg tablet levothyroxine 75 mcg tablet 75 mcg PO DAILY 09/04/24 0 09/04/24 History vitamin C 50 mg-biotin 1,250 mcg 2 tab PO DAILY 09/04/24 History chewable tablet (Pzzv-Fdvg-Abjtg (vit C-biotin)) naproxen sodium 220 mg capsule 220 mg PO BID PRN pain 09/13/24 Unknown History (Aleve) Allergy/AdvReac Type Severity Reaction Status Date / Time dextromethorphan (From Allergy Severe Hives Verified 09/13/24 14:51 Scot-Tussin DM Cough Chasers) prednisone Allergy Severe Hives Verified 09/13/24 14:51 valacyclovir (From Valtrex) Allergy Severe Hives Verified 09/13/24 14:51 Family History Mother Hypertension Osteoporosis Sister Cancer Surgical History (Updated 09/13/24 @ 15:03 by Galina Inman) Hx of bilateral cataract extraction S/P small bowel resection Hx of fracture of ankle History of right knee joint replacement Hx of hysterectomy Hx of appendectomy History of lumpectomy of right breast (~2004) Social History Smoking Status: Never smoker alcohol intake: never substance use type: does not use caffeine: Yes what type of physical activity do you participate in: none frequency: does not exercise Audit: Pertinent Findings Pertinent Findings EKG Perinent findings: September 04, 2024. Sinus bradycardia at 46 bpm with marked sinus arrhythmia. Right bundle branch block. Echo (EF%) pertinent findings: September 04, 2024. Ejection fraction 65%. No aortic stenosis seen. Recommendation Anesthesia Recommendation Anesthesia recommendation: OPTIMIZED for anesthesia
[2024-09-25] VITALS (9 sets, daily range): BP systolic 141–174; BP diastolic 58–91; PULSE 44–63; RESP 14–16; TEMP 36.3–37.1; O2SAT 97–100; BMI 26.4
--- NOTE | 2024-09-25 07:10 | PRE.ANES_ITS ---
ASA Classification* ASA Classification ASA Classification: 3 Assessment & Plan Anesthesia* Anesthesia Assessment Anesthesia Assessment: Discussed sedation and/or anesthesia options, risks, benefits, and alternatives with patient/parents/legal guardian/POA. Questions invited. The patient/parents/legal guardian/POA seems to understand and agrees to proceed with anesthesia plan. Reviewed the physical assessment, medical history, allergy history and patient home medications list prior to surgery/procedure/anesthetic and documented any changes. Performed airway and anesthesia risk assessments. Anesthesia Type Anesthesia Type: General History Source History Obtained from:: Patient and Chart Anesthesia Focused Assessment* Temperature: 98.8 F Pulse Rate: 44 Blood Pressure: 157/58 Respiratory Rate: 16 Pulse Ox: 99 Oxygen Delivery Method: Room Air Airway Assessment Mouth opens: >3 cm Mallampati Score: III Teeth Condition: Dentures (Patient has full upper dentures) and Partial (Patient has partial lower dentures.) Neck Range of motion (ROM): Limited ROM (Slight decrease in extension) Focused Labs Anesthesia Preop lab: CBC WBC 5.5 K/mm3 (4.4-11.0) 09/04/24 10:38 09/04/24 RBC 3.49 M/mm3 (4.2-5.4) L 09/04/24 10:38 09/04/24 Hgb 11.3 g/dL (12.0-15.0) L 09/04/24 10:38 5 Hct 34.5 % (37-47) L 09/04/24 10:38 09/04/24 Plt Count 160 K/mm3 (150-450) 09/04/24 10:38 09/04/24 CHEMISTRY Potassium 4.8 mmol/L (3.3-5.1) 09/04/24 10:38 09/04/24 Sodium 133 mmol/L (133-145) 09/04/24 10:38 09/04/24 Magnesium 1.8 mg/dL (1.6-2.6) 02/24/23 08:38 02/24/23 Phosphorus 3.2 mg/dL (2.5-4.9) 08/24/23 11:22 08/24/23 BUN 17 mg/dL (4-19) 09/04/24 10:38 09/04/24 Creatinine 1.42 mg/dL (0.70-1.20) H 09/04/24 10:38 Glucose 89 mg/dL (70-99) 09/04/24 10:38 09/04/24 TSH 2.050 uIU/mL (0.300-4.200) 09/04/24 10:38 08/25 07/21 COAG PT 12.4 SECONDS (11.7-14.9) 09/04/24 11:21 Pre-Assessment Diagnosis/Proposed Procedure Planned Operative Procedure(s): (R) Ultrasound wire guided right breast lumpectomy Anesthesia History Anesthesia History - micro paleontologist: Anesthesia History - micro paleontologist Hx Hospitalization Yes: 2022 [facility] 09/13/24 15:03 OBSTRUCTION Any Problems With Anesthesia No 09/13/24 15:03 Cholinesterase deficiency No 09/13/24 15:03 You/Your Family Experience No 09/13/24 15:03 fever (hyperthermia) with Relationship Recent Exposure to Contagious No 09/25/24 06:29 Disease Does patient have nerve No 09/13/24 15:03 stimulator Patient instructed to have device shut off --Does patient have Pacemaker or ICD? When Was Last Pacemaker Check QUESTION #4 FULL TEXT: You/Your Family Experience fever (hyperthermia) with Anesthesia Last Oral Intake Last Oral intake: Last Oral Intake NPO since 19:30 09/25/24 06:29 Meds taken in AM with sips of water? Meds patient instructed to take am of surgery PONV PONV - micro paleontologist: PONV - micro paleontologist Female Yes 09/13/24 15:03 HX of Motion Sickness No 09/13/24 15:03 HX of N/V After Surgery No 09/13/24 15:03 Non-Smoker Yes 09/13/24 15:03 Duration of Surgery greater No 09/13/24 15:03 than 60 minutes Number of Risk Factors 2 09/13/24 15:03 PONV Score Moderate Risk 09/13/24 15:03 Height & Weight Height & Weight: Anesthesia: Height & Weight Height 5 ft 6 in 09/25/24 06:29 Weight: 74.2 kg 09/25/24 06:29 Body Mass Index (BMI) 26.4 09/25/24 06:29 Respiratory Assessment Respiratory Assessment - micro paleontologist: Respiratory Tract Infection Hx - micro paleontologist Hx Respiratory Tract Infection No 09/13/24 15:03 STOP Sleep Apnea STOP Sleep Apnea - micro paleontologist: STOP Sleep Apnea - micro paleontologist Hx Hypertension No 09/13/24 15:03 Hx Sleep Apnea No 09/13/24 15:03 CPAP No 09/13/24 15:03 BIPAP No 09/13/24 15:03 Do you snore loudly (louder No 09/13/24 15:03 than talking or can be heard Do you often feel tired/ No 09/13/24 15:03 fatigued/ sleepy during daytime? Has anyone observed you stop No 09/13/24 15:03 breathing during sleep? STOP Results Negative 09/13/24 15:03 QUESTION #5 FULL TEXT : Do you snore loudly (louder than talking or can be heard through closed doors)? 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 Specify any problems Hx of Preganancy in last 3 No 09/13/24 15:03 Months Nurse Filling Out Transfusion VCHRISTIN 09/13/24 15:03 & Questions: Date: 09/13/24 09/13/24 15:03 Time: 15:04 09/13/24 15:03 Patient unable to answer at this time (ie. confused, unrespo /Reproduction History /Reproductive History - micro paleontologist: /Reproductive Hx- micro paleontologist Hx Now No 09/13/24 15:03 Gestational Age (in weeks): EDC: Hx Hx Para Hx Section SAB No 09/13/24 15:03 Active Medications Active Medications: Current Medications Generic Name Dose Route Start Last Admin Trade Name Freq PRN Reason Stop Dose Admin Cefazolin Sodium 2 gm/ N/A 20 mls @ 400 mls/hr 09/25/24 07:30 IV 09/25/24 07:32 X1 ONE [facility] Medical History Wears hearing aid Wears glasses Post-menopausal Cancer Thyroid disease Arthritis Anemia Non-smoker Shortness of breath on exertion Neuropathy History of echocardiogram HTN (hypertension) Macular degeneration Hearing loss, left Hearing loss, right BPPV (benign paroxysmal positional vertigo) Lupus Hx of breast cancer Hypothyroidism Peripheral neuropathy Right-sided chest wall pain Compression fracture of L4 vertebra Ambulatory dysfunction Vertigo Hypothyroidism History of breast cancer Home Medications ?Medication ?Instructions ?Recorded ?Last Taken ?Type cholecalciferol (vitamin D3) 25 25 mcg PO DAILY 09/24/24 History mcg (1,000 unit) capsule multivitamin with minerals 1 tab PO DAILY 12/10/21 History (Multiple Vitamin-Minerals tablet) cyanocobalamin (vitamin B-12) 100 100 mcg PO QDAY 07/2909/24/24 History mcg tablet levothyroxine 75 mcg tablet 75 mcg PO DAILY 09/04/24 0 09/24/24 History vitamin C 50 mg-biotin 1,250 mcg 2 tab PO DAILY 09/24/24 History chewable tablet (Jhbq-Qxhw-Azwxc (vit C-biotin)) naproxen sodium 220 mg capsule 220 mg PO BID PRN pain 09/13/24 09/24/24 History (Aleve) Allergy/AdvReac Type Severity Reaction Status Date / Time dextromethorphan (From Allergy Severe Hives Verified 09/25/24 06:27 Dharmesh-Lara DM Cough Chasers) prednisone Allergy Severe Hives Verified 09/25/24 06:27 valacyclovir (From Valtrex) Allergy Severe Hives Verified 09/25/24 06:27 Family History Mother Hypertension Osteoporosis Sister Cancer Surgical History Hx of bilateral cataract extraction S/P small bowel resection Hx of fracture of ankle History of right knee joint replacement Hx of hysterectomy Hx of appendectomy History of lumpectomy of right breast (~2004) Social History Smoking Status: Never smoker alcohol intake: never substance use type: does not use caffeine: Yes what type of physical activity do you participate in: none frequency: does not exercise Review of Systems (Anesthesia) ROS Narrative System reviewed and no additional complaints, except as documented.
[2024-09-25] MEDS: 0.9% Normal Saline (1000mL) 1,000 ML 15 ML IV (07:16)
--- NOTE | 2024-09-25 07:16 | PCM.HP.BLA ---
History and Physical Date of Admission: 09/25/24 Date of Service: 09/11/24 MR#: [id number] Acct: [id number] Name: AURELIO WOODWARD Rep #: [id number] : 1940 Provider: Dr. Nina Rain MD Age/Sex: 83/F Location: [facility] Status: Signed Intake Vital Signs 09/04/2508:54 09/11/2508:32 Height 5 ft 6 in 5 ft 6 in BP 159/80 H Blood Pressure Location Lt brachial Position Sitting Respiration 18 Pulse 62 Pulse Source Monitor Temp 97.4 F L Temp Source Temporal Pulse Oximetry (%) 98 Oxygen Delivery Method room air Intake Visit Reasons: DISCUSS BREAST SURGERY Chief Complaint: discuss breast surgery Is patient in pain?: No Allergies dextromethorphan (From Scot-Tussin DM Cough Chasers) Allergy (Severe, Verified 09/11/24 09:33) Hivesprednisone Allergy (Severe, Verified 09/11/24 09:33) Hivesvalacyclovir (From Valtrex) Allergy (Severe, Verified 09/11/24 09:33) Hives Medications ?Medication ?Instructions ?Recorded ?Confirmed ?Type cholecalciferol (vitamin D3) 25 25 mcg PO DAILY 12/10/21 09/11/24 History mcg (1,000 unit) capsule multivitamin with minerals 1 tab PO DAILY 12/10/21 09/11/24 History (Multiple Vitamin-Minerals tablet) cyanocobalamin (vitamin B-12) 100 100 mcg PO QDAY 08/21/24 09/11/24 History mcg tablet levothyroxine 75 mcg tablet 75 mcg PO DAILY 09/04/24 09/11/24 History vitamin C 50 mg-biotin 1,250 mcg 2 tab PO DAILY 09/04/24 09/11/24 History chewable tablet (Oary-Uuhl-Orajo (vit C-biotin)) Have you fallen in the past year?: No PFSH Medical History HTN (hypertension) Macular degeneration Hearing loss, left Hearing loss, right BPPV (benign paroxysmal positional vertigo) Lupus Hx of breast cancer Hypothyroidism Peripheral neuropathy Right-sided chest wall pain Compression fracture of L4 vertebra Ambulatory dysfunction Vertigo Hypothyroidism History of breast cancer Surgical History S/P small bowel resection Hx of fracture of ankle History of right knee joint replacement Hx of hysterectomy Hx of appendectomy History of lumpectomy of right breast (~2004) Family History Mother Hypertension OsteoporosisSister Cancer Social History Smoking Status: Never smoker alcohol intake: never substance use type: does not use caffeine: Yes what type of physical activity do you participate in: none frequency: does not exercise HPI HPI HPI: 83-year-old female presents to discuss surgical options for recurrent right breast cancer. 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 Patient previously underwent a lumpectomy with Dr. Tinajero and sentinel lymph node biopsy (sentinel lymph nodes were negative) in 2017. Patient did had radiation but did not take any antihormone pills after surgery or chemotherapy. Patient would prefer lumpectomy and not a mastectomy as she has thought about at her age if it were to come back she may no longer be alive at that time. Patient also states she would not do chemotherapy or likely be antihormone pills. ROS General General: Yes weight change, fatigue and breast cancer; No appetite, colon cancer or weakness Additional Details: H/o breast cancer right side. HEENT HEENT: Yes eye surgery; No difficulty swallowing, eye injury, swollen glands or hoarseness Endo Endocrine: Yes thyroid disease; No diabetes mellitus, thyroid cancer, Hair loss, heat intolerance or cold intolerance Skin Skin: No rash or changing moles Breast Breast: Yes right breast lump and abnormal US; No left breast lump, nipple discharge, breast pain, abnormal mammogram or breast enlargement Musc Musculoskeletal: Yes arthritis; No back problems, rheumatoid arthritis, gout or joint pain Cardio Cardiovascular: No murmur, pacemaker, heart disease, atrial fibrillation, high blood pressure, heart attack, heart stent, palpitations, shortness of breath with exertion or chest pain Psych Psychiatric: No depression, anxiety or hearing voices Resp Respiratory: Yes shortness of breath, No sleep apnea, No cough, No COPD, No asthma, No emphysema and No wheezing Gastro Gastrointestinal: No abdominal pain, No nausea or vomiting, No diarrhea, No constipation, No blood in stool, No acid reflux, No hemorrhoids, No ulcers, No gallbladder problem and No black,tarry stools Tom Hematologic: No blood thinners, No blood disorders, No bleeding, No anemia and No blood clots Neuro Neurologic: No system reviewed and no additional complaints, except as documented, No as per HPI, No abnormal gait, No abnormal hearing, No abnormal movements, No abnormal speech, No behavioral changes, No burning sensations, No confusion, No convulsions, No disequilibrium, No dizziness, No localized weakness, No frequent falls, No headache(s), No lack of coordination, No loss of vision, No memory loss, No numbness, No other visual disturbances, No radicular pain, No restless legs, No sensory deficit, No syncope, No tingling, No tremor(s), No weakness and No other Exam Const General: cooperative, healthy appearing and no acute distress [facility] Head: normal to inspection Chest Other: Right breast: Resolving ecchymosis, previous biopsy sites healing well. Resp Effort & Inspection: normal respiratory effort Cardio Rate: regular rate GI Inspection: non-distended Palpation: soft Skin General: no rashes or lesions noted Neuro General: patient oriented x3 Extrem General: no clubbing, cyanosis or edema Psych Affect: normal affect Assessment and Plan Assessment and Plan (1) Recurrent cancer of right breast: Status: Acute (2) Invasive ductal carcinoma of breast: Status: Acute Plan I have given the patient options for initial surgical treatment. Options are the following: mastectomy vs. mastectomy followed by immediate reconstruction. I have described the procedures to the patient. I have described the advantages and disadvantages of the options, but I have told the patient that among the options, the survival rate for breast cancer is the same. However patient had thought about it and currently she is 83 she does not want a mastectomy would prefer a lumpectomy even though it includes the nipple areolar complex and she is not able to get radiation for a second time she is aware that she could be at greater risk for recurrence. However due to her age she does not believe that will impact her. Patient does not want any chemotherapy and last time did not also take any hormone pills. Did discuss with patient we would send her to oncology after the procedure. Will not do sentinel node biopsy as patient does not want any additional treatment like chemo if it were to be positive and she would not be able to get radiation as she is already previously had radiation. Patient understands the risk but would like to proceed with an ultrasound-guided wire localization right lumpectomy including the nipple areolar complex and without doing radiation this would be more palliative in nature--the patient is agreeable with risk. I have answered all the patient?s questions at this point to her satisfaction and she has no further questions. Nina Rain M.D. Pager: [phone] [facility] [address] [place] [address], [facility], [address] [place] [address] Office: [phone] Coding Level of Care Code Off vis,est,level 4 Diagnoses Recurrent cancer of right breast C50.911 Invasive ductal carcinoma of breast C50.919 Clinical Quality Measures Falls Risk Screening/Assistive Devices Have you fallen in the past year?: No 09/12/24 1320 <Electronically signed by Nina Rain MD> Date Nina Rain MD
--- NOTE | 2024-09-25 07:30 | BREAST_PTH ---
PATIENT: AURELIO WOODWARD LOC: [facility] U#:[id number] AGE/SX: 83/F ROOM: RE09/25/[address]: Dr. Nina Rain MD : 1940 BED: DIS: 09/25/2024 SPEC #: [id number] RECD: 09/25/24 10:22 STATUS: TAMARA REEran #: [id number] DANE: 09/25/24 07:[address]: Nina Rain DEPT: SURGICAL PATHOLOGY RECD BY: Felix Turner ENTERED: 09/25/24 10:23 SP TYPE: BREAST OTHR DR: Dr. Zhen Levine MD Tissues: A - Right breast, NOS B - Right breast, NOS Procedures: Immunohistochemical Stains Surgery Specimen Level IV IHC Stain ADDITIONAL HEADER OPERATION: Ultrasound wire guided right breast lumpectomy PRE-OP DIAGNOSIS: Recurrent cancer of right breast, invasive ductal carcinoma of breast TISSUE SUBMITTED: A- Right breast : lumpectomy * long stitch-lateral, short stitch- superior*, B- Right breast: new medial, deep margin *long stitch-lateral, short stitch- superior* Ischemic Time: 20 minute Fixation Time: 35 hours MICROSCOPIC DIAGNOSIS A. Right breast, recurrent invasive ductal carcinoma, lumpectomy: * Invasive ductal carcinoma NST, pT1c pNX, margins free - see Synoptic Report. * Closest margin 5 mm, inferior (see part B). * Fat necrosis, microcalcifications noted. B. Right breast, new medial/deep margin, re-excision margin: * Negative for malignancy. * Fat necrosis, focal calcification. COMMENT SYNOPTIC REPORT FOR INVASIVE BREAST CARCINOMA Specimen (P=partial, M=mastectomy): P Laterality (R=right, L=left): R Focality (U=unifocal, M=multifocal): U Tumor size (cm): 1.2 cm Histologic type: invasive ductal carcinoma NST Histologic grade: 2 ??? Tubule score (1-3): 3 ??? Nuclear score (1-3): 2 ??? Mitotic score (1-3): 1 Skin, nipple epidermis, skeletal muscle (I=involved, N=negative, NA=not applicable): I (deep dermis of nipple) Lymphovascular invasion (E=extensive, F=focal, N=not identified): N Margins of main specimen (P=positive, N=negative): N Distance to closest margin of main specimen (mm): 5 mm Designation of closest margin of main specimen: Inferior Designation of other margins of main specimen </=1 mm: NA Re-resection margin status (P=positive, N=negative, NA=not applicable): N DCIS (P=present, N=not identified): P ?? Nuclear grade: Intermediate ?? Comedo necrosis (P=present, N=not identified): N ?? Extensive intraductal component (P=present, N=not identified): N ?? Margins of main specimen (P=positive, N=negative): N ?? Distance to closest margin of main specimen (mm): 9 mm ?? Designation of closest margin of main specimen: Inferior ?? Designation of other margins of main specimen </=2 mm: NA ?? Longest span </= 2 mm to margin of main specimen (mm): NA ?? Re-resection margin status (P=positive, N=negative, NA=not applicable): N Regional lymph nodes: NA ?? Total number of lymph nodes: NA ?? Number of sentinel lymph nodes: NA ?? Number with macrometastases: NA ?? Number with micrometastases: NA ?? Number with isolated tumor cells: NA ?? Size of largest bello metastasis (mm): NA ?? Size of extranodal extension (mm) (N=not identified): NA Estrogen receptor: Positive (95%, intermediate to strong) Progesterone receptor: Positive (90%, intermediate to strong) HER2 IHC: equyivocal (2+) HER2 FISH: PENDING AT [facility], to be reported in an addendum. Specimen in which ER/IL/HER2 performed: [id number] pTNM: Pt1c pNX Additional findings: seborrheic keratosis (incidental) Comment: .Immunostains utilized in the assessment - E-cadherin: A2,3,7,8,9, B2 CK5/6: A7,8,9, B2 ER: A9 IL: A9 BLH6JSA: A9 A preliminary diagnosis was discussed with Dr Leydi Rain 10/04/24, 4:30 pm. The above synoptic report complies, in slightly modified form, with the guidelines of the [employer] and the Association of Directors of Anatomic and Surgical Pathology for the reporting of cancer specimens MICROSCOPIC DESCRIPTION Slides are reviewed. All matched controls reacted appropriately. These tests were developed and their performance characteristics determined by [facility]. They may not have been cleared or approved by the U.S. Food and Drug Administration. The FDA has determined that such clearance or approval is not necessary. The above immunohistochemical/dualISH markers are ordered and reviewed by the Pathologist. GROSS DESCRIPTION A. Received in formalin in a container labeled with the patient's name, date of , and right breast: Lumpectomy is a 26.6 g, oriented right lumpectomy specimen with a long stitch indicating lateral margin and short stitch indicating superior margin. Protruding from the inferior/lateral margin is a metal localization wire. The specimen is 7.8 cm from medial to lateral, 3.0 cm from superior to inferior, and 2.8 cm from anterior to posterior. The anterior aspect is partially surfaced by a yuen wrinkled ellipse of skin measuring 5.8 cm from medial to lateral and 2.6 cm from superior to inferior. There is a 0.9 x 0.9 x 0.9 cm everted nipple. The specimen is inked as follows:Ztxgvuwd-hqsyFwcbgngv-dguvxHtpmcz-redLateral-yellowAnterior is skinPosterior-black The specimen is serially sectioned from lateral to medial into 16 slices to reveal a white-yuen, firm, and irregular mass within slices 13-14 at the anterior/medial aspect. The mass grossly abuts and possibly involves the skin and nipple.Mass measurement: 1.2 x 1.2 x 1.0 cm. It is situated to the margins as follows:Skin/nipple: AbuttingPosterior: 0.4 cmInferior: 0.5 cmSuperior: 0.7 cmMedial: 1.0 cmLateral: Greater than 2 cm Immediately adjacent to the mass, in slices 10-12 is a 0.9 x 0.8 x 0.6 cm focus of hemorrhage and pale possible fat necrosis. This abuts the skin, is 0.4 cm from the inferior margin, and greater than or equal to 1 cm from the remaining margins. Additionally, situated 1.3 cm from the area of hemorrhage and necrosis is an additional nodular and hemorrhagic focus with possible fat necrosis measuring 2.3 x 1.7 x 1.4 cm. This is situated at the lateral/inferior aspect of the specimen from slices 1-6. It abuts the lateral and posterior margins, is 0.3 cm from the inferior margin, and greater than or equal to 1 cm from remaining margins. The cut surfaces are comprised of approximately 90% adipose tissue and 10% fibrous tissue. [employer] sections:A1. Perpendicular section of slice 1, lateral margin with nodular areaA2. Slice 4, whole with hemorrhagic and nodular areaA3. Slice 5, whole with hemorrhagic and nodular areaA4. Slice 8, inferior aspect in slice 9, superior aspect (uninvolved fibrofatty tissue)A5. Slice 11, area of hemorrhage and possible fat necrosis with skinA6. Slice 12, area adjacent to massA7-8. Slice 13, bisected (inked orange or sections connect) with mass and one third of nipple (area of clip)A9. Slice 13, serial section of mass involving [id number]. Slice 14, bisected and inked orange resections connect; remainder of mass and [id number]. Slice 16, perpendicular sections of medial margin Total formalin fixation time: Between 6 and 72 hours. B. Received in formalin in a container labeled with the patient's name, date of , and right breast: New medial; deep margin is a 1.6 g, oriented additional lumpectomy specimen with a long stitch indicating lateral and short stitch indicating superior. The specimen is 2.2 cm from medial to lateral, 1.9 cm from superior to inferior, and 1.0 cm from anterior to posterior. Ink tsang:Superior-blue Aibijwsz-zshgoXvdese-hmqBprqeuy-yellowAnterior-orange Posterior-black It is serially sectioned to reveal indurated yuen-yellow surfaces with embedded óscar. No overt mass lesion is grossly recognized. Entirely submitted in B1-2. 09/26/2024 CPT:[id number] ADDENDUM ADDENDUM ADDENDUM ADDENDUM ADDENDUM ADDENDUM ADDENDUM ADDENDUM ADDENDUM ADDENDUM ADDENDUM ADDENDUM ADDENDUM ADDENDUM ADDENDUM ADDENDUM ADDENDUM ADDENDUM 10/17/2024 10:53 ADDENDUM 10/17/2024 10:53 ADDENDUM 10/17/2024 10:53 ADDENDUM 10/17/2024 10:53 ADDENDUM 10/17/2024 10:53 This addendum is added to incorporate an outside pathology consultation report. The case was examined at [facility] (#[id number]) and the following diagnosis was rendered. A. Right breast, recurrent invasive ductal carcinoma, lumpectomy: HER2 Scoring: Negative HER2 SCORE REPORT: HER2 score: NEGATIVE HER2/CEP17 RATIO: 1.0 HER2 COPY NUMBER/CELL: 2.5 Please see complete above mentioned consultation report in EMR
[2024-09-25] MEDS: Cefazolin 2 GM in Syringe IV (07:35)
[2024-09-25] MEDS: Bupivacaine 0.25% 30 ML Vial (08:00)
--- NOTE | 2024-09-25 08:14 | PCM.OPRPT ---
Oncology: Justin Requirements . Oncology surgical intervention performed: [place] Node Biopsy for Breast Cancer performed [place] Node Bx - Breast Cancer: Synoptic Portion: Element Response Options Operation performed with curative intent.No Tracer(s) used to identify sentinel nodes in the upfront surgery (non-neoadjuvant) setting (select all that apply). n/a Tracer(s) used to identify sentinel nodes in the neoadjuvant setting (select all that apply)N/A All nodes (colored or non-colored) present at the end of a dye-filled lymphatic channel were removed. N/A All significantly radioactive nodes were removed. N/A All palpably suspicious nodes were removed. N/A Biopsy-proven positive nodes marked with clips prior to chemotherapy were identified and removed. N/A Operative Report (Standard) Operative Information Date of Procedure: 09/25/24 Pre-Operative Diagnosis: Recurrent right breast cancer Post-Operative Diagnosis: Same Surgery/Procedure Performed: Palliative right ultrasound-guided wire localization lumpectomy smelter liner: Yes Electrical Assembler: Jesse Torres Tasks completed by surgical first assistant: Opening & closing Type of Anesthesia: General/Supplemental RN Documented Start/Stop Times: Operation Date: 09/25/24 07:30 Case Time Into Pre-Op 09/25/24 05:59 Out of Pre-Op 09/25/24 07:24 Anesthesia Start 09/25/24 07:27 Into Room 09/25/24 07:27 Procedure Start 09/25/24 07:52 Procedure End 09/25/24 08:27 Anesthesia End 09/25/24 08:32 Out of Room 09/25/24 08:32 Into Recovery 09/25/24 08:34 Out of Recovery 09/25/24 09:09 Into Phase II Recovery 09/25/24 09:10 Out of Phase II 09/25/24 10:21 Procedure Start Time: 07:52 Procedure Stop Time: 08:27 Select all DRAINS/GRAFTS/IMPLANTS that apply: None Special Medications: Ancef 2 g IV x 1 Estimated Blood Loss: 10 cc Specimen collected: Yes Description of specimen(s) removed: Right lumpectomy Description of surgery: The patient was taken to the operating room and general anesthesia was induced. The right breast was prepped and draped in usual sterile fashion. A timeout was completed verifying correct patient, procedure, site, positioning, special equipment prior to beginning procedure. Ultrasound was use for localization of the breast mass using the Kopan's needle. The wire was placed just inferiorly to the mass. A elliptical incision was planned to include the nipple areolar complex as the mass was retroareolar and the 9:00 lesion 2 cm from the nipple. Flaps were raised in the location of the wire confirmed. Dissection was then taken down circumferentially, taking care to include the entire localization needle and wide margin of grossly normal tissue. The specimen and entire localizing wire were removed. The specimen was oriented and sent to radiology. Confirmation was received that the entire target lesion had been resected and clipped. The cavity was irrigated. Hemostasis was checked. The breast incision was closed with interrupted sutures of 3-0 Vicryl and subcuticular sutures of 4-0 Monocryl. No attempt was made to close the space. Dermabond and supportive bra placed. The patient tolerated procedure well was taken to the postanesthesia care in stable condition Surgical Findings: See operative report Complications Complications: No
--- NOTE | 2024-09-25 08:18 | BI_ITS ---
PROCEDURE: BREAST BIOPSY SPECIMEN 09/25/2024 REASON FOR EXAM: Right excisional breast biopsy. TECHNIQUE: Evaluation of a suspicious lesion identified on mammography (BI-RADS 4). COMPARISON: Prior exam(s) dated August 28, 2024.. FINDINGS: The mass and clip are is identified on the surgical specimen image. BI/Breast Biopsy Specimen IMPRESSION: The mass and tissue clip marker are identified within surgical specimen. Reading Location: [id number]
--- NOTE | 2024-09-25 08:22 | DCINST_ITS ---
Discharge Instructions Diet Discharge Diet: No restrictions Activity Discharge Activity: May Not Drive (while taking narcotic pain meds.) May shower in (days): 1 Lifting Restrictions: 15 pounds for 1 week on the right. Dressing / Incision Call your doctor if your incision/area has: Continuous Slow Oozing, Sudden Increased Bleeding, Increased Pain/ Swelling and Increased Redness Call your doctor if you observe: Fever of 101 or Higher Suture Line Care: Avoid Pulling/Pushing and Avoid Pinching/Bending Remove Dressing in: 1 day Additional Dressing/Incision Instructions:: Remove bulky dressing tomorrow. May leave op-site dressing for 3-4 days. Okay to remove Steri-Strips from the breast incision in 7 to 10 days. Follow Up Care Please Follow Up With: Nina Rain MD When: Please call [phone] for an appointment to be seen in 2 week. Test Results: Test results from this visit will be discussed in further detail at your follow- up appointment, if applicable. Discharge Plan Admission Attending Provider: Nina Rain Primary Care Provider: Zhen Levine Instructions Print Language: Icelandic Discharge Orders/Prescriptions Prescriptions: New oxycodone 5 mg capsule 5 mg PO Q6H PRN (Reason: pain) 2 Days Qty: 5 0RF Continued cholecalciferol (vitamin D3) 25 mcg (1,000 unit) capsule 25 mcg PO DAILY Multiple Vitamin-Minerals Tablet 1 tab PO DAILY cyanocobalamin (vitamin B-12) 100 mcg tablet 100 mcg PO QDAY levothyroxine 75 mcg tablet 75 mcg PO DAILY Aneh-Ndsb-Iblmq (vit C-biotin) 50 mg -1,250 mcg tablet,chewable 2 tab PO DAILY naproxen sodium [Aleve] 220 mg capsule 220 mg PO BID PRN (Reason: pain) Referrals / Follow Up: Zhen Levine MD [Primary Care Provider] - Disposition Disposition (needs filled in before D/C Order can be placed): Home, Self Care
--- NOTE | 2024-09-25 08:44 | PCM.POST.ANE ---
Anesthesia: Postop Eval I Current Vital Signs Temperature: 97.5 F Pulse Rate: 58 Blood Pressure: 174/91 Respiratory Rate: 14 Pulse Ox: 99 Assessment Airway patent: Yes Spontaneous unlabored respirations: Yes Mental status: Awake nausea: No Vomiting: No Anesthesia Complication: No Fluid Hydration Crystalloid volume administer (ml): 1,000 Total IV fluid infused: 1,000 Progress Note Anesthesia document: Postop Eval 1 completed: Yes
--- NOTE | 2024-09-25 11:14 | POSTOPAN2_ITS ---
Anesthesia Postop Eval I Sum Postop Eval Completion status Anesthesia document: Postop Eval 1 completed: Yes Anesthesia Postop Eval I Summary Anesthesia Postop Eval I Summary: Anesthesia Postop Eval I: Assessment Summary Airway patent Yes 09/25/24 08:45 POST HOLE DIGGING MACHINE OPERATOR.HBARR Spontaneous unlabored Yes 09/25/24 08:45 POST HOLE DIGGING MACHINE OPERATOR.HBARR respirations Mental status Awake 09/25/24 08:45 POST HOLE DIGGING MACHINE OPERATOR.HBARR nausea No 09/25/24 08:45 POST HOLE DIGGING MACHINE OPERATOR.HBARR Vomiting No 09/25/24 08:45 POST HOLE DIGGING MACHINE OPERATOR.HBARR Anesthesia Postop Eval I: Fluid Summary Crystalloid volume administer 1,000 09/25/24 08:45 POST HOLE DIGGING MACHINE OPERATOR.HBARR (ml) Colloids volume administered ( ml) Blood Product volume administered (ml) Total IV fluid infused 1,000 09/25/24 08:45 POST HOLE DIGGING MACHINE OPERATOR.HBARR Anesthesia Postop Eval I: Summary Notes Anesthesia Complication No 09/25/24 08:45 POST HOLE DIGGING MACHINE OPERATOR.HBARR Anesthesia Complication Comment: Post-operative progress note Anesthesia: Postop Eval II Evaluation Mental status: Awake and Calm Pain Level: 1 nausea: No Vomiting: No Complications Anesthesia Complication: No
--- NOTE | 2024-09-25 11:14 | PCM.POSTANE2 ---
Anesthesia Postop Eval I Sum Postop Eval Completion status Anesthesia document: Postop Eval 1 completed: Yes Anesthesia Postop Eval I Summary Anesthesia Postop Eval I Summary: Anesthesia Postop Eval I: Assessment Summary Airway patent Yes 09/25/24 08:45 FILTER MACHINE OPERATOR.HBARR Spontaneous unlabored Yes 09/25/24 08:45 FILTER MACHINE OPERATOR.HBARR respirations Mental status Awake 09/25/24 08:45 FILTER MACHINE OPERATOR.HBARR nausea No 09/25/24 08:45 FILTER MACHINE OPERATOR.HBARR Vomiting No 09/25/24 08:45 FILTER MACHINE OPERATOR.HBARR Anesthesia Postop Eval I: Fluid Summary Crystalloid volume administer 1,000 09/25/24 08:45 FILTER MACHINE OPERATOR.HBARR (ml) Colloids volume administered ( ml) Blood Product volume administered (ml) Total IV fluid infused 1,000 09/25/24 08:45 FILTER MACHINE OPERATOR.HBARR Anesthesia Postop Eval I: Summary Notes Anesthesia Complication No 09/25/24 08:45 FILTER MACHINE OPERATOR.HBARR Anesthesia Complication Comment: Post-operative progress note Anesthesia: Postop Eval II Evaluation Mental status: Awake and Calm Pain Level: 1 nausea: No Vomiting: No Complications Anesthesia Complication: No
== END 2024-09-25 10:22 | disposition home or self-care (01) ==
LOC: SDC 05:54 → AC 05:57
PROVIDERS: PCP Family Medicine; Referring Provider Surgery; Visit Provider Surgery
PROC: 0HBV0ZZ Excision of Bilateral Breast, Open Approach (ICD-10-PCS; CPT 19302; principal; 2024-09-25 07:15)
DX: C50.911 Malignant neoplasm of unspecified site of right female breast (principal); I10 Essential (primary) hypertension; E03.9 Hypothyroidism, unspecified; Z79.890 Hormone replacement therapy; Z79.899 Other long term (current) drug therapy
CPT/HCPCS: 19301; 19285; 00400; 76098; 88305; 88341; 88342; A4648; A4216; J2405

== ENCOUNTER 2024-10-05 18:43 | Inpatient (IN) | payer MEDICARE, SELFPAY ==
[2024-10-05] VITALS (10 sets, daily range): BP systolic 141–193; BP diastolic 60–102; PULSE 15–83; RESP 15–57; TEMP 36.7–36.8; O2SAT 94–100; BMI 26.6; BMI 25.7
--- NOTE | 2024-10-05 18:58 | CT_ITS ---
PROCEDURE: CTA CHEST W/WO CONTRAST 10/05/2024 REASON FOR EXAM: Shortness of breath, elevated D-dimer. TECHNIQUE: CTA axial imaging of the chest with intravenous contrast. Coronal and Sagittal reconstruction series were provided. 3D, 3D post processing, 3D reconstructions, Maximum intensity projection (MIPs) Volume rendering and Shaded surface rendering was provided. PATIENT PREPARATION: Per protocol CONTRAST: Isovue 370 VOLUME: 100mL One or more dose reduction techniques were used (e.g., Automated exposure control, adjustment of the mA and/or kV according to patient size, use of iterative reconstruction technique). RADIATION DOSE SUMMARY: CTDlvol: 21 mGy DLP: 340 mGycm COMPARISON: Chest radiograph 09/04/24 FINDINGS: Hardware: None. Lymph nodes: Prior right axillary node dissection with surgical clips. No left axillary, hilar or mediastinal lymphadenopathy. Heart: The heart is normal in size without pericardial effusion. The great vessels are normal in caliber. Mild coronary artery and thoracic aortic calcifications. Pulmonary Vessels: No central filling defect within the segmental or subsegmental pulmonary arteries. Lungs and Airways: The central airways are patent. Scattered small bilateral pulmonary nodules (for example within the left upper lobe series 2, images 195 and 198). No focal consolidation, pleural effusion or pneumothorax. Upper Abdomen: Bones/soft tissues: Surgical clips within the right lower inner breast quadrant. Diverticulosis of the visualized colon. Thoracic spondylosis with chronic T5 and T10 vertebral body compression fracture deformities. CT/CTA Chest W/WO Contrast IMPRESSION: 1. No acute pulmonary embolism. 2. Small bilateral pulmonary nodules, which may represent noncalcified granulom a/scarring. However given patient's assumed history of breast cancer, follow-up CT chest in 2-3 months is recommended to ev aluate for stability/resolution. Reading Location: [id number]
--- NOTE | 2024-10-05 18:59 | EDS_ITS ---
HPI History of Present Illness Chief Complaint: Shortness of Breath Detail of Chief Complaint: Shortness of breath Informant: patient Narrative Narrative: Patient presents to the emergency department with complaint of shortness of breath it has been going on for about a month. Saw her primary care physician today who ordered some blood work and ordered a D-dimer that ended up positive at 1.26. Patient sent to the ER to have CTA of her chest to rule out PE. Patient denies any chest pain. She denies recent travel or surgery. She complains of exertional dyspnea. She has had minimal cough. She denies fever. No history of COPD or emphysema. She has no history of CHF. She denies weight gain or leg edema. [facility] Medical History Wears hearing aid Wears glasses Post-menopausal Cancer Thyroid disease Arthritis Anemia Non-smoker Shortness of breath on exertion Neuropathy History of echocardiogram HTN (hypertension) Macular degeneration Hearing loss, left Hearing loss, right BPPV (benign paroxysmal positional vertigo) Lupus Hx of breast cancer Hypothyroidism Peripheral neuropathy Right-sided chest wall pain Compression fracture of L4 vertebra Ambulatory dysfunction Vertigo Hypothyroidism History of breast cancer Home Medications ?Medication ?Instructions ?Recorded ?Last Taken ?Type cholecalciferol (vitamin D3) 25 25 mcg PO DAILY 09/24/24 History mcg (1,000 unit) capsule multivitamin with minerals 1 tab PO DAILY 12/10/21 History (Multiple Vitamin-Minerals tablet) cyanocobalamin (vitamin B-12) 100 100 mcg PO QDAY 07/2909/24/24 History mcg tablet levothyroxine 75 mcg tablet 75 mcg PO DAILY 09/04/24 0 09/24/24 History vitamin C 50 mg-biotin 1,250 mcg 2 tab PO DAILY 09/24/24 History chewable tablet (Tyla-Hpet-Flxpm (vit C-biotin)) naproxen sodium 220 mg capsule 220 mg PO BID PRN pain 09/13/24 09/24/24 History (Aleve) oxycodone 5 mg capsule 5 mg PO Q6H PRN pain 2 days #5 caps 09/25/24 Unknown Rx Allergy/AdvReac Type Severity Reaction Status Date / Time dextromethorphan (From Allergy Severe Hives Verified 10/05/24 18:54 Dharmesh-Lara DM Cough Chasers) prednisone Allergy Severe Hives Verified 10/05/24 18:54 valacyclovir (From Valtrex) Allergy Severe Hives Verified 10/05/24 18:54 Family History Mother Hypertension Osteoporosis Sister Cancer Surgical History Hx of bilateral cataract extraction S/P small bowel resection Hx of fracture of ankle History of right knee joint replacement Hx of hysterectomy Hx of appendectomy History of lumpectomy of right breast (~2004) Social History Smoking Status: Never smoker alcohol intake: never substance use type: does not use caffeine: Yes what type of physical activity do you participate in: none frequency: does not exercise ROS ROS ED Review of Systems ROS Unobtainable: other Constitutional Constitutional ED: Reports lethargy; Denies chills, fever(s), sweats or weight loss Eyes Eyes: Denies blurry vision, change in vision or diplopia ENT ENT ED: Denies rhinorrhea or sore throat Cardiovascular Cardiovascular: Denies chest pain, orthopnea or racing heartbeat Respiratory/Chest Respiratory/Chest: Reports dyspnea and dyspnea on exertion; Denies cough, orthopnea or sputum Gastrointestinal Gastrointestinal: Denies abdominal pain, diarrhea, nausea or vomiting Genitourinary Genitourinary ED: Denies dysuria, hematuria or urinary frequency Musculoskeletal Musculoskeletal: Denies arthralgias, back pain, myalgias or neck pain Integumentary Denies abscess, Abrasions or rash Neurologic Neurologic: Denies headache(s) or weakness Psychiatric Psychiatric: Denies anxiety, depression or suicidal thoughts Endocrine Endocrinology: Denies polydipsia, polyphagia or polyuria Hematologic/Lymphatic Hematologic/Lymphatic: Denies easy bleeding, easy bruising or lymphadenopathy Allergic/Immunologic Allergic/Immunologic ED: Denies mouth swelling, tongue swelling or urticaria EXAM Physical Exam Const Vital Signs: 10/05/24 18:43 10/05/24 18:45 10/05/24 19:05 Temperature 98.2 F Temperature Source Oral Pulse Rate 83 Respiratory Rate 30 H Respiratory Effort Short of Breath Respiratory Depth Respiratory Pattern Normal Blood Pressure 190/87 H 193/60 H Blood Pressure Mean 121 104 Pulse Ox 98 Oxygen Delivery Method Room Air 10/05/24 19:07 10/05/24 19:43 10/05/24 20:00 Temperature Temperature Source Pulse Rate 15 L 61 Respiratory Rate 57 H 17 Respiratory Effort Short of Breath Respiratory Depth Shallow Respiratory Pattern Tachypnea Blood Pressure 141/102 H Blood Pressure Mean 115 Pulse Ox 97 97 Oxygen Delivery Method Room Air Room Air Room Air Positive well nourished and well developed General Appearance ED: well developed and NAD HEENT Reports TM's clear and moist mucous membranes normocephalic and atraumatic; Negative for trauma or tenderness Tympanic Membrane ED: Yes TM's clear Eyes PERRL and EOMs intact bilaterally General Eye ED: Negative for pale conjunctiva or scleral icterus Neck no lymphadenopathy, supple and no JVD General: Negative for tenderness Chest Wall inspection of chest normal and palpation of chest normal Chest: Negative for tenderness Resp normal respiratory effort and clear to auscultation bilaterally Effort and Inspection: Negative for respiratory distress or pain with movement Auscultation: Negative for rhonchi, wheezes or diminished lung sounds Cardio regular rate, regular rhythm, S1 normal heart sound, S2 normal heart sound and no murmurs Peripheral Pulses: pulses 2+ throughout GI normal to inspection, nondistended, normoactive bowel sounds, soft to palpation, non-tender, non-distended and no masses Back/Spine no CVA tenderness and no thoracic nor lumbar tenderness Extremity normal to inspection General Extremety ED: Negative for edema General Extremity: Negative for edema Neuro oriented x3, CN's II-XII intact bilaterally, no sensory deficits noted and gait normal Sensorium / Orientation: awake, alert, oriented to person, oriented to place and oriented to time Motor Exam: strength 5/5 throughout and strength abnormal Psych mental status grossly normal Skin no rashes or lesions noted and no wounds MDM MDM MDM Narrative Medical decision making narrative: Patient presents with exertional dyspnea and recent blood work that showed elevated D-dimer. Patient has never had a stress test and has no heart history. EKG obtained on arrival showed sinus rhythm with ventricular rate of 53 bpm with incomplete right bundle branch block. Troponin obtained was elevated at 58. BT WATCH INSPECTOR FINAL MOVEMENT was 262. CTA of the chest obtained showed no evidence for PE or acute lung process. Patient was started on heparin drip and was given aspirin. Will discuss case with hospitalist to evaluate patient for admission. Lab Data Attestation: I reviewed the patient's lab results. Labs: Laboratory Results - last 24 hr 10/05/24 19:02 Troponin T High Sens 58 H* D NT pro BNP II 262 Radiography Diagnostic Testing: Clinical Impression(s) from Imaging Studies Chest CTA 10/05/24 18:58 IMPRESSION: 1. No acute pulmonary embolism. 2. Small bilateral pulmonary nodules, which may represent noncalcified gra nuloma/scarring. However given patient's assumed history of breast cancer, follow-up CT chest in 2-3 months is recommended to evaluate for stability/resolution. Reading Location: [facility] EKG Initial EKG: Attestation: I personally reviewed and interpreted this EKG as follows: Comments: Sinus bradycardia with ventricular rate of 53 bpm with right bundle branch block Discharge Plan Dx/Rx/DC Orders Clinical Impression: Exertional dyspnea, Elevated troponin, Unstable angina Disposition Disposition: Acute Care Hospital [facility]
--- NOTE | 2024-10-05 19:00 | EKG12_ITS ---
Test Reason : DYSRHYTHMIA Blood Pressure : */* mmHG Vent. Rate : 53 BPM Atrial Rate : 53 BPM P-R Int : 142 ms QRS Dur : 134 ms QT Int : 428 ms P-R-T Axes : 9 240 40 degrees QTcB Int : 401 ms Sinus bradycardia with Premature atrial complexes in a pattern of bigeminy Right bundle branch block Abnormal ECG Confirmed by Berny Recio ([id number]), editor school photograph NATHAN DESIR ([id number]) on 10/08/2024 6:54:33 AM Referred By: RU Confirmed By: Berny Recio
--- NOTE | 2024-10-05 19:06 | ED.RN ---
PT SENT TO ED FROM DR. HOLLAND CALLED HER FROM RESULTS OF HER D-DIMER TODAY BEING ELEVATED AND SOB
[2024-10-05 20:01] LABS: Pro- Brain NATRIURETIC PEPTIDE 262 pg/mL (<=1800); Troponin T High Sensitivity 58 ng/L (<=14)
--- NOTE | 2024-10-05 20:43 | PCM.HP.STD ---
[facility] - [facility] Date of Admission: 10/05/24 Date of Service: 10/05/24 Chief Complaint: PARKER x 1 Month. [facility] Narrative AURELIO NUNEZ, is a 83 F with past medical history of hypothyroidism; on levothyroxine, overweight; with BMI of 26.6 this admission, polyneuropathy, history of recurrent Right breast cancer; s/p lumpectomy (~2006) by Dr. 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 Rain of general surgery with patient recently evaluated on September 25, 2024, history of lupus, history of hysterectomy, history of appendectomy, history of small bowel resection (2022), history of macular degeneration, history of BPPV, history of compression fracture of L4 vertebra and OA; s/p Right TKR, history of Right ankle fracture and history of cervical spinal stenosis on scheduled ibuprofen twice daily and oxycodone p.o. every 6 hours as needed who presents to [facility] ER complaining of PARKER. Ms. Nunez reports her symptoms began approximately 1 month prior to admission with the gradual-onset of PARKER that has progressively worsened so she was evaluated by her PCP earlier today in the outpatient setting who ordered blood work including a D-dimer which turned out to be elevated at 1.26 so she was sent to the ER for CTA of the chest to rule out PE. She admits to widely fluctuating systolic blood pressure from ~130-190 mmHg accompanied by dizziness, lightheadedness and fatigue that is made worse when her heart rate dips in the 30s which is usually worse at night. Patient denied fever, chills, nausea, vomiting, chest pain, myalgias, arthralgias, headache, focal neurologic deficits, rash, weight gain or lower extremity edema. She also denies history of COPD, emphysema, CHF or similar previous episodes. In the ER she was noted to have a CTA of chest with IV contrast that revealed no acute pulmonary embolism but did show small bilateral pulmonary nodules which may represent noncalcified granuloma/scarring. However, given patient's assumed history of breast cancer, follow-up CT of the chest in 2 to 3 months is recommended for stability/resolution. Her laboratory studies revealed an elevated initial troponin T of 58 ng/L consistent with suspected Unstable Angina with executive assistant to president on-call recommending the ER physician that patient likely needs [facility] with recommendation for echocardiogram and formal consultation pending in the a.m. which is appreciated in advance. She was then admitted to the PCU for ongoing care for status expected to extend beyond 2 midnights. [facility] Medical History Wears hearing aid Wears glasses Post-menopausal Cancer Thyroid disease Arthritis Anemia Non-smoker Shortness of breath on exertion Neuropathy History of echocardiogram HTN (hypertension) Macular degeneration Hearing loss, left Hearing loss, right BPPV (benign paroxysmal positional vertigo) Lupus Hx of breast cancer Hypothyroidism Peripheral neuropathy Right-sided chest wall pain Compression fracture of L4 vertebra Ambulatory dysfunction Vertigo Hypothyroidism History of breast cancer Home Medications ?Medication ?Instructions ?Recorded ?Last Taken ?Type cholecalciferol (vitamin D3) 25 25 mcg PO DAILY supplement 12/10/21 10/05/24 History mcg (1,000 unit) capsule multivitamin with minerals 1 tab PO DAILY supplement 12/10/21 10/05/24 History (Multiple Vitamin-Minerals tablet) cyanocobalamin (vitamin B-12) 100 100 mcg PO QDAY supplement 08/21/24 10/05/24 History mcg tablet levothyroxine 75 mcg tablet 70 mcg PO DAILY hypothyroidism 09/04/24 10/05/24 History Allergy/AdvReac Type Severity Reaction Status Date / Time dextromethorphan (From Allergy Severe Hives Verified 10/05/24 18:54 Scot-Tussin DM Cough Chasers) prednisone Allergy Severe Hives Verified 10/05/24 18:54 valacyclovir (From Valtrex) Allergy Severe Hives Verified 10/05/24 18:54 Family History Mother Hypertension Osteoporosis Sister Cancer Surgical History Hx of bilateral cataract extraction S/P small bowel resection Hx of fracture of ankle History of right knee joint replacement Hx of hysterectomy Hx of appendectomy History of lumpectomy of right breast (~2004) Social History Smoking Status: Never smoker alcohol intake: never substance use type: does not use caffeine: Yes what type of physical activity do you participate in: none frequency: does not exercise ROS ROS Narrative Review of Systems: Constitutional: Patient admits to lethargy but she denies fever or chills. Eyes: Patient denies change in vision or discharge from eyes. ENT: Patient denies runny nose, sore throat or ear pain. Resp: Patient is a dyspnea on exertion and nonproductive cough as per HPI. CV: Patient denies chest pain, palpitations, heart racing or lower extremity edema. GI: Patient denies abdominal pain, nausea, vomiting, diarrhea or constipation. : Patient denies dysuria, hematuria or urinary frequency. MSK: Patient denies arthralgias or myalgias. Skin: Patient denies rash, abscess, wounds or jaundice. Psych: Patient denies symptoms of uncontrolled depression or anxiety. Neuro: Patient denies headache, paresthesias or focal neurologic deficits. Allergy: Patient denies lip swelling, tongue swelling or urticaria. Hematology: Patient denies easy bleeding or easy bruisability. Endocrinology: Patient denies polyuria, polydipsia, polyphagia or heat/cold intolerance. 14 point ROS otherwise negative save for positives noted above in HPI. Vital Signs Vital Signs Vital Signs: 10/05/24 18:43 10/05/24 18:45 10/05/24 19:05 Temperature 98.2 F Temperature Source Oral Pulse Rate 83 Respiratory Rate 30 H Respiratory Effort Short of Breath Respiratory Depth Respiratory Pattern Normal Blood Pressure 190/87 H 193/60 H Blood Pressure Mean 121 104 Pulse Ox 98 Oxygen Delivery Method Room Air 10/05/24 19:07 10/05/24 19:43 10/05/24 20:00 Temperature Temperature Source Pulse Rate 15 L 61 Respiratory Rate 57 H 17 Respiratory Effort Short of Breath Respiratory Depth Shallow Respiratory Pattern Tachypnea Blood Pressure 141/102 H Blood Pressure Mean 115 Pulse Ox 97 97 Oxygen Delivery Method Room Air Room Air Room Air Weight Weight: 165 lb Body Mass Index (BMI) 26.6 Physical Exam Const alert, oriented x3 and average body habitus Constitutional Narrative: Mild discomfort noted. General Appearance: cooperative HEENT normocephalic, head/scalp atraumatic and hearing grossly normal bilaterally Eyes PERRL, EOMs intact bilaterally and conjunctivae normal Neck no lymphadenopathy, supple and no JVD Resp normal respiratory effort, no retractions, no use of accessory muscles and clear to auscultation bilaterally Cardio regular rate and regular rhythm GI normal to inspection, nondistended, normoactive bowel sounds, soft to palpation, non-tender and non-distended Extremity normal to inspection, full ROM and no clubbing, cyanosis or edema Skin Skin Narrative: Patient has no evidence of rash, abscess, wounds or jaundice. Neuro oriented x3, CN's II-XII intact bilaterally, moves all extremities and no focal motor deficits Sensorium / Orientation: awake, alert, oriented to person, oriented to place and oriented to time Speech: speech normal Psych affect normal Results Medical Records Data Attestation: I reviewed the patient's medical records Lab / Micro Data Attestation: I reviewed the patient's lab results. 10/06/24 03:24 10/06/24 03:24 Labs: Laboratory Results - last 24 hr 10/05/24 19:02: Troponin T High Sens 58 H* D, NT pro BNP II 262 Imaging Radiology Impression Chest CTA 10/05/24 18:58 IMPRESSION: 1. No acute pulmonary embolism. 2. Small bilateral pulmonary nodules, which may represent noncalcified granuloma/scarring. However given patient's assumed history of breast cancer, follow-up CT chest in 2-3 months is recommended to evaluate for stability/resolution. Reading Location: [facility] Assessment & Plan Assessment/Plan (1) Unstable angina: (2) Elevated troponin: (3) Exertional dyspnea: (4) Recurrent cancer of right breast: (5) Overweight (BMI 25.0-29.9): PLAN: Plan 1. Elevated initial troponin T of 58 ng/L consistent with suspected Unstable Angina with progressively worsening PARKER x 1 month - Admit to PCU for treatment under the unstable angina protocol. Continue aspirin and IV heparin begun in the ER plus add statin. Serialize troponin. Check echocardiogram to evaluate LVEF. Give acetaminophen as needed for [id number] (level 1-5/10) pain or fever. Give morphine IV as needed for severe (level 6-10/10) pain. Finally, we will consult Dr. Malloy of the cardiology service see this patient on rounds in the a.m. further recommendations regarding C this admission with help appreciated in advance. 2. CTA of chest with IV contrast that revealed no acute pulmonary embolism but did show small bilateral pulmonary nodules which may represent noncalcified granuloma/scarring. However, given patient's assumed history of breast cancer, follow-up CT of the chest in 2 to 3 months is recommended for stability/resolution complicating #1 - Patient will need to be set up for follow-up imaging as recommended by radiology. 3. History of recurrent Right breast cancer; s/p lumpectomy (~2006) by Dr. 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 Rain of general surgery with patient recently evaluated on September 25, 2024 compounding #1 & #2 - Noted with CT outlined in #2 concerning for possible worsening. 4. OA; s/p Right TKR, history of Right ankle fracture and history of cervical spinal stenosis plus history of L4 compression fracture on scheduled ibuprofen twice daily and oxycodone p.o. every 6 hours as needed adding to the medical complexity of #1 - #3 - Give acetaminophen as needed as per pain scale noted above in #1. 5. Hypothyroidism; on levothyroxine - Resume levothyroxine and check TSH. 6. Overweight; with BMI of 26.6 this admission - Weight loss will be recommended. Check TSH. 7. Polyneuropathy - Stable. 8. History of lupus - Stable with no evidence of acute flare. 9. History of hysterectomy - Noted. 10. History of appendectomy - Noted. 11. History of small bowel resection (2022) - Noted. 12. History of macular degeneration - Stable. 13. History of BPPV - Give meclizine as needed for breakthrough symptoms. 14. DVT prophylaxis - Patient on IV heparin for #1. Total time: Approximately (but not less than) 75 minutes. Charges/Coding Visit Charges Inpatient E&M: 94564 Init Hosp L3
[2024-10-05 20:59] LABS: International Normalized Ratio 0.9; Prothrombin Time (Protime)PT. 12.8 SECONDS (11.7-14.9)
[2024-10-05 21:00] LABS: Partial Thromboplast Time 27.9 Seconds (24.1-36.2)
[2024-10-05] MEDS: HEPARIN/D5w 25,000 UNITS 25,000 UNITS/250 ML IV.SOLN. 11 UNITS CONT INF (21:09)
[2024-10-05] MEDS: Heparin Injection (Vial) 5,000 UNIT/ML VIAL 5000 UNIT IV (21:09)
[2024-10-05] MEDS: Aspirin 81 MG TAB.CHEW 324 MG PO (21:18)
--- NOTE | 2024-10-05 21:43 | EKG12_ITS ---
Test Reason : AM EKG/PRE HEART CATH Blood Pressure : */* mmHG Vent. Rate : 59 BPM Atrial Rate : 59 BPM P-R Int : 206 ms QRS Dur : 142 ms QT Int : 446 ms P-R-T Axes : 32 246 38 degrees QTcB Int : 441 ms Sinus bradycardia Right bundle branch block Abnormal ECG When compared with ECG of 05-Oct-2024 22:36, MANUAL COMPARISON REQUIRED DATA IS UNCONFIRMED Confirmed by Berny Recio ([id number]), video news editor NATHAN DESIR ([id number]) on 10/08/2024 1:21:57 PM Referred By: YI Confirmed By: Berny Recio
[2024-10-05 21:59] LABS: Anion Gap 10 (5-15); BUN 23 mg/dL (4-19); BUN/Creat Ratio 19.7 RATIO (10-20); Calcium,Total 9.2 mg/dL (7.6-11.0); Carbon Dioxide 25.5 mmol/L (21.0-32.0); Chloride 100 mmol/L (98-108); Creatinine, Serum 1.18 mg/dL (0.70-1.20); EST Glomerular Filtration Rate 46 (>60); Estimated Creatinine Clearance 36.71 ml/min (50-250); Glucose 100 mg/dL (70-99); Magnesium 1.7 mg/dL (1.5-2.2); Potassium 4.3 mmol/L (3.3-5.1); Sodium Level 135 mmol/L (133-145)
[2024-10-05 22:32] LABS: Troponin T High Sens 2 HR 60 ng/L (<=14)
[2024-10-05] MEDS: Atorvastatin Calcium 40 MG Tablet PO (23:19)
[2024-10-05] MEDS: hydrALAZINE 20 MG/ML Vial 5 MG IV (23:20)
[2024-10-06] VITALS (9 sets, daily range): BP systolic 142–197; BP diastolic 56–80; PULSE 50–63; RESP 16–22; TEMP 36.1–37.1; O2SAT 94–98; BMI 26.3
[2024-10-06 00:16] LABS: Hemoglobin A1c 5.5 % (<=5.6)
[2024-10-06 00:17] LABS: Troponin T High Sens 4 HR 54 ng/L (<=14)
--- NOTE | 2024-10-06 05:55 | EKG12_ITS ---
Test Reason : CP ADMIT Blood Pressure : */* mmHG Vent. Rate : 56 BPM Atrial Rate : 56 BPM P-R Int : 194 ms QRS Dur : 144 ms QT Int : 430 ms P-R-T Axes : 12 245 51 degrees QTcB Int : 414 ms Sinus bradycardia Right bundle branch block Abnormal ECG When compared with ECG of 05-Oct-2024 18:50, MANUAL COMPARISON REQUIRED DATA IS UNCONFIRMED Confirmed by Berny Recio ([id number]), associate entertainment editor NATHAN DESIR ([id number]) on 10/08/2024 1:22:04 PM Referred By: Confirmed By: Berny Recio
[2024-10-06] MEDS: Levothyroxine 75 MCG Tablet PO (06:45)
[2024-10-06 07:16] LABS: Absolute Lymphocyte Count 1.43 X10^3/uL (0.83-4.51); Absolute Neutrophil Count 4.6 X10^3/uL (2.0-7.7); Basophil# 0.02 X10^3/uL; Basophil% 0.3 % (0-1); Eosinophil# 0.18 X10^3/uL; Eosinophils% 2.6 % (0-5); Hematocrit 30.6 % (37-47); Hemoglobin 10.1 g/dL (12.0-15.0); Lymphocyte # 1.43 X10^3/ul (0.83-4.51); Lymphocyte % 20.3 % (19-41); Mean Corpuscular Hgb 32.4 pg (27.0-32.0); Mean Corpuscular Volume 98.1 fL (81-99); Mean Platelet Vol. 10.5 fl (6.2-12.0); Monocyte# 0.82 X10^3/uL; Monocyte% 11.6 % (0-10); NRBC Flagged by Analyzer 0 % (0-5); Neutrophil # 4.57 X10^3/uL (2.7-7.7); Neutrophil % 64.8 % (47-70); Platelet Count 222 K/mm3 (150-450); RBC Distribution Width CV 12.8 % (11.6-14.6); RBC Distribution Width SD 45.7 fl (35.1-43.9); Red Blood Count 3.12 M/mm3 (4.2-5.4); White Blood Count 7.1 K/mm3 (4.4-11.0)
[2024-10-06 07:49] LABS: AST(SGOT) 24 U/L (<=31); Alanine Aminotransfer ALT/SGPT 11 U/L (<=34); Albumin, Serum 3.2 g/dL (3.4-4.8); Alkaline Phosphatase 84 U/L (35-104); Anion Gap 12 (5-15); BUN 21 mg/dL (4-19); BUN/Creat Ratio 19.1 RATIO (10-20); Carbon Dioxide 20.4 mmol/L (21.0-32.0); Chloride 101 mmol/L (98-108); Cholesterol 140 mg/dL (<=200); EST Glomerular Filtration Rate 50 (>60); Estimated Creatinine Clearance 39.15 ml/min (50-250); Globulin 3.2 g/dL (2.2-4.2); Glucose 98 mg/dL (70-99); High Density Lipoprotein 55 mg/dL; Low Density Lipoprotein Calc. 75 mg/dL; Potassium 3.9 mmol/L (3.3-5.1); Protein, Total 6.4 g/dL (5.9-8.4); Sodium Level 133 mmol/L (133-145); Total Bilirubin 0.21 mg/dL (0.00-1.30); Triglycerides 51 mg/dL; Very Low Density Lipoprotein 10 mg/dL (5-40); cholesterol:hdl ratio screen 2.57
--- NOTE | 2024-10-06 08:12 | PN.HOSP_ITS ---
Reason for Visit Reason for Visit: Diagnoses Malignant neoplasm of unspecified site of right female breast (10/05/24) Overweight (10/05/24) Unstable angina (10/05/24) Other forms of dyspnea (10/05/24) Other specified abnormal findings of blood chemistry (10/05/24) Subjective Subjective Complains of PARKER with any movement for the past month. Does not recall if she had these symptoms when she last had an echo on 09/09. Objective Data Objective Data Vital Signs: Vital Signs Temp Pulse Resp BP Pulse Ox O2 Del Method 36.5 C L 60 20 H 150/65 H 98 Room Air 10/06/24 03:53 10/06/24 03:53 10/06/24 03:53 10/06/24 03:53 10/06/24 03:53 10/06/24 03:53 Oxygen Delivery Method Room Air Weight: 73.9 kg Body Mass Index (BMI) 26.3 Intake & Output: Intake and Output for Last 24 Hours 10/04/24 10/05/24 10/06/24 23:59 23:59 23:59 Intake Total 155.6 / 155.6 Balance 155.6 / 155.6 Lab / Micro Data 10/06/24 03:24 10/06/24 03:24 Labs: Laboratory Results - last 24 hr 10/05/24 19:02: PT 12.8, INR 0.9, APTT 27.9, Sodium 135, Potassium 4.3, Chloride 100, Carbon Dioxide 25.5, Anion Gap 10, BUN 23 H, Creatinine 1.18, Estim Creat Clear Calc 36.71 L, Est GFR (MDRD) Non-Af 46 L, BUN/Creatinine Ratio 19.7, G lucose 100 H, Calcium 9.2, Magnesium 1.7, Troponin T High Sens 58 H* D, NT pro BNP II 262 10/05/24 21:22: Troponin T Hi Sens 2 Hr 60 H* 10/05/24 23:34: Hemoglobin A1c 5.5, Troponin T Hi Sens 4Hr 54 H* 10/06/24 03:24: WBC 7.1, RBC 3.12 L, Hgb 10.1 L, Hct 30.6 L, MCV 98.1, MCH 32.4 H, MCHC 33.0, RDW Std Deviation 45.7 H, RDW Coeff of Hernán 12.8, Plt Count 222, MPV 10.5, Immature Gran % (Auto) 0.400, Neut % (Auto) 64.8, Lymph % (Auto) 20.3, [place] % (Auto) 11.6 H, Eos % (Auto) 2.6, Baso % (Auto) 0.3, Absolute Neuts (auto) 4.6, Absolute Lymphs (auto) 1.43, Nucleated RBC % 0, Sodium 133, Potassium 3.9, Chloride 101, Carbon Dioxide 20.4 L, Anion Gap 12, BUN 21 H, Creatinine 1.10, E stim Creat Clear Calc 39.15 L, Est GFR (MDRD) Non-Af 50 L, BUN/Creatinine Ratio 19.1, Glucose 98, Calcium 9.0, Phosphorus 3.0, Total Bilirubin 0.21, AST 24, ALT 11, Alkaline Phosphatase 84, Total Protein 6.4, Albumin 3.2 L, Globulin 3.2, Albumin/Globulin Ratio 1.0, Triglycerides 51, Cholesterol 140, LDL Cholesterol, Calc 75, VLDL Cholesterol 10, HDL Cholesterol 55, Cholesterol/HDL Ratio 2.57, TSH 3.300 Radiography Diagnostic Testing: Radiology Impression Chest CTA 10/05/24 18:58 IMPRESSION: 1. No acute pulmonary embolism. 2. Small bilateral pulmonary nodules, which may represent noncalcified granuloma/scarring. However given patient's assumed history of breast cancer, follow-up CT chest in 2-3 months is recommended to evaluate for stability/resolution. Reading Location: [facility] Physical Exam Const alert and no apparent distress HEENT head/scalp atraumatic and moist oral mucous membranes Resp normal respiratory effort, no retractions, no use of accessory muscles and clear to auscultation bilaterally Cardio Cardio Narrative: bradycardic. sinus arti on tele. GI normal to inspection, nondistended, normoactive bowel sounds, soft to palpation, non-tender and non-distended Extremity normal to inspection Neuro Sensorium / Orientation: awake Assessment & Plan Assessment/Plan (1) Exertional dyspnea: PLAN: Unclear etiology. CTA chest showed no PE. Small bilateral pulm nodules. (2) Elevated troponin: PLAN: Elevated in August. Unclear significance. Cardiology consulted. Echo ordered (Echo on 3/16 EG 65%) on heparin gtt. (3) Bradycardia: PLAN: sinus arti at rest. Patient states that her HR jumps up when she moves. unclear significance at this point. PLAN: Plan Chronic conditions: * breast CA: follow up with oncology. * hypothyroidism: levothyroxine. VTE prophylaxis: not indicated as already anticoagulated. Discussed with family at bedside. Charges/Coding Visit Charges Inpatient E&M: 56232 Subs Hosp L2
[2024-10-06] MEDS: Multivitamins,Ther W-Minerals Tablet 1 TABLET PO (08:24)
[2024-10-06] MEDS: Aspirin E.C. 81 MG Tablet PO (08:24)
[2024-10-06] MEDS: Cholecalciferol (VIT D3) 25 MCG TABLET (1,000 UNITS) PO (08:24)
[2024-10-06 08:44] LABS: Partial Thromboplast Time > 250.0 Seconds (24.1-36.2)
--- NOTE | 2024-10-06 13:02 | CASEMGMT ---
KETAN AMARO Assessment: Face to Face with pt for initial transition planning/care coordination assessment. KETAN AMARO introduced self and role at [facility], pt voices understanding and consents to assessment. Pt is A&O x4 and answers all questions appropriately at this time. Pt sitting up in bed in no distress. Care providers, pharmacy, and demographics verified/updated. Admitting Dx: Non STEMI, unstable angina, HTN PCP:Abner Specialists:ROCAEL Rain; misa Gould; opal Yarbrough Preferred Pharmacy: [facility] Insurance: [facility] Prescription Benefit: yes LNOK: Fer Nunez, son; Isabel Nunez, dil Living Arrangements: Pt lives alone in a single story home with 2 steps with a rail. Pt reports she is I in ADL/IADLS and denies concerns at home. Transportation: Pt does not drive. Pt son transports her to medical appts. DME:built in seat with shower, cane, walker- Doesn't use AD HHC/SNF: Denies hx of Pt states no concerns with going home at time of dc. Pt refused therapy, pt upset that she has not seen cardio yet. Pt states no further concerns/needs. CM to follow. Advised pt to ask CM if any further questions/concerns/needs arise, voices understanding. Pt Goal: Home Plan: Home Ros ACEVES CM
[2024-10-06 13:38] LABS: Partial Thromboplast Time 122.4 Seconds (24.1-36.2)
--- NOTE | 2024-10-06 14:53 | CON.PCM.CA_ITS ---
<Statement entered by Joce Malloy MD - 10/06/24 15:11> Pt seen & evaluated w/DEREK. I personally interviewed & exam the pt. 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 Symptoms of fatigue on exertion. EKG reviewed revealed right bundle branch block with normal sinus rhythm. Cardiac exam essentially normal Cardiac care plan recommendations; I review all the current evaluation as well as previous cardiac assessment Previous echocardiogram LV function has been preserved. Cardiac care plan discussed in detail, which include further evaluation by Krish rodarte All evaluation during this admission has been reviewed which include the EKG, cardiac telemetry, CT scan, lab results. Patient has a chronically elevated high sensitive troponin level however she is symptomatic with progressive symptoms of shortness of breath with fatigue Patient as well as very hard of hearing. Will discuss further plan based on results of Krish rodarte and she will be followed and evaluated further by the cardiology team Since she been stable ,change IV heparin to subcu for prophylaxis. HPI Consult Data Date of Consult: 10/06/24 HPI Narrative Reason for Consultation: Elevated troponins HPI Narrative: AURELIO WOODWARD, is a 83 F who presents [facility] Medical History Wears hearing aid Wears glasses Post-menopausal Cancer Thyroid disease Arthritis Anemia Non-smoker Shortness of breath on exertion Neuropathy History of echocardiogram HTN (hypertension) Macular degeneration Hearing loss, left Hearing loss, right BPPV (benign paroxysmal positional vertigo) Lupus Hx of breast cancer Hypothyroidism Peripheral neuropathy Right-sided chest wall pain Compression fracture of L4 vertebra Ambulatory dysfunction Vertigo Hypothyroidism History of breast cancer Home Medications ?Medication ?Instructions ?Recorded ?Last Taken ?Type cholecalciferol (vitamin D3) 25 25 mcg PO DAILY supple ment 12/10/21 10/05/24 History mcg (1,000 unit) capsule multivitamin with minerals 1 tab PO DAILY supplement 0 12/10/21 10/05/24 History (Multiple Vitamin-Minerals tablet) cyanocobalamin (vitamin B-12) 100 100 mcg PO QDAY supp lement 08/21/24 10/05/24 History mcg tablet levothyroxine 75 mcg tablet 70 mcg PO DAILY hypothyroi dism 09/04/24 10/05/24 History Allergy/AdvReac Type Severity Reaction Status Date / Time dextromethorphan (From Allergy Severe Hives Verified 10/05/24 18:54 Scot-Tussin DM Cough Chasers) prednisone Allergy Severe Hives Verified 10/05/24 18:54 valacyclovir (From Valtrex) Allergy Severe Hives Verified 10/05/24 18:54 Family History Mother Hypertension Osteoporosis Sister Cancer Surgical History Hx of bilateral cataract extraction S/P small bowel resection Hx of fracture of ankle History of right knee joint replacement Hx of hysterectomy Hx of appendectomy History of lumpectomy of right breast (~2004) Social History Smoking Status: Never smoker alcohol intake: never substance use type: does not use caffeine: Yes what type of physical activity do you participate in: none frequency: does not exercise Physical Exam Cardio Cardio Narrative: Patient seen and evaluated at bedside along with the nursing staff Has symptoms of shortness of breath mainly on exertion. Associated with fatigue and tiredness Does not have any symptoms of chest pain. Underlying cardiac rhythm sinus rhythm Cardiovascular exam S1-S2 regular No systolic or diastolic murmur Chest exam mildly diminished air entry bilateral. Examination lower extremity no lower extremity edema Risk Stratification Risk Stratification Applicable: No Objective Data Vital Signs: Vital Signs Temp Pulse Resp BP Pulse Ox O2 Del Method 97.0 F L 50 L 16 142/59 H 98 Room Air 10/06/24 08:20 10/06/24 08:20 10/06/24 08:20 10/06/24 08:20 10/06/24 08:30 10/06/24 08:30 Oxygen Delivery Method Room Air Weight: 162 lb 14.746 oz Body Mass Index (BMI) 26.3 Intake & Output: Intake and Output for Last 24 Hours 10/04/24 10/05/2425 23:59 23:59 23:59 Intake Total 271.6 / 271.6 Balance 271.6 / 271.6 Lab / Micro Data 10/06/24 03:24 10/06/24 03:24 Labs: Laboratory Results - last 24 hr 10/05/24 19:02: PT 12.8, INR 0.9, APTT 27.9, Sodium 135, Potassium 4.3, Chloride 100, Carbon Dioxide 25.5, Anion Gap 10, BUN 23 H, Creatinine 1.18, Estim Creat Clear Calc 36.71 L, Est GFR (MDRD) Non-Af 46 L, BUN/Creatinine Ratio 19.7, G lucose 100 H, Calcium 9.2, Magnesium 1.7, Troponin T High Sens 58 H* D, NT pro BNP II 262 10/05/24 21:22: Troponin T Hi Sens 2 Hr 60 H* 10/05/24 23:34: Hemoglobin A1c 5.5, Troponin T Hi Sens 4Hr 54 H* 10/06/24 03:24: WBC 7.1, RBC 3.12 L, Hgb 10.1 L, Hct 30.6 L, MCV 98.1, MCH 32.4 H, MCHC 33.0, RDW Std Deviation 45.7 H, RDW Coeff of Hernán 12.8, Plt Count 222, MPV 10.5, Immature Gran % (Auto) 0.400, Neut % (Auto) 64.8, Lymph % (Auto) 20.3, Ulster % (Auto) 11.6 H, Eos % (Auto) 2.6, Baso % (Auto) 0.3, Absolute Neuts (auto) 4.6, Absolute Lymphs (auto) 1.43, Nucleated RBC % 0, Sodium 133, Potassium 3.9, Chloride 101, Carbon Dioxide 20.4 L, Anion Gap 12, BUN 21 H, Creatinine 1.10, E stim Creat Clear Calc 39.15 L, Est GFR (MDRD) Non-Af 50 L, BUN/Creatinine Ratio 19.1, Glucose 98, Calcium 9.0, Phosphorus 3.0, Total Bilirubin 0.21, AST 24, ALT 11, Alkaline Phosphatase 84, Total Protein 6.4, Albumin 3.2 L, Globulin 3.2, Albumin/Globulin Ratio 1.0, Triglycerides 51, Cholesterol 140, LDL Cholesterol, Calc 75, VLDL Cholesterol 10, HDL Cholesterol 55, Cholesterol/HDL Ratio 2.57, TSH 3.300 10/06/24 04:20: APTT > 250.0 H* 10/06/24 12:50: APTT 122.4 H* Cardiology Labs/Tests 10/05/24 19:02: PT 12.8, INR 0.9, APTT 27.9, Sodium 135, Potassium 4.3, Chloride 100, Carbon Dioxide 25.5, Anion Gap 10, BUN 23 H, Creatinine 1.18, Est GFR (MDRD) Non-Af 46 L, BUN/Creatinine Ratio 19.7, Glucose 100 H, Calcium 9.2, Magnesium 1.7 10/05/24 23:34: Hemoglobin A1c 5.5 10/06/24 03:24: WBC 7.1, RBC 3.12 L, Hgb 10.1 L, Hct 30.6 L, MCV 98.1, MCH 32.4 H, MCHC 33.0, Plt Count 222, MPV 10.5, Immature Gran % (Auto) 0.400, Neut % (Auto) 64.8, Lymph % (Auto) 20.3, Ulster % (Auto) 11.6 H, Eos % (Auto) 2.6, Baso % (Auto) 0.3, Absolute Neuts (auto) 4.6, Nucleated RBC % 0, Sodium 133, Potassium 3.9, Chloride 101, Carbon Dioxide 20.4 L, Anion Gap 12, BUN 21 H, Creatinine 1.10, Est GFR (MDRD) Non-Af 50 L, BUN/Creatinine Ratio 19.1, Glucose 98, Calcium 9.0, Phosphorus 3.0, Total Bilirubin 0.21, Triglycerides 51, Cholesterol 140, VLDL Cholesterol 10, HDL Cholesterol 55, Cholesterol/HDL Ratio 2.57 10/06/24 04:20: APTT > 250.0 H* 10/06/24 12:50: APTT 122.4 H* Rhythm: EKG: ECHO: Stress Test: Cardiac Cath: PCI: CT Surgery: Holter monitor: EPS: PPM: CXR: Chest CT Scan: Radiography Diagnostic Testing: Radiology Impression Chest CTA 10/05/24 18:58 IMPRESSION: 1. No acute pulmonary embolism. 2. Small bilateral pulmonary nodules, which may represent noncalcified granuloma/scarring. However given patient's assumed history of breast cancer, follow-up CT chest in 2-3 months is recommended to evaluate for stability/resolution. Reading Location: [id number]
[2024-10-06] MEDS: Atorvastatin Calcium 40 MG Tablet PO (21:14)
[2024-10-06] MEDS: Heparin Injection (Vial) 5,000 UNIT/ML VIAL 5000 UNIT SC (21:14)
[2024-10-06] MEDS: MELATONIN 3 MG TABLET PO ×2 (21:14)
[2024-10-06] MEDS: hydrALAZINE 20 MG/ML Vial 5 MG IV (21:14)
[2024-10-07 03:36] VITALS: BMI 26.2
[2024-10-07 04:30] VITALS: BP 158/68; PULSE 52; RESP 18; TEMP 36.9; O2SAT 94
[2024-10-07] MEDS: Levothyroxine 75 MCG Tablet PO (04:55)
--- NOTE | 2024-10-07 07:45 | PN.HOSP_ITS ---
Reason for Visit Reason for Visit: Diagnoses Malignant neoplasm of unspecified site of right female breast (10/05/24) Overweight (10/05/24) Unstable angina (10/05/24) Bradycardia, unspecified (10/05/24) Other forms of dyspnea (10/05/24) Other specified abnormal findings of blood chemistry (10/05/24) Personal history of malignant neoplasm of breast (10/05/24) Subjective Subjective Feeling better. Has been up and ambulating short distances w/o difficulty. Objective Data Objective Data Vital Signs: Vital Signs Temp Pulse Resp BP Pulse Ox O2 Del Method 36.9 C 52 L 18 158/68 H 94 Room Air 10/07/24 04:30 10/07/24 04:30 10/07/24 04:30 10/07/24 04:30 10/07/24 04:30 10/07/24 07:34 Oxygen Delivery Method Room Air Weight: 73.6 kg Body Mass Index (BMI) 26.2 Intake & Output: Intake and Output for Last 24 Hours 10/05/24 10/06/24 10/07/24 23:59 23:59 23:59 Intake Total 631.6 / 631.6 Balance 631.6 / 631.6 Lab / Micro Data 10/06/24 03:24 10/06/24 03:24 Labs: Laboratory Results - last 24 hr 10/06/24 03:24: Sodium 133, Potassium 3.9, Chloride 101, Carbon Dioxide 20.4 L, Anion Gap 12, BUN 21 H, Creatinine 1.10, Estim Creat Clear Calc 39.15 L, Est GFR (MDRD) Non-Af 50 L, BUN/Creatinine Ratio 19.1, Glucose 98, Calcium 9.0, Phosphorus 3.0, Total Bilirubin 0.21, AST 24, ALT 11, Alkaline Phosphatase 84, Total Protein 6.4, Albumin 3.2 L, Globulin 3.2, Albumin/Globulin Ratio 1.0, Triglycerides 51, Cholesterol 140, LDL Cholesterol, Calc 75, VLDL Cholesterol 10, HDL Cholesterol 55, Cholesterol/HDL Ratio 2.57, TSH 3.300 10/06/24 04:20: APTT > 250.0 H* 10/06/24 12:50: APTT 122.4 H* 10/07/24 04:55: Phosphorus 3.0 Physical Exam Const alert and no apparent distress Resp normal respiratory effort, no retractions, no use of accessory muscles and clear to auscultation bilaterally Cardio regular rate, regular rhythm, S1 normal heart sound and S2 normal heart sound GI normal to inspection, nondistended, normoactive bowel sounds, soft to palpation and non-tender Extremity normal to inspection and full ROM Assessment & Plan Assessment/Plan (1) Exertional dyspnea: PLAN: Unclear etiology. CTA chest showed no PE. Small bilateral pulm nodules. Cardiology following Stress test ordered. (2) Elevated troponin: PLAN: Elevated in August. Unclear significance. Cardiology consulted. Echo ordered (Echo on 09/09 EG 65%) on heparin gtt. (3) Bradycardia: PLAN: overall improved. continue to monitor. no need for PPM at this time. PLAN: Plan Chronic conditions: * breast CA: follow up with oncology. * hypothyroidism: levothyroxine. VTE prophylaxis: not indicated as already anticoagulated. Charges/Coding Visit Charges Inpatient E&M: 63264 Subs Hosp L2
[2024-10-07 09:30] VITALS: BP 135/66; PULSE 58; RESP 18; TEMP 36.9; O2SAT 95
[2024-10-07] MEDS: Aspirin E.C. 81 MG Tablet PO (09:32)
[2024-10-07] MEDS: Multivitamins,Ther W-Minerals Tablet 1 TABLET PO (09:32)
[2024-10-07] MEDS: Cholecalciferol (VIT D3) 25 MCG TABLET (1,000 UNITS) PO (09:32)
--- NOTE | 2024-10-07 12:40 | PN.CARD_ITS ---
<Statement entered by Joce Malloy MD - 10/07/24 13:57> Pt seen & evaluated w/DEREK. I personally interviewed & exam the pt. I was involved in all aspects of pt's orders, interpretation of results & treatment Subjective Subjective Seen and evaluated today at bedside No further symptoms reported symptoms of shortness of breath is improving. Objective Data Vital Signs: Vital Signs Temp Pulse Resp BP Pulse Ox O2 Del Method 98.5 F 58 L 18 135/66 H 95 Room Air 10/07/24 09:30 10/07/24 09:30 10/07/24 09:30 10/07/24 09:30 10/07/24 09:30 10/07/24 09:30 Oxygen Delivery Method Room Air Weight: 162 lb 4.163 oz Body Mass Index (BMI) 26.2 Intake & Output: Intake and Output for Last 24 Hours 10/05/24 10/06/24 10/07/24 23:59 23:59 23:59 Intake Total 631.6 / 631.6 Balance 631.6 / 631.6 Lab / Micro Data 10/06/24 03:24 10/06/24 03:24 Labs: Laboratory Results - last 24 hr 10/06/24 12:50: APTT 122.4 H* 10/07/24 04:55: Phosphorus 3.0 Cardiology Labs/Tests 10/06/24 12:50: APTT 122.4 H* 10/07/24 04:55: Phosphorus 3.0 Rhythm: EKG: ECHO: Stress Test: Cardiac Cath: PCI: CT Surgery: Holter monitor: EPS: PPM: CXR: Chest CT Scan: Physical Exam Cardio Cardio Narrative: Patient seen and evaluated at bedside family were at bedside at time of evaluation Review of the monitoring manager showed underlying normal sinus rhythm. Cardiac exam S1-S2 regular Chest exam clear to auscultation bilateral. Examination lower extremity no lower extremity edema noted. Assessment & Plan Assessment/Plan (1) Bradycardia: (2) Elevated troponin: (3) Exertional dyspnea: (4) Recurrent cancer of right breast: (5) Hypothyroidism: PLAN: Cardiac regular recommendation 83-year-old patient seen and evaluated and examined today at bedside Patient presentation was progressive symptoms of shortness of breath improving while she was resting. Discussed the results of the CTA chest which showed small bilateral pleural effusion no pulm embolism noted. She had elevated cardiac biomarker and she is scheduled for further evaluation by echocardiogram as well as Lexiscan sestamibi in the morning. Previous echocardiogram showed EF preserved Ejection fraction around 65% I discussed in detail the cardiac care plan with the patient and family as well as with the nursing staff
[2024-10-07] MEDS: Heparin Injection (Vial) 5,000 UNIT/ML VIAL 5000 UNIT SC ×2 (14:24→20:55)
[2024-10-07 16:15] VITALS: BP 147/54; PULSE 74; RESP 18; TEMP 36.9; O2SAT 94
[2024-10-07] MEDS: Atorvastatin Calcium 40 MG Tablet PO (20:55)
[2024-10-07 21:00] VITALS: BP 138/53; PULSE 57; RESP 18; TEMP 36.6; O2SAT 95
[2024-10-08 02:45] VITALS: BP 164/67; PULSE 78; RESP 18; TEMP 37; O2SAT 96
[2024-10-08 03:05] LABS: Bedside Glucose 99 mg/dL (74-106)
[2024-10-08 06:00] VITALS: BMI 25.7
[2024-10-08] MEDS: Levothyroxine 75 MCG Tablet PO (06:11)
[2024-10-08] MEDS: Aspirin E.C. 81 MG Tablet PO (06:12)
--- NOTE | 2024-10-08 07:18 | PCM.PN.HOSP ---
Reason for Visit Reason for Visit: Diagnoses Malignant neoplasm of unspecified site of right female breast (10/05/24) Overweight (10/05/24) Unstable angina (10/05/24) Bradycardia, unspecified (10/05/24) Other forms of dyspnea (10/05/24) Other specified abnormal findings of blood chemistry (10/05/24) Personal history of malignant neoplasm of breast (10/05/24) Subjective Subjective Patient is an 83-year-old female who was admitted with shortness of breath worsening with activity and assessment of angina equivalent made admitted to a monitored bed with patient is currently undergoing further evaluation Objective Data Objective Data Vital Signs: Vital Signs Temp Pulse Resp BP Pulse Ox O2 Del Method 98.6 F 78 18 164/67 H 96 Room Air 10/08/24 02:45 10/08/24 02:45 10/08/24 02:45 10/08/24 02:45 10/08/24 02:45 10/08/24 02:45 Oxygen Delivery Method Room Air Weight: 72.484 kg Body Mass Index (BMI) 25.7 Intake & Output: Intake and Output for Last 24 Hours 10/06/24 10/07/24 10/08/24 23:59 23:59 23:59 Intake Total 631.6 / 631.6 720 / 720 Balance 631.6 / 631.6 720 / 720 Lab / Micro Data 10/06/24 03:24 10/06/24 03:24 Labs: Laboratory Results - last 24 hr 10/08/24 02:33: POC Glucose 99 Physical Exam Narrative GENERAL: cooperative HEENT: Atraumatic; normocephalic EYES; Anicteric, Normal Conjunctiva NECK; supple, normal thyroid, RESPIRATORY: Diminished to auscultation CARDIOVASCULAR: Regular S1 S2, GI: soft, normoactive bowel sounds, : No Renal angle tenderness; EXTREMITIES: No edema, no clubbing, MUSCULOSKELETAL: no muscle wasting NEURO: Awake; no lateralizing signs. SKIN: No Rash PSYCH; Flat affect Assessment & Plan Assessment/Plan (1) Chest pain: QUALIFIERS: Chest pain type: other chest pain Qualified Code(s): R07.89 - Other chest pain PLAN: Plan Patient is an 83-year-old lady admitted with progressive shortness of breath worsened with exertion 1. Angina equivalent ? Patient placed on a monitored bed [place] was ruled out with serial cardiac enzymes. As part of her evaluation 2D echo and a nuclear stress test ordered 2. Hypothyroidism ? Patient is on levothyroxine home dose continued 3. History of right breast CA status postlumpectomy ? Patient follows up with Dr. Cornelius with general surgery as outpatient 4. Abnormal CT of the chest CTA obtained to rule out PE did show small bilateral pulmonary nodules which may represent noncalcified granuloma/scarring. Given patient history of breast CA plans for patient to have repeat CAT scan in 2 to 3 months. Related/resolution 5. Bradycardia ? Plan is for patient to be monitored on continuous telemetry 6. DVT prophylaxis ? Subcu heparin Time spent in the patient's overall evaluation,decision-making process, review of diagnostic data, adjustment of management, discussion with other providers, nursing nursing and ancillary staff involved in patient's care documentation, 36 minutes Charges/Coding Visit Charges Inpatient E&M: 89515 Subs Hosp L2
--- NOTE | 2024-10-08 08:18 | PN.CARD_ITS ---
Subjective Subjective Patient reports that she feels fine today as long as she is resting in the seated position. She reports that anytime she gets up and tries to do anything she gets dizzy short of breath with any activity and is very fatigued. Apparently this has been going on for some time. She was evaluated in her primary care physician's office and her troponin was elevated at 58 which led to her admission. Patient is scheduled for an echocardiogram and stress test today. Her troponins were essentially unchanged at 58, 60, and then 54. BNP was also low at 262. The patient reports that when she is at home her heart rate fluctuates between 35 and 120. There has been no documentation of any significant tacky or bradycardia arrhythmias since her admission. Objective Data Vital Signs: Vital Signs Temp Pulse Resp BP Pulse Ox O2 Del Method 98.6 F 78 18 164/67 H 96 Room Air 10/08/24 02:45 10/08/24 02:45 10/08/24 02:45 10/08/24 02:45 10/08/24 02:45 10/08/24 02:45 Oxygen Delivery Method Room Air Weight: 159 lb 12.8 oz Body Mass Index (BMI) 25.7 Intake & Output: Intake and Output for Last 24 Hours 10/06/24 10/07/24 10/08/24 23:59 23:59 23:59 Intake Total 631.6 / 631.6 720 / 720 Balance 631.6 / 631.6 720 / 720 Lab / Micro Data Attestation: I reviewed the patient's lab results. 10/06/24 03:24 10/06/24 03:24 Labs: Laboratory Results - last 24 hr 10/08/24 02:33: POC Glucose 99 Rhythm Strip Rhythm Strip: Sinus Rhythm Rate: 70 Cardiology Labs/Tests Rhythm: EKG: ECHO: Stress Test: Cardiac Cath: PCI: CT Surgery: Holter monitor: EPS: PPM: CXR: Chest CT Scan: Physical Exam Const alert and oriented x3 HEENT normocephalic Eyes EOMs intact bilaterally Neck no JVD Resp normal respiratory effort Auscultation: diminished lung sounds left lower Cardio regular rate, regular rhythm, S1 normal heart sound, S2 normal heart sound, no murmurs, no rub and no gallops Extremity no pedal edema Psych mental status grossly normal Assessment & Plan Assessment/Plan (1) Elevated troponin: PLAN: Patient's troponins were minimally elevated at 58, 60, and then 54. N- terminal proBNP was 262. Patient denies any exertional type anginal symptoms. She does however complain of dizziness with change of position but has a history of vestibular dysfunction. She also complains of some dyspnea on exertion and extreme fatigue. Patient reports as long as she is at rest she is essentially asymptomatic. (2) Exertional dyspnea: PLAN: Patient's dyspnea on exertion has been present for some time. It is associated with profound fatigue. Patient is scheduled for pharmacologic stress test and an echo today. (3) Chest pain: QUALIFIERS: Chest pain type: other chest pain Qualified Code(s): R07.89 - Other chest pain PLAN: Patient's chest pain last seconds is momentary and occurs randomly primarily at rest. She had 1 episode earlier this morning that lasted 2 to 3 seconds and resolve spontaneously. PLAN: Plan 1. Will follow-up on the results of the echo and stress test today. 2. Will defer further workup of the fatigue and dyspnea on exertion to the primary service provided the stress test and echo did not elucidate any etiologies. 3. Provided the stress and echo are within acceptable normal range patient should be able to be discharged to home later today from a cardiovascular standpoint. Charges/Coding Visit Charges Inpatient E&M: 86440 Subs Hosp L2
[2024-10-08 08:42] VITALS: BP 146/72; PULSE 74; RESP 16; TEMP 36.4; O2SAT 96
--- NOTE | 2024-10-08 11:09 | STRESSREP ---
Stress Test Report Pharmacologic myocardial perfusion stress test. 83-year-old lady with a history of shortness of breath and dizziness. Resting EKG demonstrates sinus rhythm with a right bundle branch block with a rate of 64 bpm. Resting blood pressure is 128/78 mmHg. 0.4 mg of regadenoson was infused per usual protocol followed by rapid intravenous saline flush injection. Continuous EKG monitoring was performed. The maximum heart rate was 88 bpm which was 64% of max impacted heart rate the maximum workload was 1 metabolic equivalent. At rest there were no ST or T wave changes noted to suggest ischemia and at peak infusion nonspecific ST changes were noted which did not meet the criteria for ischemia. No clinical angina is noted. The final blood pressure was 142/62 mmHg. Myocardial perfusion protocol. 11.8 mCi of technetium 99m sestamibi was injected at rest. 0.4 mg of regadenoson was infused per usual protocol. At peak infusion 35.1 mCi of technetium 99m sestamibi was injected stress images were obtained stress and rest images were reconstructed and compared in the short axis vertical long and horizontal long axis. Gated images were also obtained. Perfusion SPECT analysis: Review of the stress images demonstrate normal uptake of tracer noted in all areas of the myocardium. The resting images similar demonstrated normal uptake of tracer noted in all areas of the myocardium. No areas of reversibility are noted to suggest ischemia and no previous infarct is noted. There is however significant GI attenuation artifact present and therefore inferior ischemia cannot be completely excluded if it was present. Gated SPECT analysis: The gated ejection fraction is 86%. Conclusion: Normal pharmacologic myocardial perfusion stress test. Preserved ejection fraction.
[2024-10-08 14:14] VITALS: BP 143/77; PULSE 85; RESP 14; TEMP 36.9; O2SAT 97
--- NOTE | 2024-10-08 16:32 | PCM.DC.SUM ---
Providers Date of Admission: 10/05/24 Date of Discharge: 10/08/24 Primary Care Physician: Dr. Zhen Levine MD Consultations 10/05/24 21:43 Consult: Cardiology Routine Consulting Provider: Joce Malloy Reason for Consult: Elevated troponin EMERGENT Consult: No MD Notified: Yes Date Notified: 10/05/24 Time Notified: 21:13 Method of Notification: ED Physician Initiated Reason For Visit: UNSTABLE ANGINA Diagnosis Discharge Diagnosis (1) Chest pain: Status: Acute Code(s): R07.9 - Chest pain, unspecified Qualifiers: Chest pain type: other chest pain Qualified Code(s): R07.89 - Other chest pain Plan Patient is an 83-year-old lady admitted with progressive shortness of breath worsened with exertion 1. Angina equivalent ? Patient placed on a monitored bed DE was ruled out with serial cardiac enzymes. As part of her evaluation a nuclear stress test was ordered. Patient nuclear stress test was negative for stress-induced ischemia patient requested to be discharged following receipt of her test result 2. Hypothyroidism ? Patient is on levothyroxine home dose continued 3. History of right breast CA status postlumpectomy ? Patient follows up with Dr. Cornelius with general surgery as outpatient 4. Abnormal CT of the chest CTA obtained to rule out PE did show small bilateral pulmonary nodules which may represent noncalcified granuloma/scarring. Given patient history of breast CA plans for patient to have repeat CAT scan in 2 to 3 months. Related/resolution 5. Bradycardia ? Plan is for patient to be monitored on continuous telemetry 6. DVT prophylaxis ? Subcu heparin Time spent in the patient's overall evaluation,decision-making process, review of diagnostic data, adjustment of management, discussion with other providers, nursing nursing and ancillary staff involved in patient's care documentation, 36 minutes Medications at Discharge Home Medications cholecalciferol (vitamin D3) 25 mcg (1,000 unit) capsule 25 mcg PO DAILY supplement 12/10/21 multivitamin with minerals (Multiple Vitamin-Minerals tablet) 1 tab PO DAILY supplement 12/10/21 cyanocobalamin (vitamin B-12) 100 mcg tablet 100 mcg PO QDAY supplement 08/21/24 levothyroxine 75 mcg tablet 70 mcg PO DAILY hypothyroidism 09/04/24 Physical Exam Narrative GENERAL: cooperative HEENT: Atraumatic; normocephalic EYES; Anicteric, Normal Conjunctiva NECK; supple, normal thyroid, RESPIRATORY: Diminished to auscultation CARDIOVASCULAR: Regular S1 S2, GI: soft, normoactive bowel sounds, : No Renal angle tenderness; EXTREMITIES: No edema, no clubbing, MUSCULOSKELETAL: no muscle wasting NEURO: Awake; no lateralizing signs. SKIN: No Rash PSYCH; Flat affect Weight / BMI Weight Weight: 72.484 kg Body Mass Index (BMI) 25.7 ABG / Lab / Microbiology Data 10/06/24 03:24 10/06/24 03:24 Laboratory: Laboratory Results - last 24 hr 10/08/24 02:33: POC Glucose 99 D/C Instructions Discharge Diet: No restrictions Discharge Activity: Return to Normal Activity Call your doctor if you observe: Fever of 101 or Higher, Shortness of breath, Fainting spells and Chest pain DC O2, CPAP, BIPAP Needs Home O2 Discharge instructions: No Meaningful Use Info Meaningful Use Meaningful Use Diagnoses (Choose all that apply): None applicable Ischemic Stroke Statin Dosing Therapy Reference: STATIN DOSE THERAPY REFERENCE: * Patients > 75 years receive moderate or high dose statin therapy. * Patients 75 years or YOUNGER should receive HIGH intensity statin dose unless contraindicated. You will be required to document reason for non-treatment if statin daily dose does not meet guidelines. HIGH DOSE STATIN THERAPY DAILY Atorvastatin > than or = to 40 mg Rosuvastatin > than or = to 20 mg Amlodipine + Atorvastatin > than or = to 2.5/40 mg Ezetimibe + Simvastatin 10/80 mg Simvastatin 80mg Discharge Plan Admission Admit Date/Time: 10/05/24 21:12 Attending Provider: Fer Prado Primary Care Provider: Zhen Levine Consulting Providers: Joce Malloy; Fer Méndez; Braden Elaine Discharge Orders/Prescriptions Prescriptions: Continued cholecalciferol (vitamin D3) 25 mcg (1,000 unit) capsule 25 mcg PO DAILY Multiple Vitamin-Minerals Tablet 1 tab PO DAILY cyanocobalamin (vitamin B-12) 100 mcg tablet 100 mcg PO QDAY levothyroxine 75 mcg tablet 70 mcg PO DAILY Referrals / Follow Up: Zhen Levine MD [Primary Care Provider] - Within 2 Weeks Disposition Disposition (needs filled in before D/C Order can be placed): Home, Self Care Charges/Coding Visit Charges Inpatient E&M: 18485 Disch Hosp >30min
== END 2024-10-08 16:43 | disposition home or self-care (01) | DRG 311 ==
LOC: ED 20:57 → PCU 21:56
PROVIDERS: Admitting Provider Internal Medicine; Emergency Provider Emergency Medicine; PCP Family Medicine; Visit Provider Internal Medicine
DX: I20.89 Other forms of angina pectoris (principal); C50.911 Malignant neoplasm of unspecified site of right female breast; E03.9 Hypothyroidism, unspecified; I10 Essential (primary) hypertension; M17.11 Unilateral primary osteoarthritis, right knee; I45.10 Unspecified right bundle-branch block; G62.9 Polyneuropathy, unspecified; R00.1 Bradycardia, unspecified; M19.90 Unspecified osteoarthritis, unspecified site; H81.13 Benign paroxysmal vertigo, bilateral; E66.3 Overweight; H91.93 Unspecified hearing loss, bilateral; Z68.26 Body mass index [BMI] 26.0-26.9, adult; Z79.890 Hormone replacement therapy; R79.89 Other specified abnormal findings of blood chemistry; Z79.82 Long term (current) use of aspirin; Z90.710 Acquired absence of both cervix and uterus; R91.8 Other nonspecific abnormal finding of lung field; R93.89 Abnormal findings on diagnostic imaging of other specified body structures
CPT/HCPCS: 36415; 71275; 78452; 80048; 80053; 82962; 83036; 83735; 83880; 84100; 84484; 85025; 85379; 85610; 85730; 93005; 93017; 99252; 99285; A9500; Q9967; A4216; G0463; J2785

== ENCOUNTER → 2024-10-05 | Outpatient (CLI) | payer MEDICARE, SELFPAY ==
[2024-10-05 15:28] LABS: Absolute Lymphocyte Count 1.27 X10^3/uL (0.83-4.51); Absolute Neutrophil Count 5.4 X10^3/uL (2.0-7.7); Basophil# 0.04 X10^3/uL; Basophil% 0.5 % (0-1); Eosinophil# 0.11 X10^3/uL; Eosinophils% 1.5 % (0-5); Hematocrit 36.9 % (37-47); Hemoglobin 11.8 g/dL (12.0-15.0); Lymphocyte # 1.27 X10^3/ul (0.83-4.51); Lymphocyte % 16.9 % (19-41); Mean Corpuscular Hgb 31.9 pg (27.0-32.0); Mean Corpuscular Volume 99.7 fL (81-99); Mean Platelet Vol. 10.5 fl (6.2-12.0); Monocyte# 0.66 X10^3/uL; Monocyte% 8.8 % (0-10); NRBC Flagged by Analyzer 0 % (0-5); Neutrophil # 5.39 X10^3/uL (2.7-7.7); Neutrophil % 71.8 % (47-70); Platelet Count 266 K/mm3 (150-450); RBC Distribution Width CV 12.7 % (11.6-14.6); RBC Distribution Width SD 46.6 fl (35.1-43.9); White Blood Count 7.5 K/mm3 (4.4-11.0)
[2024-10-05 16:02] LABS: AST(SGOT) 30 U/L (<=31); Alanine Aminotransfer ALT/SGPT 13 U/L (<=34); Albumin, Serum 3.8 g/dL (3.4-4.8); Alkaline Phosphatase 96 U/L (35-104); Anion Gap 13 (5-15); BUN 21 mg/dL (4-19); BUN/Creat Ratio 16.7 RATIO (10-20); Calcium,Total 9.6 mg/dL (7.6-11.0); Carbon Dioxide 24.1 mmol/L (21.0-32.0); Chloride 99 mmol/L (98-108); Creatinine, Serum 1.24 mg/dL (0.70-1.20); EST Glomerular Filtration Rate 43 (>60); Globulin 3.9 g/dL (2.2-4.2); Glucose 80 mg/dL (70-99); Magnesium 1.8 mg/dL (1.5-2.2); Potassium 4.3 mmol/L (3.3-5.1); Protein, Total 7.7 g/dL (5.9-8.4); Sodium Level 135 mmol/L (133-145); Total Bilirubin 0.34 mg/dL (0.00-1.30)
[2024-10-05 17:58] LABS: D-Dimer Quantitative (DVT/PE) 1.26 FEU/ug/m (0.27-0.49)
== END | disposition home or self-care (01) ==
LOC: MFPLAB 11:57
PROVIDERS: PCP Family Medicine; Referring Provider Family Medicine; Visit Provider Family Medicine
DX: R06.02 Shortness of breath (principal); R00.1 Bradycardia, unspecified
CPT/HCPCS: 36415; 80053; 83735; 85025; 85379

== ENCOUNTER → 2024-11-12 | Outpatient (CLI) | payer MEDICARE, SELFPAY ==
--- NOTE | 2024-11-12 10:58 | CDU_ITS ---
Reason For Study Reason For Study: Dizziness Rt. Velocities/BP Lt. Velocities/BP Prox CCA 78.7/12.6 cm/sec. Prox CCA 86.1/13.5 cm/sec. Mid CCA 76.8/14.5 cm/sec. Mid CCA 90.5/11.3 cm/sec. Dist CCA 78.7/14.5 cm/sec. Dist CCA 77.3/8 cm/sec. Prox ICA 64.5/11.6 cm/sec. Prox ICA 87.2/14.6 cm/sec. Mid ICA 90.5/24.5 cm/sec. Mid ICA 97.4/21.2 cm/sec. Dist ICA 106.9/20.1 cm/sec. Dist ICA 88.8/15.1 cm/sec. Rt. ICA/CCA = 1.39. Lt. ICA/CCA = 1.08. Prox ECA 79.6/6 cm/sec. Prox ECA 60.1/2.9 cm/sec. Rt. Vert. 60.8/13.5 cm/sec. Lt. Vert. 49.8/10.2 cm/sec. Right Extracranial There is homogeneous, smooth atherosclerotic plaque noted in the right common carotid artery. There is intimal thickening but no significant atherosclerotic plaque noted in the right internal carotid artery. There is intimal thickening but no significant atherosclerotic plaque noted in the right external carotid artery. Antegrade flow is noted in the right vertebral artery. Left Extracranial There is homogeneous, smooth atherosclerotic plaque noted in the left common carotid artery. There is heterogeneous, irregular atherosclerotic plaque noted in the left internal carotid artery. There is intimal thickening but no significant atherosclerotic plaque noted in the left external carotid artery. Antegrade flow is noted in the left vertebral artery. Procedure Carotid Duplex 33525. This is a Carotid Duplex examination using B-mode, color flow and specral Doppler. Exam performed in department. VL/Carotid Duplex Ultrasound Interpretation Summary Normal right extracranial internal carotid. Mild (<50%) stenosis left extracranial internal carotid. Patent and antegrade vertebrals bilaterally. Ordering Physician: Zhen Guillermo Referring Physician: Zhen Levine Performed By: Ghislaine Blanchard RVT
== END | disposition home or self-care (01) ==
LOC: CVS 10:54
PROVIDERS: PCP Family Medicine; Referring Provider Nurse Practitioner Family; Visit Provider Nurse Practitioner Family
DX: I65.22 Occlusion and stenosis of left carotid artery (principal); R42 Dizziness and giddiness
CPT/HCPCS: 93880

== ENCOUNTER → 2024-12-12 | Outpatient (CLI) | payer MEDICARE, SELFPAY | END | disposition home or self-care (01) | LOC: PSN 09:25 | PROVIDERS: PCP Family Medicine; Referring Provider Family Medicine; Visit Provider Family Medicine | DX: R06.02 Shortness of breath (principal) | CPT/HCPCS: 94060 ==

== ENCOUNTER 2025-03-11 18:46 | Emergency (ER) | payer MEDICARE, SELFPAY ==
[2025-03-11 18:47] VITALS: BP 139/72; PULSE 53; RESP 18; TEMP 35.7; O2SAT 97
[2025-03-11 19:02] VITALS: BMI 24.9
--- NOTE | 2025-03-11 19:29 | EDS_ITS ---
HPI HPI - Fall History of Present Illness Chief Complaint: Fall Informant: patient and family Narrative Narrative: 84-year-old female was going to walk her blind dog, who was under her feet and she accidentally stumbled over him, falling while inside of her home, landing on her buttocks in the corner hitting her head on a nearby piece of furniture on her way down. She thinks maybe she lost consciousness/awareness for less than a minute. She has a terrible headache. Her neck is a little sore. Her right hand is a little sore and she denies pain or injury elsewhere. She has been ambulatory without difficulty since then. She takes no anticoagulants. [facility] Medical History Bradycardia Wears hearing aid Wears glasses Post-menopausal Cancer Thyroid disease Arthritis Anemia Non-smoker Shortness of breath on exertion Neuropathy History of echocardiogram HTN (hypertension) Macular degeneration Hearing loss, left Hearing loss, right BPPV (benign paroxysmal positional vertigo) Lupus Hx of breast cancer Hypothyroidism Peripheral neuropathy Right-sided chest wall pain Compression fracture of L4 vertebra Ambulatory dysfunction Vertigo Hypothyroidism History of breast cancer Home Medications ?Medication ?Instructions ?Recorded ?Last Taken ?Type cholecalciferol (vitamin D3) 25 25 mcg PO DAILY supple ment 12/10/21 10/05/24 History mcg (1,000 unit) capsule multivitamin with minerals 1 tab PO DAILY supplement 0 12/10/21 10/05/24 History (Multiple Vitamin-Minerals tablet) cyanocobalamin (vitamin B-12) 100 100 mcg PO QDAY supp lement 08/21/24 10/05/24 History mcg tablet levothyroxine 75 mcg tablet 70 mcg PO DAILY hypothyroi dism 09/04/24 10/05/24 History Allergy/AdvReac Type Severity Reaction Status Date / Time dextromethorphan (From Allergy Severe Hives Verified 03/11/25 18:47 Scot-Tussin DM Cough Chasers) prednisone Allergy Severe Hives Verified 03/11/25 18:47 valacyclovir (From Valtrex) Allergy Severe Hives Verified 03/11/25 18:47 Family History Mother Hypertension Osteoporosis Sister Cancer Surgical History Status post right breast lumpectomy Hx of bilateral cataract extraction S/P small bowel resection Hx of fracture of ankle History of right knee joint replacement Hx of hysterectomy Hx of appendectomy History of lumpectomy of right breast (~2004) Social History Smoking Status: Never smoker alcohol intake: never substance use type: does not use caffeine: Yes what type of physical activity do you participate in: none frequency: does not exercise ROS ROS ED Constitutional Constitutional ED: Denies chills or fever(s) Eyes Eyes: Denies change in vision or diplopia ENT ENT ED: Denies ear pain, epistaxis, facial pain or rhinorrhea Cardiovascular Cardiovascular: Denies chest pain or palpitations Respiratory/Chest Respiratory/Chest: Denies cough or dyspnea Gastrointestinal Gastrointestinal: Denies abdominal pain, diarrhea, melena, nausea or vomiting Genitourinary Genitourinary ED: Denies dysuria or hematuria Musculoskeletal Musculoskeletal: Reports back pain, extremity pain and neck pain Integumentary Denies abscess, Abrasions, laceration or rash Neurologic Neurologic: Denies confusion, headache(s), paresthesias or weakness Hematologic/Lymphatic Hematologic/Lymphatic: Reports easy bruising EXAM Physical Exam Const Vital Signs: 03/11/25 18:47 03/11/25 18:59 Temperature 96.2 F L Temperature Source Temporal Pulse Rate 53 L Respiratory Rate 18 Blood Pressure 139/72 H Blood Pressure Mean 94 Pulse Ox 97 Oxygen Delivery Method Room Air Room Air Positive well nourished and well developed General Appearance ED: well developed and NAD HEENT Reports TM's clear and nasal mucous membranes and turbinates normal HEENT Narrative: No crepitance/depression. No Rivera sign, no raccoon eyes, no CSF otorhinorrhea, no hemotympanum. trauma, hematoma Hematoma Size: Approximately 4 cm, posterior scalp to the left and tenderness Face and Sinus: Negative for facial tenderness Tympanic Membrane ED: Yes TM's clear Eyes PERRL and EOMs intact bilaterally Visual Acuity: other Other Details: no entrapment or pain with extraocular movements Neck full ROM and supple Neck Narrative: Midline tenderness in the top of the cervical spine but nowhere else. General: tenderness Chest Wall inspection of chest normal and palpation of chest normal Chest: symmetrical chest wall rise; Negative for crepitus or tenderness Resp normal respiratory effort and clear to auscultation bilaterally Percussion: other equal BS bilat Cardio Rate: regular rate Rhythm: regular rhythm GI normal to inspection, nondistended, normoactive bowel sounds, soft to palpation and non-tender Back/Spine normal ROM Back/Spine Narrative: There is some mild paraspinal tenderness in the lumbar area but no midline tenderness. Full range of motion without limitation. Cervical Spine: cervical spine tenderness Thoracic Spine / Upper Back: Negative for thoracic spinal tenderness Lumbar Spine / Lower Back: Negative for lumbar spinal tenderness Extremity normal to inspection and full ROM Extremity Narrative: Mild tenderness on a contusion dorsum of the right hand, near the wrist which she can move without limitation or difficulty. Distal radius and ulna are nontender bilaterally. There are no deformities or significant swelling. Full range of motion of all fingers and FDP, FDS and all digits intact. No other evidence of extremity injury acutely. General Extremety ED: Yes tenderness Neuro oriented x3, CN's II-XII intact bilaterally, moves all extremities, no focal motor deficits and no sensory deficits noted [place] Coma Scale: document GCS findings Spontaneous Obeys Commands Oriented 15 Sensorium / Orientation: awake and alert Psych mental status grossly normal and thought process normal Skin no wounds Skin Narrative: Intact skin on both the right hand and the scalp where the hematoma lies. Lesions: no lesions Rashes: no rashes MDM MDM MDM Narrative Medical decision making narrative: Three-view x-ray series of the right hand my interpretation negative for acute fracture. CT of the head and cervical spine were obtained in order to rule out intracranial injury and fracture, I reviewed the images and reports which I agree with, negative for anything acute. Patient reassured, she was offered Tylenol but states that does not help my pain, she wants to take Advil. I advise doing so in a limited fashion but will give her a dose here. Radiography Diagnostic Testing: Clinical Impression(s) from Imaging Studies Brain CT 03/11/25 19:40 IMPRESSION: 1. No acute intracranial abnormality. 2. Moderate left parietal scalp contusion/hematoma. No calvarial fracture. 3. No acute cervical spine fracture or malalignment. Degenerative changes as described. Reading Location: [facility] Cervical Spine CT 03/11/25 19:40 IMPRESSION: 1. No acute intracranial abnormality. 2. Moderate left parietal scalp contusion/hematoma. No calvarial fracture. 3. No acute cervical spine fracture or malalignment. Degenerative changes as described. Reading Location: [facility] Hand X-Ray 03/11/25 19:43 IMPRESSION: No acute fracture or dislocation. Reading Location: [facility] Discharge Plan Triage Chief Complaint: Fall ED Provider: Alli Snell Dx/Rx/DC Orders Clinical Impression: Closed head injury with brief loss of consciousness, Hematoma of occipital region of scalp, Acute cervical myofascial strain, Acute lumbosacral myofascial strain, Contusion of hand, right, Fall from slip, trip, or stumble Instructions: ED Head Injury (Adult) Prescriptions: No Action cholecalciferol (vitamin D3) 25 mcg (1,000 unit) capsule 25 mcg PO DAILY Multiple Vitamin-Minerals Tablet 1 tab PO DAILY cyanocobalamin (vitamin B-12) 100 mcg tablet 100 mcg PO QDAY levothyroxine 75 mcg tablet 70 mcg PO DAILY Primary Care Provider: Zhen Levine Referrals: Zhen Levine MD [Primary Care Provider] - 1 Week if not improving Print Language: Congolese Disposition Disposition: Home, Self Care
--- NOTE | 2025-03-11 19:40 | CT_ITS ---
EXAM: CT BRAIN/HEAD WITHOUT CONTRAST; SPINE CERVICAL WITHOUT CONTRAST CLINICAL HISTORY: FALL/TRAUMA COMPARISON: None. TECHNIQUE: Noncontrast CT images of the head and cervical spine with multiplanar reconstructions. Dose reduction techniques were used including intermediate exposure control (AEC),iterative reconstruction technique, and/or mA and/or KV dose adjustments based on patient's size. FINDINGS: HEAD: No acute intracranial hemorrhage, extra-axial collection, mass effect or evidence of acute infarct. Mild generalized brain parenchymal volume loss and chronic microangiopathic changes in the supratentorial white matter. Absent [place] ocular lenses. Moderate left parietal scalp contusion/hematoma. Intact skull base and calvarium. Well-aerated paranasal sinuses and mastoid air cells. CERVICAL SPINE: No acute fracture or subluxation. Alignment is anatomic. Mild multilevel spondylotic changes with varying degrees of disc space narrowing, anterior osteophytosis, uncovertebral spurring and hypertrophic facet arthropathy. Prominent left paracentral dorsal disc osteophyte complex results in moderate-advanced narrowing of the spinal canal and left neural foramen. No prevertebral soft tissue swelling. CT/Spine Cervical without Contras IMPRESSION: 1. No acute intracranial abnormality. 2. Moderate left parietal scalp contusion/hematoma. No calvarial fracture. 3. No acute cervical spine fracture or malalignment. Degenerative changes as d escribed. Reading Location: [facility]
--- NOTE | 2025-03-11 19:40 | CT_ITS ---
EXAM: CT BRAIN/HEAD WITHOUT CONTRAST; SPINE CERVICAL WITHOUT CONTRAST CLINICAL HISTORY: FALL/TRAUMA COMPARISON: None. TECHNIQUE: Noncontrast CT images of the head and cervical spine with multiplanar reconstructions. Dose reduction techniques were used including intermediate exposure control (AEC),iterative reconstruction technique, and/or mA and/or KV dose adjustments based on patient's size. FINDINGS: HEAD: No acute intracranial hemorrhage, extra-axial collection, mass effect or evidence of acute infarct. Mild generalized brain parenchymal volume loss and chronic microangiopathic changes in the supratentorial white matter. Absent [place] ocular lenses. Moderate left parietal scalp contusion/hematoma. Intact skull base and calvarium. Well-aerated paranasal sinuses and mastoid air cells. CERVICAL SPINE: No acute fracture or subluxation. Alignment is anatomic. Mild multilevel spondylotic changes with varying degrees of disc space narrowing, anterior osteophytosis, uncovertebral spurring and hypertrophic facet arthropathy. Prominent left paracentral dorsal disc osteophyte complex results in moderate-advanced narrowing of the spinal canal and left neural foramen. No prevertebral soft tissue swelling. CT/Brain/Head without Contrast IMPRESSION: 1. No acute intracranial abnormality. 2. Moderate left parietal scalp contusion/hematoma. No calvarial fracture. 3. No acute cervical spine fracture or malalignment. Degenerative changes as d escribed. Reading Location: [facility]
--- NOTE | 2025-03-11 19:43 | RAD_ITS ---
PROCEDURE: RIGHT HAND MIN 3 VIEWS 03/11/2025 REASON FOR EXAM: INJURY TECHNIQUE: Procedure Code: ANGELA Modality: DX Procedure: HAND MIN 3 VIEWS Laterality: Right COMPARISON: None. FINDINGS: No acute fracture or dislocation. Alignment is anatomic. Mild diffuse interphalangeal joint space narrowing. No aggressive osseous lesion. No marked soft tissue swelling or radiopaque foreign body. RAD/Hand Min 3 Views IMPRESSION: No acute fracture or dislocation. Reading Location: [facility]
[2025-03-11 20:46] VITALS: BP 190/62; PULSE 64; RESP 16; O2SAT 95
[2025-03-11 20:50] VITALS: BP 190/69; PULSE 57; RESP 18; TEMP 37; O2SAT 98
--- NOTE | 2025-03-11 20:58 | ED.RN ---
bp was abnormally high at discharge after taking her blood pressure three times in the left arm over a span of 10 minutes. discharge blood pressure was 190/69. Dr. Snell was notified and he advised the patient to follow up with her PCP as long as she was feeling well. Patient and family voiced understanding and stated she takes her blood pressure at home regularly and would follow up with her primary doctor.
== END 2025-03-11 21:00 | disposition home or self-care (01) ==
PROVIDERS: Emergency Provider Emergency Medicine; PCP Family Medicine; Visit Provider Emergency Medicine
DX: S06.9X1A Unspecified intracranial injury with loss of consciousness of 30 minutes or less, initial encounter (principal); S00.03XA Contusion of scalp, initial encounter; S16.1XXA Strain of muscle, fascia and tendon at neck level, initial encounter; S39.012A Strain of muscle, fascia and tendon of lower back, initial encounter; S60.221A Contusion of right hand, initial encounter; W19.XXXA Unspecified fall, initial encounter
CPT/HCPCS: 70450; 72125; 73130; 99282

== ENCOUNTER → 2025-04-03 | Outpatient (CLI) | payer MEDICARE, SELFPAY ==
[2025-04-03 11:20] LABS: Mucous, Urine 0 SEEN /hpf (<or=2+); Red Blood Cells-Urine 0 SEEN /hpf (0-5)
[2025-04-03 12:31] LABS: Hematocrit 35.1 % (37-47); Hemoglobin 11.8 g/dL (12.0-15.0); Immature Granulocytes Count 0.020 X10^3/uL (0.0-0.0); Mean Corp Hgb Conc 33.6 g/dL (32-36); Mean Corpuscular Volume 99.2 fL (81-99); Mean Platelet Vol. 10.8 fl (6.2-12.0); NRBC Flagged by Analyzer 0 % (0-5); Platelet Count 196 K/mm3 (150-450); RBC Distribution Width CV 13.7 % (11.6-14.6); RBC Distribution Width SD 49.9 fl (35.1-43.9); Red Blood Count 3.54 M/mm3 (4.2-5.4); White Blood Count 6.3 K/mm3 (4.4-11.0)
[2025-04-03 13:17] LABS: PTHIN 34 pg/mL (11-61)
[2025-04-03 15:33] LABS: AST(SGOT) 32 U/L (<=31); Alanine Aminotransfer ALT/SGPT 15 U/L (<=34); Albumin, Serum 4.2 g/dL (3.4-4.8); Alkaline Phosphatase 82 U/L (35-104); Anion Gap 13 (5-15); BUN 20 mg/dL (4-19); BUN/Creat Ratio 14.9 RATIO (10-20); Calcium,Total 9.7 mg/dL (7.6-11.0); Carbon Dioxide 24.2 mmol/L (21.0-32.0); Chloride 92 mmol/L (98-108); Globulin 3.4 g/dL (2.2-4.2); Glucose 92 mg/dL (70-99); Magnesium 1.7 mg/dL (1.5-2.2); Potassium 4.7 mmol/L (3.3-5.1); Vitamin D,25 Hydroxy 48.4 ng/mL (30-100)
[2025-04-03 15:48] LABS: Color, Urine Yellow (Yellow); Glucose, Dipstick Normal (Normal); Ketone-Dipstick Negative (Negative); Leukocyte Esterase-Dipstick 500 /ul (Negative); Nitrite-Dipstick Negative (Negative); Occult Blood-Urine 25 /ul (Negative); Protein-Dipstick 30 mg/dl (Negative); Specific Gravity, Urine 1.015 (1.002-1.030); Urine Bilirubin Dipstick Negative (Negative)
[2025-04-03 16:02] LABS: Squamous Epithelial Cells - UA 0-5 SEEN /hpf (5-10)
[2025-04-03 16:25] LABS: Creatinine, Urine (random) 128.00 mg/dL (28.00-217.00); Protein, Urine (Random) 21.4 mg/dL (0.0-12.0); Protein:Creat Ratio 167 mg/g CRE (0-200)
== END | disposition home or self-care (01) ==
LOC: MFPLAB 11:02
PROVIDERS: PCP Family Medicine; Visit Provider Family Medicine
DX: R00.1 Bradycardia, unspecified (principal); N18.30 Chronic kidney disease, stage 3 unspecified; R73.02 Impaired glucose tolerance (oral); E03.9 Hypothyroidism, unspecified
CPT/HCPCS: 36415; 80053; 81001; 82306; 82570; 83036; 83735; 83970; 84156; 84439; 84443; 85025

== ENCOUNTER → 2025-04-08 | Outpatient (CLI) | payer MEDICARE, SELFPAY ==
[2025-04-08 13:03] LABS: Anion Gap 10 (5-15); BUN 18 mg/dL (4-19); BUN/Creat Ratio 14.2 RATIO (10-20); Calcium,Total 9.3 mg/dL (7.6-11.0); Carbon Dioxide 25.3 mmol/L (21.0-32.0); Chloride 93 mmol/L (98-108); Glucose 88 mg/dL (70-99); Potassium 4.6 mmol/L (3.3-5.1)
[2025-04-08 13:07] LABS: Osmolality, Urine 344 mOsm/KG
[2025-04-08 16:16] LABS: Osmolality, Serum 281 mOsm/KG (280-301)
== END | disposition home or self-care (01) ==
LOC: MFPLAB 10:03
PROVIDERS: PCP Family Medicine; Visit Provider Family Medicine
DX: I10 Essential (primary) hypertension (principal)
CPT/HCPCS: 36415; 80048; 83930; 83935